=== PATIENT | male | born 1965 | race African-American/Black ===

== ENCOUNTER 2017-06-06 10:42 | Inpatient (IN) | payer MEDICARE ==
--- NOTE | 2017-06-06 11:18 | ER Document Report ---
ED Cardiac - General Stated Complaint: BLOOD PRESSURE ISSUE Time Seen by Provider: 06/06/17 11:17 Notes: He brought over from clinic. Hypotensive. Tachycardic. Has been struggling with some hypertension for quite some time. Patient states that he takes chronic steroids. Stopped him recently. Has COPD. Has increased cough and shortness of breath. Denies fevers. Every time he stands up he wants to pass out TRAVEL OUTSIDE OF THE [place] IN LAST 30 DAYS: No - HPI Patient complains to provider of: Shortness of breath Quality of pain: None - Related Data Allergies/Adverse Reactions: No Known Allergies Allergy (Verified 09/13/14 07:52) Past Medical History - General Information source: Patient - Social History Smoking Status: Former Smoker Cigarette use (# per day): Yes Chew tobacco use (# tins/day): No Smoking Education Provided: No Frequency of alcohol use: None Drug Abuse: None Lives with: Family Family History: CAD - Past Medical History Cardiac Medical History: Reports: Hx Atrial Fibrillation, Hx Hypertension, Hx Pulmonary Embolism Pulmonary Medical History: Reports: Hx Bronchitis, Hx COPD, Hx Pneumonia Endocrine Medical History: Denies: Hx Graves' Disease, Hx Hyperthyroidism, Hx Hypothyroidism Renal/ Medical History: Denies: Hx Benign Prostatic Hyperplasia, Hx End Stage Renal Disease, Hx Kidney Stones, Hx Peritoneal Dialysis Malignancy Medical History: Denies Hx Leukemia GI Medical History: Reports: Hx Gastroesophageal Reflux Disease, Hx Ulcer Musculoskeltal Medical History: Reports Hx Arthritis Psychiatric Medical History: Reports: Hx Depression, Hx Post Traumatic Stress Disorder Traumatic Medical History: Reports: Hx Fractures Infectious Medical History: Denies: Hx HIV Past Surgical History: Reports: Hx Cardiac Catheterization - AFIB ablation, Hx Orthopedic Surgery - left ankle, Hx Tonsillectomy. Denies: Hx Pacemaker - Immunizations Immunizations up to date: Yes Hx Diphtheria, Pertussis, Tetanus Vaccination: Yes Hx Pneumococcal Vaccination: 11/23/09 Review of Systems - Review of Systems Constitutional: Malaise, Weakness EENT: No symptoms reported Cardiovascular: Palpitations, Dyspnea, Syncope Respiratory: Cough, Short of breath Gastrointestinal: No symptoms reported Genitourinary: No symptoms reported Male Genitourinary: No symptoms reported Musculoskeletal: No symptoms reported Skin: No symptoms reported Hematologic/Lymphatic: No symptoms reported Neurological/Psychological: No symptoms reported Physical Exam - Vital signs Vitals: Resp 19 06/06/17 10:56 Interpretation: Hypotensive, Tachycardic - General General appearance: Appears well, Alert - HEENT Head: Normocephalic, Atraumatic Eyes: Normal Pupils: PERRL - Respiratory Respiratory status: No respiratory distress Chest status: Nontender Breath sounds: Nonproductive cough, Wheezing Chest palpation: Normal - Cardiovascular Rhythm: Regular, Irregularly irregular, Tachycardia Heart sounds: Normal auscultation Murmur: No - Abdominal Inspection: Normal Distension: No distension Bowel sounds: Normal Tenderness: Nontender Organomegaly: No organomegaly - Back Back: Normal, Nontender - Extremities General upper extremity: Normal inspection, Nontender, Normal color, Normal ROM , Normal temperature General lower extremity: Normal inspection, Nontender, Normal color, Normal ROM , Normal temperature, Normal weight bearing. No: Deanne's sign - Neurological Neuro grossly intact: Yes Cognition: Normal Orientation: AAOx4 [place] Coma Scale Eye Opening: Spontaneous Yamil Coma Scale Verbal: Oriented Yamil Coma Scale Motor: Obeys Commands [place] Coma Scale Total: 15 Speech: Normal Motor strength normal: LUE, RUE, LLE, RLE Sensory: Normal - Psychological Associated symptoms: Normal affect, Normal mood - Skin Skin Temperature: Warm Skin Moisture: Dry Skin Color: Normal Course - Re-evaluation Re-evalutation: 06/06/17 14:47 And hypotensive. Tachycardic. Will give some fluid boluses. Blood culture. Lactic acid. Concerned the patient could be an adrenal suppression. Will give a dose of hydrocortisone. Will start on antibiotics if chest x-ray is positive - Vital Signs Vital signs: Temp Pulse Resp BP Pulse Ox 16 94/57 L 96 06/06/17 13:00 06/06/17 11:31 06/06/17 13:00 Patient with hypertension, tachycardia. Gave steroids, will order antibiotics. Will give another liter of fluid. Blood pressure still has not come up. Of note, is here now and states that his blood pressure has been in the 70s for about 2 weeks now. Chest x-ray does reveal pneumonia so we will give a course of antibiotics. Will consult with hospitalist for admission at this time - Laboratory Result Diagrams: 06/06/17 11:00 06/06/17 11:00 Laboratory results interpreted by me: 06/06/17 06/06/17 06/06/17 11:00 11:00 11:00 WBC 3.6 L Hgb 13.2 L Lymphocytes % 11.7 L Absolute Lymphocytes 0.4 L Potassium 3.5 L Creatinine 1.46 H Est GFR (Non-Af Amer) 50 L NT-Pro-B Natriuret Pep 943 H Total Protein 5.8 L Albumin 3.1 L - EKG Interpretation by Me EKG shows normal: [place], Intervals, QRS Complexes, ST-T Waves Rate: Tachycardia Rhythm: A.Fib Critical Care Note - Critical Care Note Total time excluding time spent on procedures (mins): 60 Comments: Hypotension, tachycardia Discharge - Discharge Clinical Impression: Pneumonia Qualifiers: Pneumonia type: due to unspecified organism Laterality: right Lung location: lower lobe of lung Qualified Code(s): J18.1 - Lobar pneumonia, unspecified organism Hypotension Qualifiers: Hypotension type: unspecified hypotension type Qualified Code(s): I95.9 - Hypotension, unspecified Condition: Stable Disposition: ADMITTED INPATIENT Admitting Provider: Hospitalist - Dr. theodore Unit Admitted: IMCU Referrals: ALBERTO FRANZ MD [Primary Care Provider] - Follow up as needed
[2017-06-06 11:31] LABS: ABSOLUTE LYMPHOCYTES (AUTO) 0.4 10^3/uL (0.5-4.7); ABSOLUTE MONOCYTES (AUTO) 0.4 10^3/uL (0.1-1.4); ABSOLUTE NEUT (AUTO) 2.8 10^3/uL (1.7-8.2); BASOPHILS % (AUTO) 0.4 % (0-2); EOSINOPHILS % (AUTO) 0.9 % (0-6); HEMATOCRIT 39.9 % (37.9-51.0); HEMOGLOBIN 13.2 g/dL (13.5-17.0); LYMPHOCYTES % (AUTO) 11.7 % (13-45); MEAN CORPUSCULAR HEMOGLOBIN 28.5 pg (27.0-33.4); MEAN CORPUSCULAR HGB CONC 33.1 g/dL (32.0-36.0); MEAN CORPUSCULAR VOLUME 86 fl (80-97); PLATELET COUNT 188 10^3/uL (150-450); RED BLOOD COUNT 4.63 10^6/uL (4.35-5.55); RED CELL DISTRIBUTION WIDTH 13.4 % (11.5-14.0); TOTAL CELLS COUNTED % (AUTO) 100 %; WHITE BLOOD COUNT 3.6 10^3/uL (4.0-10.5)
[2017-06-06] MEDS ORDERED: HYDROCORTISONE SOD SUCCINATE INJ/PF 100 MG/2 ML SDV IV ONE (11:31)
[2017-06-06] MEDS: NORMAL SALINE 1000 ML 1,000 ML IV PRN ×3 (11:34→20:13)
[2017-06-06 11:36] LABS: ALANINE AMINOTRANSFERASE 25 U/L (21-72); ALBUMIN 3.1 g/dL (3.5-5.0); ALKALINE PHOSPHATASE 81 U/L (38-126); ANION GAP 10 (5-19); ASPARTATE AMINO TRANSFERASE 25 U/L (17-59); BILIRUBIN,DIRECT 0.2 mg/dL (0.0-0.4); BILIRUBIN,TOTAL 0.4 mg/dL (0.2-1.3); BLOOD UREA NITROGEN 19 mg/dL (7-20); CALCIUM 8.4 mg/dL (8.4-10.2); CARBON DIOXIDE 26 mmol/L (22-30); CHLORIDE 101 mmol/L (98-107); CREATINE KINASE 157 U/L (55-170); GLUCOSE 93 mg/dL (75-110); POTASSIUM 3.5 mmol/L (3.6-5.0); SODIUM 137.1 mmol/L (137-145); TOTAL PROTEIN 5.8 g/dL (6.3-8.2)
[2017-06-06 11:44] LABS: CREATINE KINASE MB 0.81 ng/mL (<4.55)
[2017-06-06 11:48] LABS: TROPONIN I < 0.012 ng/mL
--- NOTE | 2017-06-06 12:17 | RADIOLOGY REPORT (SQ) ---
EXAM DESCRIPTION: CT HEAD WITHOUT COMPLETED DATE/TIME: 06/06/2017 12:03 pm REASON FOR STUDY: fall, loc COMPARISON: 02/10/2016 TECHNIQUE: Axial images acquired through the brain without intravenous contrast. Images reviewed wi th bone, brain and subdural windows. Images stored on PACS. All CT scanners at this facility use dose modulation, iterative reconstruction, and/or weight based d osing when appropriate to reduce radiation dose to as low as reasonably achievable (ALARA). [facility]: Dose Right [facility]: CareDose [facility]: Dose Right [facility]: Teradose 4D [facility]: Green Chips RADIATION DOSE: CT Rad equipment meets quality standard of care and radiation dose reduction techniq ues were employed. CTDIvol: 64.6 mGy. DLP: 1163 mGy-cm. mGy. LIMITATIONS: None. FINDINGS: VENTRICLES: Normal size and contour. CEREBRUM: No masses. No hemorrhage. No midline shift. No evidence for acute infarction. Normal gra y/white matter differentiation. No areas of low density in the white matter. CEREBELLUM: No masses. No hemorrhage. No alteration of density. No evidence for acute infarction. EXTRAAXIAL SPACES: No fluid collections. No masses. ORBITS AND GLOBE: No intra- or extraconal masses. Normal contour of globe without masses. CALVARIUM: No fracture. PARANASAL SINUSES: No fluid or mucosal thickening. SOFT TISSUES: No mass or hematoma. OTHER: No other significant finding. IMPRESSION: NORMAL BRAIN CT WITHOUT CONTRAST. EVIDENCE OF ACUTE STROKE: NO. COMMENT: Quality ID # [id number]: Final reports with documentation of one or more dose reduction techniques (e.g., Automated exposure control, adjustment of the mA and/or kV according to patient size, use of iterative reconstruction technique) TECHNICAL DOCUMENTATION: JOB ID: [id number] [employer]- All Rights Reserved
--- NOTE | 2017-06-06 12:22 | RADIOLOGY REPORT (SQ) ---
EXAM DESCRIPTION: CHEST SINGLE VIEW COMPLETED DATE/TIME: 06/06/2017 12:01 pm REASON FOR STUDY: cough COMPARISON: 02/10/2016 EXAM PARAMETERS: NUMBER OF VIEWS: One view. TECHNIQUE: Single frontal radiographic view of the chest acquired. RADIATION DOSE: NA LIMITATIONS: Motion. Positioning. FINDINGS: LUNGS AND PLEURA: Segmental airspace disease in the right lower lobe and to a lesser degre e the left lower lobe. No large effusions. MEDIASTINUM AND HILAR STRUCTURES: No masses. Contour normal. HEART AND VASCULAR STRUCTURES: Stable cardiomegaly. BONES: No acute findings. HARDWARE: None in the chest. OTHER: No other significant finding. IMPRESSION: Pneumonia or asymmetric edema. Clinical correlation is needed. TECHNICAL DOCUMENTATION: JOB ID: [id number] [employer]- All Rights Reserved
--- NOTE | 2017-06-06 14:01 | EKG REPORT ---
SEVERITY:- ABNORMAL ECG - ATRIAL FIBRILLATION, V-RATE 83-115 LOW VOLTAGE THROUGHOUT BORDERLINE T ABNORMALITIES, INFERIOR LEADS : Confirmed by: Qamar Martino MD 06-Jun-2017 14:00:12
[2017-06-06] MEDS ORDERED: PIPERACILLIN/TAZOBACTAM 3.375 GM VIAL IV ONE (14:43)
[2017-06-06] MEDS ORDERED: AZITHROMYCIN 250 MG TABLET PO ONE (14:44)
[2017-06-06] MEDS ORDERED: NORMAL SALINE 1000 ML 1,000 ML IV ONE (14:51)
[2017-06-06 16:46] LABS: APPEARANCE,URINE SLIGHTLY-CLOUDY; BILIRUBIN,URINE NEGATIVE (NEGATIVE); COLOR,URINE YELLOW; GLUCOSE, URINE NEGATIVE (NEGATIVE); KETONES,URINE NEGATIVE (NEGATIVE); LEUKOCYTE ESTERASE,URINE NEGATIVE (NEGATIVE); NITRITE,URINE NEGATIVE (NEGATIVE); PROTEIN,URINE NEGATIVE (NEGATIVE); URINE SPECIFIC GRAVITY 1.021
[2017-06-06 16:47] LABS: A TYPE INFLUENZA AG NEGATIVE (NEGATIVE); B INFLUENZA AG NEGATIVE (NEGATIVE)
[2017-06-06] MEDS ORDERED: VANCOMYCIN HCL 0 MG in DEXTROSE 5%-WATER 250 ML IV NR (17:15)
[2017-06-06] MEDS ORDERED: FLUDROCORTISONE ACETATE 0.1 MG TABLET PO ONE (18:00)
[2017-06-06] MEDS ORDERED: LEVALBUTEROL HCL NEB 1.25 MG/3 ML AMPUL NEB SCH (20:00)
[2017-06-06] MEDS ORDERED: BUDESONIDE NEB 0.5 MG/2 ML AMPUL NEB SCH (20:00)
[2017-06-06] MEDS ORDERED: VANCOMYCIN HCL 1,500 MG in DEXTROSE 5%-WATER 250 ML IV ONE (20:00)
[2017-06-06] MEDS ORDERED: LEVALBUTEROL HCL NEB 1.25 MG/3 ML AMPUL NEB PRN (20:19)
[2017-06-06] MEDS ORDERED: POTASSIUM CHLORIDE 10 MEQ TABLET.SA PO ONE (20:22)
[2017-06-06] MEDS ORDERED: IBUPROFEN 600 MG TABLET PO PRN (20:24)
[2017-06-06] MEDS ORDERED: ACETAMINOPHEN 325 MG TABLET PO PRN (20:25)
--- NOTE | 2017-06-06 21:17 | RADIOLOGY REPORT (SQ) ---
EXAM DESCRIPTION: KNEE RIGHT 4 VIEWS COMPLETED DATE/TIME: 06/06/2017 9:09 pm REASON FOR STUDY: fall, swelling and pain COMPARISON: None. NUMBER OF VIEWS: Four views. TECHNIQUE: AP, lateral, and both oblique radiographic images acquired of the right knee. LIMITATIONS: None. FINDINGS: MINERALIZATION: Osteopenia. BONES: Multiple bone infarcts. No acute fracture. JOINT: Joint effusion. SOFT TISSUES: No soft tissue swelling. No radio-opaque foreign body. OTHER: No other significant finding. IMPRESSION: Multiple bone infarcts. Joint effusion. TECHNICAL DOCUMENTATION: JOB ID: [id number] [employer]- All Rights Reserved
[2017-06-06] MEDS: HYDROCORTISONE SOD SUCCINATE INJ/PF 100 MG/2 ML SDV IV SCH (21:28)
[2017-06-06] MEDS: HYDROMORPHONE HCL 2 MG TABLET PO PRN (21:31)
[2017-06-06] MEDS ORDERED: MONTELUKAST SODIUM 10 MG TABLET PO SCH (22:00)
[2017-06-06] MEDS: CEFEPIME 1 GM/D5W RTU 1 GM/50 ML RTUPB IV SCH (22:44)
[2017-06-06] MEDS: METOPROLOL TARTRATE PF/INJ 5 MG/5 ML SDV IV SCH (22:45)
[2017-06-07] MEDS ORDERED: LEVALBUTEROL HCL NEB 1.25 MG/3 ML AMPUL NEB ONE (02:30)
[2017-06-07] MEDS: LEVALBUTEROL HCL NEB 1.25 MG/3 ML AMPUL NEB SCH ×2 (02:31→08:19)
[2017-06-07] MEDS: HYDROMORPHONE HCL 2 MG TABLET PO PRN ×2 (03:02→07:39)
[2017-06-07] MEDS: METOPROLOL TARTRATE PF/INJ 5 MG/5 ML SDV IV SCH ×3 (03:55→10:29)
[2017-06-07 04:33] LABS: ABSOLUTE LYMPHOCYTES (AUTO) 0.9 10^3/uL (0.5-4.7); ABSOLUTE MONOCYTES (AUTO) 1.3 10^3/uL (0.1-1.4); ABSOLUTE NEUT (AUTO) 11.1 10^3/uL (1.7-8.2); BASOPHILS % (AUTO) 0.1 % (0-2); HEMATOCRIT 35.1 % (37.9-51.0); HEMOGLOBIN 11.7 g/dL (13.5-17.0); LYMPHOCYTES % (AUTO) 6.5 % (13-45); MEAN CORPUSCULAR HEMOGLOBIN 28.4 pg (27.0-33.4); MEAN CORPUSCULAR HGB CONC 33.4 g/dL (32.0-36.0); MEAN CORPUSCULAR VOLUME 85 fl (80-97); MONOCYTES % (AUTO) 9.6 % (3-13); PLATELET COUNT 184 10^3/uL (150-450); RED BLOOD COUNT 4.13 10^6/uL (4.35-5.55); RED CELL DISTRIBUTION WIDTH 13.7 % (11.5-14.0); SEGMENTED NEUTROPHILS % (AUTO) 83.8 % (42-78); TOTAL CELLS COUNTED % (AUTO) 100 %
[2017-06-07 04:42] LABS: WHITE BLOOD COUNT 13.2 10^3/uL (4.0-10.5)
[2017-06-07 04:58] LABS: ANION GAP 6 (5-19); BLOOD UREA NITROGEN 13 mg/dL (7-20); CALCIUM 8.7 mg/dL (8.4-10.2); CARBON DIOXIDE 25 mmol/L (22-30); CHLORIDE 109 mmol/L (98-107); GLUCOSE 112 mg/dL (75-110); POTASSIUM 4.3 mmol/L (3.6-5.0); SODIUM 139.9 mmol/L (137-145)
[2017-06-07] MEDS: HYDROCORTISONE SOD SUCCINATE INJ/PF 100 MG/2 ML SDV IV SCH (06:16)
[2017-06-07] MEDS: NORMAL SALINE 1000 ML 1,000 ML IV PRN (06:17)
[2017-06-07] MEDS ORDERED: BUDESONIDE NEB 0.5 MG/2 ML AMPUL NEB SCH (08:00)
[2017-06-07] MEDS ORDERED: VANCOMYCIN HCL 1,500 MG in DEXTROSE 5%-WATER 250 ML IV SCH ×2 (10:00→22:00)
[2017-06-07] MEDS ORDERED: MIDODRINE HCL 5 MG TABLET PO SCH (10:00)
[2017-06-07] MEDS ORDERED: PREDNISONE 20 MG TABLET PO SCH (10:00)
[2017-06-07] MEDS ORDERED: FLUDROCORTISONE ACETATE 0.1 MG TABLET PO SCH (10:00)
[2017-06-07] MEDS: CEFEPIME 1 GM/D5W RTU 1 GM/50 ML RTUPB IV SCH (10:27)
[2017-06-07 13:32] VITALS: BP 105/65
--- NOTE | 2017-06-07 17:07 | PDOC H&P ---
History of Present Illness Admission Date/PCP: 06/06/17 16:10 ALBERTO FRANZ MD Phone number [phone] Patient complains of: Falling History of Present Illness: KERRI STODDARD is a 52 year old male history of COPD, rheumatoid arthritis on Xeljanz and prednisone, chronic atrial fibrillation status post ablation and hypotension for which his metoprolol was discontinued presented after he fell 3 times today. Patient was seen at the [facility] which is a [facility] Patient was being seen there and was noted to be hypotensive. Patient was sent here by EMS. States he been hypotensive over the last 2 months with a recent was taken off his metoprolol. Patient states he continues to be hypotensive. Patient states he was aware of when he was falling down but was unable to stop himself. The last time he fell with his right leg underneath him resulting in quite some pain. She did report having a cough for 2 weeks that was productive of shannon sputum. Patient patient denied any fevers or chills. ED patient was noted to be extremely hypotensive and was given 3 L of fluid and hydrocortisone. Patient was also found to have what looks like a right lower lobe pneumonia and was given ceftriaxone and azithromycin. Hospitalist was called to admit patient for hypotension with for a pneumonia. Past Medical History Cardiac Medical History: Reports: Atrial Fibrillation, Hypertension, Pulmonary Embolism Pulmonary Medical History: Reports: Bronchitis, Chronic Obstructive Pulmonary Disease (COPD), Pneumonia Endocrine Medical History: Denies: Hyperthyroidism, Hypothyroidism Renal/ Medical History: Denies: End Stage Renal Disease Malignancy Medical History: Denies: Breast Cancer, Cervical Cancer, Leukemia, Ovarian Cancer GI Medical History: Reports: Gastroesophageal Reflux Disease Musculoskeltal Medical History: Reports: Arthritis Psychiatric Medical History: Reports: Depression, Post Traumatic Stress Disorder Hematology: Denies: Anemia, Hemophilia, Sickle Cell Disease Infectious Medical History: Denies: HIV Past Surgical History Past Surgical History: Reports: Cardiac Catheterization - AFIB ablation, Orthopedic Surgery - left ankle, Tonsillectomy Denies: Pacemaker Social History Lives with: Family Smoking Status: Former Smoker Frequency of Alcohol Use: None Hx Recreational Drug Use: No Hx Prescription Drug Abuse: No - Advance Directive Resuscitation Status: Full Code Family History Family History: CAD Parental Family History Reviewed: No Children Family History Reviewed: No Sibling(s) Family History Reviewed.: No Medication/Allergy Home Medications: Levofloxacin [Levaquin 750 mg Tablet] 750 mg PO DAILY 10 Days #10 tab 06/07/17 Midodrine HCl [Proamatine 5 mg Tablet] 5 mg PO TID #90 tablet 06/07/17 Allergies/Adverse Reactions: No Known Allergies Allergy (Verified 09/13/14 07:52) Review of Systems Constitutional: ABSENT: chills, fever(s), headache(s), weight gain, weight loss Eyes: ABSENT: visual disturbances Ears: ABSENT: hearing changes Cardiovascular: ABSENT: chest pain, dyspnea on exertion, edema, orthropnea, palpitations Respiratory: PRESENT: cough. ABSENT: hemoptysis Gastrointestinal: ABSENT: abdominal pain, constipation, diarrhea, hematemesis, hematochezia, nausea, vomiting Genitourinary: ABSENT: dysuria, hematuria Musculoskeletal: PRESENT: other - Right knee pain. ABSENT: joint swelling Integumentary: ABSENT: rash, wounds Neurological: PRESENT: syncope. ABSENT: abnormal gait, abnormal speech, confusion, dizziness, focal weakness Psychiatric: ABSENT: anxiety, depression, homidical ideation, suicidal ideation Endocrine: ABSENT: cold intolerance, heat intolerance, polydipsia, polyuria Hematologic/Lymphatic: ABSENT: easy bleeding, easy bruising Physical Exam Vital Signs: Temp Pulse Resp BP Pulse Ox 21 H 93/67 L 95 06/06/17 16:01 06/06/17 16:00 06/06/17 16:01 Intake & Output 06/05/17 06/06/17 06/07/17 06:59 06:59 06:59 Weight 107.8 kg General appearance: PRESENT: no acute distress, well-developed, well-nourished Head exam: PRESENT: atraumatic, normocephalic, other - Laceration over the left eye Eye exam: PRESENT: EOMI. ABSENT: scleral icterus Mouth exam: PRESENT: moist Neck exam: ABSENT: carotid bruit, JVD, lymphadenopathy, thyromegaly Respiratory exam: PRESENT: clear to auscultation alessia. ABSENT: rales, rhonchi, wheezes Cardiovascular exam: PRESENT: RRR. ABSENT: diastolic murmur, rubs, systolic murmur Pulses: PRESENT: normal dorsalis pedis pul Vascular exam: PRESENT: normal capillary refill GI/Abdominal exam: PRESENT: normal bowel sounds, soft. ABSENT: distended, guarding, mass, organolmegaly, rebound, tenderness Rectal exam: PRESENT: deferred Extremities exam: PRESENT: full ROM. ABSENT: calf tenderness, clubbing, pedal edema Musculoskeletal exam: PRESENT: other - Right knee swelling with tenderness on palpation no visible erythema Neurological exam: PRESENT: alert, awake, oriented to person, oriented to place , oriented to time, oriented to situation, CN II-XII grossly intact. ABSENT: motor sensory deficit Psychiatric exam: PRESENT: appropriate affect, normal mood. ABSENT: homicidal ideation, suicidal ideation Skin exam: PRESENT: dry, intact, warm. ABSENT: cyanosis, rash Results Laboratory Results: 06/06/17 06/06/17 06/06/17 11:00 11:00 11:00 WBC 3.6 L RBC 4.63 Hgb 13.2 L Hct 39.9 MCV 86 MCH 28.5 MCHC 33.1 RDW 13.4 Plt Count 188 Seg Neutrophils % 76.0 Lymphocytes % 11.7 L Monocytes % 11.0 Eosinophils % 0.9 Basophils % 0.4 Absolute Neutrophils 2.8 Absolute Lymphocytes 0.4 L Absolute Monocytes 0.4 Absolute Eosinophils 0.0 Absolute Basophils 0.0 Sodium 137.1 Potassium 3.5 L Chloride 101 Carbon Dioxide 26 Anion Gap 10 BUN 19 Creatinine 1.46 H Est GFR ( Amer) > 60 Est GFR (Non-Af Amer) 50 L Glucose 93 Calcium 8.4 Total Bilirubin 0.4 Direct Bilirubin 0.2 AST 25 ALT 25 Alkaline Phosphatase 81 Creatine Kinase 157 CK-MB (CK-2) 0.81 Troponin I < 0.012 Total Protein 5.8 L Albumin 3.1 L Random Cortisol 06/06/17 11:00 WBC RBC Hgb Hct MCV MCH MCHC RDW Plt Count Seg Neutrophils % Lymphocytes % Monocytes % Eosinophils % Basophils % Absolute Neutrophils Absolute Lymphocytes Absolute Monocytes Absolute Eosinophils Absolute Basophils Sodium Potassium Chloride Carbon Dioxide Anion Gap BUN Creatinine Est GFR ( Amer) Est GFR (Non-Af Amer) Glucose Calcium Total Bilirubin Direct Bilirubin AST ALT Alkaline Phosphatase Creatine Kinase CK-MB (CK-2) Troponin I Total Protein Albumin Random Cortisol 15.80 Impressions: Head CT 06/06/17 11:22 IMPRESSION: NORMAL BRAIN CT WITHOUT CONTRAST. EVIDENCE OF ACUTE STROKE: NO. Chest X-Ray 06/06/17 11:29 IMPRESSION: Pneumonia or asymmetric edema. Clinical correlation is needed. Assessment & Plan - Diagnosis (1) Pneumonia Qualifiers: Pneumonia type: due to unspecified organism Laterality: right Lung location: lower lobe of lung Qualified Code(s): J18.1 - Lobar pneumonia, unspecified organism Plan: Patient with right lower lobe possible pneumonia. Patient did complain of productive cough. Patient afebrile without leukocytosis however does have a low white count this is concerning as patient is on Xeljanz and which is immunosuppressive drug along chronic steroids for his rheumatoid arthritis. Blood cultures were drawn and patient started on cefepime and vancomycin. (2) Acute renal failure Is this a current diagnosis for this admission?: Yes Plan: Patient with acute renal failure most likely due to dehydration. Patient creatinine was 1.46 is 1.16 prior to that. Will hydrate patient and repeat BMP in the morning. (3) Fall Is this a current diagnosis for this admission?: Yes Plan: Fall possibly due to orthostatic hypotension from dehydration. Will check orthostatics and hydrate patient aggressively overnight. Patient started on Florinef, Midrin, hydrocortisone. Compression stockings placed. Random cortisol was normal. Cortisol was checked as patient is on chronic steroids and there was concern for adrenal insufficiency however patient electrolytes are normal. (4) Effusion, right knee Is this a current diagnosis for this admission?: Yes Plan: Right knee effusion will order x-ray of the right knee to make sure there is no fracture considered in fact the patient is on chronic steroids. Patient started on NSAID and p.o. steroids. (5) Hypotension Qualifiers: Hypotension type: unspecified hypotension type Qualified Code(s): I95.9 - Hypotension, unspecified Plan: Patient persistently hypotensive most likely due to dehydration. Patient metoprolol was discontinued due to his hypotension. Will check orthostatic blood pressures. Continue aggressive hydration, compression stocking, Midodrine ,Florinef and hydrocortisone. - Time Time Spent: 30 to 50 Minutes Anticipated discharge: Home Within: Other - Inpatient Certification Medical Necessity: Need for IV Antibiotics
--- NOTE | 2017-06-07 17:18 | PDOC DISCHARGE SUMMARY ---
General - Admit/Disc Date/PCP Admission Date/Primary Care Provider: 06/06/17 16:10 ALBERTO FRANZ MD Discharge Date: 06/07/17 - Discharge Diagnosis (2) Acute renal failure Is this a current diagnosis for this admission?: Yes (3) Fall Is this a current diagnosis for this admission?: Yes (4) Effusion, right knee Is this a current diagnosis for this admission?: Yes - Additional Information Resuscitation Status: Full Code Discharge Diet: Other (Comments) Discharge Activity: Activity As Tolerated Prescriptions: Levofloxacin [Levaquin 750 mg Tablet] 750 mg PO DAILY 10 Days #10 tab Midodrine HCl [Proamatine 5 mg Tablet] 5 mg PO TID #90 tablet Home Medications: Levofloxacin [Levaquin 750 mg Tablet] 750 mg PO DAILY 10 Days #10 tab 06/07/17 Midodrine HCl [Proamatine 5 mg Tablet] 5 mg PO TID #90 tablet 06/07/17 History of Present Illness History of Present Illness: KERRI STODDARD is a 52 year old male history of COPD, rheumatoid arthritis on Xeljanz and prednisone, chronic atrial fibrillation status post ablation and hypotension for which his metoprolol was discontinued presented after he fell 3 times today. Patient was seen at the [facility] which [facility] a [facility] Patient was being seen there and was noted to be hypotensive. Patient was sent here by EMS. States he been hypotensive over the last 2 months with a recent was taken off his metoprolol. Patient states he continues to be hypotensive. Patient states he was aware of when he was falling down but was unable to stop himself. The last time he fell with his right leg underneath him resulting in quite some pain. She did report having a cough for 2 weeks that was productive of shannon sputum. Patient patient denied any fevers or chills. ED patient was noted to be extremely hypotensive and was given 3 L of fluid and hydrocortisone. Patient was also found to have what looks like a right lower lobe pneumonia and was given ceftriaxone and azithromycin. Hospitalist was called to admit patient for hypotension with for a pneumonia. Original H&P dictated by myself Dr. Shelbi Stephen. Refer to H&P dictated by me for complete details. Hospital Course Hospital Course: Patient presented for multiple falls was found to be hypotensive. Patient was orthostatic on blood pressures recorded this morning however he was asymptomatic. Patient has been on Midodrine 5mg po 3 times daily, Florinef 0.1 daily and hydrocortisone. Patient also given aggressive fluid hydration. Concerned the patient may have been dehydrated when this happened as patient creatinine was elevated on presentation is now normal. His tachycardia resolved. Patient advised that he should wear his prescient stockings especially if he will be standing for quite some period of time. Patient also instructed at a little salt to his food. Encourage patient to change positions slowly to allow his blood pressure to adjust. CT scan of the head with normal. Patient did have a right lower lobe finding and because he is on immunosuppressants for his rheumatoid arthritis Xeljanz and prednisone patient is being treated for pneumonia. Patient was given vancomycin and cefepime. Blood cultures are drawn. There is no growth on blood pressure cultures. Patient discharged on Levaquin 750 mg p.o. for 10 days. Explained to patient that because he is immunocompromise it is best to treat when something is seen as he may not have the normal response his fever and leukocytosis. Patient stated he felt better better and would like to go home as he is concerned about jennifer any diseases while in the hospital. Patient did work with PT and OT prior to being discharged. Patient stated he did well and felt well. Patient states that his right knee feels much better and the swelling has gone down. Patient is being discharged home with a prescription for Levaquin and Midodrine. Patient to follow-up at the [facility]. Physical Exam Vital Signs: Temp Pulse Resp BP Pulse Ox 99.0 F 94 16 105/65 97 06/07/17 13:31 06/07/17 13:31 06/07/17 13:31 06/07/17 13:31 06/07/17 13:31 Intake & Output 06/06/17 06/07/17 06/08/17 06:59 06:59 06:59 Intake Total 542 350 Output Total 900 800 Balance -358 -450 Weight 108 kg 108.6 kg General appearance: PRESENT: no acute distress, well-developed, well-nourished Head exam: PRESENT: atraumatic, normocephalic Eye exam: PRESENT: EOMI. ABSENT: scleral icterus Mouth exam: PRESENT: moist Teeth exam: PRESENT: poor dentation Neck exam: ABSENT: carotid bruit, JVD, lymphadenopathy, thyromegaly Respiratory exam: PRESENT: clear to auscultation alessia. ABSENT: rales, rhonchi, wheezes Cardiovascular exam: PRESENT: RRR. ABSENT: diastolic murmur, rubs, systolic murmur GI/Abdominal exam: PRESENT: normal bowel sounds, soft. ABSENT: distended, guarding, mass, organolmegaly, rebound, tenderness Rectal exam: PRESENT: deferred Extremities exam: PRESENT: full ROM. ABSENT: calf tenderness, clubbing, pedal edema Musculoskeletal exam: PRESENT: other - Right knee swelling improved decrease tenderness. Neurological exam: PRESENT: alert, awake, oriented to person, oriented to place , oriented to time, oriented to situation, CN II-XII grossly intact. ABSENT: motor sensory deficit Psychiatric exam: PRESENT: appropriate affect, normal mood. ABSENT: homicidal ideation, suicidal ideation Skin exam: PRESENT: dry, intact, warm. ABSENT: cyanosis, rash Results Laboratory Results: 06/07/17 04:15 06/07/17 04:15 06/07/17 06/07/17 04:15 04:15 WBC 13.2 H D RBC 4.13 L Hgb 11.7 L Hct 35.1 L MCV 85 MCH 28.4 MCHC 33.4 RDW 13.7 Plt Count 184 Seg Neutrophils % 83.8 H Lymphocytes % 6.5 L Monocytes % 9.6 Eosinophils % 0.0 Basophils % 0.1 Absolute Neutrophils 11.1 H Absolute Lymphocytes 0.9 Absolute Monocytes 1.3 Absolute Eosinophils 0.0 Absolute Basophils 0.0 Sodium 139.9 Potassium 4.3 Chloride 109 H Carbon Dioxide 25 Anion Gap 6 BUN 13 Creatinine 0.87 Est GFR ( Amer) > 60 Est GFR (Non-Af Amer) > 60 Glucose 112 H Calcium 8.7 Impressions: Knee X-Ray 06/06/17 00:00 IMPRESSION: Multiple bone infarcts. Joint effusion. Head CT 06/06/17 11:22 IMPRESSION: NORMAL BRAIN CT WITHOUT CONTRAST. EVIDENCE OF ACUTE STROKE: NO. Chest X-Ray 06/06/17 11:29 IMPRESSION: Pneumonia or asymmetric edema. Clinical correlation is needed. Qualifiers PATEINT BEING DISCHARGED WITH ANY OF THE FOLLOWING DIAGNOSIS?: No Plan Time Spent: Greater than 30 Minutes - she is
== END 2017-06-07 13:57 | disposition home or self-care (01) | DRG 682 ==
LOC: ER 10:42 → EH 16:10 → 3W 06-07 02:28
PROVIDERS: ADMIT Emergency Medicine; ATTEND Emergency Medicine
DX: N17.9 Acute kidney failure, unspecified (principal); J18.1 Lobar pneumonia, unspecified organism; I95.1 Orthostatic hypotension; E86.0 Dehydration; M25.461 Effusion, right knee; J44.9 Chronic obstructive pulmonary disease, unspecified; M06.9 Rheumatoid arthritis, unspecified; I48.2 Chronic atrial fibrillation; Z79.899 Other long term (current) drug therapy; Z87.891 Personal history of nicotine dependence; I10 Essential (primary) hypertension; Z86.711 Personal history of pulmonary embolism; K21.9 Gastro-esophageal reflux disease without esophagitis; W19.XXXA Unspecified fall, initial encounter; Y93.9 Activity, unspecified; Y92.9 Unspecified place or not applicable; Y99.9 Unspecified external cause status
CPT/HCPCS: 36415; 70450; 71045; 80048; 80053; 81001; 82533; 82550; 82553; 83605; 83880; 84484; 85025; 87040; 87070; 87205; 87804; 93005; 93010; 94640; 96361; 96374; 96375; 99291; J0692; J1720; J2543; J3370; J3490; J7030; J7060; J7512

== ENCOUNTER 2018-04-26 01:27 | Emergency (ER) | payer OTHER, MEDICARE ==
--- NOTE | 2018-04-26 01:38 | ER Document Report ---
ED General - General Mode of Arrival: Medic Information source: Patient TRAVEL OUTSIDE OF THE [place] IN LAST 30 DAYS: No <LISETH GHOSH - Last Filed: 04/26/18 05:50> <CT GLASGOW - Last Filed: 04/26/18 07:51> - General Stated Complaint: FALL Time Seen by Provider: 04/26/18 01:27 Notes: Patient is a 53 year old male with afib, PTSD, COPD, emphysema, BLE neuropathy and a history of a stroke (2015) presents to the emergency department via EMS complaining of left hip pain onset today. Patient states he was sleeping in a chair when he proceeded to fall on the floor, on his buttocks with his left leg under his right. Patient states he had left hip surgery in October 2017 and a repeat left hip surgery in March 2018. He states he noticed some increased swelling since the fall and also noticed his left leg was shorter than the right. Patient denies any head trauma, nausea, vomiting, sore throat, rhinorrhea , earaches, headaches, back pain or neck pain. Patient is currently on Xarelto for his afib. [facility] Patient had his [facility] hip surgery at [facility] by Dr. Beni Hawthorne. (LISETH GHOSH) - Related Data Allergies/Adverse Reactions: No Known Allergies Allergy (Verified 03/23/18 16:45) Past Medical History - General Information source: Patient - Social History Smoking Status: Current Every Day Smoker Cigarette use (# per day): Yes - Uses E-cig Chew tobacco use (# tins/day): No Smoking Education Provided: No Frequency of alcohol use: None Drug Abuse: None Family History: CAD - Past Medical History Cardiac Medical History: Reports: Hx Atrial Fibrillation, Hx Hypertension, Hx Pulmonary Embolism Pulmonary Medical History: Reports: Hx Bronchitis, Hx COPD, Hx Pneumonia GI Medical History: Reports: Hx Gastroesophageal Reflux Disease, Hx Ulcer Musculoskeletal Medical History: Reports Hx Arthritis Psychiatric Medical History: Reports: Hx Depression, Hx Post Traumatic Stress Disorder Traumatic Medical History: Reports: Hx Fractures Past Surgical History: Reports: Hx Cardiac Catheterization - AFIB ablation, Hx Orthopedic Surgery - left ankle, Hx Tonsillectomy - Immunizations Immunizations up to date: Yes Hx Diphtheria, Pertussis, Tetanus Vaccination: Yes Hx Pneumococcal Vaccination: 11/23/09 <LISETH GHOSH - Last Filed: 04/26/18 05:50> Review of Systems - Review of Systems Constitutional: No symptoms reported EENT: No symptoms reported Cardiovascular: No symptoms reported Respiratory: No symptoms reported Gastrointestinal: No symptoms reported Genitourinary: No symptoms reported Male Genitourinary: No symptoms reported Musculoskeletal: See HPI Skin: No symptoms reported Hematologic/Lymphatic: No symptoms reported Neurological/Psychological: No symptoms reported -: Yes All other systems reviewed and negative <LISETH GHOSH - Last Filed: 04/26/18 05:50> Physical Exam <LISETH GHOSH - Last Filed: 04/26/18 05:50> <CT GLASGOW - Last Filed: 04/26/18 07:51> - Vital signs Vitals: Temp Pulse Resp BP Pulse Ox 98.7 F 89 15 116/76 98 04/26/18 02:05 04/26/18 02:05 04/26/18 02:05 04/26/18 02:05 04/26/18 02:05 - Notes Notes: GENERAL: Alert, interacts well. No acute distress. HEAD: Normocephalic, atraumatic. EYES: Pupils equal, round, and reactive to light. Extraocular movements intact. ENT: Oral mucosa moist, tongue midline. NECK: Full range of motion. Supple. Trachea midline. LUNGS: Clear to auscultation bilaterally, no wheezes, rales, or rhonchi. No respiratory distress. HEART: Irregularly irregular. No murmurs, gallops, or rubs. ABDOMEN: Soft, non-tender. Non-distended. Bowel sounds present in all 4 quadrants. EXTREMITIES: Moves all 4 extremities spontaneously.Unable to test ROM of LLE due to pain. 2+ pitting edema in the left lower extremity, trace pitting edema in the RLE. Tenderness to palpation to the joint line of left knee and just below the patella, no signs of effusion. Left thigh grossly swollen. LLE 1.5 inch shorter than RLE. LLE is slightly internally rotated, still somewhat externally rotated however less so than RLE. NEUROLOGICAL: Alert and oriented x3. Normal speech. Decreased sensation to left foot, patient states this is baseline. PSYCH: Normal affect, normal mood. SKIN: Warm, dry. Post operative bandage still intact over left hip surgical incision. No rashes or lesions noted. (LISETH GHOSH) Course - Laboratory Result Diagrams: 04/26/18 01:45 04/26/18 01:45 <LISETH GHOSH - Last Filed: 04/26/18 05:50> - Laboratory Result Diagrams: 04/26/18 01:45 04/26/18 01:45 <CT GLASGOW - Last Filed: 04/26/18 07:51> - Re-evaluation Re-evalutation: 04/26/18 05:17 Attempted reduction twice, both times felt a clunk but then immediately placed hip back into neutral position and saw that the leg was still significantly shorter than the right one. At this time of call Dr. Winston the orthopedic surgeon on-call who is going to come to the ER and attempt reduction himself. 04/26/18 06:15 04/26/18 07:43 Dr. Winston was able to reduce the left hip without complications while I ran the conscious sedation. Post-reduction film shows good reduction, placed in a knee immobilizer and discharged to home. Ambulance arranged for transport home as he is nonweightbearing and does not have his walker with him. (CT GLASGOW) - Vital Signs Vital signs: Temp Pulse Resp BP Pulse Ox 98.7 F 110 H 14 153/94 H 100 04/26/18 02:05 04/26/18 07:33 04/26/18 07:33 04/26/18 07:33 04/26/18 07:33 - Laboratory Laboratory results interpreted by me: 04/26/18 04/26/18 04/26/18 01:45 01:45 01:45 RBC 4.21 L Hgb 10.7 L Hct 32.1 L MCV 76 L MCH 25.4 L RDW 18.8 H Monocytes % 18.3 H Eosinophils % 6.3 H PT 16.6 H APTT 44.3 H Chloride 97 L Alkaline Phosphatase 152 H Procedures - Conscious Sedation Conscious sedation Time started: 03:46 Consent obtained: Yes Medications administered: Diprivan I personally performed/intraservice time: Sedation, Procedure - Joint Reduction/Fracture Care Left Hip Time completed: 03:55 Consent obtained: Yes Conscious sedation: Yes Pre-procedure NV exam: Yes Post-procedure NV exam: Yes Post-reduction x-ray: Joint not reduced Reduction attempts: 2 - 2nd attempt at 05:11 <LISETH GHOSH - Last Filed: 04/26/18 05:50> - Conscious Sedation Conscious sedation Time started: 03:40 Time completed: 03:57 Indication: left hip dislocation Last meal: 11 a.m. 04/25/2018 Prior complications: Other Pt with a severe systemic disease.: P3. - ASA Classification. Airway Evaluation: Large tongue Mallampati Classification: Class 2 Used during procedure: Suction available, IV access obtained, Pulse ox on pt., exhaust emissions inspector on pt. I personally performed/intraservice time: 30 min or less Complications: Yes - unable to reduce hip - Immobilization left knee Pre-Proc Neuro Vasc Exam: Normal Immobilizer type: Knee immobilizer Performed by: PCT Post-Proc Neuro Vasc Exam: Normal, Unchanged from pre-exam Alignment checked and good: Yes - Joint Reduction/Fracture Care Left Hip Reduction attempts: 3 - 2nd attempt at 05:11, 3rd at 0708 Complications: Yes - unable to reduce x 2 <CT GLASGOW - Last Filed: 04/26/18 07:51> - Conscious Sedation Conscious sedation Notes: Second attempt started at 458 and ended at 514, same indication, same preparation, propofol was used again. Still unable to reduce the hip, patient had approximately 30 seconds of apnea and hypoxia, patient was bagged through using a bag valve mask and then he started breathing again on his own. No further complications aside from still not being able to reduce the hip. Third reduction attempt was taken at 708, started at 708 and ended at 733. Dr. Winston was the one manipulating the hip and he was able to obtain successful reduction of the left hip. I performed the sedation. No complications. ( CT GLASGOW) - Joint Reduction/Fracture Care Left Hip Notes: 04/26/18 07:49 After final attempt postreduction x-rays showed good alignment. (CT GLASGOW) Discharge <LISETH GHOSH - Last Filed: 04/26/18 05:50> <CT GLASGOW - Last Filed: 04/26/18 07:51> - Discharge Clinical Impression: Posterior dislocation of left hip, initial encounter, Presence of left artificial hip joint Condition: Stable Disposition: HOME, SELF-CARE Additional Instructions: Please use your walker whenever walking, please sleep on your back, please use the wedge pillow between your legs and use a knee immobilizer to stop from bending your hip. Please return to the emergency department for numbness, tingling, weakness, increasing pain. Please follow-up with your orthopedic surgeon on Friday. At least call their office and let them know that you dislocated yor hip and we were able to reduce it. Referrals: PRACHI BELL MD [Primary Care Provider] - Follow up tomorrow Scribe Attestation: 04/26/18 07:51 I personally performed the services described in the documentation, reviewed and edited the documentation which was dictated to the scribe in my presence, and it accurately records my words and actions. (CT GLASGOW) Scribe Documentation - Scribe Written by Demetris:: Demetris Kuhn, 04/26/2018 02:17 acting as scribe for :: Tori <LISETH GHOSH - Last Filed: 04/26/18 05:50>
[2018-04-26] MEDS ORDERED: FENTANYL CITRATE INJ/PF 100 MCG/2 ML AMPUL IV PRN (01:39)
[2018-04-26 01:57] LABS: ABSOLUTE EOSINOPHILS # (AUTO) 0.3 10^3/uL (0.0-0.6); ABSOLUTE LYMPHOCYTES (AUTO) 0.8 10^3/uL (0.5-4.7); ABSOLUTE MONOCYTES (AUTO) 0.8 10^3/uL (0.1-1.4); ABSOLUTE NEUT (AUTO) 2.4 10^3/uL (1.7-8.2); BASOPHILS % (AUTO) 0.6 % (0-2); EOSINOPHILS % (AUTO) 6.3 % (0-6); HEMATOCRIT 32.1 % (37.9-51.0); HEMOGLOBIN 10.7 g/dL (13.5-17.0); LYMPHOCYTES % (AUTO) 19.4 % (13-45); MEAN CORPUSCULAR HEMOGLOBIN 25.4 pg (27.0-33.4); MEAN CORPUSCULAR HGB CONC 33.3 g/dL (32.0-36.0); MEAN CORPUSCULAR VOLUME 76 fl (80-97); MONOCYTES % (AUTO) 18.3 % (3-13); PLATELET COUNT 317 10^3/uL (150-450); RED BLOOD COUNT 4.21 10^6/uL (4.35-5.55); RED CELL DISTRIBUTION WIDTH 18.8 % (11.5-14.0); SEGMENTED NEUTROPHILS % (AUTO) 55.4 % (42-78); TOTAL CELLS COUNTED % (AUTO) 100 %; WHITE BLOOD COUNT 4.3 10^3/uL (4.0-10.5)
[2018-04-26 02:01] LABS: INTERNATIONAL RATION (INR) 1.27; PROTHROMBIN TIME 16.6 SEC (11.4-15.4)
[2018-04-26 02:02] LABS: PARTIAL THROMBOPLASTIN TIME 44.3 SEC (23.5-35.8)
[2018-04-26 02:07] LABS: ALANINE AMINOTRANSFERASE 33 U/L (21-72); ALBUMIN 3.8 g/dL (3.5-5.0); ALKALINE PHOSPHATASE 152 U/L (38-126); ANION GAP 14 (5-19); ASPARTATE AMINO TRANSFERASE 37 U/L (17-59); BILIRUBIN,DIRECT 0.3 mg/dL (0.0-0.4); BILIRUBIN,TOTAL 0.7 mg/dL (0.2-1.3); BLOOD UREA NITROGEN 16 mg/dL (7-20); CALCIUM 9.2 mg/dL (8.4-10.2); CARBON DIOXIDE 27 mmol/L (22-30); CHLORIDE 97 mmol/L (98-107); GLUCOSE 101 mg/dL (75-110); POTASSIUM 4.1 mmol/L (3.6-5.0); SODIUM 138.1 mmol/L (137-145); TOTAL PROTEIN 6.8 g/dL (6.3-8.2)
--- NOTE | 2018-04-26 02:34 | RADIOLOGY REPORT (SQ) ---
EXAM DESCRIPTION: XR FEMUR 2 VIEWS COMPLETED DATE/TME: 04/26/2018 01:38 CLINICAL HISTORY: 53 years, Male, fell, left leg deformity and shortening COMPARISON: None. NUMBER OF VIEWS: 4 TECHNIQUE: 4 views of the left femur LIMITATIONS: None. FINDINGS: Status post total left hip arthroplasty. Superior dislocation of the femoral component. Osteopenia with degenerative changes of the distal femur. Serpiginous sclerotic foci of the distal femur and proximal tibia likely reflect bone infarcts versus enchondroma. There is soft tissue gas along the lateral aspect of the hip which may be postoperative in nature. Overlying skin tong. No discrete fracture. IMPRESSION: Superior hip dislocation. Soft tissue gas may be postoperative in nature. Osteopenia. 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 copyright 2010 [employer]- All Rights Reserved
[2018-04-26] MEDS ORDERED: PROPOFOL INJ 200 MG/20 ML VIAL IV ONE ×4 (02:44→07:30)
[2018-04-26] MEDS ORDERED: FENTANYL CITRATE INJ/PF 100 MCG/2 ML AMPUL IV ONE ×2 (03:57→05:11)
--- NOTE | 2018-04-26 04:24 | RADIOLOGY REPORT (SQ) ---
EXAM DESCRIPTION: XR HIP 2 OR MORE VIEWS COMPLETED DATE/TME: 04/26/2018 03:57 CLINICAL HISTORY: 53 years, Male, post-reduction attempt, still shortened COMPARISON: Left femur x-ray from today's date NUMBER OF VIEWS: 1 TECHNIQUE: AP view left hip LIMITATIONS: None. FINDINGS: Persistent superior dislocation of the femoral component. No discrete fracture. Soft tissue gas and swelling is again noted. Osteopenia. IMPRESSION: Persistent superior dislocation copyright 2010 [employer]- All Rights Reserved
[2018-04-26] MEDS ORDERED: PROPOFOL 1,000 MG/100 ML INFUS..BTL IV ONE (07:02)
[2018-04-26] MEDS ORDERED: OXYCODONE-ACETAMINOPHEN 5-325 MG TABLET PO ONE (07:36)
--- NOTE | 2018-04-26 07:51 | RADIOLOGY REPORT (SQ) ---
CLINICAL DATA: 53-year-old male status post left hip reduction TECHNICAL DATA: A single AP x-ray view of the left hip was performed on 04/26/2018 at 7:32 AM. COMPARISONS: Prior study performed on 04/26/2018 at 4:08 AM FINDINGS: Since the prior study there has been satisfactory reduction of the left hip joint dislocation as appreciated on this single projection. There are postsurgical changes superior laterally. Skin closure tong are noted. There is subcutaneous emphysema consistent with recent surgery. There is no definite acute fracture. The visualized prosthesis is grossly satisfactory in position and alignment. IMPRESSION: Satisfactory closed reduction of the left hip joint dislocation without definite hardware failure or acute fracture identified. There are recent postsurgical changes as described above.
[2018-04-26 08:07] VITALS: BP 126/81
--- NOTE | 2018-04-26 09:21 | PDOC CONSULTATION ---
Consultation Consult Date: 04/26/18 Consult reason:: Posterior lateral left hip dislocation. 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 Patient was at home where he was falling asleep and took his sleeping medication. Does not recall tripping or falling or having a mechanical fall he knows he was on it woke him up on the floor with a deformed extremity and left hip pain. Daughter helped him onto the bed and called 911. EMS and brought the patient to the hospital where he was x-rayed and showed to have a dislocated left hip prosthesis. There is no fracture dislocation. Patient complains of just acute pain with a deformity of left lower extremity and inability to weight-bear. Pain 5 out of 5. Denies any numbness or tingling paresthesias. Past Medical History Cardiac Medical History: Reports: Atrial Fibrillation, Hypertension, Pulmonary Embolism Pulmonary Medical History: Reports: Bronchitis, Chronic Obstructive Pulmonary Disease (COPD), Pneumonia Endocrine Medical History: Denies: Hyperthyroidism, Hypothyroidism Renal/ Medical History: Denies: End Stage Renal Disease Malignancy Medical History: Denies: Breast Cancer, Cervical Cancer, Leukemia, Ovarian Cancer GI Medical History: Reports: Gastroesophageal Reflux Disease Musculoskeltal Medical History: Reports: Arthritis Psychiatric Medical History: Reports: Depression, Post Traumatic Stress Disorder Hematology: Denies: Anemia, Hemophilia, Sickle Cell Disease Infectious Medical History: Denies: HIV Past Surgical History Past Surgical History: Reports: Cardiac Catheterization - AFIB ablation, Orthopedic Surgery - left ankle, Tonsillectomy Denies: Pacemaker Social History Smoking Status: Current Every Day Smoker Frequency of Alcohol Use: None Hx Recreational Drug Use: No Drugs: None Hx Prescription Drug Abuse: No Family History Family History: CAD Parental Family History Reviewed: No Children Family History Reviewed: No Sibling(s) Family History Reviewed.: No Medication/Allergy Home Medications: Levofloxacin [Levaquin 750 mg Tablet] 750 mg PO DAILY 10 Days #10 tab 06/07/17 Midodrine HCl [Proamatine 5 mg Tablet] 5 mg PO TID #90 tablet 06/07/17 Doxycycline Hyclate 100 mg PO BID #14 capsule 03/23/18 Prednisone [Deltasone 20 mg Tablet] 20 mg PO DAILY #30 tablet 03/23/18 Allergies/Adverse Reactions: No Known Allergies Allergy (Verified 03/23/18 16:45) Review of Systems Review of Systems: Constitutional: [PRESENT: as per HPI. ABSENT: chills, fever(s), headache(s), weight gain, weight loss] Eyes: [ABSENT: visual disturbances] Ears: [ABSENT: hearing changes] Cardiovascular: [ABSENT: chest pain, dyspnea on exertion, edema, orthropnea, palpitations] Respiratory: [ABSENT: cough, hemoptysis] Gastrointestinal: [ABSENT: abdominal pain, constipation, diarrhea, hematemesis, hematochezia, nausea, vomiting] Genitourinary: [ABSENT: dysuria, hematuria] Musculoskeletal: As per HPI Integumentary: [ABSENT: rash, wounds] Neurological: [ABSENT: abnormal gait, abnormal speech, confusion, dizziness, focal weakness, syncope] Psychiatric: [ABSENT: anxiety, depression, homicidal ideation, suicidal ideation ] Endocrine: [ABSENT: cold intolerance, heat intolerance, menstrual abnormalities , polydipsia, polyuria] Hematologic/Lymphatic: [ABSENT: easy bleeding, easy bruising, lymphadenopathy] Physical Exam Vital Signs: Temp Pulse Resp BP Pulse Ox 37.1 C 97 16 126/81 H 100 04/26/18 02:05 04/26/18 08:06 04/26/18 08:06 04/26/18 08:06 04/26/18 08:06 Intake & Output 04/25/18 04/26/18 04/27/18 06:59 06:59 06:59 Intake Total 100 Balance 100 Weight 106.594 kg General appearance: PRESENT: no acute distress, well-nourished Eye exam: PRESENT: EOMI, other - Round symmetric pupils Ear exam: PRESENT: normal external ear exam. ABSENT: bleeding, drainage Mouth exam: PRESENT: neck supple Neck exam: ABSENT: lymphadenopathy, thyromegaly Respiratory exam: PRESENT: symmetrical, unlabored. ABSENT: accessory muscle use , tachypnea Cardiovascular exam: PRESENT: RRR Pulses: PRESENT: normal dorsalis pedis pul Vascular exam: PRESENT: normal capillary refill GI/Abdominal exam: PRESENT: soft. ABSENT: organolmegaly, rigid Neurological exam: PRESENT: alert, awake, oriented to person, oriented to place , oriented to time, oriented to situation Psychiatric exam: PRESENT: appropriate affect, normal mood Skin exam: PRESENT: intact. ABSENT: erythema, rash Additional comments: Procedure was done the patient was given propofol IV sedation. PA was then held in the pelvis Y flex and pull traction and internal/external maneuvers to finally reduce the hip. Also felt a audible click and reduction of the extremity down flat andshowed that the patient had limb length correction. For the post reduction films shows a reduced prosthesis. Patient was awoken successfully from the sedation. Adult Front & Back Image: 1 - Prereduction exam showed a limb length shortening of about a good 4 inches. Pain with attempted range of motion. Swelling on the lateral aspect of the thigh with dressing that showed intact tong and minimal bloody drainage. No erythema. He was neurovascular intact distally. Postreduction exam showed equal limb length with no discrepancy and relief of pain with reduction. He also had some 60 degrees of flexion with no dislocation. He continued to be neurovascular intact reduction. Results Laboratory Results: 04/26/18 01:45 04/26/18 01:45 04/26/18 04/26/18 01:45 01:45 WBC 4.3 RBC 4.21 L Hgb 10.7 L Hct 32.1 L MCV 76 L MCH 25.4 L MCHC 33.3 RDW 18.8 H Plt Count 317 Seg Neutrophils % 55.4 Lymphocytes % 19.4 Monocytes % 18.3 H Eosinophils % 6.3 H Basophils % 0.6 Absolute Neutrophils 2.4 Absolute Lymphocytes 0.8 Absolute Monocytes 0.8 Absolute Eosinophils 0.3 Absolute Basophils 0.0 Sodium 138.1 Potassium 4.1 Chloride 97 L Carbon Dioxide 27 Anion Gap 14 BUN 16 Creatinine 0.83 Est GFR ( Amer) > 60 Est GFR (Non-Af Amer) > 60 Glucose 101 Calcium 9.2 Total Bilirubin 0.7 AST 37 ALT 33 Alkaline Phosphatase 152 H Total Protein 6.8 Albumin 3.8 Impressions: Femur X-Ray 04/26/18 01:38 IMPRESSION: Superior hip dislocation. Soft tissue gas may be postoperative in nature. Osteopenia. 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 copyright 2010 [employer]- All Rights Reserved Hip X-Ray 04/26/18 07:19 IMPRESSION: Satisfactory closed reduction of the left hip joint dislocation without definite hardware failure or acute fracture identified. There are recent postsurgical changes as described above. Status: Image reviewed by me Assessment & Plan - Diagnosis (1) Dislocation of hip joint prosthesis Qualifiers: Encounter type: initial encounter Qualified Code(s): T84.029A - Dislocation of unspecified internal joint prosthesis, initial encounter; Z96.649 - Presence of unspecified artificial hip joint; Z96.649 - Presence of unspecified artificial hip joint Is this a current diagnosis for this admission?: Yes Plan: 53-year-old gentleman with posterior lateral hip prosthesis dislocation. After 2 failed attempts from the ER to do a closed reduction orthopedic was consulted and successfully was able to reduce the hip after 2 attempts myself. Postreduction x-rays show reduced prosthesis with no fractures. Implant seems to be stable. Patient is neurovascular intact at this point will follow up with his surgeon of record and have his incision looked dressed. He will use the abduction pillow and a knee immobilizer to limit and avoid any recurrent dislocation.
== END 2018-04-26 08:25 | disposition home or self-care (01) ==
LOC: ER 01:27
DX: T84.021A Dislocation of internal left hip prosthesis, initial encounter (principal); W07.XXXA Fall from chair, initial encounter; I48.91 Unspecified atrial fibrillation; F17.200 Nicotine dependence, unspecified, uncomplicated; I10 Essential (primary) hypertension; Z86.711 Personal history of pulmonary embolism; Z79.01 Long term (current) use of anticoagulants
CPT/HCPCS: 99285; 99152; 36415; 85025; 85610; 85730; 80053; 73552; 73502; 27265; L1830; J3010; J2704 ×2

== ENCOUNTER 2018-05-16 21:32 | Emergency (ER) | payer OTHER, MEDICARE ==
[2018-05-16] MEDS: HYDROMORPHONE HCL INJ/PF 2 MG/ML AMPULE IV PRN ×2 (21:50→22:20)
[2018-05-16] MEDS ORDERED: PROPOFOL INJ 200 MG/20 ML VIAL IV ONE ×3 (22:20→23:12)
--- NOTE | 2018-05-16 22:22 | ER Document Report ---
ED General - General Chief Complaint: Hip Pain Stated Complaint: HIP PAIN Time Seen by Provider: 05/16/18 21:38 Notes: Patient is a 53-year-old man presenting with left hip pain with a past medical history of a complete left hip arthroplasty that was initially comp located by postoperative infection, a spacer was placed and subsequently removed and the hardware was replaced at that time. The patient was seen on 04/26 for a left hip dislocation which required multiple times for relocation. The patient states that he was sitting in an office chair today, reached for something on his desk and felt his left hip pop. He states he immediately developed a severe, throbbing, constant pain to the left hip that has been ongoing since that time. States that he has been unable to move the hip or walk since that time. States that it feels exactly the same as when he dislocated it in the past. He denies any additional injuries. Any attempt at moving the hip worsens the pain. He has received fentanyl given by EMS with mild improvement of the pain. TRAVEL OUTSIDE OF THE [place] IN LAST 30 DAYS: No - Related Data Allergies/Adverse Reactions: No Known Allergies Allergy (Verified 05/16/18 22:05) Past Medical History - General Information source: Patient - Social History Smoking Status: Former Smoker Frequency of alcohol use: None Drug Abuse: None Lives with: Spouse/Significant other Family History: CAD Patient has suicidal ideation: No Patient has homicidal ideation: No - Past Medical History Cardiac Medical History: Reports: Hx Atrial Fibrillation, Hx Hypertension, Hx Pulmonary Embolism Pulmonary Medical History: Reports: Hx Bronchitis, Hx COPD, Hx Pneumonia Endocrine Medical History: Denies: Hx Graves' Disease, Hx Hyperthyroidism, Hx Hypothyroidism Renal/ Medical History: Denies: Hx Benign Prostatic Hyperplasia, Hx End Stage Renal Disease, Hx Kidney Stones, Hx Peritoneal Dialysis Malignancy Medical History: Denies Hx Leukemia GI Medical History: Reports: Hx Gastroesophageal Reflux Disease, Hx Ulcer Musculoskeletal Medical History: Reports Hx Arthritis Psychiatric Medical History: Reports: Hx Depression, Hx Post Traumatic Stress Disorder Traumatic Medical History: Reports: Hx Fractures Infectious Medical History: Denies: Hx HIV Past Surgical History: Reports: Hx Cardiac Catheterization - AFIB ablation, Hx Orthopedic Surgery - left ankle, Hx Tonsillectomy. Denies: Hx Pacemaker - Immunizations Immunizations up to date: Yes Hx Diphtheria, Pertussis, Tetanus Vaccination: Yes Hx Pneumococcal Vaccination: 11/23/09 Review of Systems - Review of Systems Notes: Constitutional: Negative for fever. HENT: Negative for sore throat. Eyes: Negative for visual changes. Cardiovascular: Negative for chest pain. Respiratory: Negative for shortness of breath. Gastrointestinal: Negative for abdominal pain, vomiting or diarrhea. Genitourinary: Negative for dysuria. Musculoskeletal: Positive for left hip pain Skin: Negative for rash. Neurological: Negative for headaches, weakness or numbness. 10 point ROS negative except as marked above and in HPI. Physical Exam - Vital signs Vitals: Temp Pulse Resp BP Pulse Ox 98.2 F 96 23 H 131/79 H 100 05/16/18 21:33 05/16/18 21:33 05/16/18 21:33 05/16/18 21:33 05/16/18 21:33 Interpretation: Normal Notes: PHYSICAL EXAMINATION: GENERAL: Appears uncomfortable but in no acute distress HEAD: Atraumatic, normocephalic. EYES: Pupils equal round and reactive to light, extraocular movements intact, sclera anicteric, conjunctiva are normal. ENT: nares patent, oropharynx clear without exudates. Moist mucous membranes. NECK: Normal range of motion, supple without lymphadenopathy LUNGS: Breath sounds clear to auscultation bilaterally and equal. No wheezes rales or rhonchi. HEART: Regular rate and rhythm without murmurs ABDOMEN: Soft, nontender, normoactive bowel sounds. No guarding, no rebound. No masses appreciated. EXTREMITIES: Apparent shortening of the left leg with external rotation. Exquisite pain on palpation of the left hip. NEUROLOGICAL: No focal neurological deficits. Moves all extremities spontaneously and on command. PSYCH: Normal mood, normal affect. SKIN: Warm, Dry, normal turgor, no rashes or lesions noted. Course - Re-evaluation Re-evalutation: 05/16/18 22:21 Patient presents with acute left hip pain after hearing a pop just prior to arrival while he was sitting in a chair and reach for something. His left leg does have approximately 3 inches of shortening relative to the right. His x-ray does show a dislocation of the hardware in a posterior direction. Review of the last and the patient was seen in the emergency department on 04/26 does show that it was quite difficult to relocate, took the orthopedic surgeon several times to relocate successfully. We will attempt here in the emergency department to relocate the hip and if I am unable to do so I will require orthopedic assistance. 05/17/18 00:06 Left hip was able to be successfully reduced on the second attempt. Patient tolerated procedure well. Has returned to mental status baseline. No longer having any pain in the left hip. I have advised outpatient follow-up with the orthopedic surgeon who replaced the hip given that this is a second dislocation within the past 3 weeks. At this time will discharge with return precautions and follow-up recommendations. Verbal discharge instructions given a the bedside and opportunity for questions given. Medication warnings reviewed. Jesús melgar is in agreement with this plan and has verbalized understanding of return precautions and the need for primary care follow-up in the next 24-72 hours. - Vital Signs Vital signs: Temp Pulse Resp BP Pulse Ox 98.2 F 87 13 109/81 94 05/16/18 21:33 05/16/18 23:49 05/16/18 23:52 05/16/18 23:52 05/16/18 23:52 - Diagnostic Test Radiology reviewed: Image reviewed, Reports reviewed Radiology results interpreted by me: 05/17/18 00:06 Hip x-ray 1: Posterior prosthetic hip dislocation Postreduction x-ray: Successful relocation of the hip Procedures - Conscious Sedation Conscious sedation Time started: 22:53 Time completed: 23:07 Consent obtained: Yes Prior complications: Procedural sedation Normal healthy pt.: P1. - ASA Classification Airway Evaluation: Normal anatomy Mallampati Classification: Class 1 Used during procedure: Suction available, IV access obtained, Pulse ox on pt., nurse monitoring on pt. Medications administered: Diprivan Reversal agents: None I personally performed/intraservice time: Sedation, Procedure, 30 min or less Complications: No - Joint Reduction/Fracture Care Left Hip Time completed: 23:07 Consent obtained: Yes Conscious sedation: Yes Pre-procedure NV exam: Yes Fracture: Closed Manipulation comment: Captain Walton technique with external rotation Post-procedure NV exam: Yes Post-reduction x-ray: Joint reduced Reduction attempts: 2 Complications: No Discharge - Discharge Clinical Impression: Dislocation of hip joint prosthesis Qualifiers: Encounter type: initial encounter Qualified Code(s): T84.029A - Dislocation of unspecified internal joint prosthesis, initial encounter Hip dislocation, left Qualifiers: Encounter type: initial encounter Qualified Code(s): S73.005A - Unspecified dislocation of left hip, initial encounter Condition: Good Disposition: HOME, SELF-CARE Additional Instructions: Please follow-up with your orthopedic surgeon at your earliest ability to discuss a long-term plan for your left hip as you have had 2 dislocations in less than 3 weeks. Please return if you have recurrent pain in the left hip, believe you have redislocated, develop a fever of greater than 100.4 F, or have any other symptoms that are worrisome to you. Referrals: PRACHI BELL MD [Primary Care Provider] - Follow up as needed
--- NOTE | 2018-05-16 22:32 | RADIOLOGY REPORT (SQ) ---
AP VIEW OF PELVIS HISTORY: Pelvic pain. COMPARISON: 04/26/2018 FINDINGS: There has been a prior total left hip arthroplasty. There is superior lateral dislocation of the femoral prosthetic component with respect to the acetabular cup. Ossific fragments surround the proximal femur. The right hip joint is intact. IMPRESSION: Superolateral dislocation of the left femoral prosthetic with respect to the acetabular cup.
--- NOTE | 2018-05-16 23:37 | RADIOLOGY REPORT (SQ) ---
EXAM DESCRIPTION: AP view of the left hip CLINICAL HISTORY: 53 years Male, post-reduction COMPARISON: May 16, 2018 2212 hours FINDINGS/impression: Two frontal views are provided. The final image shows the femoral component reduced and in normal alignment with the acetabular component. Fracture fragments surrounding the joint likely related to the posterior wall acetabulum are again noted.
[2018-05-17 03:09] VITALS: BP 113/79
== END 2018-05-17 03:09 | disposition home or self-care (01) ==
LOC: ER 21:32
DX: T84.021A Dislocation of internal left hip prosthesis, initial encounter (principal); S73.005A Unspecified dislocation of left hip, initial encounter; X58.XXXA Exposure to other specified factors, initial encounter; I48.91 Unspecified atrial fibrillation; I10 Essential (primary) hypertension; Z86.711 Personal history of pulmonary embolism; J44.9 Chronic obstructive pulmonary disease, unspecified
CPT/HCPCS: 99284; 99152; 96374; 72170; 27265; J1170; J2704

== ENCOUNTER 2018-05-18 16:28 | Emergency (ER) | payer OTHER, MEDICARE ==
[2018-05-18] MEDS ORDERED: FENTANYL CITRATE INJ/PF 100 MCG/2 ML AMPUL IV ONE ×3 (17:20→21:00)
--- NOTE | 2018-05-18 17:53 | ER Document Report ---
ED Medical Screen (RME) - General Chief Complaint: Hip Injury Stated Complaint: HIP PAIN Time Seen by Provider: 05/18/18 17:46 TRAVEL OUTSIDE OF THE [place] IN LAST 30 DAYS: No - HPI Notes: 05/18/18 17:49 Patient is a 53-year-old male with a history of left MICHAEL who presents to the emergency department complaining of recurrence of left hip dislocation when he went to stand after sitting on the toilet prior to arrival. Patient states that this is the third time this month and was recently here 2 days ago for reduction at that time. No other concerns or complaints. No CP, SOB, dyspnea, fever. I have treated and performed a rapid initial assessment of this patient. A comprehensive ED assessment and evaluation of the patient, analysis of test results and completion of medical decision making process will be conducted by additional ED providers. PHYSICAL EXAMINATION: GENERAL: Well-appearing, well-nourished and in no acute distress. A&Ox4. Answers questions appropriately. LUNGS: Breath sounds clear to auscultation bilaterally and equal. No wheezes rales or rhonchi. HEART: Regular rate and rhythm without murmurs, rubs, gallops. MS: Left hip: externally rotated and limb length discrepancy noted. N/v intact distal otherwise. Extremities: No cyanosis, clubbing, or edema b/l. NEUROLOGICAL: Normal speech, normal gait. PSYCH: Normal mood, normal affect. - Related Data Allergies/Adverse Reactions: No Known Allergies Allergy (Verified 05/16/18 22:05) Past Medical History - Social History Chew tobacco use (# tins/day): No Frequency of alcohol use: None Drug Abuse: None - Past Medical History Cardiac Medical History: Reports: Hx Atrial Fibrillation, Hx Hypertension, Hx Pulmonary Embolism Pulmonary Medical History: Reports: Hx Bronchitis, Hx COPD, Hx Pneumonia Endocrine Medical History: Denies: Hx Graves' Disease, Hx Hyperthyroidism, Hx Hypothyroidism Renal/ Medical History: Denies: Hx Benign Prostatic Hyperplasia, Hx End Stage Renal Disease, Hx Kidney Stones, Hx Peritoneal Dialysis Malignancy Medical History: Denies Hx Leukemia GI Medical History: Reports: Hx Gastroesophageal Reflux Disease, Hx Ulcer Musculoskeltal Medical History: Reports Hx Arthritis Psychiatric Medical History: Reports: Hx Depression - Ptsd, Hx Post Traumatic Stress Disorder Traumatic Medical History: Reports: Hx Fractures Infectious Medical History: Denies: Hx HIV Past Surgical History: Reports: Hx Cardiac Catheterization - AFIB ablation, Hx Orthopedic Surgery - left ankle LEFT HIP REPLACE, Hx Tonsillectomy. Denies: Hx Pacemaker - Immunizations Immunizations up to date: Yes Hx Diphtheria, Pertussis, Tetanus Vaccination: Yes History of Influenza Vaccine for 02/2017 - 07/2017 Season: Yes Physical Exam - Vital signs Vitals: Temp Pulse Resp BP Pulse Ox 97.9 F 91 22 H 107/74 94 05/18/18 17:02 05/18/18 17:02 05/18/18 17:02 05/18/18 17:02 05/18/18 17:02 Course - Vital Signs Vital signs: Temp Pulse Resp BP Pulse Ox 97.9 F 91 22 H 107/74 94 05/18/18 17:02 05/18/18 17:02 05/18/18 17:02 05/18/18 17:02 05/18/18 17:02 Doctor's Discharge - Discharge Referrals: PRACHI BELL MD [Primary Care Provider] - Follow up as needed
--- NOTE | 2018-05-18 18:18 | RADIOLOGY REPORT (SQ) ---
EXAM DESCRIPTION: HIP LEFT AP/LATERAL COMPLETED DATE/TIME: 05/18/2018 6:01 pm REASON FOR STUDY: extreme pain, in left hip COMPARISON: 04/26/2018 NUMBER OF VIEWS: Two views. TECHNIQUE: AP pelvis and additional frog-leg view of the left hip. LIMITATIONS: None. FINDINGS: MINERALIZATION: Osteopenia. LEFT HIP: Superior, posterior dislocation of the left total hip arthroplasty. A triangular os ossifi c density projecting adjacent to the proximal femoral metaphysis likely represents an acute avulsive fragment. RIGHT HIP: Unchanged. No fracture or dislocation. No worrisome bone lesions. PUBIS AND ISCHIUM: No fracture. PELVIS: No fracture. SACRUM: No fracture or dislocation. No worrisome bone lesions. LOWER LUMBAR SPINE: No fracture or dislocation. No worrisome bone lesions. No significant disc disea se. SOFT TISSUES: No findings. OTHER: No other significant finding. IMPRESSION: Status post left total hip arthroplasty with superior, posterior dislocation and osseous avulsion injury. TECHNICAL DOCUMENTATION: JOB ID: [id number] [email or web address] All Rights Reserved Reading location - IP/workstation name: [email or web address]
[2018-05-18] MEDS ORDERED: NORMAL SALINE 1000 ML 1,000 ML IV ONE (18:50)
[2018-05-18] MEDS ORDERED: IPRATROPIUM/ALBUTEROL 0.5-2.5 MG/3 ML AMPUL NEB ONE (18:50)
[2018-05-18] MEDS ORDERED: PROPOFOL INJ 200 MG/20 ML VIAL IV ONE ×3 (18:50→20:32)
--- NOTE | 2018-05-18 19:39 | ER Document Report ---
ED General - General Chief Complaint: Hip Injury Stated Complaint: HIP PAIN Time Seen by Provider: 05/18/18 17:46 TRAVEL OUTSIDE OF THE [place]. IN LAST 30 DAYS: No - HPI Patient complains to provider of: hip dislocation Notes: Patient coming in for evaluation of left hip pain. Patient has a history of multiple dislocations. Patient is a 53-year-old male with a history of left MICHAEL who presents to the emergency department complaining of recurrence of left hip dislocation when he went to stand after sitting on the toilet prior to arrival. Patient states that this is the third time this month and was recently here 2 days ago for reduction at that time. No other concerns or complaints. No CP, SOB, dyspnea, fever. Patient states that he was seen on the toilet today when try to get up and felt his hip move out. Upon my evaluation patient is resting comfortably. - Related Data Allergies/Adverse Reactions: No Known Allergies Allergy (Verified 05/16/18 22:05) Past Medical History - Social History Smoking Status: Never Smoker Chew tobacco use (# tins/day): No Frequency of alcohol use: None Drug Abuse: None Family History: CAD Patient has suicidal ideation: No Patient has homicidal ideation: No - Past Medical History Cardiac Medical History: Reports: Hx Atrial Fibrillation, Hx Hypertension, Hx Pulmonary Embolism Pulmonary Medical History: Reports: Hx Bronchitis, Hx COPD, Hx Pneumonia Endocrine Medical History: Denies: Hx Graves' Disease, Hx Hyperthyroidism, Hx Hypothyroidism Renal/ Medical History: Denies: Hx Benign Prostatic Hyperplasia, Hx End Stage Renal Disease, Hx Kidney Stones, Hx Peritoneal Dialysis Malignancy Medical History: Denies Hx Leukemia GI Medical History: Reports: Hx Gastroesophageal Reflux Disease, Hx Ulcer Musculoskeletal Medical History: Reports Hx Arthritis Psychiatric Medical History: Reports: Hx Depression - Ptsd, Hx Post Traumatic Stress Disorder Traumatic Medical History: Reports: Hx Fractures Infectious Medical History: Denies: Hx HIV Past Surgical History: Reports: Hx Cardiac Catheterization - AFIB ablation, Hx Orthopedic Surgery - left ankle LEFT HIP REPLACE, Hx Tonsillectomy. Denies: Hx Pacemaker - Immunizations Immunizations up to date: Yes Hx Diphtheria, Pertussis, Tetanus Vaccination: Yes Hx Pneumococcal Vaccination: 11/23/09 Review of Systems - Review of Systems Constitutional: No symptoms reported EENT: No symptoms reported Cardiovascular: No symptoms reported Respiratory: No symptoms reported Gastrointestinal: No symptoms reported Genitourinary: No symptoms reported Male Genitourinary: No symptoms reported Musculoskeletal: Other - Hip pain Skin: No symptoms reported Hematologic/Lymphatic: No symptoms reported Neurological/Psychological: No symptoms reported -: Yes All other systems reviewed and negative Physical Exam - Vital signs Vitals: Temp Pulse Resp BP Pulse Ox 97.9 F 91 22 H 107/74 94 05/18/18 17:02 05/18/18 17:02 05/18/18 17:02 05/18/18 17:02 05/18/18 17:02 Interpretation: Normal - General General appearance: Appears well, Alert - HEENT Head: Normocephalic, Atraumatic Eyes: Normal Pupils: PERRL - Respiratory Respiratory status: No respiratory distress Chest status: Nontender Breath sounds: Normal Chest palpation: Normal - Cardiovascular Rhythm: Regular Heart sounds: Normal auscultation Murmur: No - Abdominal Inspection: Normal Distension: No distension Bowel sounds: Normal Tenderness: Nontender Organomegaly: No organomegaly - Back Back: Normal, Nontender - Extremities General upper extremity: Normal inspection, Nontender, Normal color, Normal ROM, Normal temperature General lower extremity: Other - Right leg unaffected. There is shortening of the left leg bilateral edema 1+ tenderness to palpation of the left hip with deformity consistent with dislocation - Neurological Neuro grossly intact: Yes Cognition: Normal Orientation: AAOx4 Yamil Coma Scale Eye Opening: Spontaneous Yamil Coma Scale Verbal: Oriented Lyons Coma Scale Motor: Obeys Commands Lyons Coma Scale Total: 15 Speech: Normal Motor strength normal: LUE, RUE, LLE, RLE Sensory: Normal - Psychological Associated symptoms: Normal affect, Normal mood - Skin Skin Temperature: Warm Skin Moisture: Dry Skin Color: Normal Course - Re-evaluation Re-evalutation: 05/18/18 19:39 Previous notes were reviewed will attempt to relocate the patient's hip with propofol 05/18/18 23:23 Patient underwent conscious sedation with attempt to reduce the dislocated hip 3 separate times the hip looked to be relocated with an audible clunk movement of the hip joint with equal length at the knee and ankle however upon attempting to x-ray the hip would dislocate again after 3 attempts with no success I did consult with orthopedic on-call Dr. James recommended admission to the hospital ist service patient does have atrial fibrillation COPD and other medical issues he would evaluate the patient in the morning Discussed with Dr. Saxena hospitalist who declined admission at this time states that he would be on consult referring to the policy of admissions for patients with orthopedic needs although the patient does have a history of atrial fibrillation and COPD patient not ongoing and therefore stated that orthopedics should be primary to admit the patient I again contacted Dr. James who has now had time to evaluate the patient's films and also states that he discussed the patient's hip presentation with with a [place] specialty sales representative and thinks that the stem has rotated more likely the reason why we have been unsuccessful in relocating the hip ulcer states that patient has had multiple dislocations this month this 1 being the third time more likely the patient needs another revision and recommend that the patient be transferred to his original orthopedist who did his revision in March in the [place]. I discussed the case with the orthopedic television mechanic Dr. Bell at [place] who requested that before the transfer be completed that the the orthopedic physic gaetano at our facility evaluate the patient for a closed reduction. This conversation was on a recorded telephone line through the transfer team I again contacted Dr. James who was able to contact Dr. Bell. I was later informed by Dr. James that Dr Bell accepted the patient in transfer this was confirmed by [place]'s transfer team - Vital Signs Vital signs: Temp Pulse Resp BP Pulse Ox 97.9 F 82 17 113/82 100 05/18/18 17:02 05/18/18 20:39 05/18/18 21:46 05/18/18 21:46 05/18/18 21:46 - Laboratory Result Diagrams: 05/18/18 21:00 05/18/18 21:00 Laboratory results interpreted by me: 05/18/18 05/18/18 21:00 21:00 RBC 4.05 L Hgb 10.2 L Hct 31.5 L MCV 78 L MCH 25.0 L RDW 16.8 H Sodium 136.5 L Glucose 117 H Procedures - Conscious Sedation Conscious sedation Time started: 20:15 Time completed: 08:40 Consent obtained: Yes Indication: Hip dislocation Last meal: 1200 Pt with a mild systemic disease.: P2. - ASA Classification. Airway Evaluation: Normal anatomy Mallampati Classification: Class 1 Used during procedure: Suction available, IV access obtained, Pulse ox on pt., foreman/pile driving and erection on pt. Medications administered: Diprivan Reversal agents: None I personally performed/intraservice time: 30 min or less Complications: No Notes: Unsuccessful attempt at reduction - Joint Reduction/Fracture Care Left Hip Consent obtained: Yes Conscious sedation: Yes Pre-procedure NV exam: Yes Fracture: Closed Manipulation comment: Traction with modified Captain Anton technique Post-procedure NV exam: Yes Post-reduction x-ray: Joint not reduced Reduction attempts: 3 Notes: 05/18/18 23:22 3 separate times we were able to hear audible clunk with movement of the hip knee and ankle joints were equal however upon having the leg rest the hip would dislocate again Discharge - Discharge Clinical Impression: COPD exacerbation Chronic obstructive pulmonary disease Qualifiers: COPD type: unspecified COPD Qualified Code(s): J44.9 - Chronic obstructive pulmonary disease, unspecified Dislocation of hip joint prosthesis Qualifiers: Encounter type: initial encounter Qualified Code(s): T84.029A - Dislocation of unspecified internal joint prosthesis, initial encounter; Z96.649 - Presence of unspecified artificial hip joint Disposition: [facility] Referrals: PRACHI BELL MD [Primary Care Provider] - Follow up as needed
--- NOTE | 2018-05-18 20:38 | ER Document Report ---
ED General - General Chief Complaint: Hip Injury Stated Complaint: HIP PAIN Time Seen by Provider: 05/18/18 17:46 TRAVEL OUTSIDE OF THE [place] IN LAST 30 DAYS: No - Related Data Allergies/Adverse Reactions: No Known Allergies Allergy (Verified 05/16/18 22:05) Past Medical History - Social History Smoking Status: Never Smoker Chew tobacco use (# tins/day): No Frequency of alcohol use: None Drug Abuse: None Family History: CAD Patient has suicidal ideation: No Patient has homicidal ideation: No - Past Medical History Cardiac Medical History: Reports: Hx Atrial Fibrillation, Hx Hypertension, Hx Pulmonary Embolism Pulmonary Medical History: Reports: Hx Bronchitis, Hx COPD, Hx Pneumonia Endocrine Medical History: Denies: Hx Graves' Disease, Hx Hyperthyroidism, Hx Hypothyroidism Renal/ Medical History: Denies: Hx Benign Prostatic Hyperplasia, Hx End Stage Renal Disease, Hx Kidney Stones, Hx Peritoneal Dialysis Malignancy Medical History: Denies Hx Leukemia GI Medical History: Reports: Hx Gastroesophageal Reflux Disease, Hx Ulcer Musculoskeletal Medical History: Reports Hx Arthritis Psychiatric Medical History: Reports: Hx Depression - Ptsd, Hx Post Traumatic Stress Disorder Traumatic Medical History: Reports: Hx Fractures Infectious Medical History: Denies: Hx HIV Past Surgical History: Reports: Hx Cardiac Catheterization - AFIB ablation, Hx Orthopedic Surgery - left ankle LEFT HIP REPLACE, Hx Tonsillectomy. Denies: Hx Pacemaker - Immunizations Immunizations up to date: Yes Hx Diphtheria, Pertussis, Tetanus Vaccination: Yes Hx Pneumococcal Vaccination: 11/23/09 Physical Exam - Vital signs Vitals: Temp Pulse Resp BP Pulse Ox 97.9 F 91 22 H 107/74 94 05/18/18 17:02 05/18/18 17:02 05/18/18 17:02 05/18/18 17:02 05/18/18 17:02 Course - Vital Signs Vital signs: Temp Pulse Resp BP Pulse Ox 97.9 F 96 11 L 119/84 100 05/18/18 17:02 05/18/18 20:15 05/18/18 20:15 05/18/18 20:15 05/18/18 20:15 Discharge - Discharge Referrals: PRACHI BELL MD [Primary Care Provider] - Follow up as needed
--- NOTE | 2018-05-18 20:42 | RADIOLOGY REPORT (SQ) ---
EXAM DESCRIPTION: PELVIS AP COMPLETED DATE/TIME: 05/18/2018 8:34 pm REASON FOR STUDY: post reduction left hip COMPARISON: Right hip radiographs 05/18/2018 NUMBER OF VIEWS: One view TECHNIQUE: AP Pelvis LIMITATIONS: None. FINDINGS: MINERALIZATION: Osteopenia. HIPS: Persistent superior, posterior dislocation of the left total hip arthroplasty hardware. PELVIS AND SACRUM: Unchanged in this short study interval. PUBIS AND ISCHIUM: No acute fracture. LOWER LUMBAR SPINE: No significant findings as visualized. SOFT TISSUES: Unchanged. OTHER: No other significant finding. IMPRESSION: Persistent dislocation of the left total hip arthroplasty hardware. TECHNICAL DOCUMENTATION: JOB ID: [id number] [employer]- All Rights Reserved Reading location - IP/workstation name: [email or web address]
[2018-05-18 21:19] LABS: ABSOLUTE LYMPHOCYTES (AUTO) 1.1 10^3/uL (0.5-4.7); ABSOLUTE MONOCYTES (AUTO) 0.5 10^3/uL (0.1-1.4); ABSOLUTE NEUT (AUTO) 3.6 10^3/uL (1.7-8.2); BASOPHILS % (AUTO) 0.4 % (0-2); HEMATOCRIT 31.5 % (37.9-51.0); HEMOGLOBIN 10.2 g/dL (13.5-17.0); LYMPHOCYTES % (AUTO) 20.9 % (13-45); MEAN CORPUSCULAR HGB CONC 32.2 g/dL (32.0-36.0); MEAN CORPUSCULAR VOLUME 78 fl (80-97); PLATELET COUNT 354 10^3/uL (150-450); RED BLOOD COUNT 4.05 10^6/uL (4.35-5.55); RED CELL DISTRIBUTION WIDTH 16.8 % (11.5-14.0); SEGMENTED NEUTROPHILS % (AUTO) 69.7 % (42-78); TOTAL CELLS COUNTED % (AUTO) 100 %; WHITE BLOOD COUNT 5.1 10^3/uL (4.0-10.5)
[2018-05-18 21:34] LABS: ANION GAP 7 (5-19); BLOOD UREA NITROGEN 12 mg/dL (7-20); CALCIUM 9.5 mg/dL (8.4-10.2); CARBON DIOXIDE 30 mmol/L (22-30); CHLORIDE 100 mmol/L (98-107); GLUCOSE 117 mg/dL (75-110); POTASSIUM 4.8 mmol/L (3.6-5.0); SODIUM 136.5 mmol/L (137-145)
[2018-05-18] MEDS ORDERED: HYDROMORPHONE HCL INJ/PF 2 MG/ML AMPULE IV ONE ×4 (21:46→23:10)
[2018-05-18] MEDS ORDERED: PREGABALIN 50 MG CAPSULE PO ONE (21:46)
[2018-05-18] MEDS ORDERED: HYDROMORPHONE HCL INJ/PF 2 MG/ML AMPULE IV SCH (22:00)
--- NOTE | 2018-05-18 23:23 | EKG REPORT ---
SEVERITY:- ABNORMAL ECG - ATRIAL FIBRILLATION, V-RATE 75-118 : Confirmed by: Ruth Woods 18-May-2018 23:22:46
[2018-05-19 00:03] VITALS: BP 124/83
== END 2018-05-18 23:40 | disposition short-term general hospital (02) ==
LOC: ER 16:28
DX: T84.029A Dislocation of unspecified internal joint prosthesis, initial encounter (principal); Z96.649 Presence of unspecified artificial hip joint; J44.1 Chronic obstructive pulmonary disease with (acute) exacerbation; X58.XXXA Exposure to other specified factors, initial encounter; Y92.002 Bathroom of unspecified non-institutional (private) residence as the place of occurrence of the external cause; I48.91 Unspecified atrial fibrillation; I10 Essential (primary) hypertension; Z86.711 Personal history of pulmonary embolism
CPT/HCPCS: 93005; 96376; 94640; 99285; 96361; 99153; 99152; 96374; 36415; 85025; 80048; 73502; 72170; 93010; 27265; J3010; J1170; J7030; J2704; J3490; J7620

== ENCOUNTER 2019-01-10 19:15 | Emergency (ER) | payer OTHER, MEDICARE ==
[2019-01-10] MEDS ORDERED: PROPOFOL INJ 200 MG/20 ML VIAL IV ONE ×2 (19:18→19:39)
[2019-01-10] MEDS ORDERED: FENTANYL CITRATE INJ/PF 100 MCG/2 ML AMPUL IV ONE (19:18)
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
[2019-01-10 19:36] VITALS: BP 112/76
--- NOTE | 2019-01-10 19:48 | RADIOLOGY REPORT (SQ) ---
EXAM DESCRIPTION: PELVIS AP COMPLETED DATE/TIME: 01/10/2019 7:31 pm REASON FOR STUDY: Left hip dislocation COMPARISON: None. NUMBER OF VIEWS: One view TECHNIQUE: AP Pelvis LIMITATIONS: None. FINDINGS: MINERALIZATION: Normal. HIPS: Total right hip arthroplasty. Persistent posterosuperior dislocation. No acute fracture. No perihardware lucency. No worrisome bone lesions. Right hip osteoarthritis. PELVIS AND SACRUM: No acute fracture or dislocation. No worrisome bone lesions. PUBIS AND ISCHIUM: No acute fracture. LOWER LUMBAR SPINE: No significant findings as visualized. SOFT TISSUES: No findings. OTHER: No other significant finding. IMPRESSION: Persistent posterosuperior total left hip arthroplasty dislocation. No acute findings o therwise. COMMENT: Pelvic fractures are often occult on plain radiographs. If strong clinical suspicion for f racture, recommend CT or MR. TECHNICAL DOCUMENTATION: JOB ID: [id number] [employer]- All Rights Reserved Reading location - IP/workstation name: [email or web address]
[2019-01-10] MEDS ORDERED: IPRATROPIUM/ALBUTEROL 0.5-2.5 MG/3 ML AMPUL NEB ONE ×2 (20:39→20:40)
--- NOTE | 2019-01-10 21:47 | RADIOLOGY REPORT (SQ) ---
EXAM DESCRIPTION: XR PELVIS 1-2 VIEWS COMPLETED DATE/TME: 01/10/2019 20:56 CLINICAL HISTORY: 53 years, Male, post reduction COMPARISON: X-ray pelvis 01/10/2019 at 7:32 PM NUMBER OF VIEWS: TECHNIQUE: LIMITATIONS: None. FINDINGS: Since the prior x-ray, the dislocated left hip prosthesis has been reduced. I do not see a fracture. IMPRESSION: The dislocated left hip prosthesis has been reduced. copyright 2010 [employer]- All Rights Reserved
== END 2019-01-11 02:48 | disposition home or self-care (01) ==
LOC: ER 19:15
PROC: 0SSBXZZ Reposition Left Hip Joint, External Approach (ICD-10-PCS; principal; 2019-01-10)
DX: T84.021A Dislocation of internal left hip prosthesis, initial encounter (principal); M25.552 Pain in left hip; Z96.642 Presence of left artificial hip joint; I10 Essential (primary) hypertension
CPT/HCPCS: 27265; 94640; 99283; 99152; 72170; L1830; J3010; J2704; J7620

== ENCOUNTER → 2019-01-14 | Outpatient (CLI) | payer OTHER ==
--- NOTE | 2019-01-14 16:40 | RADIOLOGY REPORT (SQ) ---
EXAM DESCRIPTION: CHEST PA/LATERAL COMPLETED DATE/TIME: 01/14/2019 4:31 pm REASON FOR STUDY: PRE-OP COMPARISON: 03/23/2018 EXAM PARAMETERS: NUMBER OF VIEWS: two views TECHNIQUE: Digital Frontal and Lateral radiographic views of the chest acquired. RADIATION DOSE: NA LIMITATIONS: none FINDINGS: LUNGS AND PLEURA: Linear scarring at the left base. Hyperinflation. No effusions. MEDIASTINUM AND HILAR STRUCTURES: No masses or contour abnormalities. HEART AND VASCULAR STRUCTURES: Heart normal size. No evidence for failure. BONES: No acute findings. HARDWARE: None in the chest. OTHER: No other significant finding. IMPRESSION: Chronic obstructive pulmonary disease. No acute findings. TECHNICAL DOCUMENTATION: JOB ID: [id number] [employer] All Rights Reserved Reading location - IP/workstation name: [email or web address]
[2019-01-14 17:13] LABS: APPEARANCE,URINE CLEAR; BILIRUBIN,URINE NEGATIVE (NEGATIVE); GLUCOSE, URINE NEGATIVE (NEGATIVE); KETONES,URINE TRACE mg/dL (NEGATIVE); LEUKOCYTE ESTERASE,URINE TRACE (NEGATIVE); NITRITE,URINE NEGATIVE (NEGATIVE); PROTEIN,URINE 30 mg/dL (NEGATIVE); URINE SPECIFIC GRAVITY 1.034
[2019-01-14 17:14] LABS: ABSOLUTE EOSINOPHILS # (AUTO) 0.1 10^3/uL (0.0-0.6); ABSOLUTE MONOCYTES (AUTO) 0.4 10^3/uL (0.1-1.4); TOTAL CELLS COUNTED % (AUTO) 100 %
[2019-01-14 17:17] LABS: COLOR,URINE YELLOW
[2019-01-14 17:23] LABS: ANION GAP 9 (5-19); BLOOD UREA NITROGEN 17 mg/dL (7-20); C-REACTIVE PROTEIN 31.2 mg/L (<10.0); CALCIUM 9.5 mg/dL (8.4-10.2); CARBON DIOXIDE 29 mmol/L (22-30); CHLORIDE 101 mmol/L (98-107); GLUCOSE 94 mg/dL (75-110); POTASSIUM 4.5 mmol/L (3.6-5.0)
[2019-01-14 17:26] LABS: ABSOLUTE LYMPHOCYTES (AUTO) 0.9 10^3/uL (0.5-4.7); BASOPHILS % (AUTO) 0.7 % (0-2); EOSINOPHILS % (AUTO) 1.6 % (0-6); HEMATOCRIT 33.7 % (37.9-51.0); HEMOGLOBIN 10.8 g/dL (13.5-17.0); LYMPHOCYTES % (AUTO) 16.6 % (13-45); MEAN CORPUSCULAR HEMOGLOBIN 22.5 pg (27.0-33.4); MEAN CORPUSCULAR HGB CONC 32.1 g/dL (32.0-36.0); MEAN CORPUSCULAR VOLUME 70 fl (80-97); MONOCYTES % (AUTO) 7.6 % (3-13); PLATELET COUNT 335 10^3/uL (150-450); RED BLOOD COUNT 4.81 10^6/uL (4.35-5.55); RED CELL DISTRIBUTION WIDTH 19.8 % (11.5-14.0); SEGMENTED NEUTROPHILS % (AUTO) 73.5 % (42-78); WHITE BLOOD COUNT 5.4 10^3/uL (4.0-10.5)
[2019-01-14 18:24] LABS: ERYTHROCYTE SEDIMENTATION RATE 22 mm/hr (0-20)
--- NOTE | 2019-01-14 20:40 | EKG REPORT ---
SEVERITY:- ABNORMAL ECG - ATRIAL FIBRILLATION LOW VOLTAGE IN FRONTAL LEADS : Confirmed by: Astrid De Jesus MD 14-Jan-2019 20:39:44
== END ==
LOC: OD 15:49
PROVIDERS: ATTEND Orthopaedic Surgery
DX: Z01.812 Encounter for preprocedural laboratory examination (principal); Z01.811 Encounter for preprocedural respiratory examination; Z01.810 Encounter for preprocedural cardiovascular examination; M16.12 Unilateral primary osteoarthritis, left hip
CPT/HCPCS: 36415; 71046; 80048; 81001; 85025; 85652; 86140; 93005; 93010

== ENCOUNTER 2019-02-15 08:13 | Inpatient (IN) | payer OTHER, MEDICARE ==
[~2019-02-15 08:13] MED LIST: BUPIVACAINE INJ/PF LIPOSOME/PF 266 MG/20 ML SDV INJ PRN; CEFAZOLIN INJ 1 GM VIAL IV PRN; DEXAMETHASONE SOD PHOSPHATE INJ 4 MG/1 ML VIAL ONE; FENTANYL CITRATE INJ/PF 100 MCG/2 ML AMPUL ONE; IBUPROFEN 800 MG in NORMAL SALINE 250 ML IV PRN; LACTATED RINGERS 1000 ML IV PRN; LIDOCAINE 0.5% INJ-PF (5 MG/ML) 50 ML SDV SUBCUT PRN; MIDAZOLAM 2 MG/2 ML INJ ONE; ONDANSETRON HCL INJ/PF 4 MG/2 ML SDV ONE; OXYCODONE HCL SR 10 MG TABLET PO PRN; PANTOPRAZOLE SODIUM 20 MG TABLET.DR PO PRN; PROPOFOL INJ 200 MG/20 ML VIAL IV ONE; TRANEXAMIC ACID INJ/PF 1,000 MG/10 ML SDV ONE; VANCOMYCIN HCL 1,000 MG in DEXTROSE 5%-WATER 250 ML IV PRN
[2019-02-15] MEDS ORDERED: PANTOPRAZOLE SODIUM 20 MG TABLET.DR PO ONE (08:27)
[2019-02-15] MEDS ORDERED: OXYCODONE HCL SR 10 MG TABLET PO ONE (08:27)
[2019-02-15] MEDS ORDERED: BUPIVACAINE HCL 0.25% /EPINEPHRINE INJ/PF 30 ML SDV ONE (09:01)
[2019-02-15] MEDS ORDERED: CEFAZOLIN INJ 1 GM VIAL ONE (10:27)
[2019-02-15] MEDS ORDERED: DIPHENHYDRAMINE HCL 50 MG/ML VIAL IV PRN ×2 (12:03→13:17)
[2019-02-15] MEDS ORDERED: ONDANSETRON HCL INJ/PF 4 MG/2 ML SDV IV PRN ×2 (12:03→13:17)
[2019-02-15] MEDS ORDERED: MEPERIDINE HCL/PF INJ 25 MG/1 ML DISP.SYRIN IV PRN (12:03)
[2019-02-15] MEDS ORDERED: PROMETHAZINE HCL INJ 25 MG/1 ML VIAL IV PRN ×2 (12:03)
[2019-02-15] MEDS ORDERED: MORPHINE SULFATE 10 MG/ML INJ IV PRN (12:03)
[2019-02-15] MEDS ORDERED: FENTANYL CITRATE INJ/PF 100 MCG/2 ML AMPUL IV PRN ×2 (12:03)
[2019-02-15] MEDS ORDERED: ZOLPIDEM TARTRATE 5 MG TABLET PO PRN (13:17)
[2019-02-15] MEDS ORDERED: ONDANSETRON 4 MG TAB.RAPDIS PO PRN (13:17)
[2019-02-15] MEDS ORDERED: MAG HYDROX/AL HYDROX/SIMETH SUSP 30 ML UDCUP PO PRN (13:17)
[2019-02-15] MEDS ORDERED: RINGERS SOLUTION,LACTATED 1,000 ML IV PRN (13:17)
--- NOTE | 2019-02-15 13:29 | Operative Report ---
Operative Report DATE OF SURGERY: 02/15/19 PREOPERATIVE DIAGNOSIS: Chronic instability left prosthetic hip OPERATION: Left hip revision arthroplasty SURGEON: WESLEY NASCIMENTO ANESTHESIA: Spinal TISSUE REMOVED OR ALTERED: Cultures x2 to microbiology. Tissue to pathology for frozen section. Implants to CSS ESTIMATED BLOOD LOSS: 200 PROCEDURE: The patient in a right lateral decubitus position on the operating table the left lower extremity hindquarter prepped and draped in sterile fashion. A curvilinear incision was made over the greater trochanter line with a previous posterior approach the hip. Upon penetrating the subcutaneous tissue into the fascia the first thing encountered is the polyethylene component of the previous [place] MDM the component by itself. It was free-floating in the soft tissue. The next thing that was encountered was a large volume of serosanguineous fluid, potentially 500 cc by my estimation. This is cultured. Synovium is now taken and sent to pathology for frozen section. Diagnosis is returned as no acute inflammation. In cleaning out the hip area there is fragments of cement that are removed as well as Martino a Morphis albert-shannon necrotic material. The hip is easily dislocated. The 28 mm ceramic head has a fair amount of scar werner and discoloration from rubbing on the acetabular shell. This is disimpacted. The femoral Dominic is examined and there is possibly a neutral anteversion on the proximal body. Next the screw contact connecting the proximal distal aspects of the Jed modular cheondoism stem is removed uneventfully. This is not seated. Next the extraction device is advanced down the screw hole and attempt was made to remove the entire stem in situ. This was unsuccessful. The next effort was to separate the proximal and distal aspects of the modular cheondoism stem with the device designed to do so. This was unsuccessful. Next flexible osteotomes were used down the long the proximal body and then a second attempt at the proximal distal aspects of modular cheondoism stem were performed and this is also unsuccessful. At this point a decision was made to change tactics A extended trochanteric osteotomy performed to a level below the junction of the proximal and distal aspects of the modular cheondoism stem. Osteotomes were used circumferentially around the proximal body and this is subsequently from the stem using the appropriate instrument. Next the distal stem is attempted to be disimpacted with slaphammer and this is unsuccessful. Work around this again with flexible osteotomes and then try to disimpact it this is likewise unsuccessful. At this point it seems that the distal aspect of the stem is well fixed radialis face with either continuing to extend the osteotomy distally and the story more femur to accept the stem which seems to be well fixed and build office proximally. This seems to be better concept at this point. Subsequently a trial reduction was now performed with a 27 mm proximal body with a 20 mm length which is what it was removed at the beginning. This was arranged with approximately 30 degrees of anteversion. Re-creates preoperative leg length. I can manipulate the leg in extension flexion and external rotation and abduction and unable to dislocated anteriorly. Likewise when I test posterior stability the leg can be held adductor at 90 degrees of flexion with 90 degrees of internal rotation. I found this stability to be acceptable. The hip is dislocated. The final implants including the 27 mm x 90 mm proximal body at 30 degrees of anteversion is impacted in place and secured with the screw and a torque wrench. Next a 28 mm chrome cobalt head +0 neck is less fit into an MDM polyethylene and this is impacted onto the trunnion of the hip. The hip was reduced. The trochanteric osteotomy was reduced. Is held with 4 cerclage cables. The wound was loosely irrigated with pulse lavage and then star sed in layers using interrupted Vicryl followed by tong. A sterile compressive dressing was applied and the patient's return to the PACU in satisfactory condition.
[2019-02-15] MEDS ORDERED: TRANEXAMIC ACID INJ/PF 1,000 MG/10 ML SDV ONE (13:53)
[2019-02-15] MEDS ORDERED: TRANEXAMIC ACID INJ/PF 1,000 MG/10 ML SDV IV ONE (14:00)
[2019-02-15] MEDS ORDERED: FENTANYL CITRATE INJ/PF 100 MCG/2 ML AMPUL ONE (14:03)
[2019-02-15] MEDS: FENTANYL CITRATE INJ/PF 100 MCG/2 ML AMPUL IV PRN ×2 (14:05→14:15)
--- NOTE | 2019-02-15 14:48 | RADIOLOGY REPORT (SQ) ---
EXAM DESCRIPTION: PELVIS AP COMPLETED DATE/TIME: 02/15/2019 2:32 pm REASON FOR STUDY: Post Op Long Cassette in PACU Z96.649 PRESENCE OF UNSPECIFIED ARTIFICIAL HIP PRIYA NT COMPARISON: 01/10/2019. NUMBER OF VIEWS: One view TECHNIQUE: Digital radiographic images of the pelvis post-procedure LIMITATIONS: None. FINDINGS: BONES: No worrisome or unexpected findings post-procedure. DEVICE: Total left hip prosthesis with femoral stem and cerclage wires. The femoral component hemalatha ses a fracture of the proximal femur. SOFT TISSUES: No worrisome findings. Expected postoperative soft tissue changes. IMPRESSION: SATISFACTORY POSTOPERATIVE PELVIS. TECHNICAL DOCUMENTATION: JOB ID: [id number] [employer]- All Rights Reserved Reading location - IP/workstation name: [email or web address]
[2019-02-15] MEDS ORDERED: SUCCINYLCHOLINE CHLORIDE INJ 200 MG/10 ML VIAL ONE (14:52)
[2019-02-15] MEDS: PREGABALIN 75 MG CAPSULE PO SCH (17:44)
[2019-02-15] MEDS: IBUPROFEN 800 MG in NORMAL SALINE 250 ML IV SCH (17:45)
[2019-02-15] MEDS: SENNOSIDES/DOCUSATE 8.6-50 MG 1 EACH TABLET PO SCH (17:49)
[2019-02-15] MEDS ORDERED: (PENDING PHARMACY ID) (Pregabalin [Lyrica] 225 MG) PO SCH (18:00)
[2019-02-15] MEDS ORDERED: (PENDING PHARMACY ID) (Tofacitinib Citrate [Xeljanz] 5 MG) PO SCH (18:00)
[2019-02-15] MEDS: OXYCODONE HCL IR 5 MG TABLET PO PRN (19:33)
[2019-02-15] MEDS: OXYCODONE HCL SR 40 MG TABLET PO SCH (21:46)
[2019-02-15] MEDS ORDERED: OXYCODONE HCL SR 10 MG TABLET PO SCH (22:00)
[2019-02-15] MEDS: ZOLPIDEM TARTRATE 5 MG TABLET PO PRN (23:18)
[2019-02-15] MEDS: ACETAMINOPHEN 325 MG TABLET PO PRN (23:34)
[2019-02-16] MEDS ORDERED: VANCOMYCIN HCL 1,000 MG in DEXTROSE 5%-WATER 250 ML IV ONE (01:17)
[2019-02-16] MEDS: OXYCODONE HCL IR 5 MG TABLET PO PRN ×2 (02:47→18:02)
[2019-02-16] MEDS: IBUPROFEN 800 MG in NORMAL SALINE 250 ML IV SCH ×3 (02:47→18:02)
[2019-02-16] MEDS: PANTOPRAZOLE SODIUM 20 MG TABLET.DR PO SCH (05:55)
--- NOTE | 2019-02-16 07:02 | PDOC PROGRESS REPORT ---
Subjective Progress Note for:: 02/16/19 Reason For Visit: CHRONIC INSTABILITY LEFT PROSTHETIC HIP 54-year-old black male status post left hip revision arthroplasty for prosthetic instability. Patient with limited cooperation with physical therapy yesterday. No specific complaints this morning. Physical Exam Vital Signs: Temp Pulse Resp BP Pulse Ox 36.4 C 77 16 107/75 98 02/15/19 23:44 02/15/19 23:44 02/15/19 23:44 02/15/19 23:44 02/15/19 23:44 Intake & Output 02/14/19 02/15/19 02/16/19 06:59 06:59 06:59 Intake Total 5786 Output Total 4100 Balance 1686 Weight 102.3 kg Physical Exam: Tall thin middle-aged black male lying in hospital bed and what appears to be minor distress. General appearance: PRESENT: no acute distress, mild distress Respiratory exam: PRESENT: unlabored Cardiovascular exam: PRESENT: RRR Pulses: PRESENT: +1 pedal pulses bilateral GI/Abdominal exam: PRESENT: soft Rectal exam: PRESENT: deferred Extremities exam: PRESENT: other - Left hip dressing clean dry and intact. Distal neurovascular examination is intact. Persistent leg length inequality left shorter than right. Neurological exam: PRESENT: alert, awake, oriented to person, oriented to place, oriented to time, oriented to situation. ABSENT: motor sensory deficit Skin exam: PRESENT: dry, intact, warm. ABSENT: cyanosis, rash Results Laboratory Results: 02/15/19 08:25 Blood Type AB POSITIVE Antibody Screen NEGATIVE Impressions: Pelvis X-Ray 02/15/19 13:19 IMPRESSION: SATISFACTORY POSTOPERATIVE PELVIS. Status: Imported from PACS Assessment & Plan - Diagnosis (1) Mechanical failure of prosthetic joint Qualifiers: Encounter type: subsequent encounter Qualified Code(s): T84.019D - Broken internal joint prosthesis, unspecified site, subsequent encounter Is this a current diagnosis for this admission?: Yes - Time Time Spent with patient: 15-24 minutes Anticipated discharge: Home with Homehealth Within: within 24 hours
[2019-02-16 07:24] LABS: HEMATOCRIT 29.4 % (37.9-51.0); HEMOGLOBIN 9.6 g/dL (13.5-17.0); MEAN CORPUSCULAR HEMOGLOBIN 24.1 pg (27.0-33.4); MEAN CORPUSCULAR HGB CONC 32.6 g/dL (32.0-36.0); MEAN CORPUSCULAR VOLUME 74 fl (80-97); PLATELET COUNT 206 10^3/uL (150-450); RED BLOOD COUNT 3.97 10^6/uL (4.35-5.55); RED CELL DISTRIBUTION WIDTH 26.7 % (11.5-14.0); WHITE BLOOD COUNT 8.3 10^3/uL (4.0-10.5)
[2019-02-16 07:41] LABS: ANION GAP 5 (5-19); BLOOD UREA NITROGEN 15 mg/dL (7-20); CALCIUM 8.6 mg/dL (8.4-10.2); GLUCOSE 120 mg/dL (75-110); POTASSIUM 4.4 mmol/L (3.6-5.0)
[2019-02-16 07:47] LABS: CARBON DIOXIDE 31 mmol/L (22-30); CHLORIDE 101 mmol/L (98-107)
[2019-02-16] MEDS: PRENATAL VITAMIN W DHA CAPSULE PO SCH (09:37)
[2019-02-16] MEDS: PREGABALIN 75 MG CAPSULE PO SCH ×2 (09:37→18:02)
[2019-02-16] MEDS: SENNOSIDES/DOCUSATE 8.6-50 MG 1 EACH TABLET PO SCH ×2 (09:38→18:01)
[2019-02-16] MEDS: RIVAROXABAN 10 MG TABLET PO SCH (09:38)
[2019-02-16] MEDS: OXYCODONE HCL SR 40 MG TABLET PO SCH ×2 (09:38→22:13)
[2019-02-16] MEDS: FERROUS SULFATE 325 MG TABLET PO SCH (09:38)
[2019-02-16] MEDS: TAMSULOSIN HCL 0.4 MG CAP.SR.24H PO SCH (09:39)
[2019-02-16] MEDS: NICOTINE 21 MG/24 HR PATCH.TD24 TD SCH (09:39)
[2019-02-16] MEDS ORDERED: (PENDING PHARMACY ID) (Ferrous Sulfate [Ferrous Sulfate] 324 MG) PO SCH (10:00)
[2019-02-16] MEDS: IPRATROPIUM/ALBUTEROL 120 PUFF/4 GM MDI IH SCH (17:38)
[2019-02-16] MEDS: ZOLPIDEM TARTRATE 5 MG TABLET PO PRN (22:14)
[2019-02-17] MEDS: IPRATROPIUM/ALBUTEROL 120 PUFF/4 GM MDI IH SCH ×5 (01:00→18:26)
[2019-02-17] MEDS: IBUPROFEN 800 MG in NORMAL SALINE 250 ML IV SCH ×2 (01:21→09:18)
[2019-02-17] MEDS: OXYCODONE HCL IR 5 MG TABLET PO PRN ×2 (05:52→16:33)
[2019-02-17] MEDS: PANTOPRAZOLE SODIUM 20 MG TABLET.DR PO SCH (05:52)
[2019-02-17 09:00] LABS: HEMATOCRIT 28.2 % (37.9-51.0); HEMOGLOBIN 9.1 g/dL (13.5-17.0); MEAN CORPUSCULAR HEMOGLOBIN 24.5 pg (27.0-33.4); MEAN CORPUSCULAR HGB CONC 32.3 g/dL (32.0-36.0); MEAN CORPUSCULAR VOLUME 76 fl (80-97); PLATELET COUNT 176 10^3/uL (150-450); RED BLOOD COUNT 3.72 10^6/uL (4.35-5.55); RED CELL DISTRIBUTION WIDTH 27.4 % (11.5-14.0); WHITE BLOOD COUNT 7.6 10^3/uL (4.0-10.5)
[2019-02-17] MEDS: OXYCODONE HCL SR 40 MG TABLET PO SCH ×2 (09:07→21:27)
[2019-02-17] MEDS: PREGABALIN 75 MG CAPSULE PO SCH ×2 (09:09→18:23)
[2019-02-17] MEDS: FERROUS SULFATE 325 MG TABLET PO SCH (09:10)
[2019-02-17] MEDS: TAMSULOSIN HCL 0.4 MG CAP.SR.24H PO SCH (09:10)
[2019-02-17] MEDS: SENNOSIDES/DOCUSATE 8.6-50 MG 1 EACH TABLET PO SCH ×2 (09:10→18:24)
[2019-02-17] MEDS: PRENATAL VITAMIN W DHA CAPSULE PO SCH (09:10)
[2019-02-17] MEDS: RIVAROXABAN 10 MG TABLET PO SCH (09:11)
[2019-02-17] MEDS: NICOTINE 21 MG/24 HR PATCH.TD24 TD SCH (09:35)
--- NOTE | 2019-02-17 15:26 | RADIOLOGY REPORT (SQ) ---
EXAM DESCRIPTION: CHEST SINGLE VIEW COMPLETED DATE/TIME: 02/17/2019 3:09 pm REASON FOR STUDY: WHEEZING COMPARISON: 01/14/2019 EXAM PARAMETERS: NUMBER OF VIEWS: One view. TECHNIQUE: Single frontal radiographic view of the chest acquired. RADIATION DOSE: NA LIMITATIONS: None. FINDINGS: LUNGS AND PLEURA: Trace left effusion and linear lingular opacities, similar to prior. Un remarkable right hemithorax. No pneumothorax. MEDIASTINUM AND HILAR STRUCTURES: No masses. Contour normal. HEART AND VASCULAR STRUCTURES: Heart normal in size. Normal vasculature. BONES: No acute findings. HARDWARE: None in the chest. OTHER: No other significant finding. IMPRESSION: Stable trace left effusion and lingular opacities, likely atelectasis or scarring. TECHNICAL DOCUMENTATION: JOB ID: [id number] [employer]- All Rights Reserved Reading location - IP/workstation name: [email or web address]
[2019-02-18] MEDS: ZOLPIDEM TARTRATE 5 MG TABLET PO PRN (00:19)
[2019-02-18] MEDS: IPRATROPIUM/ALBUTEROL 120 PUFF/4 GM MDI IH SCH ×5 (00:19→23:10)
[2019-02-18 04:47] LABS: HEMATOCRIT 26.7 % (37.9-51.0); HEMOGLOBIN 8.8 g/dL (13.5-17.0); MEAN CORPUSCULAR HEMOGLOBIN 24.6 pg (27.0-33.4); MEAN CORPUSCULAR HGB CONC 32.8 g/dL (32.0-36.0); MEAN CORPUSCULAR VOLUME 75 fl (80-97); PLATELET COUNT 179 10^3/uL (150-450); RED BLOOD COUNT 3.57 10^6/uL (4.35-5.55); RED CELL DISTRIBUTION WIDTH 26.4 % (11.5-14.0); WHITE BLOOD COUNT 7.9 10^3/uL (4.0-10.5)
[2019-02-18] MEDS: PANTOPRAZOLE SODIUM 20 MG TABLET.DR PO SCH (06:01)
--- NOTE | 2019-02-18 07:18 | PDOC PROGRESS REPORT ---
Subjective Progress Note for:: 02/18/19 Reason For Visit: CHRONIC INSTABILITY LEFT PROSTHETIC HIP 54-year-old male now postop day 2 status post left hip revision arthroplasty. Patient made excellent progress with physical therapy on the day of surgery but less so yesterday. Physical Exam Vital Signs: Temp Pulse Resp BP Pulse Ox 37.6 C 109 H 17 98/50 L 93 02/17/19 23:47 02/17/19 23:47 02/17/19 23:47 02/17/19 23:47 02/17/19 23:47 Intake & Output 02/17/19 02/18/19 02/19/19 06:59 06:59 06:59 Intake Total 2187 2705 Output Total 3200 3200 Balance -1013 -495 Weight 102.6 kg Physical Exam: Middle-aged black male lying in hospital bed in minor distress. General appearance: PRESENT: no acute distress, mild distress Head exam: PRESENT: normocephalic Respiratory exam: PRESENT: unlabored Cardiovascular exam: PRESENT: RRR Pulses: PRESENT: +1 pedal pulses bilateral Vascular exam: PRESENT: normal capillary refill GI/Abdominal exam: PRESENT: soft Rectal exam: PRESENT: deferred Extremities exam: PRESENT: other - Left hip dressing saturated. Change this mor pete. Wound is well approximated tong. Leg lengths equal. Distal neurovascular examination is intact. Neurological exam: PRESENT: alert, awake, oriented to person, oriented to place, oriented to time, oriented to situation. ABSENT: motor sensory deficit Psychiatric exam: PRESENT: appropriate affect, normal mood. ABSENT: homicidal ideation, suicidal ideation Skin exam: PRESENT: dry, intact, warm. ABSENT: cyanosis, rash Results Laboratory Results: 02/18/19 03:34 02/16/19 05:33 02/17/19 02/18/19 08:14 03:34 WBC 7.6 7.9 RBC 3.72 L 3.57 L Hgb 9.1 L 8.8 L Hct 28.2 L 26.7 L MCV 76 L 75 L MCH 24.5 L 24.6 L MCHC 32.3 32.8 RDW 27.4 H 26.4 H Plt Count 176 179 Impressions: Pelvis X-Ray 02/15/19 13:19 IMPRESSION: SATISFACTORY POSTOPERATIVE PELVIS. Chest X-Ray 02/17/19 00:00 IMPRESSION: Stable trace left effusion and lingular opacities, likely atelect asis or scarring. Status: Imported from PACS Assessment & Plan - Diagnosis (1) Mechanical failure of prosthetic joint Qualifiers: Encounter type: subsequent encounter Qualified Code(s): T84.019D - Broken internal joint prosthesis, unspecified site, subsequent encounter Is this a current diagnosis for this admission?: Yes Plan: Mobilized with physical therapy repeat. Patient is decided that he would be best served with a rehabilitation stay. This is being petitioned through the [place] medical system. In the interim the patient can be mobilized with physical therapy here and weightbearing as tolerated basis. Dressing changes as needed. - Time Time Spent with patient: 15-24 minutes Anticipated discharge: SNF Within: when bed available
[2019-02-18] MEDS: RIVAROXABAN 10 MG TABLET PO SCH (09:24)
[2019-02-18] MEDS: SENNOSIDES/DOCUSATE 8.6-50 MG 1 EACH TABLET PO SCH ×2 (09:24→17:50)
[2019-02-18] MEDS: FERROUS SULFATE 325 MG TABLET PO SCH (09:25)
[2019-02-18] MEDS: OXYCODONE HCL SR 40 MG TABLET PO SCH (09:25)
[2019-02-18] MEDS: PRENATAL VITAMIN W DHA CAPSULE PO SCH (09:25)
[2019-02-18] MEDS: TAMSULOSIN HCL 0.4 MG CAP.SR.24H PO SCH (09:26)
[2019-02-18] MEDS: PREGABALIN 75 MG CAPSULE PO SCH ×2 (09:26→17:51)
[2019-02-18] MEDS: NICOTINE 21 MG/24 HR PATCH.TD24 TD SCH (09:27)
--- NOTE | 2019-02-18 12:58 | RADIOLOGY REPORT (SQ) ---
EXAM DESCRIPTION: CHEST SINGLE VIEW COMPLETED DATE/TIME: 02/18/2019 12:46 pm REASON FOR STUDY: CHEST PAIN COMPARISON: 02/17/2019. FINDINGS: AP portable upright single-view chest. Trace left pleural effusion suggested, as before. Likely COPD. No pneumothorax or new infiltrates. Stable cardiomediastinal silhouette. TECHNICAL DOCUMENTATION: JOB ID: [id number] Reading location - IP/workstation name: [email or web address]
[2019-02-18 16:47] LABS: CREATINE KINASE MB 0.46 ng/mL (<4.55)
[2019-02-18 16:50] LABS: TROPONIN I < 0.012 ng/mL
[2019-02-18] MEDS ORDERED: NORMAL SALINE 1000 ML 1,000 ML IV SCH (20:00)
[2019-02-18] MEDS ORDERED: NORMAL SALINE 1000 ML 1,000 ML IV ONE (21:00)
[2019-02-18 21:04] LABS: ABSOLUTE EOSINOPHILS # (AUTO) 0.2 10^3/uL (0.0-0.6); ABSOLUTE LYMPHOCYTES (AUTO) 1.5 10^3/uL (0.5-4.7); ABSOLUTE NEUT (AUTO) 4.1 10^3/uL (1.7-8.2); BASOPHILS % (AUTO) 0.4 % (0-2); EOSINOPHILS % (AUTO) 2.6 % (0-6); HEMATOCRIT 27.3 % (37.9-51.0); HEMOGLOBIN 8.9 g/dL (13.5-17.0); LYMPHOCYTES % (AUTO) 21.9 % (13-45); MEAN CORPUSCULAR HEMOGLOBIN 24.5 pg (27.0-33.4); MEAN CORPUSCULAR HGB CONC 32.5 g/dL (32.0-36.0); MEAN CORPUSCULAR VOLUME 75 fl (80-97); MONOCYTES % (AUTO) 14.5 % (3-13); PLATELET COUNT 189 10^3/uL (150-450); RED BLOOD COUNT 3.62 10^6/uL (4.35-5.55); RED CELL DISTRIBUTION WIDTH 26.4 % (11.5-14.0); SEGMENTED NEUTROPHILS % (AUTO) 60.6 % (42-78); TOTAL CELLS COUNTED % (AUTO) 100 %; WHITE BLOOD COUNT 6.7 10^3/uL (4.0-10.5)
[2019-02-18 21:23] LABS: ANISOCYTOSIS 3+; HYPOCHROMASIA SLIGHT; OVALOCYTES 1+
[2019-02-18 21:24] LABS: PLATELET COMMENT ADEQUATE; TARGET CELLS SLIGHT; TEAR DROP CELLS 1+
[2019-02-18 21:25] LABS: ANION GAP 7 (5-19); BLOOD UREA NITROGEN 16 mg/dL (7-20); CALCIUM 8.3 mg/dL (8.4-10.2); CARBON DIOXIDE 32 mmol/L (22-30); CHLORIDE 95 mmol/L (98-107); CREATINE KINASE 274 U/L (55-170); GLUCOSE 97 mg/dL (75-110)
[2019-02-18] MEDS: MIDODRINE HCL 5 MG TABLET PO SCH (21:39)
[2019-02-18 21:40] LABS: CREATINE KINASE MB 0.38 ng/mL (<4.55)
[2019-02-18 21:51] LABS: TROPONIN I < 0.012 ng/mL
[2019-02-18] MEDS ORDERED: OXYCODONE HCL SR 10 MG TABLET PO SCH (22:00)
[2019-02-18] MEDS ORDERED: OXYCODONE HCL SR 40 MG TABLET PO SCH (22:00)
[2019-02-18] MEDS: OXYCODONE HCL SR 10 MG TABLET PO SCH (23:09)
[2019-02-19 03:19] LABS: CREATINE KINASE MB 0.37 ng/mL (<4.55)
[2019-02-19 03:23] LABS: TROPONIN I < 0.012 ng/mL
[2019-02-19] MEDS ORDERED: HYDROCORTISONE SOD SUCCINATE INJ/PF 100 MG/2 ML SDV IV ONE (03:45)
[2019-02-19] MEDS ORDERED: NA PHOS,M-B/NA PHOS,DI-BA (ADULT) 133 ML ENEMA PR PRN (04:26)
--- NOTE | 2019-02-19 04:47 | PDOC CONSULTATION ---
Consultation Consult Date: 02/18/19 Attending physician:: WESLEY NASCIMENTO Provider Consulted: ALBERTO BARNARD Consult reason:: hypotension History of Present Illness Admission Date/PCP: 02/15/19 08:13 OR CL[facility] Patient complains of: Hypotension History of Present Illness: KERRI STODDARD is a 54 year old male with a past medical history of COPD rheumatoid arthritis on Xeljanz and prednisone, chronic atrial fibrillation, opiate dependent chronic pain and midodrine dependent hypotension. He is postop day 3 following left hip revision arthroplasty secondary to falls and resulting joint instability and recurrent subluxation. Postop course complicated by hypotension without tachycardia or reduced urine output. He denies chest pain cough shortness of breath nausea vomiting. He does admit constipation and general fatigue. On exam he is found to have a blood pressure of 83/44 and a irregular pulse of 96. Labs concerning for microcytic anemia and suggest metabolic alkalosis as compensating mild respiratory acidosis. He is ordered telemetry, a fluid challenge of 2 L of normal saline, with holding Flomax, resumption of Midodrine and a random cortisol is ordered. Past Medical History Cardiac Medical History: Reports: Atrial Fibrillation Denies: Congestive Heart Failure, Coronary Artery Disease, Myocardial Infarction, Hyperlipidema, Hypertension, Peripheral Vascular Disease, Pulmonary Embolism, Heart Murmur Pulmonary Medical History: Reports: Chronic Obstructive Pulmonary Disease (COPD) Denies: Asthma, Bronchitis, Pneumonia, Respiratory Failure, Sleep Apnea, Tuberculosis Neurological Medical History: Denies: Seizures Endocrine Medical History: Denies: Hyperthyroidism, Hypothyroidism Renal/ Medical History: Denies: End Stage Renal Disease Malignancy Medical History: Denies: Breast Cancer, Cervical Cancer, Leukemia, Lung Cancer, Ovarian Cancer GI Medical History: Denies: Gastroesophageal Reflux Disease Musculoskeltal Medical History: Reports: Arthritis Denies: Fibromyalgia Psychiatric Medical History: Reports: Depression Denies: Bipolar Disorder, Dementia, Post Traumatic Stress Disorder Hematology: Denies: Anemia, Hemophilia, Sickle Cell Disease Infectious Medical History: Denies: HIV Past Surgical History Past Surgical History: Reports: Cardiac Catheterization - AFIB ablation, Orthopedic Surgery - left ankle LEFT HIP REPLACE Denies: Appendectomy, Cholecystectomy, Coronary Artery Bypass Graft, Gastric Bypass Surgery, Herniorrhaphy, Pacemaker, Tonsillectomy Social History Information Source: Patient, [facility] Records Smoking Status: Current Every Day Smoker Cigarettes Packs Per Day: 0.5 Frequency of Alcohol Use: None Hx Recreational Drug Use: No Drugs: None Hx Prescription Drug Abuse: No - Advance Directive Resuscitation Status: Full Code Family History Family History: CAD Parental Family History Reviewed: Yes Children Family History Reviewed: Yes Sibling(s) Family History Reviewed.: Yes Medication/Allergy Home Medications: Albuterol Sulfate [Proventil 0.5% Neb 2.5 mg/0.5 ml Vial.neb] 2.5 mg NEB RTQIDP PRN 02/09/19 Chlorhexidine Gluconate [Periogard 0.12% Oral Rinse 15 ml] 1 tbs PO BID 02/09/19 Diclofenac Sodium [Voltaren 50 mg Tablet.dr] 75 mg PO BIDP PRN 02/09/19 Ferrous Sulfate 324 mg PO DAILY 02/09/19 Folic Acid [Folvite 1 mg Tablet] 1 mg PO DAILY 02/09/19 Mupirocin [Bactroban 2% Ointment 22 gm] 1 applic TOP DAILY 02/09/[address]-3 Fatty Acids/Fish Oil [Fish Oil 1,000 mg Capsule] 1,000 mg PO BID 02/09/19 Omeprazole 20 mg PO DAILY 02/09/19 Oxycodone HCl [Oxy-Ir 5 mg Tablet] 15 mg PO Q6HP PRN 02/09/19 Pregabalin [Lyrica] 225 mg PO BID 02/09/19 Rivaroxaban [Xarelto] 20 mg PO DAILY 02/09/19 Sildenafil Citrate [Viagra] 100 mg PO ASDIR PRN 02/09/19 Tamsulosin HCl [Flomax 0.4 mg Cap.sr] 0.4 mg PO DAILY 02/09/19 Tofacitinib Citrate [Xeljanz] 5 mg PO BID 02/09/19 Trazodone HCl 100 mg PO QHS 02/09/19 Zolpidem Tartrate [Ambien 5 mg Tablet] 5 mg PO QHS 02/09/19 Calcium Carbonate/Vitamin D3 [Os-Matty 500-Vit D3 200 Caplet] 1 tab PO DAILY 02/15/19 Ipratropium/Albuterol Sulfate [Combivent Respimat 4 gm Mdi] 1 puff IH QID 02/15/19 Morphine Sulfate [Ms Contin] 15 mg PO Q12 02/15/19 Albuterol Sulfate [Proair Hfa Inhalation Aerosol 8.5 gm Mdi] 1 puff IH QIDP PRN 02/18/19 Capsaicin [Zostrix 0.025% Cream 60 gm] 1 applic TP TID 02/18/19 Lidocaine HCl [Xylocaine 5% Ointment 35.44 gm] 1 applic TP TIDP PRN 02/18/19 Paroxetine HCl [Paxil] 5 mg PO DAILY 02/18/19 Prednisone [Deltasone 10 mg Tablet] 10 mg PO BID 02/18/19 Allergies/Adverse Reactions: adalimumab [From Humira] Adverse Reaction (Verified 02/09/19 13:26) etanercept [From Enbrel] Adverse Reaction (Verified 02/09/19 13:26) gabapentin Adverse Reaction (Verified 02/09/19 13:26) methotrexate Adverse Reaction (Verified 02/09/19 13:26) Review of Systems Constitutional: PRESENT: as per HPI, fatigue. ABSENT: chills, fever(s), headache(s), weight gain, weight loss Eyes: ABSENT: visual disturbances Ears: ABSENT: hearing changes Cardiovascular: ABSENT: chest pain, dyspnea on exertion, edema, orthropnea, palpitations Respiratory: ABSENT: cough, hemoptysis Gastrointestinal: PRESENT: as per HPI, constipation. ABSENT: abdominal pain, diarrhea, hematemesis, hematochezia, nausea, vomiting Genitourinary: ABSENT: dysuria, hematuria Musculoskeletal: ABSENT: joint swelling Integumentary: ABSENT: rash, wounds Neurological: ABSENT: abnormal gait, abnormal speech, confusion, dizziness, f ocal weakness, syncope Psychiatric: ABSENT: anxiety, depression, homidical ideation, suicidal ideation Endocrine: ABSENT: cold intolerance, heat intolerance, polydipsia, polyuria Hematologic/Lymphatic: ABSENT: easy bleeding, easy bruising Physical Exam Vital Signs: Temp Pulse Resp BP Pulse Ox 98.1 F 92 16 85/45 L 98 02/19/19 03:51 02/19/19 03:51 02/19/19 03:51 02/19/19 03:51 02/19/19 03:51 Intake & Output 02/17/19 02/18/19 02/19/19 11:59 11:59 11:59 Intake Total 9684 7115 0856 Output Total 3200 0320 7950 Balance -9768 -797 -8138 Weight 102.6 kg General appearance: PRESENT: no acute distress, cooperative, well-developed, well-nourished. ABSENT: disheveled Head exam: PRESENT: atraumatic, normocephalic Eye exam: PRESENT: conjunctiva pink, EOMI, PERRLA. ABSENT: scleral icterus Ear exam: PRESENT: normal external ear exam Mouth exam: PRESENT: dry mucosa, tongue midline Neck exam: ABSENT: carotid bruit, JVD, lymphadenopathy, thyromegaly Respiratory exam: PRESENT: clear to auscultation alessia, unlabored. ABSENT: rales, rhonchi, tachypnea, wheezes Cardiovascular exam: PRESENT: irregular rhythm. ABSENT: diastolic murmur, gallop, rubs, systolic murmur Pulses: PRESENT: normal dorsalis pedis pul Vascular exam: PRESENT: normal capillary refill GI/Abdominal exam: PRESENT: diminished bowel sounds, hypoactive bowel sounds, soft. ABSENT: firm, guarding, tenderness Rectal exam: PRESENT: deferred Extremities exam: PRESENT: full ROM. ABSENT: calf tenderness, clubbing, pedal edema Neurological exam: PRESENT: alert, awake, oriented to person, oriented to place, oriented to time, oriented to situation, CN II-XII grossly intact. ABSENT: motor sensory deficit Psychiatric exam: PRESENT: appropriate affect, normal mood. ABSENT: homicidal ideation, suicidal ideation Skin exam: PRESENT: dry, intact, warm. ABSENT: cyanosis, rash Results Laboratory Results: 02/18/19 20:42 02/18/19 20:42 02/18/19 02/18/19 02/18/19 03:34 20:42 20:42 WBC 7.9 6.7 RBC 3.57 L 3.62 L Hgb 8.8 L 8.9 L Hct 26.7 L 27.3 L MCV 75 L 75 L MCH 24.6 L 24.5 L MCHC 32.8 32.5 RDW 26.4 H 26.4 H Plt Count 179 189 Seg Neutrophils % 60.6 Sodium 134.0 L Potassium 4.0 Chloride 95 L Carbon Dioxide 32 H Anion Gap 7 BUN 16 Creatinine 1.11 Est GFR ( Amer) > 60 Glucose 97 Calcium 8.3 L Magnesium 1.9 02/18/19 02/18/19 02/18/19 16:05 16:05 20:42 Creatine Kinase 243 H 274 H CK-MB (CK-2) 0.46 Troponin I < 0.012 09/02/19/19 02/19/19 20:42 02:37 02:37 Creatine Kinase 189 H CK-MB (CK-2) 0.38 0.37 Troponin I < 0.012 < 0.012 Impressions: Pelvis X-Ray 02/15/19 13:19 IMPRESSION: SATISFACTORY POSTOPERATIVE PELVIS. Assessment and Plan - Diagnosis (1) Hypotension Qualifiers: Hypotension type: unspecified hypotension type Qualified Code(s): I95.9 - Hypotension, unspecified Is this a current diagnosis for this admission?: Yes Plan: Likely multifactorial secondary to postoperative required opiates, Midodrin dep endence, relative adrenal insufficiency. Continue narcotics, resume outpatient Midrin, agree with increased prednisone dose from baseline. Hold Flomax, IV fluid challenge, follow-up random cortisol. (2) Adrenal insufficiency Is this a current diagnosis for this admission?: Yes Plan: Strongly suggested by steroid dependence, single dose trial of solute Cortef ordered, follow-up random cortisol. (3) Constipation Is this a current diagnosis for this admission?: Yes Plan: Fleet enema as needed and consider lactulose (4) Anemia Is this a current diagnosis for this admission?: Yes Plan: Profound microcytic anemia suggest evaluation of iron level as likely requires IV replacement. (5) Opiate dependence, continuous Is this a current diagnosis for this admission?: Yes Plan: Hold for excessive sedation. (6) Respiratory acidosis Is this a current diagnosis for this admission?: Yes Plan: Suggested by metabolic alkalosis on labs with a history of COPD, increased narcotics and sedation. Hold diphenhydramine and Ambien. Consider ABG if follow-up bicarb continues to rise. - Time Time Spent with patient: 25-34 minutes - Inpatient Certification Medical Necessity: Need Close Monitoring Due to Risk of Patient Decompensation
[2019-02-19 06:19] LABS: IRON(TIBC) < 10.1 ug/dL (49-181)
[2019-02-19] MEDS: PANTOPRAZOLE SODIUM 20 MG TABLET.DR PO SCH (06:52)
[2019-02-19] MEDS: IPRATROPIUM/ALBUTEROL 120 PUFF/4 GM MDI IH SCH ×4 (06:53→23:01)
--- NOTE | 2019-02-19 07:12 | PDOC PROGRESS REPORT ---
Subjective Progress Note for:: 02/19/19 Reason For Visit: CHRONIC INSTABILITY LEFT PROSTHETIC HIP 54-year-old black male now postop day 4 status post revision left hip arthroplasty. Issues yesterday with hypotension. Hospitalist was consulted and has made some changes in the patient's medications. Did progress with physical therapy. Physical Exam Vital Signs: Temp Pulse Resp BP Pulse Ox 36.7 C 92 16 85/45 L 98 02/19/19 03:51 02/19/19 03:51 02/19/19 03:51 02/19/19 03:51 02/19/19 03:51 Intake & Output 02/18/19 02/19/19 02/20/19 06:59 06:59 06:59 Intake Total 2705 4556 Output Total 3206 6673 Balance -495 -2079 Weight 102.6 kg 100.6 kg Physical Exam: Tall middle-aged black male lying in a hospital bed. Patient is alert, oriented, and appropriate. General appearance: PRESENT: no acute distress Head exam: PRESENT: normocephalic Respiratory exam: PRESENT: unlabored Cardiovascular exam: PRESENT: RRR Pulses: PRESENT: +1 pedal pulses bilateral Vascular exam: PRESENT: normal capillary refill GI/Abdominal exam: PRESENT: soft Rectal exam: PRESENT: deferred Extremities exam: PRESENT: other - Left hip dressing with serosanguineous drainage. Nursing to change this morning. Neurological exam: PRESENT: alert, awake, oriented to person, oriented to place, oriented to time, oriented to situation, CN II-XII grossly intact. ABSENT: motor sensory deficit Psychiatric exam: PRESENT: appropriate affect, normal mood. ABSENT: homicidal ideation, suicidal ideation Skin exam: PRESENT: dry, intact, warm. ABSENT: cyanosis, rash Results Laboratory Results: 02/18/19 20:42 02/18/19 20:42 02/18/19 02/18/19 02/19/19 20:42 20:42 02:37 WBC 6.7 RBC 3.62 L Hgb 8.9 L Hct 27.3 L MCV 75 L MCH 24.5 L MCHC 32.5 RDW 26.4 H Plt Count 189 Seg Neutrophils % 60.6 Sodium 134.0 L Potassium 4.0 Chloride 95 L Carbon Dioxide 32 H Anion Gap 7 BUN 16 Creatinine 1.11 Est GFR ( Amer) > 60 Glucose 97 Calcium 8.3 L Magnesium 1.9 Iron < 10.1 L TIBC 253 Ferritin 50.90 02/18/19 02/18/19 02/18/19 16:05 16:05 20:42 Creatine Kinase 243 H 274 H CK-MB (CK-2) 0.46 Troponin I < 0.012 02/18/19 02/19/19 02/19/19 20:42 02:37 02:37 Creatine Kinase 189 H CK-MB (CK-2) 0.38 0.37 Troponin I < 0.012 < 0.012 Impressions: Pelvis X-Ray 02/15/19 13:19 IMPRESSION: SATISFACTORY POSTOPERATIVE PELVIS. Status: Imported from PACS Assessment & Plan - Diagnosis (1) Mechanical failure of prosthetic joint Qualifiers: Encounter type: subsequent encounter Qualified Code(s): T84.019D - Broken internal joint prosthesis, unspecified site, subsequent encounter Is this a current diagnosis for this admission?: Yes Plan: Patient to continue to work with physical therapy and weightbearing as tolerated basis. [facility] - Time Time Spent with patient: 15-24 minutes Anticipated discharge: SNF Within: when bed available
[2019-02-19 08:14] LABS: RETICULOCYTE COUNT (AUTO) 2.65 % (0.66-2.85)
[2019-02-19] MEDS: PREGABALIN 75 MG CAPSULE PO SCH ×2 (09:46→18:21)
[2019-02-19] MEDS: MIDODRINE HCL 5 MG TABLET PO SCH ×2 (09:47→18:19)
[2019-02-19] MEDS: OXYCODONE HCL SR 10 MG TABLET PO SCH ×2 (09:47→21:03)
[2019-02-19] MEDS: RIVAROXABAN 10 MG TABLET PO SCH (09:48)
[2019-02-19] MEDS: SENNOSIDES/DOCUSATE 8.6-50 MG 1 EACH TABLET PO SCH ×2 (09:48→18:25)
[2019-02-19] MEDS: NICOTINE 21 MG/24 HR PATCH.TD24 TD SCH (12:10)
[2019-02-19] MEDS: FERROUS SULFATE 325 MG TABLET PO SCH (12:10)
--- NOTE | 2019-02-19 16:52 | PDOC PROGRESS REPORT ---
Subjective Progress Note for:: 02/19/19 Subjective:: No adverse events overnight. Vital signs have been stable. I asked him what his typical blood pressure is that he said his systolic usually runs around 100, so he is now pretty close to his typical blood pressure. His Midrin was restarted. Reason For Visit: CHRONIC INSTABILITY LEFT PROSTHETIC HIP Physical Exam Vital Signs: Temp Pulse Resp BP Pulse Ox 99.6 F 109 H 18 96/58 L 94 02/19/19 15:53 02/19/19 15:53 02/19/19 15:53 02/19/19 15:53 02/19/19 15:53 Intake & Output 02/18/19 02/19/19 02/20/19 06:59 06:59 06:59 Intake Total 2705 9536 624 Output Total 5002 6654 800 Balance -965 -8783 -246 Weight 102.6 kg 100.6 kg General appearance: PRESENT: no acute distress, cooperative, disheveled Respiratory exam: PRESENT: clear to auscultation alessia, symmetrical, unlabored. ABSENT: accessory muscle use, chest wall tenderness, crackles, prolonged expiratory phas, rhonchi, tachypnea, wheezes Cardiovascular exam: PRESENT: RRR, +S1, +S2 Pulses: PRESENT: normal carotid pulses Vascular exam: PRESENT: normal capillary refill GI/Abdominal exam: PRESENT: normal bowel sounds, soft. ABSENT: distended, guarding, rebound, tenderness Extremities exam: ABSENT: clubbing, pedal edema Musculoskeletal exam: PRESENT: other - He had a clean bandage overlying the left hip. ABSENT: deformity Neurological exam: PRESENT: alert, awake, oriented to person, oriented to place, oriented to time, oriented to situation Psychiatric exam: PRESENT: appropriate affect, normal mood Skin exam: PRESENT: dry, warm Results Laboratory Results: 02/18/19 20:42 02/18/19 20:42 02/18/19 02/18/19 02/19/19 20:42 20:42 02:37 WBC 6.7 RBC 3.62 L Hgb 8.9 L Hct 27.3 L MCV 75 L MCH 24.5 L MCHC 32.5 RDW 26.4 H Plt Count 189 Seg Neutrophils % 60.6 Retic Count (auto) Sodium 134.0 L Potassium 4.0 Chloride 95 L Carbon Dioxide 32 H Anion Gap 7 BUN 16 Creatinine 1.11 Est GFR ( Amer) > 60 Glucose 97 Calcium 8.3 L Magnesium 1.9 Iron < 10.1 L TIBC 253 Ferritin 50.90 Vitamin B12 364.0 Folate 15.10 02/19/19 07:46 WBC RBC Hgb Hct MCV MCH MCHC RDW Plt Count Seg Neutrophils % Retic Count (auto) 2.65 Sodium Potassium Chloride Carbon Dioxide Anion Gap BUN Creatinine Est GFR ( Amer) Glucose Calcium Magnesium Iron TIBC Ferritin Vitamin B12 Folate 02/15/19 11:42 Hip - Left Gram Stain - Final 02/15/19 11:42 Hip - Left Wound Culture - Final NO AEROBIC OR ANAEROBIC ORGANISMS RECOVERED 02/15/19 11:41 Hip - Left Gram Stain - Final 02/15/19 11:41 Hip - Left Wound Culture - Final NO AEROBIC OR ANAEROBIC ORGANISMS RECOVERED 02/18/19 02/18/19 02/18/19 16:05 16:05 20:42 Creatine Kinase 243 H 274 H CK-MB (CK-2) 0.46 Troponin I < 0.012 02/18/19 02/19/19 02/19/19 20:42 02:37 02:37 Creatine Kinase 189 H CK-MB (CK-2) 0.38 0.37 Troponin I < 0.012 < 0.012 Impressions: Pelvis X-Ray 02/15/19 13:19 IMPRESSION: SATISFACTORY POSTOPERATIVE PELVIS. Assessment and Plan - Diagnosis (1) Adrenal insufficiency Is this a current diagnosis for this admission?: Yes Plan: Due to his chronic steroid use with cessation for surgery. I would recommend getting him back on his prednisone as soon as possible because he is been on a dose for a long enough time that would cause symptoms of insufficiency when stopped abruptly. (2) Anemia Qualifiers: Anemia type: iron deficiency Iron deficiency anemia type: unspecified iron deficiency Qualified Code(s): D50.9 - Iron deficiency anemia, unspecified Is this a current diagnosis for this admission?: Yes Plan: He takes Xarelto and so he could have intermittent low-level blood loss. An iron supplement has been started. (3) Constipation Qualifiers: Constipation type: drug induced constipation Qualified Code(s): K59.03 - Drug induced constipation Is this a current diagnosis for this admission?: Yes Plan: Recommended aggressive bowel regimen along with adequate hydration, proper amount of fiber in the diet, and MiraLAX. (4) Respiratory acidosis Is this a current diagnosis for this admission?: Yes Plan: Seems to be well compensated, no further intervention needed at this time (5) Hypotension Qualifiers: Hypotension type: unspecified hypotension type Qualified Code(s): I95.9 - Hypotension, unspecified Is this a current diagnosis for this admission?: Yes Plan: His Midrin was restarted. The blood pressures he showing seem to be in the normal range for him. - Time Time Spent with patient: 15-24 minutes
[2019-02-19] MEDS: ALBUTEROL SULFATE HFA (90 MCG/PUFF) 200 PUFF/8.5 GM MDI IH PRN ×2 (17:27→22:52)
[2019-02-19] MEDS: IRON SUCROSE COMPLEX INJ/PF 100 MG/5 ML SDV IV SCH (20:54)
[2019-02-20] MEDS: PANTOPRAZOLE SODIUM 20 MG TABLET.DR PO SCH (05:27)
[2019-02-20] MEDS: IPRATROPIUM/ALBUTEROL 120 PUFF/4 GM MDI IH SCH ×4 (05:28→23:00)
--- NOTE | 2019-02-20 09:04 | EKG REPORT ---
SEVERITY:- ABNORMAL ECG - SINUS RHYTHM FIRST DEGREE AV BLOCK PROBABLE ANTEROSEPTAL INFARCT, AGE INDETERM : Confirmed by: Ruth Woods 20-Feb-2019 09:02:51
--- NOTE | 2019-02-20 09:39 | PDOC PROGRESS REPORT ---
Subjective Progress Note for:: 02/20/19 Subjective:: Patient is PSD 5 with healing and awaiting SNF. He does have multiple other medical issues, RA, Neuropathy, PTSD, Depression. Patient asked me about his meds not being the same. He did see Hospitalist yesterday and did not mention to him. Reason For Visit: CHRONIC INSTABILITY LEFT PROSTHETIC HIP Physical Exam Vital Signs: Temp Pulse Resp BP Pulse Ox 98.8 F 94 16 87/49 L 100 02/20/19 07:19 02/20/19 07:19 02/20/19 07:19 02/20/19 07:19 02/20/19 07:19 Intake & Output 02/19/19 02/20/19 02/21/19 06:59 06:59 06:59 Intake Total 4556 3322 Output Total 6616 6590 Balance -6440 -4012 Weight 100.6 kg 101.5 kg Additional comments: Patient in NAD thin black male, wound is clean and no sign of infection. Results Laboratory Results: 02/18/19 20:42 02/18/19 20:42 02/15/19 11:42 Hip - Left Gram Stain - Final 02/15/19 11:42 Hip - Left Wound Culture - Final NO AEROBIC OR ANAEROBIC ORGANISMS RECOVERED 02/15/19 11:41 Hip - Left Gram Stain - Final 02/15/19 11:41 Hip - Left Wound Culture - Final NO AEROBIC OR ANAEROBIC ORGANISMS RECOVERED 02/18/19 02/18/19 02/18/19 16:05 16:05 20:42 Creatine Kinase 243 H 274 H CK-MB (CK-2) 0.46 Troponin I < 0.012 02/18/19 02/19/19 02/19/19 20:42 02:37 02:37 Creatine Kinase 189 H CK-MB (CK-2) 0.38 0.37 Troponin I < 0.012 < 0.012 Impressions: Pelvis X-Ray 02/15/19 13:19 IMPRESSION: SATISFACTORY POSTOPERATIVE PELVIS. Assessment & Plan - Plan Summary Plan Summary: Patient is day 5 SP revision of left hip, he is awaiting SNF placement, he does have multiple medicine issues that he will discuss with hospitalist today.
[2019-02-20] MEDS: NICOTINE 21 MG/24 HR PATCH.TD24 TD SCH (09:40)
[2019-02-20] MEDS: PREGABALIN 75 MG CAPSULE PO SCH ×2 (09:41→18:24)
[2019-02-20] MEDS: RIVAROXABAN 10 MG TABLET PO SCH (09:41)
[2019-02-20] MEDS: FERROUS SULFATE 325 MG TABLET PO SCH (09:41)
[2019-02-20] MEDS: SENNOSIDES/DOCUSATE 8.6-50 MG 1 EACH TABLET PO SCH ×2 (09:41→18:25)
[2019-02-20] MEDS: MIDODRINE HCL 5 MG TABLET PO SCH ×2 (09:42→18:25)
[2019-02-20] MEDS: OXYCODONE HCL SR 10 MG TABLET PO SCH ×2 (09:42→21:07)
[2019-02-20] MEDS ORDERED: PAROXETINE HCL 5 MG PO SCH (10:00)
[2019-02-20] MEDS ORDERED: PHARMACY COMMUNICATION ORDER MC NR (10:15)
[2019-02-20] MEDS: PAROXETINE HCL 20 MG TABLET PO SCH (13:27)
[2019-02-20] MEDS: PREDNISONE 10 MG TABLET PO SCH ×2 (13:28→18:25)
[2019-02-20] MEDS: OXYCODONE HCL IR 5 MG TABLET PO PRN ×2 (13:33→19:29)
[2019-02-20] MEDS: ACETAMINOPHEN 325 MG TABLET PO PRN ×2 (13:33→18:41)
--- NOTE | 2019-02-20 16:14 | PDOC PROGRESS REPORT ---
Subjective Progress Note for:: 02/20/19 Subjective:: No adverse events overnight. No new complaints. Vital signs been stable. Blood pressures have been in his usual range. He is wanting to know if he can have some of more of his home meds started. Reason For Visit: CHRONIC INSTABILITY LEFT PROSTHETIC HIP Physical Exam Vital Signs: Temp Pulse Resp BP Pulse Ox 98.6 F 91 16 103/54 L 96 02/20/19 11:06 02/20/19 11:06 02/20/19 11:06 02/20/19 11:06 02/20/19 11:06 Intake & Output 02/19/19 02/20/19 02/21/19 06:59 06:59 06:59 Intake Total 4550 3322 960 Output Total 6690 4900 1000 Balance -0494 -5836 -03 Weight 100.6 kg 101.5 kg General appearance: PRESENT: no acute distress, cooperative, disheveled Respiratory exam: PRESENT: clear to auscultation alessia, symmetrical, unlabored. ABSENT: accessory muscle use, chest wall tenderness, crackles, prolonged expiratory phas, rhonchi, tachypnea, wheezes Cardiovascular exam: PRESENT: RRR, +S1, +S2 Pulses: PRESENT: normal carotid pulses Vascular exam: PRESENT: normal capillary refill GI/Abdominal exam: PRESENT: normal bowel sounds, soft. ABSENT: distended, guarding, rebound, tenderness Extremities exam: ABSENT: clubbing, pedal edema Musculoskeletal exam: PRESENT: other - He had a clean bandage overlying the left hip. ABSENT: deformity Neurological exam: PRESENT: alert, awake, oriented to person, oriented to place, oriented to time, oriented to situation Psychiatric exam: PRESENT: appropriate affect, normal mood Skin exam: PRESENT: dry, warm Results Laboratory Results: 02/18/19 20:42 02/18/19 20:42 02/18/19 02/18/19 02/18/19 16:05 16:05 20:42 Creatine Kinase 243 H 274 H CK-MB (CK-2) 0.46 Troponin I < 0.012 02/18/19 02/19/19 02/19/19 20:42 02:37 02:37 Creatine Kinase 189 H CK-MB (CK-2) 0.38 0.37 Troponin I < 0.012 < 0.012 Impressions: Pelvis X-Ray 02/15/19 13:19 IMPRESSION: SATISFACTORY POSTOPERATIVE PELVIS. Assessment and Plan - Diagnosis (1) Adrenal insufficiency Is this a current diagnosis for this admission?: Yes Plan: I talked to surgery today and they were okay with resuming his prednisone so I reordered that. I also reorder his Xeljanz for rheumatoid arthritis. (2) Anemia Qualifiers: Anemia type: iron deficiency Iron deficiency anemia type: unspecified iron deficiency Qualified Code(s): D50.9 - Iron deficiency anemia, unspecified Is this a current diagnosis for this admission?: Yes Plan: He takes Xarelto and so he could have intermittent low-level blood loss. An iron supplement has been started. (3) Constipation Qualifiers: Constipation type: drug induced constipation Qualified Code(s): K59.03 - Drug induced constipation Is this a current diagnosis for this admission?: Yes Plan: Recommended aggressive bowel regimen along with adequate hydration, proper amount of fiber in the diet, and MiraLAX. (4) Respiratory acidosis Is this a current diagnosis for this admission?: Yes Plan: Seems to be well compensated, no further intervention needed at this time (5) Hypotension Qualifiers: Hypotension type: unspecified hypotension type Qualified Code(s): I95.9 - Hypotension, unspecified Is this a current diagnosis for this admission?: Yes Plan: His Midrin was restarted. The blood pressures he is showing seem to be in the normal range for him. We will continue to monitor. - Time Time Spent with patient: 15-24 minutes
[2019-02-20] MEDS ORDERED: DIPHENHYDRAMINE HCL 25 MG CAPSULE ONE (16:33)
[2019-02-20] MEDS ORDERED: DIPHENHYDRAMINE HCL 25 MG CAPSULE PO ONE (17:00)
[2019-02-20] MEDS: IRON SUCROSE COMPLEX INJ/PF 100 MG/5 ML SDV IV SCH (21:07)
[2019-02-20] MEDS: TRAZODONE HCL 50 MG TABLET PO SCH (22:50)
[2019-02-21] MEDS: PANTOPRAZOLE SODIUM 20 MG TABLET.DR PO SCH (05:16)
[2019-02-21] MEDS: IPRATROPIUM/ALBUTEROL 120 PUFF/4 GM MDI IH SCH ×4 (05:17→23:03)
[2019-02-21] MEDS: ACETAMINOPHEN 325 MG TABLET PO PRN ×2 (08:08→16:19)
[2019-02-21] MEDS: OXYCODONE HCL IR 5 MG TABLET PO PRN ×2 (08:09→16:19)
--- NOTE | 2019-02-21 08:46 | PDOC PROGRESS REPORT ---
Subjective Progress Note for:: 02/21/19 Subjective:: Patient is PSD 6 with healing and awaiting SNF. He does have multiple other medical issues, RA, Neuropathy, PTSD, Depression. Patient asked me about his meds not being the same. He did see Hospitalist yesterday and did not mention to him. Patient does feel much better after being started back on some of his medicines to include prednisone, I discussed with the hospitalist at length the issue with the prednisone for healing however since he was under the impression that the patient was going back into a adrenal crisis secondary to long-term steroid treatment that this was the last of 2 evils. I agreed. She also has some bloody drainage from the site. Reason For Visit: CHRONIC INSTABILITY LEFT PROSTHETIC HIP Physical Exam Vital Signs: Temp Pulse Resp BP Pulse Ox 98.1 F 78 15 118/67 98 02/20/19 23:04 02/21/19 02:00 02/20/19 23:04 02/20/19 23:04 02/20/19 23:04 Intake & Output 02/20/19 02/21/19 02/22/19 06:59 06:59 06:59 Intake Total 3322 2900 Output Total 4900 4300 Balance -1578 -1400 Weight 101.5 kg 102 kg Additonal comments: Patient is laying in bed comfortably has affect and mood are much better place today. He is maintaining good eye contact. His hip exam shows no pain with logroll his wound site is very clear clean with bloody saturation of the Chux pad. Results Laboratory Results: 02/18/19 20:42 02/18/19 20:42 02/18/19 02/18/19 02/18/19 16:05 16:05 20:42 Creatine Kinase 243 H 274 H CK-MB (CK-2) 0.46 Troponin I < 0.012 02/18/19 02/19/19 02/19/19 20:42 02:37 02:37 Creatine Kinase 189 H CK-MB (CK-2) 0.38 0.37 Troponin I < 0.012 < 0.012 Impressions: Pelvis X-Ray 02/15/19 13:19 IMPRESSION: SATISFACTORY POSTOPERATIVE PELVIS. Assessment & Plan - Diagnosis (1) Mechanical failure of prosthetic joint Qualifiers: Encounter type: subsequent encounter Qualified Code(s): T84.019D - Broken internal joint prosthesis, unspecified site, subsequent encounter Is this a current diagnosis for this admission?: Yes - Plan Summary Plan Summary: 56-year-old patient who is status post 6 days from revision of left hip arthropathy, patient is awaiting placement however after discussion with him with his comorbid conditions he is set up at home for home physical therapy and has all the equipment necessary to do home rehab. I discussed this with him at length however since his wound is draining we will continue to watch this over the next 24 hours to make sure he does not form a infection of this left hip. Will discuss with Dr. James possibility of him going home tomorrow if the bleeding has subsided and there is no signs of infection. Also I thought it necessary to allow prednisone to be re-added to his regiment given the fact that he was going into adrenal insufficiency.
[2019-02-21] MEDS: OXYCODONE HCL SR 10 MG TABLET PO SCH ×2 (09:43→22:51)
[2019-02-21] MEDS: RIVAROXABAN 10 MG TABLET PO SCH (09:44)
[2019-02-21] MEDS: PREDNISONE 10 MG TABLET PO SCH ×2 (09:44→17:27)
[2019-02-21] MEDS: MIDODRINE HCL 5 MG TABLET PO SCH ×2 (09:44→17:27)
[2019-02-21] MEDS: FERROUS SULFATE 325 MG TABLET PO SCH (09:44)
[2019-02-21] MEDS: PREGABALIN 75 MG CAPSULE PO SCH ×2 (09:45→17:27)
[2019-02-21] MEDS: SENNOSIDES/DOCUSATE 8.6-50 MG 1 EACH TABLET PO SCH ×2 (09:45→17:27)
[2019-02-21] MEDS: PAROXETINE HCL 20 MG TABLET PO SCH (09:45)
[2019-02-21] MEDS: NICOTINE 21 MG/24 HR PATCH.TD24 TD SCH (09:46)
[2019-02-21] MEDS: ALBUTEROL SULFATE HFA (90 MCG/PUFF) 200 PUFF/8.5 GM MDI IH PRN (11:14)
--- NOTE | 2019-02-21 15:04 | PDOC PROGRESS REPORT ---
Subjective Progress Note for:: 02/21/19 Subjective:: No adverse events overnight. Blood pressure has remained stable in his typical range. He wanted to go back on his Flomax as well, and I agreed to do it, but I told him that if it adversely affects his blood pressure were going to have to discontinue it and he verbalizes understanding. We put him back on his trazodone and Paxil yesterday, as well as his prednisone and Xeljanz, after discussing the situation with orthopedics. Reason For Visit: CHRONIC INSTABILITY LEFT PROSTHETIC HIP Physical Exam Vital Signs: Temp Pulse Resp BP Pulse Ox 97.8 F 102 H 13 98/60 L 100 02/21/19 11:14 02/21/19 14:00 02/21/19 11:14 02/21/19 11:14 02/21/19 11:14 Intake & Output 02/20/19 02/21/19 02/22/19 06:59 06:59 06:59 Intake Total 3322 2900 684 Output Total 4900 4300 Balance -1578 -1400 684 Weight 101.5 kg 102 kg General appearance: PRESENT: no acute distress, cooperative, disheveled Respiratory exam: PRESENT: clear to auscultation alessia, symmetrical, unlabored. ABSENT: accessory muscle use, chest wall tenderness, crackles, prolonged expiratory phas, rhonchi, tachypnea, wheezes Cardiovascular exam: PRESENT: RRR, +S1, +S2 Pulses: PRESENT: normal carotid pulses Vascular exam: PRESENT: normal capillary refill GI/Abdominal exam: PRESENT: normal bowel sounds, soft. ABSENT: distended, g uarding, rebound, tenderness Extremities exam: ABSENT: clubbing, pedal edema Musculoskeletal exam: PRESENT: other -minimal shadowing on the bandage overlying the left hip. ABSENT: deformity Neurological exam: PRESENT: alert, awake, oriented to person, oriented to place, oriented to time, oriented to situation Psychiatric exam: PRESENT: appropriate affect, normal mood Skin exam: PRESENT: dry, warm Results Laboratory Results: 02/18/19 20:42 02/18/19 20:42 02/18/19 02/18/19 02/18/19 16:05 16:05 20:42 Creatine Kinase 243 H 274 H CK-MB (CK-2) 0.46 Troponin I < 0.012 02/18/19 02/19/1919 20:42 02:37 02:37 Creatine Kinase 189 H CK-MB (CK-2) 0.38 0.37 Troponin I < 0.012 < 0.012 Impressions: Pelvis X-Ray 02/15/19 13:19 IMPRESSION: SATISFACTORY POSTOPERATIVE PELVIS. Assessment and Plan - Diagnosis (1) Adrenal insufficiency Is this a current diagnosis for this admission?: Yes Plan: Chronically on prednisone, we were able to resume it yesterday (2) Anemia Qualifiers: Anemia type: iron deficiency Iron deficiency anemia type: unspecified iron deficiency Qualified Code(s): D50.9 - Iron deficiency anemia, unspecified Is this a current diagnosis for this admission?: Yes Plan: He takes Xarelto and so he could have intermittent low-level blood loss. An iron supplement has been started. (3) Constipation Qualifiers: Constipation type: drug induced constipation Qualified Code(s): K59.03 - Drug induced constipation Is this a current diagnosis for this admission?: Yes Plan: Recommended aggressive bowel regimen along with adequate hydration, proper amount of fiber in the diet, and MiraLAX. (4) Respiratory acidosis Is this a current diagnosis for this admission?: Yes Plan: Seems to be well compensated, no further intervention needed at this time (5) Hypotension Qualifiers: Hypotension type: unspecified hypotension type Qualified Code(s): I95.9 - Hypotension, unspecified Is this a current diagnosis for this admission?: Yes Plan: His Midrin was restarted. The blood pressures he is showing seem to be in the normal range for him. We will continue to monitor. I did agree to restart his Flomax today, but I told him if his blood pressure drops as a result, we will going to have to discontinue it. - Time Time Spent with patient: 15-24 minutes
[2019-02-21] MEDS: IRON SUCROSE COMPLEX INJ/PF 100 MG/5 ML SDV IV SCH (20:35)
[2019-02-21] MEDS: TRAZODONE HCL 50 MG TABLET PO SCH (22:51)
[2019-02-21] MEDS: XELJANZ 5 MG PO SCH (22:52)
[2019-02-22] MEDS: PANTOPRAZOLE SODIUM 20 MG TABLET.DR PO SCH (05:09)
[2019-02-22] MEDS: IPRATROPIUM/ALBUTEROL 120 PUFF/4 GM MDI IH SCH ×3 (05:10→17:25)
[2019-02-22] MEDS: MIDODRINE HCL 5 MG TABLET PO SCH ×2 (09:54→17:24)
[2019-02-22] MEDS: OXYCODONE HCL SR 10 MG TABLET PO SCH ×2 (09:55→21:16)
[2019-02-22] MEDS: PREGABALIN 75 MG CAPSULE PO SCH ×2 (09:59→17:24)
[2019-02-22] MEDS: RIVAROXABAN 10 MG TABLET PO SCH (10:00)
[2019-02-22] MEDS: FERROUS SULFATE 325 MG TABLET PO SCH (10:00)
[2019-02-22] MEDS: SENNOSIDES/DOCUSATE 8.6-50 MG 1 EACH TABLET PO SCH ×2 (10:00→17:25)
[2019-02-22] MEDS: NICOTINE 21 MG/24 HR PATCH.TD24 TD SCH (10:01)
[2019-02-22] MEDS: PREDNISONE 10 MG TABLET PO SCH ×2 (10:01→17:24)
[2019-02-22] MEDS: XELJANZ 5 MG PO SCH ×2 (10:02→21:18)
[2019-02-22] MEDS: PAROXETINE HCL 20 MG TABLET PO SCH (10:15)
[2019-02-22] MEDS: ACETAMINOPHEN 325 MG TABLET PO PRN (17:24)
--- NOTE | 2019-02-22 18:06 | PDOC PROGRESS REPORT ---
Subjective Progress Note for:: 02/22/19 Subjective:: No adverse events overnight. No new complaints. Blood pressure has been stable. Reason For Visit: CHRONIC INSTABILITY LEFT PROSTHETIC HIP Physical Exam Vital Signs: Temp Pulse Resp BP Pulse Ox 98.2 F 116 H 16 108/50 L 97 02/22/19 15:55 02/22/19 15:55 02/22/19 15:55 02/22/19 15:55 02/22/19 15:55 Intake & Output 02/21/19 02/22/19 02/23/19 06:59 06:59 06:59 Intake Total 2900 4206 1040 Output Total 4300 4500 2475 Balance -1400 294 -2915 Weight 102 kg General appearance: PRESENT: no acute distress, cooperative, disheveled Respiratory exam: PRESENT: clear to auscultation alessia, symmetrical, unlabored. ABSENT: accessory muscle use, chest wall tenderness, crackles, prolonged exp iratory phas, rhonchi, tachypnea, wheezes Cardiovascular exam: PRESENT: RRR, +S1, +S2 Pulses: PRESENT: normal carotid pulses Vascular exam: PRESENT: normal capillary refill GI/Abdominal exam: PRESENT: normal bowel sounds, soft. ABSENT: distended, guarding, rebound, tenderness Extremities exam: ABSENT: clubbing, pedal edema Musculoskeletal exam: PRESENT: other -minimal shadowing on the bandage overlying the left hip. ABSENT: deformity Neurological exam: PRESENT: alert, awake, oriented to person, oriented to place, oriented to time, oriented to situation Psychiatric exam: PRESENT: appropriate affect, normal mood Skin exam: PRESENT: dry, warm Results Laboratory Results: 02/18/19 20:42 02/18/19 20:42 02/18/19 02/18/19 02/18/19 16:05 16:05 20:42 Creatine Kinase 243 H 274 H CK-MB (CK-2) 0.46 Troponin I < 0.012 02/18/19 02/19/19 02/19/19 20:42 02:37 02:37 Creatine Kinase 189 H CK-MB (CK-2) 0.38 0.37 Troponin I < 0.012 < 0.012 Impressions: Pelvis X-Ray 02/15/19 13:19 IMPRESSION: SATISFACTORY POSTOPERATIVE PELVIS. Assessment and Plan - Diagnosis (1) Adrenal insufficiency Is this a current diagnosis for this admission?: Yes Plan: We have restarted his prednisone (2) Anemia Qualifiers: Anemia type: iron deficiency Iron deficiency anemia type: unspecified iron deficiency Qualified Code(s): D50.9 - Iron deficiency anemia, unspecified Is this a current diagnosis for this admission?: Yes Plan: He takes Xarelto and so he could have intermittent low-level blood loss. An iron supplement has been started. (3) Constipation Qualifiers: Constipation type: drug induced constipation Qualified Code(s): K59.03 - Drug induced constipation Is this a current diagnosis for this admission?: Yes Plan: Recommended aggressive bowel regimen along with adequate hydration, proper amount of fiber in the diet, and MiraLAX. (4) Respiratory acidosis Is this a current diagnosis for this admission?: Yes Plan: Seems to be well compensated, no further intervention needed at this time (5) Hypotension Qualifiers: Hypotension type: unspecified hypotension type Qualified Code(s): I95.9 - Hypotension, unspecified Is this a current diagnosis for this admission?: Yes Plan: His Midrin was restarted. The blood pressures he is showing seem to be in the normal range for him. We will continue to monitor. I did agree to restart his Flomax, but I told him if his blood pressure drops as a result, we will going to have to discontinue it. - Time Time Spent with patient: 15-24 minutes
[2019-02-22] MEDS: TRAZODONE HCL 50 MG TABLET PO SCH (23:24)
[2019-02-23] MEDS: IPRATROPIUM/ALBUTEROL 120 PUFF/4 GM MDI IH SCH ×5 (01:27→23:02)
[2019-02-23] MEDS: PANTOPRAZOLE SODIUM 20 MG TABLET.DR PO SCH (05:08)
[2019-02-23] MEDS: ACETAMINOPHEN 325 MG TABLET PO PRN (05:11)
--- NOTE | 2019-02-23 07:20 | PDOC PROGRESS REPORT ---
Subjective Progress Note for:: 02/23/19 Reason For Visit: CHRONIC INSTABILITY LEFT PROSTHETIC HIP Is a 54-year-old black male now postop day 7 status post left hip revision arthroplasty. Patient had multiple complaints this morning about his wound care, about the interaction with social work, about the hospital's willingness to accommodate his request for rehab, Physical Exam Vital Signs: Temp Pulse Resp BP Pulse Ox 36.6 C 82 16 119/68 98 02/23/19 06:50 02/23/19 06:50 02/23/19 06:50 02/23/19 06:50 02/23/19 06:50 Intake & Output 02/22/19 02/23/19 02/24/19 06:59 06:59 06:59 Intake Total 4206 2400 Output Total 4500 6250 Balance -294 -3850 Weight 100.8 kg General appearance: PRESENT: no acute distress, mild distress Head exam: PRESENT: normocephalic Respiratory exam: PRESENT: unlabored Cardiovascular exam: PRESENT: RRR Pulses: PRESENT: +1 pedal pulses bilateral Vascular exam: PRESENT: normal capillary refill GI/Abdominal exam: PRESENT: soft Rectal exam: PRESENT: deferred Extremities exam: PRESENT: other - Left hip dressing change this morning. Wound was well approximated tong without erythema or induration. There is continued bloody drainage that has not yet saturated the existing dressing. Neurological exam: PRESENT: alert, awake, oriented to person, oriented to place, oriented to time, oriented to situation. ABSENT: motor sensory deficit Psychiatric exam: PRESENT: appropriate affect, normal mood. ABSENT: homicidal ideation, suicidal ideation Skin exam: PRESENT: dry, intact, warm. ABSENT: cyanosis, rash Results Laboratory Results: 02/18/19 20:42 02/18/19 20:42 02/18/19 02/18/19 02/18/19 16:05 16:05 20:42 Creatine Kinase 243 H 274 H CK-MB (CK-2) 0.46 Troponin I < 0.012 02/18/19 02/19/19 02/19/19 20:42 02:37 02:37 Creatine Kinase 189 H CK-MB (CK-2) 0.38 0.37 Troponin I < 0.012 < 0.012 Impressions: Pelvis X-Ray 02/15/19 13:19 IMPRESSION: SATISFACTORY POSTOPERATIVE PELVIS. Status: Imported from PACS Assessment & Plan - Diagnosis (1) Mechanical failure of prosthetic joint Qualifiers: Encounter type: subsequent encounter Qualified Code(s): T84.019D - Broken internal joint prosthesis, unspecified site, subsequent encounter Is this a current diagnosis for this admission?: Yes Plan: Patient with improving functional status. Today he had the option of either being transferred to a [facility] facility or to discharge home with home health services. As mentioned previously the patient is quite upset about his ongoing care as well as interaction with social work. He is concerned about going home and requiring dressing changes. He is not interested in pursuing [facility] rehabilitation at this time as far as I can tell. In light of all his complaints about his ongoing care I felt that it probably was best to keep him an additional 24 hours and change the dressing every shift to monitor wound output. - Time Time Spent with patient: 15-24 minutes Anticipated discharge: Other Within: within 24 hours
[2019-02-23] MEDS: PREDNISONE 10 MG TABLET PO SCH ×2 (10:01→17:09)
[2019-02-23] MEDS: RIVAROXABAN 10 MG TABLET PO SCH (10:01)
[2019-02-23] MEDS: PREGABALIN 75 MG CAPSULE PO SCH ×2 (10:01→17:09)
[2019-02-23] MEDS: FERROUS SULFATE 325 MG TABLET PO SCH (10:01)
[2019-02-23] MEDS: PAROXETINE HCL 20 MG TABLET PO SCH (10:02)
[2019-02-23] MEDS: NICOTINE 21 MG/24 HR PATCH.TD24 TD SCH (10:03)
[2019-02-23] MEDS: OXYCODONE HCL SR 10 MG TABLET PO SCH ×2 (10:03→22:57)
[2019-02-23] MEDS: SENNOSIDES/DOCUSATE 8.6-50 MG 1 EACH TABLET PO SCH ×3 (10:04→17:09)
[2019-02-23] MEDS: MIDODRINE HCL 5 MG TABLET PO SCH ×2 (12:19→17:09)
[2019-02-23] MEDS: ALBUTEROL SULFATE HFA (90 MCG/PUFF) 200 PUFF/8.5 GM MDI IH PRN (12:21)
[2019-02-23 14:53] LABS: ABSOLUTE EOSINOPHILS # (AUTO) 0.1 10^3/uL (0.0-0.6); ABSOLUTE LYMPHOCYTES (AUTO) 0.6 10^3/uL (0.5-4.7); ABSOLUTE MONOCYTES (AUTO) 0.8 10^3/uL (0.1-1.4); ABSOLUTE NEUT (AUTO) 6.9 10^3/uL (1.7-8.2); BASOPHILS % (AUTO) 0.5 % (0-2); EOSINOPHILS % (AUTO) 1.4 % (0-6); HEMATOCRIT 29.7 % (37.9-51.0); HEMOGLOBIN 9.4 g/dL (13.5-17.0); LYMPHOCYTES % (AUTO) 6.8 % (13-45); MEAN CORPUSCULAR HEMOGLOBIN 24.1 pg (27.0-33.4); MEAN CORPUSCULAR HGB CONC 31.6 g/dL (32.0-36.0); MEAN CORPUSCULAR VOLUME 76 fl (80-97); MONOCYTES % (AUTO) 9.1 % (3-13); PLATELET COUNT 372 10^3/uL (150-450); RED CELL DISTRIBUTION WIDTH 25.9 % (11.5-14.0); SEGMENTED NEUTROPHILS % (AUTO) 82.2 % (42-78); TOTAL CELLS COUNTED % (AUTO) 100 %; WHITE BLOOD COUNT 8.4 10^3/uL (4.0-10.5)
[2019-02-23 15:13] LABS: ANION GAP 10 (5-19); BLOOD UREA NITROGEN 16 mg/dL (7-20); CALCIUM 9.3 mg/dL (8.4-10.2); CARBON DIOXIDE 28 mmol/L (22-30); CHLORIDE 100 mmol/L (98-107); GLUCOSE 140 mg/dL (75-110); POTASSIUM 4.2 mmol/L (3.6-5.0)
[2019-02-23 15:43] LABS: POLYCHROMASIA 1+
[2019-02-23 15:44] LABS: ANISOCYTOSIS 2+; OVALOCYTES SLIGHT; PLATELET COMMENT ADEQUATE; POIKILOCYTOSIS SLIGHT
--- NOTE | 2019-02-23 17:44 | PDOC CONSULTATION ---
Consultation Consult Date: 02/23/19 Provider Consulted: RAFI SWAIN History of Present Illness Admission Date/PCP: 02/15/19 08:13 [facility] Patient complains of: Post op Right hip arthroplasty revision History of Present Illness: KERRI STODDARD is a 54 year old male 1. Chronic permanent atrial fibrillation 2. Systemic hypertension 3. CVA old 4. LV dysfunction EF 40% 5. Nicotine dependence-cigarettes. 6. Systemic anticoagulation He was seen in the office 02/10/2019 as part of preop CVS exam. No risk stratification was thought to be necessary. Did well post op except for hypotension that responded to IVF. His ventricular response is presently controlled and he is euvolemic. He has expected discomfort at the right hip but was still able to participate in PT/OT. Mild oozing through bandages. He has been started back on Rivaroxaban 10 mg daily. Past Medical History Cardiac Medical History: Reports: Atrial Fibrillation Denies: Congestive Heart Failure, Coronary Artery Disease, Myocardial Infarction, Hyperlipidema, Hypertension, Peripheral Vascular Disease, Pulmonary Embolism, Heart Murmur Pulmonary Medical History: Reports: Chronic Obstructive Pulmonary Disease (COPD) Denies: Asthma, Bronchitis, Pneumonia, Respiratory Failure, Sleep Apnea, Tuberculosis Neurological Medical History: Denies: Seizures Endocrine Medical History: Denies: Hyperthyroidism, Hypothyroidism Renal/ Medical History: Denies: End Stage Renal Disease Malignancy Medical History: Denies: Breast Cancer, Cervical Cancer, Leukemia, Lung Cancer, Ovarian Cancer GI Medical History: Denies: Gastroesophageal Reflux Disease Musculoskeltal Medical History: Reports: Arthritis Denies: Fibromyalgia Psychiatric Medical History: Reports: Depression Denies: Bipolar Disorder, Dementia, Post Traumatic Stress Disorder Hematology: Denies: Anemia, Hemophilia, Sickle Cell Disease Infectious Medical History: Denies: HIV Past Surgical History Past Surgical History: Reports: Cardiac Catheterization - AFIB ablation, Orthopedic Surgery - left ankle LEFT HIP REPLACE, Other - Catheter ablation X 2 afib Denies: Appendectomy, Cholecystectomy, Coronary Artery Bypass Graft, Gastric Bypass Surgery, Herniorrhaphy, Pacemaker, Tonsillectomy Social History Smoking Status: Current Every Day Smoker Cigarettes Packs Per Day: 0.5 Frequency of Alcohol Use: None Hx Recreational Drug Use: No Drugs: None Hx Prescription Drug Abuse: No - Advance Directive Resuscitation Status: Full Code Family History Family History: CAD Parental Family History Reviewed: No Children Family History Reviewed: NA Sibling(s) Family History Reviewed.: NA Medication/Allergy Home Medications: Albuterol Sulfate [Proventil 0.5% Neb 2.5 mg/0.5 ml Vial.neb] 2.5 mg NEB RTQIDP PRN 02/09/19 Chlorhexidine Gluconate [Periogard 0.12% Oral Rinse 15 ml] 1 tbs PO BID 02/09/19 Diclofenac Sodium [Voltaren 50 mg Tablet.dr] 75 mg PO BIDP PRN 02/09/19 Ferrous Sulfate 324 mg PO DAILY 02/09/19 Folic Acid [Folvite 1 mg Tablet] 1 mg PO DAILY 02/09/19 Mupirocin [Bactroban 2% Ointment 22 gm] 1 applic TOP DAILY 02/09/19 [place]-3 Fatty Acids/Fish Oil [Fish Oil 1,000 mg Capsule] 2,000 mg PO BID 02/09/19 Omeprazole 20 mg PO DAILY 02/09/19 Oxycodone HCl [Oxy-Ir 5 mg Tablet] 10 mg PO Q4HP PRN 02/09/19 Pregabalin [Lyrica] 225 mg PO BID 02/09/19 Rivaroxaban [Xarelto] 20 mg PO DAILY 02/09/19 Sildenafil Citrate [Viagra] 50 mg PO ASDIR PRN 02/09/19 Tamsulosin HCl [Flomax 0.4 mg Cap.sr] 0.4 mg PO DAILY 02/09/19 Tofacitinib Citrate [Xeljanz] 5 mg PO BID 02/09/19 Trazodone HCl 100 mg PO QHS 02/09/19 Zolpidem Tartrate [Ambien 5 mg Tablet] 5 mg PO QHS 02/09/19 Ipratropium/Albuterol Sulfate [Combivent Respimat 4 gm Mdi] 1 puff IH QID 02/15/19 Morphine Sulfate [Ms Contin] 15 mg PO Q12 02/15/19 Albuterol Sulfate [Proair Hfa Inhalation Aerosol 8.5 gm Mdi] 1 puff IH QIDP PRN 02/18/19 Capsaicin [Zostrix 0.025% Cream 60 gm] 1 applic TP TID 02/18/19 Lidocaine HCl [Xylocaine 5% Ointment 35.44 gm] 1 applic TP TIDP PRN 02/18/19 Paroxetine HCl [Paxil] 5 mg PO DAILY 02/18/19 Prednisone [Deltasone 10 mg Tablet] 10 mg PO BID 02/18/19 Dioxybenzone/Pdo/Hydroquinone [Hydroquinone 4% Cream] 1 applic TP QHS 02/20/19 Polyethylene Glycol 3350 [Gavilax] 17 gm PO DAILY 02/20/19 Tretinoin [Retin-A] 1 applic TP DAILY 02/20/19 Allergies/Adverse Reactions: adalimumab [From Humira] Adverse Reaction (Verified 02/09/19 13:26) etanercept [From Enbrel] Adverse Reaction (Verified 02/09/19 13:26) gabapentin Adverse Reaction (Verified 02/09/19 13:26) methotrexate Adverse Reaction (Verified 02/09/19 13:26) Physical Exam Vital Signs: Temp Pulse Resp BP Pulse Ox 98.5 F 101 H 16 96/64 L 99 02/23/19 15:08 02/23/19 15:08 02/23/19 15:08 02/23/19 15:08 02/23/19 15:08 Intake & Output 02/22/19 02/23/19 02/24/19 06:59 06:59 06:59 Intake Total 4206 2400 360 Output Total 4500 6250 Balance -294 -3850 360 Weight 100.8 kg General appearance: PRESENT: no acute distress Head exam: PRESENT: atraumatic, normocephalic Eye exam: PRESENT: EOMI Ear exam: PRESENT: normal external ear exam Mouth exam: PRESENT: dry mucosa, moist, neck supple Neck exam: PRESENT: full ROM Respiratory exam: PRESENT: symmetrical, unlabored Cardiovascular exam: PRESENT: irregular rhythm, +S1, +S2 Pulses: PRESENT: normal radial pulses GI/Abdominal exam: PRESENT: soft Musculoskeletal exam: PRESENT: other Neurological exam: PRESENT: alert, oriented to person, oriented to place, oriented to time, CN II-XII grossly intact Psychiatric exam: PRESENT: appropriate affect Skin exam: PRESENT: dry, normal color, warm Results Laboratory Results: 02/23/19 14:30 02/23/19 14:30 02/23/19 02/23/19 14:30 14:30 WBC 8.4 RBC 3.90 L Hgb 9.4 L Hct 29.7 L MCV 76 L MCH 24.1 L MCHC 31.6 L RDW 25.9 H Plt Count 372 Seg Neutrophils % 82.2 H Sodium 138.4 Potassium 4.2 Chloride 100 Carbon Dioxide 28 Anion Gap 10 BUN 16 Creatinine 0.91 Est GFR ( Amer) > 60 Glucose 140 H Calcium 9.3 02/18/19 02/18/19 02/18/19 16:05 16:05 20:42 Creatine Kinase 243 H 274 H CK-MB (CK-2) 0.46 Troponin I < 0.012 02/18/19 02/19/19 02/19/19 20:42 02:37 02:37 Creatine Kinase 189 H CK-MB (CK-2) 0.38 0.37 Troponin I < 0.012 < 0.012 Impressions: Pelvis X-Ray 02/15/19 13:19 IMPRESSION: SATISFACTORY POSTOPERATIVE PELVIS. Assessment & Plan - Diagnosis (1) Atrial fibrillation with RVR Is this a current diagnosis for this admission?: Yes Plan: Presently appears to be controlled. May have been response to post op stress/hypovolemic or hypotension. Can be rate controlled if need be. (2) Hypotension Qualifiers: Hypotension type: unspecified hypotension type Qualified Code(s): I95.9 - Hypotension, unspecified Is this a current diagnosis for this admission?: Yes Plan: Normotensive now. Appears euvolemic. - Notes Notes: Chronic permanent atrial fibrillation Back on Ribvaroxaban ( not full dose yet) V rate is controlled. Continues to be in atrial fibrillation Presently volume status is good. Continue PT/OT. Watch Hb/Hct -post op site bleeding as he continues with PT/OT Will arrange for out patient follow up
[2019-02-23] MEDS: TRAZODONE HCL 50 MG TABLET PO SCH (22:57)
[2019-02-24] MEDS: PANTOPRAZOLE SODIUM 20 MG TABLET.DR PO SCH (05:46)
[2019-02-24] MEDS: IPRATROPIUM/ALBUTEROL 120 PUFF/4 GM MDI IH SCH (05:47)
--- NOTE | 2019-02-24 07:32 | PDOC DISCHARGE SUMMARY ---
Impression - Admit/DC Date/PCP Admission Date/Primary Care Provider: 02/15/19 08:13 [facility] Discharge Date: 02/24/19 - Discharge Diagnosis (1) Mechanical failure of prosthetic joint Is this a current diagnosis for this admission?: Yes - Additional Information Resuscitation Status: Full Code Discharge Diet: Regular Discharge Activity: Balance Activity w/Rest, No tub bath Referrals: WESLEY JAMES MD [ACTIVE STAFF] - 02/25/19 1:00 pm Home Medications: Albuterol Sulfate [Proventil 0.5% Neb 2.5 mg/0.5 ml Vial.neb] 2.5 mg NEB RTQIDP PRN 02/09/19 Chlorhexidine Gluconate [Periogard 0.12% Oral Rinse 15 ml] 1 tbs PO BID 02/09/19 Diclofenac Sodium [Voltaren 50 mg Tablet.dr] 75 mg PO BIDP PRN 02/09/19 Ferrous Sulfate 324 mg PO DAILY 02/09/19 Folic Acid [Folvite 1 mg Tablet] 1 mg PO DAILY 02/09/19 Mupirocin [Bactroban 2% Ointment 22 gm] 1 applic TOP DAILY 02/09/[address]-3 Fatty Acids/Fish Oil [Fish Oil 1,000 mg Capsule] 2,000 mg PO BID 02/09/19 Omeprazole 20 mg PO DAILY 02/09/19 Oxycodone HCl [Oxy-Ir 5 mg Tablet] 10 mg PO Q4HP PRN 02/09/19 Pregabalin [Lyrica] 225 mg PO BID 02/09/19 Rivaroxaban [Xarelto] 20 mg PO DAILY 02/09/19 Sildenafil Citrate [Viagra] 50 mg PO ASDIR PRN 02/09/19 Tamsulosin HCl [Flomax 0.4 mg Cap.sr] 0.4 mg PO DAILY 02/09/19 Tofacitinib Citrate [Xeljanz] 5 mg PO BID 02/09/19 Trazodone HCl 100 mg PO QHS 02/09/19 Zolpidem Tartrate [Ambien 5 mg Tablet] 5 mg PO QHS 02/09/19 Ipratropium/Albuterol Sulfate [Combivent Respimat 4 gm Mdi] 1 puff IH QID 02/15/19 Morphine Sulfate [Ms Contin] 15 mg PO Q12 02/15/19 Albuterol Sulfate [Proair Hfa Inhalation Aerosol 8.5 gm Mdi] 1 puff IH QIDP PRN 02/18/19 Capsaicin [Zostrix 0.025% Cream 60 gm] 1 applic TP TID 02/18/19 Lidocaine HCl [Xylocaine 5% Ointment 35.44 gm] 1 applic TP TIDP PRN 02/18/19 Paroxetine HCl [Paxil] 5 mg PO DAILY 02/18/19 Prednisone [Deltasone 10 mg Tablet] 10 mg PO BID 02/18/19 Dioxybenzone/Pdo/Hydroquinone [Hydroquinone 4% Cream] 1 applic TP QHS 02/20/19 Polyethylene Glycol 3350 [Gavilax] 17 gm PO DAILY 02/20/19 Tretinoin [Retin-A] 1 applic TP DAILY 02/20/19 History of Present Illiness History of Present Illness: KERRI STODDARD is a 54 year old male 56-year-old black male status post left hip arthroplasty and subsequent revision with persistent mechanical instability. Patient is admitted for subsequent revision arthroplasty. Hospital Course Hospital Course: Patient is admitted through the operating where he undergoes a left hip revision arthroplasty requiring an extended trochanteric osteotomy. Is returned to floor in satisfactory condition. Initially he makes excellent progress with physical therapy but then becomes more lethargic and hypotensive secondary to steroid insufficiency. This is supplemented in his mental status and blood pressure normalized. He continues to make progress with physical therapy. There was some discussion about whether or not he would be better in a rehabilitation facility and [facility]. Once [facility] is been [facility] by [facility] the patient has changed his mind and wishes for discharge home. Physical Exam Vital Signs: Temp Pulse Resp BP Pulse Ox 37.2 C 86 17 112/62 98 02/24/19 00:00 02/24/19 02:00 02/24/19 00:00 02/24/19 00:00 02/24/19 00:00 Intake & Output 02/23/19 02/24/19 02/25/19 06:59 06:59 06:59 Intake Total 2400 1460 Output Total 9340 1950 Balance -3850 -490 Weight 100.8 kg 101.2 kg General appearance: PRESENT: no acute distress Head exam: PRESENT: normocephalic Respiratory exam: PRESENT: unlabored Pulses: PRESENT: +1 pedal pulses bilateral Vascular exam: PRESENT: normal capillary refill GI/Abdominal exam: PRESENT: soft Rectal exam: PRESENT: deferred - Is Musculoskeletal exam: PRESENT: other - Left hip dressing with a small amount of bloody drainage. Leg length inequality persist. Distal neurovascular examination is intact. Neurological exam: PRESENT: alert, awake, oriented to person, oriented to place, oriented to time, oriented to situation. ABSENT: motor sensory deficit Psychiatric exam: PRESENT: appropriate affect, normal mood. ABSENT: homicidal ideation, suicidal ideation Skin exam: PRESENT: dry, intact, warm. ABSENT: cyanosis, rash Results Laboratory Results: WBC 8.4 10^3/uL (4.0-10.5) 02/23/19 14:30 RBC 3.90 10^6/uL (4.35-5.55) L 02/23/19 14:30 Hgb 9.4 g/dL (13.5-17.0) L 02/23/19 14:30 Hct 29.7 % (37.9-51.0) L 02/23/19 14:30 MCV 76 fl (80-97) L 02/23/19 14:30 MCH 24.1 pg (27.0-33.4) L 02/23/19 14:30 MCHC 31.6 g/dL (32.0-36.0) L 02/23/19 14:30 RDW 25.9 % (11.5-14.0) H 02/23/19 14:30 Plt Count 372 10^3/uL (150-450) 02/23/19 14:30 Lymph % (Auto) 6.8 % (13-45) L 02/23/19 14:30 [place] % (Auto) 9.1 % (3-13) 02/23/19 14:30 Eos % (Auto) 1.4 % (0-6) 02/23/19 14:30 Baso % (Auto) 0.5 % (0-2) 02/23/19 14:30 Reticulocyte # 0.100 10^6/uL (0.028-0.122) 02/19/19 07:46 Absolute Neuts (auto) 6.9 10^3/uL (1.7-8.2) 02/23/19 14:30 Absolute Lymphs (auto) 0.6 10^3/uL (0.5-4.7) 02/23/19 14:30 Absolute Monos (auto) 0.8 10^3/uL (0.1-1.4) 02/23/19 14:30 Absolute Eos (auto) 0.1 10^3/uL (0.0-0.6) 02/23/19 14:30 Absolute Basos (auto) 0.0 10^3/uL (0.0-0.2) 02/23/19 14:30 Seg Neutrophils % 82.2 % (42-78) H 02/23/19 14:30 Platelet Comment ADEQUATE 02/23/19 14:30 Polychromasia 1+ 02/23/19 14:30 Hypochromasia SLIGHT 02/18/19 20:42 Poikilocytosis SLIGHT 02/23/19 14:30 Anisocytosis 2+ 02/23/19 14:30 Microcytosis SLIGHT 02/23/19 14:30 Target Cells SLIGHT 02/18/19 20:42 Tear Drop Cells 1+ 02/18/19 20:42 Ovalocytes SLIGHT 02/23/19 14:30 Retic Count (auto) 2.65 % (0.66-2.85) 02/19/19 07:46 Sodium 138.4 mmol/L (137-145) 02/23/19 14:30 Potassium 4.2 mmol/L (3.6-5.0) 02/23/19 14:30 Chloride 100 mmol/L (98-107) 02/23/19 14:30 Carbon Dioxide 28 mmol/L (22-30) 02/23/19 14:30 Anion Gap 10 (5-19) 02/23/19 14:30 BUN 16 mg/dL (7-20) 02/23/19 14:30 Creatinine 0.91 mg/dL (0.52-1.25) 02/23/19 14:30 Est GFR ( Amer) > 60 (>60) 02/23/19 14:30 Est GFR (MDRD) Non-Af > 60 (>60) 02/23/19 14:30 Glucose 140 mg/dL (75-110) H 02/23/19 14:30 Calcium 9.3 mg/dL (8.4-10.2) 02/23/19 14:30 Magnesium 1.9 mg/dL (1.6-2.3) 02/18/19 20:42 Iron < 10.1 ug/dL (49-181) L 02/19/19 02:37 TIBC 253 ug/dL (250-450) 02/19/19 02:37 Iron Saturation UNABLE TO CALCULATE % (20% - 50%) 02/19/19 02:37 Ferritin 50.90 ng/mL (17.9-464.0) 02/19/19 02:37 Creatine Kinase 189 U/L (55-170) H 02/19/19 02:37 CK-MB (CK-2) 0.37 ng/mL (<4.55) 02/19/19 02:37 Troponin I < 0.012 ng/mL 02/19/19 02:37 Vitamin B12 364.0 pg/mL (239-931) 02/19/19 02:37 Folate 15.10 ng/mL (>2.76) 02/19/19 02:37 Random Cortisol 4.52 ug/dL (None Established) 02/18/19 20:42 Blood Type AB POSITIVE 02/15/19 08:25 Antibody Screen NEGATIVE 02/15/19 08:25 02/18/19 02/18/19 02/19/19 16:05 20:42 02:37 CK-MB (CK-2) 0.46 0.38 0.37 Troponin I < 0.012 < 0.012 < 0.012 Impressions: Pelvis X-Ray 02/15/19 13:19 IMPRESSION: SATISFACTORY POSTOPERATIVE PELVIS. Chest X-Ray 02/17/19 00:00 IMPRESSION: Stable trace left effusion and lingular opacities, likely atelectasis or scarring. Plan Plan of Treatment: Patient be discharged home with home health services and DME on weightbearing as tolerated basis. Patient return to see Dr. James and [facility] for surgery in 2 weeks for staple removal. Dressing changes by home health nursing on a as needed basis. Stroke Is this a Stroke Patient?: No Stroke Pt being discharged on Anti-thrombolytic therapy?: Yes Acute Heart Failure - Is this a Heart Failure Patient?: No
[2019-02-24] MEDS ORDERED: INFLUENZA QUAD (6MOS+) 2019-20 VAC 0.5 ML SYR IM ONE (08:00)
[2019-02-24 09:27] VITALS: BP 115/79
== END 2019-02-24 09:31 | disposition home health service (06) | DRG 467 ==
LOC: INOR 08:13 → 4S 14:58
PROVIDERS: ADMIT Orthopaedic Surgery; ATTEND Orthopaedic Surgery
PROC: 0SPB0JZ Removal of Synthetic Substitute from Left Hip Joint, Open Approach (ICD-10-PCS; 2019-02-15)
PROC: 0SRB02A Replacement of Left Hip Joint with Metal on Polyethylene Synthetic Substitute, Uncemented, Open Approach (ICD-10-PCS; principal; 2019-02-15 10:00)
PROC: 3E0234Z Introduction of Serum, Toxoid and Vaccine into Muscle, Percutaneous Approach (ICD-10-PCS; 2019-02-24)
DX: T84.021A Dislocation of internal left hip prosthesis, initial encounter (principal); I48.21 Permanent atrial fibrillation; E27.40 Unspecified adrenocortical insufficiency; Y79.2 Prosthetic and other implants, materials and accessory orthopedic devices associated with adverse incidents; Y83.1 Surgical operation with implant of artificial internal device as the cause of abnormal reaction of the patient, or of later complication, without mention of misadventure at the time of the procedure; J44.9 Chronic obstructive pulmonary disease, unspecified; F32.9 Major depressive disorder, single episode, unspecified; M06.9 Rheumatoid arthritis, unspecified; G89.29 Other chronic pain; R29.6 Repeated falls; Z96.642 Presence of left artificial hip joint; I95.81 Postprocedural hypotension; F17.210 Nicotine dependence, cigarettes, uncomplicated; K59.03 Drug induced constipation; F43.10 Post-traumatic stress disorder, unspecified; Z98.1 Arthrodesis status; Z23 Encounter for immunization; Z79.899 Other long term (current) drug therapy; Z79.891 Long term (current) use of opiate analgesic; Z79.01 Long term (current) use of anticoagulants; Z86.73 Personal history of transient ischemic attack (TIA), and cerebral infarction without residual deficits; Z88.6 Allergy status to analgesic agent; Z88.8 Allergy status to other drugs, medicaments and biological substances; Z82.49 Family history of ischemic heart disease and other diseases of the circulatory system
CPT/HCPCS: 01215; 36415; 71045; 72170; 80048; 82533; 82550; 82553; 82607; 82728; 82746; 83540; 83550; 83735; 84484; 85025; 85027; 85045; 86850; 86900; 86901; 87070; 87075; 87205; 88305; 88331; 90686; 93005; 93010; 94799; C1776; J0330; J0690; J1100; J1741; J1756; J2250; J2405; J2704; J3010; J3370; J3490; J7030; J7050; J7060; J7120; J7512

== ENCOUNTER 2019-03-12 14:53 | Inpatient (IN) | payer OTHER, MEDICARE ==
[2019-03-12] MEDS ORDERED: ONDANSETRON HCL INJ/PF 4 MG/2 ML SDV IV ONE (15:58)
[2019-03-12] MEDS ORDERED: NORMAL SALINE 1000 ML 1,000 ML IV ONE (15:59)
[2019-03-12] MEDS ORDERED: HYDROMORPHONE HCL INJ/PF 2 MG/ML AMPULE IV ONE (15:59)
--- NOTE | 2019-03-12 16:06 | ER Document Report ---
ED Extremity Problem, Lower - General Chief Complaint: Leg Pain Stated Complaint: POSSIBLE LEFT HIP/LEG INFECTION Time Seen by Provider: 03/12/19 15:41 Notes: Patient is a 54-year-old male with a history of A. fib and multiple left hip revisions who presents to the emergency department with a chief complaint of left hip pain. Patient reports this is been present for 2 days. Patient denies injury or fall. Patient reports he does follow Dr. James and is supposed to have a wound washout on Friday. Patient reports he has had drainage from the wound since February 24. He states he changes the dressing about 5 times per day that is a clear to bloody drainage. Patient reports he has not been taking Xarelto for the past month due to his recent surgery. Patient states he was on this for A. fib. Patient reports he is not on any cardiac medication. Patient reports he does have a history of hypotension. Patient denies fever but reports chills. Patient reports nausea without vomiting or diarrhea. Patient states he feels generally weak and is concerned about his health. Patient denies chest pain, shortness of breath, palpitations. 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 TRAVEL OUTSIDE OF THE [place] IN LAST 30 DAYS: No - Related Data Allergies/Adverse Reactions: adalimumab [From Humira] Adverse Reaction (Verified 02/09/19 13:26) etanercept [From Enbrel] Adverse Reaction (Verified 02/09/19 13:26) gabapentin Adverse Reaction (Verified 02/09/19 13:26) methotrexate Adverse Reaction (Verified 02/09/19 13:26) Past Medical History - General Information source: Patient - Social History Smoking Status: Current Every Day Smoker Chew tobacco use (# tins/day): No Frequency of alcohol use: None Drug Abuse: None Lives with: Family Family History: CAD Patient has suicidal ideation: No Patient has homicidal ideation: No - Past Medical History Cardiac Medical History: Reports: Hx Atrial Fibrillation Denies: Hx Congestive Heart Failure, Hx Coronary Artery Disease, Hx Heart Attack, Hx Hypercholesterolemia, Hx Hypertension, Hx Peripheral Vascular Disease, Hx Pulmonary Embolism, Hx Heart Murmur Pulmonary Medical History: Reports: Hx COPD Denies: Hx Asthma, Hx Bronchitis, Hx Pneumonia, Hx Respiratory Failure, Hx Sleep Apnea, Hx Tuberculosis EENT Medical History: Reports: None Neurological Medical History: Reports: None. Denies: Hx Cerebrovascular Accident, Hx Seizures, Hx Parkinson's Disease Endocrine Medical History: Reports: None. Denies: Hx Graves' Disease, Hx Hyperthyroidism, Hx Hypothyroidism Renal/ Medical History: Reports: None. Denies: Hx Benign Prostatic Hyperplasia, Hx End Stage Renal Disease, Hx Kidney Stones Malignancy Medical History: Reports None, Denies Hx Leukemia, Denies Hx Lung Cancer GI Medical History: Reports: Hx Ulcer. Denies: Hx Gastroesophageal Reflux Disease Musculoskeletal Medical History: Reports Hx Arthritis, Denies Hx Fibromyalgia, Denies Hx Multiple Sclerosis, Denies Hx Muscular Dystrophy, Denies Hx Systemic Lupus Erythematosus Skin Medical History: Reports None Psychiatric Medical History: Reports: Hx Depression Denies: Hx Bipolar Disorder, Hx Dementia, Hx Post Traumatic Stress Disorder, Hx Schizophrenia Traumatic Medical History: Reports: None. Denies: Hx Fractures Infectious Medical History: Reports: None. Denies: Hx HIV Past Surgical History: Reports: Hx Cardiac Catheterization - AFIB ablation, Hx Orthopedic Surgery - left ankle LEFT HIP REPLACE, Other - Catheter ablation X 2 afib. Denies: Hx Appendectomy, Hx Bowel Surgery, Hx Cholecystectomy, Hx Coronary Artery Bypass Graft, Hx Gastric Bypass Surgery, Hx Herniorrhaphy, Hx Pacemaker, Hx Tonsillectomy - Immunizations Immunizations up to date: Yes Hx Diphtheria, Pertussis, Tetanus Vaccination: Yes Hx Pneumococcal Vaccination: 11/23/09 Review of Systems - Review of Systems Constitutional: See HPI EENT: No symptoms reported Cardiovascular: See HPI Respiratory: No symptoms reported Gastrointestinal: No symptoms reported Genitourinary: No symptoms reported Male Genitourinary: No symptoms reported Musculoskeletal: See HPI Skin: See HPI Hematologic/Lymphatic: No symptoms reported Neurological/Psychological: No symptoms reported Physical Exam - Vital signs Vitals: Temp Pulse Resp BP Pulse Ox 98.3 F 96 18 74/48 L 98 03/12/19 15:11 03/12/19 15:11 03/12/19 15:11 03/12/19 15:11 03/12/19 15:11 Interpretation: Hypotensive - Notes Notes: GENERAL: Well-appearing, well-nourished and in no acute distress. HEAD: Atraumatic, normocephalic. EYES: Pupils equal round and reactive to light, extraocular movements intact, sclera anicteric, conjunctiva are normal. ENT: Nares patent, oropharynx clear without exudates. Moist mucous membranes. NECK: Normal range of motion, supple without lymphadenopathy or JVD. LUNGS: Breath sounds clear to auscultation bilaterally and equal. No wheezes rales or rhonchi. HEART: Irregular rhythm without murmurs, rubs or gallops. ABDOMEN: Soft, nontender, normoactive bowel sounds. No guarding, no rebound. No masses appreciated. BACK: No cervical, thoracic, lumbar midline tenderness. No saddle anesthesia, normal distal neurovascular exam. GENITOURINARY: Deferred. EXTREMITIES: Limited ROM to left lower extremity due to reported left hip pain, large healing surgical wound intact with tong to left lateral hip that extends to left lateral thigh. Tong intact, serosanguineous drainage noted from the wound. NEUROLOGICAL: Cranial nerves II through XII grossly intact. Normal speech, gait not tested. PSYCH: Normal mood, normal affect. SKIN: Warm, Dry, normal turgor, no rashes or lesions noted. Course - Re-evaluation Re-evalutation: 03/12/19 16:05 The dressing to the left hip was removed and replaced with 3 ABD pads. The dressing was covered with a serosanguineous drainage. A culture was collected. Patient reports this drainage has been present since February 24 and he is scheduled to have a wound washout this upcoming Friday with Dr. James. Patient reports that drainage has decreased since the original surgery. Patient is A. fib on the monitor with a heart rate ranging between 120 and 140. Patient's blood pressures in the 90s systolic. Patient reports his blood pressure is normally low and can get as low as 70s systolic. Patient is completely alert and oriented x3. Patient denies chest pain, shortness of breath, palpitations or dizziness at this time. 03/12/19 17:32 I did discuss the x-ray results with the patient. Patient's left leg is externally rotated. Patient states that 2 days ago while he was performing physical therapy he did develop left hip pain. Patient states that at that time he did have external rotation to his hip. Patient is resting comfortably after receiving IV pain medication. Patient's heart rate has improved and is now 115- 120. Patient is continuing to receive his first liter of fluid. I did consult with my attending physician who recommends giving two liters of fluid and to re- evaluate to the HR. 17:43 Attempted to page Orthopedics for a consult and hospitalist for admission - both to call me back. 17:50 Dr. Kumari accepts admission. I did speak with Dr. Daniel, contact manager orthopedist who states that since the patient is established with Dr. James he would recommend calling his office. I did speak with the switchboard who states that Dr. Ramos is contact manager for [facility] and will page. 03/12/19 18:[address] James in regards to the patient's x-ray read. He states that he does recommend medical clearance over the weekend and to control the A. fib and if cleared will continue with the procedure on Friday. No further orders were given. I did inform Dr. James that I attempted to consult with Dr. Daniel but was told to call him. I did make Dr. Kumari the admitting physician aware of this conversation. - Vital Signs Vital signs: Temp Pulse Resp BP Pulse Ox 98.3 F 96 18 74/48 L 98 03/12/19 15:11 03/12/19 15:11 03/12/19 15:11 03/12/19 15:11 03/12/19 15:11 - Laboratory Result Diagrams: 03/12/19 15:38 03/12/19 15:38 Laboratory results interpreted by me: 03/12/19 03/12/19 03/12/19 15:38 15:38 15:38 RBC 4.33 L Hgb 10.2 L Hct 32.6 L MCV 75 L MCH 23.7 L MCHC 31.4 L RDW 20.3 H Humphreys % (Auto) 16.6 H Absolute Monos (auto) 1.5 H Sodium 131.5 L BUN 22 H Creatinine 1.32 H Est GFR (MDRD) Non-Af 56 L Lactic Acid 2.2 H Albumin 3.1 L - Diagnostic Test Radiology reviewed: Reports reviewed Radiology results interpreted by me: 03/12/19 17:32 Chest X-Ray 03/12/19 15:59 IMPRESSION: NO ACUTE RADIOGRAPHIC FINDING IN THE CHEST. Hip X-Ray 03/12/19 15:59 IMPRESSION: Status post left total hip arthroplasty with revision to include cerclage wires. Today's examination demonstrates a comminuted fracture of the proximal femur with altered position and appearance of the cerclage wires. Adjacent subcutaneous gas is not entirely unexpected in the immediate postoperative setting. Cellulitis may have a similar appearance. Discharge - Discharge Clinical Impression: Weakness A-fib Qualifiers: Atrial fibrillation type: unspecified Qualified Code(s): I48.91 - Unspecified atrial fibrillation Femur fracture, left Qualifiers: Encounter type: initial encounter Femur location: proximal epiphysis Fracture type: closed Fracture alignment: nondisplaced Qualified Code(s): S72.025A - Nondisplaced fracture of epiphysis (separation) (upper) of left femur, initial encounter for closed fracture Hypotension Qualifiers: Hypotension type: unspecified hypotension type Qualified Code(s): I95.9 - Hypotension, unspecified Condition: Stable Disposition: ADMITTED INPATIENT Admitting Provider: Quoc (Hospitalist) Unit Admitted: [facility]
[2019-03-12 16:19] LABS: ABSOLUTE EOSINOPHILS # (AUTO) 0.1 10^3/uL (0.0-0.6); ABSOLUTE LYMPHOCYTES (AUTO) 1.2 10^3/uL (0.5-4.7); ABSOLUTE MONOCYTES (AUTO) 1.5 10^3/uL (0.1-1.4); ABSOLUTE NEUT (AUTO) 5.9 10^3/uL (1.7-8.2); BASOPHILS % (AUTO) 0.5 % (0-2); EOSINOPHILS % (AUTO) 1.4 % (0-6); HEMATOCRIT 32.6 % (37.9-51.0); HEMOGLOBIN 10.2 g/dL (13.5-17.0); LYMPHOCYTES % (AUTO) 13.8 % (13-45); MEAN CORPUSCULAR HEMOGLOBIN 23.7 pg (27.0-33.4); MEAN CORPUSCULAR HGB CONC 31.4 g/dL (32.0-36.0); MEAN CORPUSCULAR VOLUME 75 fl (80-97); MONOCYTES % (AUTO) 16.6 % (3-13); RED BLOOD COUNT 4.33 10^6/uL (4.35-5.55); RED CELL DISTRIBUTION WIDTH 20.3 % (11.5-14.0); SEGMENTED NEUTROPHILS % (AUTO) 67.7 % (42-78); TOTAL CELLS COUNTED % (AUTO) 100 %; WHITE BLOOD COUNT 8.7 10^3/uL (4.0-10.5)
[2019-03-12 16:22] LABS: ALBUMIN 3.1 g/dL (3.5-5.0); ALKALINE PHOSPHATASE 114 U/L (38-126); ANION GAP 11 (5-19); ASPARTATE AMINO TRANSFERASE 23 U/L (17-59); BILIRUBIN,DIRECT 0.3 mg/dL (0.0-0.4); BILIRUBIN,TOTAL 0.8 mg/dL (0.2-1.3); BLOOD UREA NITROGEN 22 mg/dL (7-20); CALCIUM 9.2 mg/dL (8.4-10.2); CARBON DIOXIDE 23 mmol/L (22-30); CHLORIDE 98 mmol/L (98-107); GLUCOSE 97 mg/dL (75-110); POTASSIUM 4.7 mmol/L (3.6-5.0); TOTAL PROTEIN 6.3 g/dL (6.3-8.2)
[2019-03-12 16:42] LABS: PLATELET COUNT 364 10^3/uL (150-450)
--- NOTE | 2019-03-12 17:22 | RADIOLOGY REPORT (SQ) ---
EXAM DESCRIPTION: CHEST 2 VIEWS COMPLETED DATE/TIME: 03/12/2019 5:10 pm REASON FOR STUDY: left hip pain, drainage from wound COMPARISON: 02/18/2019 EXAM PARAMETERS: NUMBER OF VIEWS: two views TECHNIQUE: Digital Frontal and Lateral radiographic views of the chest acquired. RADIATION DOSE: NA LIMITATIONS: none FINDINGS: LUNGS AND PLEURA: No opacities, masses or pneumothorax. No pleural effusion. MEDIASTINUM AND HILAR STRUCTURES: No masses or contour abnormalities. HEART AND VASCULAR STRUCTURES: Heart normal size. No evidence for failure. BONES: No acute findings. HARDWARE: None in the chest. OTHER: No other significant finding. IMPRESSION: NO ACUTE RADIOGRAPHIC FINDING IN THE CHEST. TECHNICAL DOCUMENTATION: JOB ID: [id number] [employer]- All Rights Reserved Reading location - IP/workstation name: [email or web address]
--- NOTE | 2019-03-12 17:24 | RADIOLOGY REPORT (SQ) ---
EXAM DESCRIPTION: HIP LEFT AP/LATERAL COMPLETED DATE/TIME: 03/12/2019 5:10 pm REASON FOR STUDY: left hip pain, drainage from wound COMPARISON: 12/25/2018 NUMBER OF VIEWS: Five views. TECHNIQUE: AP pelvis and additional frog-leg view of the left hip. LIMITATIONS: None. FINDINGS: MINERALIZATION: Stable. LEFT HIP: Re- demonstration of left total hip arthroplasty with proximal femoral cerclage wires ; the re appears to disruption and the cerclage wires with a comminuted fracture of the proximal femur. Th e femoral head component appears to be well seated within the acetabulum on today's examination. RIGHT HIP: No fracture or dislocation. No worrisome bone lesions. PUBIS AND ISCHIUM: No fracture. PELVIS: No fracture. SACRUM: No fracture or dislocation. No worrisome bone lesions. LOWER LUMBAR SPINE: No fracture or dislocation demonstrated. Degenerative changes are present. SOFT TISSUES: Gas is seen within the left hip soft tissues. OTHER: No other significant finding. IMPRESSION: Status post left total hip arthroplasty with revision to include cerclage wires. Today' s examination demonstrates a comminuted fracture of the proximal femur with altered position and appe arance of the cerclage wires. Adjacent subcutaneous gas is not entirely unexpected in the immediate postoperative setting. Cellulitis may have a similar appearance. TECHNICAL DOCUMENTATION: JOB ID: [id number]- All Rights Reserved Reading location - IP/workstation name: [email or web address]
[2019-03-12] MEDS ORDERED: DIGOXIN INJ 0.5 MG/2 ML AMPULE IV ONE (18:22)
[2019-03-12] MEDS ORDERED: VANCOMYCIN HCL 0 MG in DEXTROSE 5%-WATER 250 ML IV NR (18:45)
[2019-03-12] MEDS ORDERED: NORMAL SALINE 1000 ML 1,000 ML IV PRN (18:45)
[2019-03-12] MEDS ORDERED: MAG HYDROX/AL HYDROX/SIMETH SUSP 30 ML UDCUP PO PRN (18:46)
[2019-03-12] MEDS ORDERED: TEMAZEPAM 7.5 MG CAPSULE PO PRN (18:46)
[2019-03-12] MEDS ORDERED: ONDANSETRON HCL INJ/PF 4 MG/2 ML SDV IV PRN (18:46)
[2019-03-12] MEDS ORDERED: PROMETHAZINE HCL INJ 25 MG/1 ML VIAL IV PRN (18:46)
[2019-03-12] MEDS ORDERED: ACETAMINOPHEN 325 MG TABLET PO PRN (18:46)
[2019-03-12] MEDS ORDERED: LEVALBUTEROL HCL NEB 0.63 MG/3 ML AMPUL NEB PRN (18:46)
--- NOTE | 2019-03-12 18:58 | PDOC H&P ---
History of Present Illness Admission Date/PCP: 03/12/19 18:00 [facility] History of Present Illness: KERRI STODDARD is a 54 year old male with a history of A. fib and left hip fracture with multiple complicated surgeries and revisions, presented to ED complaining of worsening left hip pain, serosanguineous fluid oozing from 1 of the suture sites, as of breath, low appetite, and occasional dizziness, denies any fever, chills, nausea, vomiting, diarrhea, constipation or any urinary symp toms. Patient reports he does follow Dr. James and is supposed to have a wound washout on Friday. He has history of hip and used to be on Xarelto but has not been taking it for a while due to multiple left hip surgeries, is not on beta-blockers or calcium channel blockers she is very sensitive to them, stating that it dropped his blood pressure too low. Past Medical History Cardiac Medical History: Reports: Atrial Fibrillation Denies: Congestive Heart Failure, Coronary Artery Disease, Myocardial Infarction, Hyperlipidema, Hypertension, Peripheral Vascular Disease, Pulmonary Embolism, Heart Murmur Pulmonary Medical History: Reports: Chronic Obstructive Pulmonary Disease (COPD) Denies: Asthma, Bronchitis, Pneumonia, Respiratory Failure, Sleep Apnea, Tuberculosis EENT Medical History: Reports: None Neurological Medical History: Reports: None Denies: Seizures Endocrine Medical History: Reports: None Denies: Hyperthyroidism, Hypothyroidism Renal/ Medical History: Reports: None Denies: End Stage Renal Disease Malignancy Medical History: Reports: None Denies: Breast Cancer, Cervical Cancer, Leukemia, Lung Cancer, Ovarian Cancer GI Medical History: Denies: Gastroesophageal Reflux Disease Musculoskeltal Medical History: Reports: Arthritis Denies: Fibromyalgia Skin Medical History: Reports: None Psychiatric Medical History: Reports: Depression Denies: Bipolar Disorder, Dementia, Post Traumatic Stress Disorder Traumatic Medical History: Reports: None Hematology: Denies: Anemia, Hemophilia, Sickle Cell Disease Infectious Medical History: Reports: None Denies: HIV Past Surgical History Past Surgical History: Reports: Cardiac Catheterization - AFIB ablation, Orthopedic Surgery - left ankle LEFT HIP REPLACE, Other - Catheter ablation X 2 afib Denies: Appendectomy, Cholecystectomy, Coronary Artery Bypass Graft, Gastric Bypass Surgery, Herniorrhaphy, Pacemaker, Tonsillectomy Social History Lives with: Family Smoking Status: Current Every Day Smoker Electronic Cigarette use?: No Frequency of Alcohol Use: None Hx Recreational Drug Use: No Drugs: None Hx Prescription Drug Abuse: No Family History Family History: CAD Parental Family History Reviewed: Yes Children Family History Reviewed: Yes Sibling(s) Family History Reviewed.: Yes Medication/Allergy Home Medications: Morphine Sulfate [Ms Contin] 15 mg PO Q12 03/12/19 Oxycodone HCl [Oxy-Ir 5 mg Tablet] 5 mg PO Q6HP PRN 03/12/19 Pregabalin [Lyrica] 225 mg PO Q12 03/12/19 Allergies/Adverse Reactions: vancomycin Allergy (Severe, Verified 03/13/19 05:32) Anaphylaxis adalimumab [From Humira] Adverse Reaction (Verified 02/09/19 13:26) etanercept [From Enbrel] Adverse Reaction (Verified 02/09/19 13:26) gabapentin Adverse Reaction (Verified 02/09/19 13:26) methotrexate Adverse Reaction (Verified 02/09/19 13:26) Review of Systems Review of Systems: as per hpi Physical Exam Vital Signs: Temp Pulse Resp BP Pulse Ox 98.3 F 96 18 74/48 L 98 03/12/19 15:11 03/12/19 15:11 03/12/19 15:11 03/12/19 15:11 03/12/19 15:11 Intake & Output 03/11/19 03/12/19 03/13/19 06:59 06:59 06:59 Intake Total 1000 Balance 1000 Weight 98.43 kg General appearance: PRESENT: no acute distress, well-developed, well-nourished Respiratory exam: PRESENT: clear to auscultation alessia, wheezes. ABSENT: rales, rhonchi Cardiovascular exam: PRESENT: irregular rhythm. ABSENT: diastolic murmur, rubs, systolic murmur Pulses: PRESENT: normal dorsalis pedis pul Extremities exam: PRESENT: full ROM, other - LLE externally rotated. Linear surgical wound. ABSENT: calf tenderness, clubbing, pedal edema Neurological exam: PRESENT: alert, awake, oriented to person, oriented to place, oriented to time, oriented to situation, CN II-XII grossly intact. ABSENT: motor sensory deficit Results Laboratory Results: 03/12/19 15:38 03/12/19 15:38 03/12/19 03/12/19 03/12/19 15:38 15:38 15:38 WBC 8.7 RBC 4.33 L Hgb 10.2 L Hct 32.6 L MCV 75 L MCH 23.7 L MCHC 31.4 L RDW 20.3 H Plt Count 364 Seg Neutrophils % 67.7 Sodium 131.5 L Potassium 4.7 Chloride 98 Carbon Dioxide 23 Anion Gap 11 BUN 22 H Creatinine 1.32 H Est GFR ( Amer) > 60 Glucose 97 Lactic Acid Cancelled Calcium 9.2 Total Bilirubin 0.8 AST 23 Alkaline Phosphatase 114 Total Protein 6.3 Albumin 3.1 L 03/12/19 15:38 WBC RBC Hgb Hct MCV MCH MCHC RDW Plt Count Seg Neutrophils % Sodium Potassium Chloride Carbon Dioxide Anion Gap BUN Creatinine Est GFR ( Amer) Glucose Lactic Acid 2.2 H Calcium Total Bilirubin AST Alkaline Phosphatase Total Protein Albumin 03/12/19 15:38 Troponin I < 0.012 Impressions: Chest X-Ray 03/12/19 15:59 IMPRESSION: NO ACUTE RADIOGRAPHIC FINDING IN THE CHEST. Hip X-Ray 03/12/19 15:59 IMPRESSION: Status post left total hip arthroplasty with revision to include cerclage wires. Today's examination demonstrates a comminuted fracture of the proximal femur with altered position and appearance of the cerclage wires. Adjacent subcutaneous gas is not entirely unexpected in the immediate postoperative setting. Cellulitis may have a similar appearance. Assessment and Plan - Diagnosis (1) Atrial fibrillation with RVR Is this a current diagnosis for this admission?: Yes Plan: History of A. fib RVR. Used to take Xarelto but it has been held for the last month due to multiple left hip surgeries. He is not on beta-blockers or calcium channel blockers, patient is stating that he is very sensitive to these medications and once he was started and it dropped his blood pressure and he ended up in the hospital. Not a candidate for beta-blockers or calcium channel blockers due to above history. Continue holding Xarelto as patient is scheduled to have a left hip washout on Friday. Patient could be placed on digoxin for his rate control and restarted on anticoagulation post surgery. (2) COPD exacerbation Is this a current diagnosis for this admission?: Yes Plan: Current heavy smoker. Started 2004. Not on home O2. DuoNeb's, supplemental oxygen, BiPAP, ICS, LABA, LABA. Outpatient PCP and pulmonology follow-up. (3) Mechanical failure of prosthetic joint Qualifiers: Is this a current diagnosis for this admission?: Yes Plan: Patient has very complicated history of left hip fracture with multiple revisions prosthetic joints Patient is scheduled to have wound washout on Friday by Dr. James however due to his worsening pain he presented to the hospital. X-ray of the left hip show possible no fracture, Dr. James and Dr. Serra were notified and they recommended for patient to be admitted and will be seen on . Continue supportive measures at this point. Follow-up Ortho recommendations. (4) Opiate dependence, continuous Is this a current diagnosis for this admission?: Yes Plan: Due to chronic left hip fracture and multiple complicated surgeries. Restart home meds. Monitor for falls. (5) Surgical wound infection Is this a current diagnosis for this admission?: Yes Plan: Patient explaining that for the last 2 to 3 days he has noticed serosanguineous fluid oozing out of the sutures on the left lateral hip. On physical examination there is serosanguineous fluid oozing from 1 of the suture lines, but no other sign of obvious infection. We will start on empiric IV antibiotics pending wound washout on Friday by Dr. James. Continue empiric IV antibiotics. Follow-up wound and blood culture.
[2019-03-12] MEDS: MORPHINE SULFATE IR 15 MG TABLET PO SCH (19:55)
[2019-03-12] MEDS ORDERED: VANCOMYCIN HCL 1,250 MG in DEXTROSE 5%-WATER 250 ML IV SCH (20:00)
[2019-03-12 20:46] LABS: ANION GAP 7 (5-19); BLOOD UREA NITROGEN 20 mg/dL (7-20); CALCIUM 8.5 mg/dL (8.4-10.2); CARBON DIOXIDE 24 mmol/L (22-30); CHLORIDE 100 mmol/L (98-107); GLUCOSE 90 mg/dL (75-110); POTASSIUM 4.6 mmol/L (3.6-5.0)
[2019-03-12] MEDS: TRAZODONE HCL 50 MG TABLET PO SCH (22:54)
[2019-03-12] MEDS: FAMOTIDINE 20 MG TABLET PO SCH (22:54)
[2019-03-12] MEDS: HYDROMORPHONE HCL INJ/PF 2 MG/ML AMPULE IV PRN (22:57)
[2019-03-12] MEDS ORDERED: MORPHINE SULFATE 10 MG/ML INJ ONE ×2 (23:17→23:24)
[2019-03-12] MEDS ORDERED: FUROSEMIDE INJ/PF 40 MG/4 ML SDV ONE (23:23)
[2019-03-12] MEDS ORDERED: DIPHENHYDRAMINE HCL 50 MG/ML VIAL IV PRN (23:49)
[2019-03-12] MEDS ORDERED: DIPHENHYDRAMINE HCL 50 MG/ML VIAL ONE (23:50)
[2019-03-12] MEDS ORDERED: DIPHENHYDRAMINE HCL 50 MG/ML VIAL IV ONE (23:59)
[2019-03-13 00:18] LABS: ABSOLUTE EOSINOPHILS # (AUTO) 0.1 10^3/uL (0.0-0.6); ABSOLUTE LYMPHOCYTES (AUTO) 4.6 10^3/uL (0.5-4.7); ABSOLUTE MONOCYTES (AUTO) 1.2 10^3/uL (0.1-1.4); ABSOLUTE NEUT (AUTO) 2.6 10^3/uL (1.7-8.2); BASOPHILS % (AUTO) 0.3 % (0-2); EOSINOPHILS % (AUTO) 1.3 % (0-6); HEMATOCRIT 32.1 % (37.9-51.0); HEMOGLOBIN 9.6 g/dL (13.5-17.0); LYMPHOCYTES % (AUTO) 53.7 % (13-45); MEAN CORPUSCULAR HEMOGLOBIN 23.3 pg (27.0-33.4); MEAN CORPUSCULAR HGB CONC 29.9 g/dL (32.0-36.0); MEAN CORPUSCULAR VOLUME 78 fl (80-97); MONOCYTES % (AUTO) 14.4 % (3-13); PLATELET COUNT 361 10^3/uL (150-450); RED BLOOD COUNT 4.11 10^6/uL (4.35-5.55); RED CELL DISTRIBUTION WIDTH 20.6 % (11.5-14.0); SEGMENTED NEUTROPHILS % (AUTO) 30.3 % (42-78); TOTAL CELLS COUNTED % (AUTO) 100 %; WHITE BLOOD COUNT 8.6 10^3/uL (4.0-10.5)
[2019-03-13 00:19] LABS: ARTERIAL BLOOD BASE EXCESS -6.8 mmol/L; ARTERIAL BLOOD FIO2 100%; ARTERIAL BLOOD H2CO3 2.95 mmol/L (1.05-1.35); ARTERIAL BLOOD HCO3 25.4 mmol/L (20-24); ARTERIAL BLOOD O2 SATURATION 74.3 % (94-98); ARTERIAL BLOOD PO2 58.1 mmHg (80-100); ARTERIAL BLOOD TOTAL CO2 28.4 mmol/L (23-27)
[2019-03-13 00:22] LABS: ARTERIAL BLOOD PCO2 98.1 mmHg (35-45); ARTERIAL BLOOD PH 7.03 (7.35-7.45)
[2019-03-13 00:34] LABS: ALBUMIN 2.9 g/dL (3.5-5.0); ALKALINE PHOSPHATASE 100 U/L (38-126); ANION GAP 11 (5-19); ASPARTATE AMINO TRANSFERASE 25 U/L (17-59); BILIRUBIN,DIRECT 0.4 mg/dL (0.0-0.4); BLOOD UREA NITROGEN 17 mg/dL (7-20); CALCIUM 9.2 mg/dL (8.4-10.2); CARBON DIOXIDE 22 mmol/L (22-30); CHLORIDE 100 mmol/L (98-107); GLUCOSE 133 mg/dL (75-110); PHOSPHORUS 4.9 mg/dL (2.5-4.5); POTASSIUM 4.8 mmol/L (3.6-5.0); TOTAL PROTEIN 6.1 g/dL (6.3-8.2)
--- NOTE | 2019-03-13 01:05 | Progress Note ---
Provider Note Provider Note: Critical care note: 03/12/2019 Critical care start time: 11:15 PM Critical care issue: Acute respiratory failure While I was on the unit only approximately 50 feet from the patient's room I heard him begin to cough and gasping for air and call out to his nurse that he could not breathe. She asked respiratory therapy to see the patient and they requested that I come to the room at the same time a rapid response was called because the patient had developed acute respiratory insufficiency and had become unresponsive. I evaluated the patient immediately and noted that he had very shallow respirations with significant labor of breathing and fine rales present in all lung diaz with coarse central rhonchi. Patient was poorly responsive even to painful stimuli on initial evaluation and his O2 saturation was 68% on the monitor. His nurse related that she had just begun giving him vancomycin only 5 minutes or so prior to his developing his acute respiratory distress. The patient had no known allergy to vancomycin. Patient was treated immediately with the semi-maddox position, 2 mg of morphine sulfate intravenously and 100% oxygen via nonrebreather mask. Within 30 to 60 seconds the patient was moving air substantially better and his O2 sat improved to the low 90%'s. He remained unresponsive to verbal stimuli but was markedly improved and his response to painful stimuli. He was given Lasix 80 mg IV x1 and plans to move the patient to the ICU for further treatment were made. Patient was to be initiated on BiPAP however another rapid response was called with the same time and delayed the initiation of BiPAP. Patient was started on BiPAP eventually with an FiO2 of 100% and pressures of 16/8. Patient's BiPAP will be continued in the ICU and his FiO2 will be gradually reduced as tolerated. ABGs will be obtained after the BiPAP has been adjusted for further evaluation. A chest x-ray was ordered. The patient was able to begin speaking in multi word sentences while wearing BiPAP and was very responsive to verbal stimuli. Critical care end time: 11:59 PM Total critical care time: 22 minutes
[2019-03-13] MEDS ORDERED: FUROSEMIDE INJ/PF 40 MG/4 ML SDV IV ONE (01:15)
[2019-03-13] MEDS: HYDROMORPHONE HCL INJ/PF 2 MG/ML AMPULE IV PRN (01:28)
[2019-03-13] MEDS ORDERED: MORPHINE SULFATE 10 MG/ML INJ IV ONE ×2 (01:30)
[2019-03-13] MEDS ORDERED: MORPHINE SULFATE 10 MG/ML INJ IV PRN (01:51)
[2019-03-13] MEDS ORDERED: PHENYLEPHRINE HCL INJ/PF 10 MG/1 ML SDV ONE ×2 (01:59)
[2019-03-13] MEDS: DEXTROSE 5%-WATER 250 ML with PHENYLEPHRINE HCL 40 MG IV PRN ×4 (02:15→09:20)
[2019-03-13] MEDS ORDERED: DIGOXIN INJ 0.5 MG/2 ML AMPULE IV ONE (02:15)
[2019-03-13 02:39] LABS: ARTERIAL BLOOD BASE EXCESS -1.6 mmol/L; ARTERIAL BLOOD H2CO3 1.26 mmol/L (1.05-1.35); ARTERIAL BLOOD HCO3 23.6 mmol/L (20-24); ARTERIAL BLOOD O2 SATURATION 99.9 % (94-98); ARTERIAL BLOOD PCO2 41.7 mmHg (35-45); ARTERIAL BLOOD PH 7.37 (7.35-7.45); ARTERIAL BLOOD PO2 579.2 mmHg (80-100); ARTERIAL BLOOD TOTAL CO2 24.8 mmol/L (23-27)
[2019-03-13 02:40] LABS: ARTERIAL BLOOD FIO2 100%
--- NOTE | 2019-03-13 02:52 | RADIOLOGY REPORT (SQ) ---
Chest single view on 03/13/2019 at 12:47 AM CLINICAL INDICATION: Acute respiratory failure COMPARISON: 03/12/2019 FINDINGS: There are multiple wires projecting over the chest. There is mild left basilar opacity consistent with atelectasis or pneumonia. Lungs are otherwise clear. Cardiac, hilar and mediastinal contours are within normal limits. Pulmonary vascularity is within normal limits. IMPRESSION: Mild left basilar opacity consistent with atelectasis and/or pneumonia.
[2019-03-13 05:27] LABS: HEMOGLOBIN 9.5 g/dL (13.5-17.0); MEAN CORPUSCULAR HEMOGLOBIN 23.8 pg (27.0-33.4); MEAN CORPUSCULAR HGB CONC 31.7 g/dL (32.0-36.0); MEAN CORPUSCULAR VOLUME 75 fl (80-97); PLATELET COUNT 372 10^3/uL (150-450); RED CELL DISTRIBUTION WIDTH 20.6 % (11.5-14.0); WHITE BLOOD COUNT 6.1 10^3/uL (4.0-10.5)
[2019-03-13 05:37] LABS: INTERNATIONAL RATION (INR) 1.05; PROTHROMBIN TIME 13.7 SEC (11.4-15.4)
[2019-03-13] MEDS ORDERED: LINEZOLID 600 MG/300 ML RTUPB IV SCH (06:00)
[2019-03-13] MEDS: HEPARIN SOD (PORCINE) 5,000 UNIT/ML 1 ML VIAL SUBCUT SCH ×3 (09:06→21:19)
[2019-03-13] MEDS: MORPHINE SULFATE IR 15 MG TABLET PO SCH (09:23)
[2019-03-13] MEDS ORDERED: OXYCODONE HCL IR 5 MG TABLET PO PRN (09:38)
[2019-03-13] MEDS ORDERED: (PENDING PHARMACY ID) (Pregabalin [Lyrica] 225 MG) PO SCH (10:00)
[2019-03-13] MEDS ORDERED: MORPHINE SULFATE SR 15 MG TABLET PO SCH (10:00)
--- NOTE | 2019-03-13 10:03 | PDOC PROGRESS REPORT ---
Subjective Progress Note for:: 03/13/19 Subjective:: Patient has no SOB off bipap and talking on the phone Reason For Visit: AFIB RVR Physical Exam Vital Signs: Temp Pulse Resp BP Pulse Ox 99.7 F 97 16 93/63 L 100 03/13/19 08:00 03/13/19 08:00 03/13/19 08:00 03/13/19 08:00 03/13/19 08:00 Intake & Output 03/12/19 03/13/19 03/14/19 06:59 06:59 06:59 Intake Total 1000 250 Output Total 1200 60 Balance -200 190 Weight 95.2 kg General appearance: PRESENT: no acute distress, cooperative Head exam: PRESENT: atraumatic Eye exam: PRESENT: conjunctiva pink, EOMI, PERRLA. ABSENT: scleral icterus Ear exam: PRESENT: normal external ear exam Mouth exam: PRESENT: moist, tongue midline Neck exam: PRESENT: full ROM. ABSENT: carotid bruit, JVD, lymphadenopathy, thyromegaly Respiratory exam: PRESENT: clear to auscultation alessia, unlabored Cardiovascular exam: PRESENT: RRR Pulses: PRESENT: normal dorsalis pedis pul, +2 pedal pulses bilateral Vascular exam: PRESENT: normal capillary refill GI/Abdominal exam: PRESENT: normal bowel sounds, soft. ABSENT: distended, guarding, mass, organolmegaly, rebound, tenderness Rectal exam: PRESENT: deferred Musculoskeletal exam: PRESENT: other - L hip shows old surgical scars. Are is swollen Neurological exam: PRESENT: alert, awake, oriented to person, oriented to place, oriented to time Skin exam: PRESENT: mottled, normal color Results Laboratory Results: 03/13/19 05:06 03/12/19 23:25 03/12/19 03/12/19 03/12/19 15:38 15:38 15:38 WBC 8.7 RBC 4.33 L Hgb 10.2 L Hct 32.6 L MCV 75 L MCH 23.7 L MCHC 31.4 L RDW 20.3 H Plt Count 364 Seg Neutrophils % 67.7 Carbonic Acid HCO3/H2CO3 Ratio ABG pH ABG pCO2 ABG pO2 ABG HCO3 ABG O2 Saturation ABG Base Excess FiO2 Sodium 131.5 L Potassium 4.7 Chloride 98 Carbon Dioxide 23 Anion Gap 11 BUN 22 H Creatinine 1.32 H Est GFR ( Amer) > 60 Glucose 97 Lactic Acid Cancelled Calcium 9.2 Phosphorus Magnesium Total Bilirubin 0.8 AST 23 Alkaline Phosphatase 114 Total Protein 6.3 Albumin 3.1 L 03/12/19 03/12/19 03/12/19 15:38 20:05 21:20 WBC RBC Hgb Hct MCV MCH MCHC RDW Plt Count Seg Neutrophils % Carbonic Acid HCO3/H2CO3 Ratio ABG pH ABG pCO2 ABG pO2 ABG HCO3 ABG O2 Saturation ABG Base Excess FiO2 Sodium 131.0 L Potassium 4.6 Chloride 100 Carbon Dioxide 24 Anion Gap 7 BUN 20 Creatinine 1.01 Est GFR ( Amer) > 60 Glucose 90 Lactic Acid 2.2 H 0.7 Calcium 8.5 Phosphorus Magnesium Total Bilirubin AST Alkaline Phosphatase Total Protein Albumin 03/12/19 03/12/19 03/12/19 23:25 23:25 23:32 WBC 8.6 RBC 4.11 L Hgb 9.6 L Hct 32.1 L MCV 78 L MCH 23.3 L MCHC 29.9 L RDW 20.6 H Plt Count 361 Seg Neutrophils % 30.3 L Carbonic Acid 2.95 H HCO3/H2CO3 Ratio 8:1 ABG pH 7.03 L* ABG pCO2 98.1 H* ABG pO2 58.1 L ABG HCO3 25.4 H ABG O2 Saturation 74.3 L ABG Base Excess -6.8 FiO2 100% Sodium 133.0 L Potassium 4.8 Chloride 100 Carbon Dioxide 22 Anion Gap 11 BUN 17 Creatinine 1.08 Est GFR ( Amer) > 60 Glucose 133 H Lactic Acid Calcium 9.2 Phosphorus 4.9 H Magnesium 2.2 Total Bilirubin 1.0 AST 25 Alkaline Phosphatase 100 Total Protein 6.1 L Albumin 2.9 L 03/13/19 03/13/19 03/13/19 00:30 01:13 05:01 WBC RBC Hgb Hct MCV MCH MCHC RDW Plt Count Seg Neutrophils % Carbonic Acid Cancelled 1.26 HCO3/H2CO3 Ratio Cancelled 18:1 ABG pH Cancelled 7.37 ABG pCO2 Cancelled 41.7 ABG pO2 Cancelled 579.2 H ABG HCO3 Cancelled 23.6 ABG O2 Saturation Cancelled 99.9 H ABG Base Excess Cancelled -1.6 FiO2 Cancelled 100% Sodium Potassium Chloride Carbon Dioxide Anion Gap BUN Creatinine Est GFR ( Amer) Glucose Lactic Acid Calcium Phosphorus Magnesium 1.8 Total Bilirubin AST Alkaline Phosphatase Total Protein Albumin 03/13/19 05:06 WBC 6.1 RBC 4.00 L Hgb 9.5 L Hct 30.0 L MCV 75 L MCH 23.8 L MCHC 31.7 L RDW 20.6 H Plt Count 372 Seg Neutrophils % Carbonic Acid HCO3/H2CO3 Ratio ABG pH ABG pCO2 ABG pO2 ABG HCO3 ABG O2 Saturation ABG Base Excess FiO2 Sodium Potassium Chloride Carbon Dioxide Anion Gap BUN Creatinine Est GFR ( Amer) Glucose Lactic Acid Calcium Phosphorus Magnesium Total Bilirubin AST Alkaline Phosphatase Total Protein Albumin 03/12/19 15:38 Troponin I < 0.012 Impressions: Chest X-Ray 03/12/19 15:59 IMPRESSION: NO ACUTE RADIOGRAPHIC FINDING IN THE CHEST. Hip X-Ray 03/12/19 15:59 IMPRESSION: Status post left total hip arthroplasty with revision to include cerclage wires. Today's examination demonstrates a comminuted fracture of the proximal femur with altered position and appearance of the cerclage wires. Adjacent subcutaneous gas is not entirely unexpected in the immediate postoperative setting. Cellulitis may have a similar appearance. Assessment & Plan - Diagnosis (1) Femur fracture, left Qualifiers: Encounter type: initial encounter Femur location: proximal epiphysis Fracture type: closed Fracture alignment: nondisplaced Qualified Code(s): S72.025A - Nondisplaced fracture of epiphysis (separation) (upper) of left femur, initial encounter for closed fracture Is this a current diagnosis for this admission?: Yes Plan: Chronic draining are to have surgery Friday. (2) Acute and chronic respiratory failure with hypoxia Is this a current diagnosis for this admission?: Yes Plan: Somehow this seems temporarily related to Vancomycin administration. Completely resolved. Stable to return to floor. Now on linezolid. (3) Chronic obstructive pulmonary disease Qualifiers: COPD type: unspecified COPD Qualified Code(s): J44.9 - Chronic obstructive pulmonary disease, unspecified Is this a current diagnosis for this admission?: Yes Plan: Inactive (4) Opiate dependence, continuous Is this a current diagnosis for this admission?: Yes Plan: I've had a long discussion with regarding pain medication. He is very tolerant having bee on narcotics for 6 ears. He takes oxycontin and oxycodone in fairly low doses. I will increase both and add ibuprofen. He sees a pain specialist on she should be notified if he is sent out on new dosages at discharge. - Time Time Spent with patient: 25-34 minutes Medications reviewed and adjusted accordingly: Yes Anticipated discharge: Home Within: within 72 hours - Inpatient Certification Based on my medical assessment, after consideration of the patient's comor bidities, presenting symptoms, or acuity I expect that the services needed warrant INPATIENT care.: Yes I certify that my determination is in accordance with my understanding of Medicare's requirements for reasonable and necessary INPATIENT services [42 CFR 412.3e].: Yes Medical Necessity: Failure to Improve With Outpatient Therapy, Need for IV Antibiotics
[2019-03-13] MEDS: OXYCODONE HCL SR 10 MG TABLET PO SCH ×2 (10:28→21:16)
[2019-03-13] MEDS: OXYCODONE HCL IR 5 MG TABLET PO PRN ×3 (10:29→23:22)
[2019-03-13] MEDS: FAMOTIDINE 20 MG TABLET PO SCH (10:29)
[2019-03-13] MEDS: PREGABALIN 75 MG CAPSULE PO SCH ×2 (10:30→21:17)
[2019-03-13] MEDS: LINEZOLID 600 MG/300 ML RTUPB IV SCH ×2 (10:31→21:18)
[2019-03-13] MEDS: DOCUSATE SODIUM 100 MG/10 ML UDC PO SCH (10:31)
[2019-03-13] MEDS: IBUPROFEN 400 MG TABLET PO SCH ×2 (12:09→17:42)
--- NOTE | 2019-03-13 17:34 | PDOC CONSULTATION ---
Consultation Consult Date: 03/13/19 Provider Consulted: WESLEY NASCIMENTO Consult reason:: Left hip revision arthroplasty History of Present Illness Admission Date/PCP: 03/12/19 18:00 [facility] History of Present Illness: KERRI STODDARD is a 54 year old male The patient is a 54-year-old black male with very complicated past medical history regarding his left hip. 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 Most recently the patient status post a left hip revision arthroplasty approximately 19 days ago. Since that time the patient son relatively well but has had persistent wound drainage that may at least be in part to ongoing Eliquis administration.. Hence he was tentatively scheduled for a irrigation debridement with good deep cultures of the wound on Friday. Preoperative laboratory evaluation is notable for sedimentation rate of 22. He should however presented prior to that date to the emergency room and subsequently admitted to the hospital service and the intensive care unit. Past Medical History Cardiac Medical History: Reports: Atrial Fibrillation Denies: Congestive Heart Failure, Coronary Artery Disease, Myocardial Infarction, Hyperlipidema, Hypertension, Peripheral Vascular Disease, Pulmonary Embolism, Heart Murmur Pulmonary Medical History: Reports: Chronic Obstructive Pulmonary Disease (COPD) Denies: Asthma, Bronchitis, Pneumonia, Respiratory Failure, Sleep Apnea, Tuberculosis EENT Medical History: Reports: None Neurological Medical History: Reports: None Denies: Seizures Endocrine Medical History: Reports: None Denies: Hyperthyroidism, Hypothyroidism Renal/ Medical History: Reports: None Denies: End Stage Renal Disease Malignancy Medical History: Reports: None Denies: Breast Cancer, Cervical Cancer, Leukemia, Lung Cancer, Ovarian Cancer GI Medical History: Denies: Gastroesophageal Reflux Disease Musculoskeltal Medical History: Reports: Arthritis Denies: Fibromyalgia Skin Medical History: Reports: None Psychiatric Medical History: Reports: Depression Denies: Bipolar Disorder, Dementia, Post Traumatic Stress Disorder Traumatic Medical History: Reports: None Hematology: Denies: Anemia, Hemophilia, Sickle Cell Disease Infectious Medical History: Reports: None Denies: HIV Past Surgical History Past Surgical History: Reports: Cardiac Catheterization - AFIB ablation, Orthopedic Surgery - Multiple procedures on the left hip for infection and prosthetic instabilit, Other - Catheter ablation X 2 afib Denies: Appendectomy, Cholecystectomy, Coronary Artery Bypass Graft, Gastric Bypass Surgery, Herniorrhaphy, Pacemaker, Tonsillectomy Social History Information Source: Patient, Dr. Gordon, [facility] Records Lives with: Family Smoking Status: Current Every Day Smoker Electronic Cigarette use?: No Frequency of Alcohol Use: None Hx Recreational Drug Use: No Drugs: None Hx Prescription Drug Abuse: No - Advance Directive Resuscitation Status: Full Code Family History Family History: CAD Parental Family History Reviewed: No Children Family History Reviewed: No Sibling(s) Family History Reviewed.: No Medication/Allergy Home Medications: Morphine Sulfate [Ms Contin] 15 mg PO Q12 03/12/19 Oxycodone HCl [Oxy-Ir 5 mg Tablet] 5 mg PO Q6HP PRN 03/12/19 Pregabalin [Lyrica] 225 mg PO Q12 03/12/19 Allergies/Adverse Reactions: vancomycin Allergy (Severe, Verified 03/13/19 05:32) Anaphylaxis adalimumab [From Humira] Adverse Reaction (Verified 02/09/19 13:26) etanercept [From Enbrel] Adverse Reaction (Verified 02/09/19 13:26) gabapentin Adverse Reaction (Verified 02/09/19 13:26) methotrexate Adverse Reaction (Verified 02/09/19 13:26) Review of Systems All systems: as per H Physical Exam Vital Signs: Temp Pulse Resp BP Pulse Ox 36.8 C 65 10 L 105/65 100 03/13/19 16:00 03/13/19 16:00 03/13/19 16:00 03/13/19 16:00 03/13/19 16:00 Intake & Output 03/12/19 03/13/19 03/14/19 06:59 06:59 06:59 Intake Total 1000 1756 Output Total 1200 1250 Balance -200 506 Weight 95.2 kg Physical Exam: Middle-aged black male lying comfortably in bed. Patient is alert, oriented, and appropriate. General appearance: PRESENT: no acute distress Head exam: PRESENT: normocephalic Respiratory exam: PRESENT: unlabored Cardiovascular exam: PRESENT: RRR Pulses: PRESENT: +1 pedal pulses bilateral Vascular exam: PRESENT: normal capillary refill GI/Abdominal exam: PRESENT: soft Rectal exam: PRESENT: deferred Extremities exam: PRESENT: other - Left hip dressing with tong in place. Currently there is minimal of any drainage. Passive range of motion of the extremity is with only minimal discomfort. There is a residual leg length disc repancy from previous surgical procedures. Neurological exam: PRESENT: alert, awake, oriented to person, oriented to place, oriented to time, oriented to situation. ABSENT: motor sensory deficit Skin exam: PRESENT: dry, intact, warm. ABSENT: cyanosis, rash Results Laboratory Results: 03/13/19 05:06 03/12/19 23:25 03/12/19 03/12/19 03/12/19 20:05 21:20 23:25 WBC 8.6 RBC 4.11 L Hgb 9.6 L Hct 32.1 L MCV 78 L MCH 23.3 L MCHC 29.9 L RDW 20.6 H Plt Count 361 Seg Neutrophils % 30.3 L Carbonic Acid HCO3/H2CO3 Ratio ABG pH ABG pCO2 ABG pO2 ABG HCO3 ABG O2 Saturation ABG Base Excess FiO2 Sodium 131.0 L Potassium 4.6 Chloride 100 Carbon Dioxide 24 Anion Gap 7 BUN 20 Creatinine 1.01 Est GFR ( Amer) > 60 Glucose 90 Lactic Acid 0.7 Calcium 8.5 Phosphorus Magnesium Total Bilirubin AST Alkaline Phosphatase Total Protein Albumin 03/12/19 03/12/19 03/13/19 23:25 23:32 00:30 WBC RBC Hgb Hct MCV MCH MCHC RDW Plt Count Seg Neutrophils % Carbonic Acid 2.95 H Cancelled HCO3/H2CO3 Ratio 8:1 Cancelled ABG pH 7.03 L* Cancelled ABG pCO2 98.1 H* Cancelled ABG pO2 58.1 L Cancelled ABG HCO3 25.4 H Cancelled ABG O2 Saturation 74.3 L Cancelled ABG Base Excess -6.8 Cancelled FiO2 100% Cancelled Sodium 133.0 L Potassium 4.8 Chloride 100 Carbon Dioxide 22 Anion Gap 11 BUN 17 Creatinine 1.08 Est GFR ( Amer) > 60 Glucose 133 H Lactic Acid Calcium 9.2 Phosphorus 4.9 H Magnesium 2.2 Total Bilirubin 1.0 AST 25 Alkaline Phosphatase 100 Total Protein 6.1 L Albumin 2.9 L 03/13/19 03/13/19 03/13/19 01:13 05:01 05:06 WBC 6.1 RBC 4.00 L Hgb 9.5 L Hct 30.0 L MCV 75 L MCH 23.8 L MCHC 31.7 L RDW 20.6 H Plt Count 372 Seg Neutrophils % Carbonic Acid 1.26 HCO3/H2CO3 Ratio 18:1 ABG pH 7.37 ABG pCO2 41.7 ABG pO2 579.2 H ABG HCO3 23.6 ABG O2 Saturation 99.9 H ABG Base Excess -1.6 FiO2 100% Sodium Potassium Chloride Carbon Dioxide Anion Gap BUN Creatinine Est GFR ( Amer) Glucose Lactic Acid Calcium Phosphorus Magnesium 1.8 Total Bilirubin AST Alkaline Phosphatase Total Protein Albumin 03/12/19 15:38 Troponin I < 0.012 Impressions: Chest X-Ray 03/12/19 15:59 IMPRESSION: NO ACUTE RADIOGRAPHIC FINDING IN THE CHEST. Hip X-Ray 03/12/19 15:59 IMPRESSION: Status post left total hip arthroplasty with revision to include cerclage wires. Today's examination demonstrates a comminuted fracture of the proximal femur with altered position and appearance of the cerclage wires. Adjacent subcutaneous gas is not entirely unexpected in the immediate postoperative setting. Cellulitis may have a similar appearance. Status: Imported from PACS Assessment & Plan - Diagnosis (1) History of hip replacement Qualifiers: Laterality: left Qualified Code(s): Z96.642 - Presence of left artificial hip joint Is this a current diagnosis for this admission?: Yes Plan: At this point I would like to ask that all antibiotics be stopped and that we reevaluate for infection with laboratory studies tomorrow morning. Tentative plan will continue to be for a surgical irrigation debridement of the wound on Friday if medical condition permits. - Time Time Spent: 30 to 50 Minutes Anticipated discharge: Other Within: Other
[2019-03-13] MEDS: TRAZODONE HCL 50 MG TABLET PO SCH (21:16)
[2019-03-13] MEDS: DIGOXIN 0.25 MG TABLET PO SCH (21:17)
--- NOTE | 2019-03-14 00:26 | EKG REPORT ---
SEVERITY:- ABNORMAL ECG - ATRIAL FIBRILLATION, V-RATE 100-119 LOW VOLTAGE IN FRONTAL LEADS BORDERLINE T ABNORMALITIES, ANT-LAT LEADS : Confirmed by: Ruth Woods 14-Mar-2019 00:25:41
[2019-03-14 04:55] LABS: HEMATOCRIT 28.9 % (37.9-51.0); HEMOGLOBIN 9.1 g/dL (13.5-17.0); MEAN CORPUSCULAR HEMOGLOBIN 23.4 pg (27.0-33.4); MEAN CORPUSCULAR HGB CONC 31.5 g/dL (32.0-36.0); MEAN CORPUSCULAR VOLUME 74 fl (80-97); PLATELET COUNT 307 10^3/uL (150-450); RED CELL DISTRIBUTION WIDTH 19.8 % (11.5-14.0); WHITE BLOOD COUNT 3.4 10^3/uL (4.0-10.5)
[2019-03-14] MEDS: HEPARIN SOD (PORCINE) 5,000 UNIT/ML 1 ML VIAL SUBCUT SCH ×3 (06:11→22:00)
[2019-03-14] MEDS: OXYCODONE HCL IR 5 MG TABLET PO PRN ×3 (06:20→17:59)
[2019-03-14] MEDS ORDERED: INFLUENZA QUAD (6MOS+) 2019-20 VAC 0.5 ML SYR IM ONE (08:00)
[2019-03-14] MEDS: IBUPROFEN 400 MG TABLET PO SCH ×3 (08:47→18:00)
[2019-03-14] MEDS ORDERED: CEFEPIME HCL 1.5 GM in DEXTROSE 5%-WATER 50 ML IV SCH (10:00)
[2019-03-14 10:33] LABS: PLATELET COUNT 303 10^3/uL (150-450); RED CELL DISTRIBUTION WIDTH 20.2 % (11.5-14.0)
[2019-03-14] MEDS: OXYCODONE HCL SR 10 MG TABLET PO SCH ×2 (10:36→21:50)
[2019-03-14] MEDS: DOCUSATE SODIUM 100 MG/10 ML UDC PO SCH (10:36)
[2019-03-14] MEDS: PREGABALIN 75 MG CAPSULE PO SCH ×2 (10:37→21:50)
[2019-03-14 10:46] LABS: ANION GAP 8 (5-19); BLOOD UREA NITROGEN 11 mg/dL (7-20); CALCIUM 8.7 mg/dL (8.4-10.2); CARBON DIOXIDE 27 mmol/L (22-30); CHLORIDE 100 mmol/L (98-107); GLUCOSE 105 mg/dL (75-110); HEMATOCRIT 28.8 % (37.9-51.0); MEAN CORPUSCULAR HEMOGLOBIN 23.1 pg (27.0-33.4); MEAN CORPUSCULAR HGB CONC 31.1 g/dL (32.0-36.0); MEAN CORPUSCULAR VOLUME 74 fl (80-97); POTASSIUM 4.1 mmol/L (3.6-5.0); RED BLOOD COUNT 3.87 10^6/uL (4.35-5.55); WHITE BLOOD COUNT 3.5 10^3/uL (4.0-10.5)
--- NOTE | 2019-03-14 10:51 | PDOC PROGRESS REPORT ---
Subjective Progress Note for:: 03/14/19 Subjective:: Patient's pain under better control. Wound broke open last night and drained profusely. Reason For Visit: AFIB RVR Physical Exam Vital Signs: Temp Pulse Resp BP Pulse Ox 98.8 F 93 11 L 96/62 L 99 03/14/19 05:00 03/13/19 19:00 03/14/19 05:00 03/14/19 04:17 03/14/19 05:00 Intake & Output 03/13/19 03/14/19 03/15/19 06:59 06:59 06:59 Intake Total 1000 1756 Output Total 1200 3775 - Weight 95.2 kg 97.5 kg General appearance: PRESENT: no acute distress, cooperative Head exam: PRESENT: atraumatic Eye exam: PRESENT: conjunctiva pink, EOMI, PERRLA. ABSENT: scleral icterus Ear exam: PRESENT: normal external ear exam Mouth exam: PRESENT: moist, tongue midline Respiratory exam: PRESENT: clear to auscultation alessia, unlabored Cardiovascular exam: PRESENT: RRR Vascular exam: PRESENT: normal capillary refill GI/Abdominal exam: PRESENT: soft Rectal exam: PRESENT: deferred Additional comments: Swelling and mild serosanguinous drainage from R hip area. Neurological exam: PRESENT: alert, oriented to person, oriented to place, oriented to time, oriented to situation Psychiatric exam: PRESENT: appropriate affect, normal mood. ABSENT: homicidal ideation, suicidal ideation Skin exam: PRESENT: normal color Results Laboratory Results: 03/14/19 03/14/19 04:09 04:09 WBC 3.4 L RBC 3.90 L Hgb 9.1 L Hct 28.9 L MCV 74 L MCH 23.4 L MCHC 31.5 L RDW 19.8 H Plt Count 307 Magnesium 1.9 03/12/19 15:38 Troponin I < 0.012 Impressions: Chest X-Ray 03/12/19 15:59 IMPRESSION: NO ACUTE RADIOGRAPHIC FINDING IN THE CHEST. Hip X-Ray 03/12/19 15:59 IMPRESSION: Status post left total hip arthroplasty with revision to include cerclage wires. Today's examination demonstrates a comminuted fracture of the proximal femur with altered position and appearance of the cerclage wires. Adj acent subcutaneous gas is not entirely unexpected in the immediate postoperative setting. Cellulitis may have a similar appearance. Assessment & Plan - Diagnosis (1) Femur fracture, left Qualifiers: Encounter type: initial encounter Femur location: proximal epiphysis F racture type: closed Fracture alignment: nondisplaced Qualified Code(s): S72.025A - Nondisplaced fracture of epiphysis (separation) (upper) of left femur, initial encounter for closed fracture Is this a current diagnosis for this admission?: Yes (2) Acute and chronic respiratory failure with hypoxia Is this a current diagnosis for this admission?: Yes (3) Chronic obstructive pulmonary disease Qualifiers: COPD type: unspecified COPD Qualified Code(s): J44.9 - Chronic obstructive pulmonary disease, unspecified Is this a current diagnosis for this admission?: Yes (4) Opiate dependence, continuous Is this a current diagnosis for this admission?: Yes Plan: Better pain control on current regimen. No change. (5) Open wnd hip/thigh-complicated Qualifiers: Encounter type: subsequent encounter Laterality: right Qualified Code(s): S71.001D - Unspecified open wound, right hip, subsequent encounter; S71.101D - Unspecified open wound, right thigh, subsequent encounter Is this a current diagnosis for this admission?: Yes Plan: Wound has broken open. Antibiotics stopped per Dr. James's request. He is stable for OR tomorrow. Prelim C&S showing both strep and psuedomanas. Deep OR cultures to be taken Friday. - Time Time Spent with patient: 25-34 minutes Medications reviewed and adjusted accordingly: Yes Anticipated discharge: Home Within: within 48 hours - Inpatient Certification Based on my medical assessment, after consideration of the patient's comorbidities, presenting symptoms, or acuity I expect that the services needed warrant INPATIENT care.: Yes Medical Necessity: Need for Surgery
[2019-03-14 10:59] LABS: C-REACTIVE PROTEIN 160.1 mg/L (<10.0)
[2019-03-14] MEDS ORDERED: CEFEPIME 2 GM/D5W RTU 2 GM/50 ML RTUPB IV SCH (11:00)
[2019-03-14 11:13] LABS: ABSOLUTE LYMPHOCYTES# (MANUAL) 0.6 10^3/uL (0.5-4.7); ABSOLUTE MONOCYTES # (MANUAL) 0.7 10^3/uL (0.1-1.4); BASOPHILS % (MANUAL) 0 % (0-2); EOSINOPHILS % (MANUAL) 8 % (0-6); LYMPHOCYTES % (MANUAL) 17 % (13-45); MONOCYTES % (MANUAL) 20 % (3-13); SEGMENTED NEUTROPHILS % (MAN) 55 % (42-78); TOTAL CELLS COUNTED 100
[2019-03-14] MEDS: LINEZOLID 600 MG/300 ML RTUPB IV SCH (11:13)
[2019-03-14 11:16] LABS: ANISOCYTOSIS 2+; PLATELET COMMENT ADEQUATE
[2019-03-14 11:21] LABS: ERYTHROCYTE SEDIMENTATION RATE 68 mm/hr (0-20)
[2019-03-14] MEDS: TRAZODONE HCL 50 MG TABLET PO SCH (21:50)
[2019-03-14] MEDS: DIGOXIN 0.25 MG TABLET PO SCH (21:51)
[2019-03-15 05:05] LABS: HEMATOCRIT 29.3 % (37.9-51.0); HEMOGLOBIN 9.1 g/dL (13.5-17.0); MEAN CORPUSCULAR HEMOGLOBIN 23.1 pg (27.0-33.4); MEAN CORPUSCULAR HGB CONC 31.2 g/dL (32.0-36.0); MEAN CORPUSCULAR VOLUME 74 fl (80-97); PLATELET COUNT 344 10^3/uL (150-450); RED BLOOD COUNT 3.96 10^6/uL (4.35-5.55); WHITE BLOOD COUNT 3.5 10^3/uL (4.0-10.5)
[2019-03-15] MEDS: HEPARIN SOD (PORCINE) 5,000 UNIT/ML 1 ML VIAL SUBCUT SCH (06:33)
[2019-03-15] MEDS ORDERED: DEXTROSE 40% GEL 15 GM TUBE PO PRN (06:57)
[2019-03-15] MEDS ORDERED: GLUCAGON,HUMAN RECOMB 1 MG INJ SUBCUT PRN (06:57)
[2019-03-15] MEDS ORDERED: DEXTROSE 50%-WATER 25 GM/50 ML DISP.SYRIN IV PRN (06:57)
[2019-03-15] MEDS: OXYCODONE HCL IR 5 MG TABLET PO PRN ×2 (08:18→17:39)
[2019-03-15 08:55] LABS: DIGOXIN 0.95 ng/mL (0.8-2.0)
[2019-03-15] MEDS ORDERED: MEROPENEM 1 GM in NORMAL SALINE 50 ML IV SCH (10:00)
[2019-03-15] MEDS: OXYCODONE HCL SR 10 MG TABLET PO SCH ×2 (10:49→22:02)
[2019-03-15] MEDS: PREGABALIN 75 MG CAPSULE PO SCH ×2 (10:49→22:03)
[2019-03-15] MEDS: DOCUSATE SODIUM 100 MG/10 ML UDC PO SCH (10:50)
[2019-03-15 11:04] LABS: ABSOLUTE EOSINOPHILS # (AUTO) 0.4 10^3/uL (0.0-0.6); ABSOLUTE LYMPHOCYTES (AUTO) 0.7 10^3/uL (0.5-4.7); ABSOLUTE MONOCYTES (AUTO) 0.6 10^3/uL (0.1-1.4); ABSOLUTE NEUT (AUTO) 2.7 10^3/uL (1.7-8.2); BASOPHILS % (AUTO) 0.9 % (0-2); EOSINOPHILS % (AUTO) 8.4 % (0-6); HEMATOCRIT 30.8 % (37.9-51.0); HEMOGLOBIN 9.7 g/dL (13.5-17.0); LYMPHOCYTES % (AUTO) 15.5 % (13-45); MEAN CORPUSCULAR HEMOGLOBIN 23.3 pg (27.0-33.4); MEAN CORPUSCULAR HGB CONC 31.6 g/dL (32.0-36.0); MEAN CORPUSCULAR VOLUME 74 fl (80-97); MONOCYTES % (AUTO) 13.3 % (3-13); PLATELET COUNT 361 10^3/uL (150-450); RED BLOOD COUNT 4.17 10^6/uL (4.35-5.55); RED CELL DISTRIBUTION WIDTH 20.5 % (11.5-14.0); SEGMENTED NEUTROPHILS % (AUTO) 61.9 % (42-78); TOTAL CELLS COUNTED % (AUTO) 100 %; WHITE BLOOD COUNT 4.4 10^3/uL (4.0-10.5)
[2019-03-15 11:06] LABS: INTERNATIONAL RATION (INR) 0.99; PROTHROMBIN TIME 13.1 SEC (11.4-15.4)
[2019-03-15 11:07] LABS: PARTIAL THROMBOPLASTIN TIME 32.7 SEC (23.5-35.8)
[2019-03-15] MEDS: HEPARIN SODIUM,PORCINE/D5W 25,000 UNIT/250 ML RTUINJ IV PRN (11:54)
[2019-03-15 13:04] LABS: APPEARANCE,URINE CLEAR; BILIRUBIN,URINE NEGATIVE (NEGATIVE); COLOR,URINE YELLOW; GLUCOSE, URINE NEGATIVE (NEGATIVE); KETONES,URINE NEGATIVE (NEGATIVE); LEUKOCYTE ESTERASE,URINE NEGATIVE (NEGATIVE); NITRITE,URINE NEGATIVE (NEGATIVE); PROTEIN,URINE NEGATIVE (NEGATIVE); URINE SPECIFIC GRAVITY 1.009; UROBILINOGEN,URINE NEGATIVE mg/dL (<2.0)
[2019-03-15] MEDS ORDERED: DIVALPROEX SODIUM 500 MG TAB.SR.24H PO ONE ×2 (14:00→17:00)
[2019-03-15 15:48] LABS: CREATINE KINASE MB 0.25 ng/mL (<4.55)
[2019-03-15 15:53] LABS: TROPONIN I < 0.012 ng/mL
--- NOTE | 2019-03-15 16:22 | XCELERA REPORT ---
[address] [address] Transthoracic Echocardiogram Report Name: KERRI STODDARD Age: 54 yrs Gender: Male : 1965 Patient Status: Inpatient Patient Location: ICU^[id number]^A Study Date: 03/15/2019 03:16 PM Height: 76 in Weight: 218 lb BSA: 2.3 m2 Procedure: A two-dimensional transthoracic echocardiogram with color flow and Doppler was performed. The study was technically difficult with many images being suboptimal in quality. Reason For Study: A Fib LVH Pre Op History: A Fib LVH Pre Op. Ordering Physician: YESI CHRISTINE Performed By: Neisha Lenz Interpretation Summary The left ventricle is normal in size. There is normal left ventricular wall thickness. LV EF is 65% Left ventricular systolic function is normal. LV diastolic function could not be adequately assessed due to atrial fibrilation. The left ventricular wall motion is normal. There is no thrombus. No ASD ,VSD , or OFO seen. The right ventricle is moderately dilated. The right ventricular systolic function is mildly reduced. The right ventricle is not well visualized secondary to technical limitations The right atrium is mildly dilated. The left atrium is mildly dilated. There is no evidence of mitral valve prolapse. There is no vegetation seen on the mitral valve. There is no mitral valve stenosis. There is a trace to mild amount of mitral regurgitation There is no aortic valvular vegetation. There is no aortic valve stenosis There is no LVOT obstruction. No aortic regurgitation is present. There is no tricuspid stenosis. There is a mild to moderate amount of tricuspid regurgitation There is moderate pulmonary hypertension by echo RVSP is 52 to 57 mm of Hg , with TA mean of 15 to 20. There is no pulmonic valvular stenosis. There is no pulmonic valvular regurgitation. The aortic root is normal size. The inferior vena cava appeared dilated and decreased < 50% with respiration (RAP 15-20 mmHg) There is no pericardial effusion. MMode/2D Measurements & Calculations RVDd: 4.0 cm LVIDd: 5.6 cm FS: 40.3 % Ao root diam: 3.5 cm IVSd: 1.0 cm LVIDs: 3.3 cm EDV(Teich): 152.2 ml Ao root area: 9.8 cm2 LVPWd: 1.0 cm ESV(Teich): 45.1 ml LA dimension: 4.2 cm EF(Teich): 70.4 % Doppler Measurements & Calculations Ao V2 max: LV V1 max PG: PA V2 max: TR max nohelia: 152.9 cm/sec 6.6 mmHg 94.8 cm/sec 302.7 cm/sec Ao max P.4 mmHg LV V1 max: PA max PG: TR max P.6 mmHg 128.3 cm/sec 3.6 mmHg Left Ventricle The left ventricle is normal in size. There is normal left ventricular wall thickness. LV EF is 65%. Left ventricular systolic function is normal. LV diastolic function could not be adequately assessed due to atrial fibrilation. The left ventricular wall motion is normal. There is no thrombus. No ASD ,VSD , or OFO seen. Right Ventricle The right ventricle is moderately dilated. The right ventricle is not well visualized secondary to technical limitations. The right ventricular systolic function is mildly reduced. Atria The right atrium is mildly dilated. The left atrium is mildly dilated. Mitral Valve There is no evidence of mitral valve prolapse. There is no vegetation seen on the mitral valve. There is no mitral valve stenosis. There is a trace to mild amount of mitral regurgitation. Aortic Valve There is no aortic valvular vegetation. There is no aortic valve stenosis. There is no LVOT obstruction. No aortic regurgitation is present. Tricuspid Valve There is no tricuspid stenosis. There is a mild to moderate amount of tricuspid regurgitation. There is moderate pulmonary hypertension by echo. RVSP is 52 to 57 mm of Hg , with TA mean of 15 to 20. Pulmonic Valve There is no pulmonic valvular stenosis. There is no pulmonic valvular regurgitation. Great Vessels The aortic root is normal size. The inferior vena cava appeared dilated and decreased < 50% with respiration (RAP 15-20 mmHg). Effusions There is no pericardial effusion. : YESI CHRISTINE Lakshmi
[2019-03-15] MEDS: MIDODRINE HCL 5 MG TABLET PO SCH ×2 (16:28→17:39)
[2019-03-15] MEDS: OLANZAPINE 5 MG TABLET PO ONE ×2 (16:29→16:42)
[2019-03-15] MEDS ORDERED: HYDROCORTISONE SOD SUCCINATE INJ/PF 100 MG/2 ML SDV IV ONE (16:30)
[2019-03-15] MEDS ORDERED: OLANZAPINE 5 MG TABLET PO ONE (16:30)
[2019-03-15] MEDS: HYDROCORTISONE SOD SUCCINATE INJ/PF 100 MG/2 ML SDV IV SCH ×2 (16:43→22:01)
--- NOTE | 2019-03-15 16:45 | PDOC CONSULTATION ---
Consultation Consult Date: 03/15/19 Attending physician:: YESI CHRISTINE Provider Consulted: MYRTLE DONATO Consult reason:: Medical management History of Present Illness Admission Date/PCP: 03/12/19 18:00 [facility] Patient complains of: No complaints at this time History of Present Illness: KERRI STODDARD is a 54 year old male Past Medical History Cardiac Medical History: Reports: Atrial Fibrillation Denies: Congestive Heart Failure, Coronary Artery Disease, Myocardial Infarction, Hyperlipidema, Hypertension, Peripheral Vascular Disease, Pulmonary Embolism, Heart Murmur Pulmonary Medical History: Reports: Chronic Obstructive Pulmonary Disease (COPD) Denies: Asthma, Bronchitis, Pneumonia, Respiratory Failure, Sleep Apnea, Tuberculosis EENT Medical History: Reports: None Neurological Medical History: Reports: None Denies: Seizures Endocrine Medical History: Reports: None Denies: Hyperthyroidism, Hypothyroidism Renal/ Medical History: Reports: None Denies: End Stage Renal Disease Malignancy Medical History: Reports: None Denies: Breast Cancer, Cervical Cancer, Leukemia, Lung Cancer, Ovarian Cancer GI Medical History: Denies: Gastroesophageal Reflux Disease Musculoskeltal Medical History: Reports: Arthritis Denies: Fibromyalgia Skin Medical History: Reports: None Psychiatric Medical History: Reports: Depression Denies: Bipolar Disorder, Dementia, Post Traumatic Stress Disorder Traumatic Medical History: Reports: None Hematology: Denies: Anemia, Hemophilia, Sickle Cell Disease Infectious Medical History: Reports: None Denies: HIV Past Surgical History Past Surgical History: Reports: Cardiac Catheterization - AFIB ablation, Orthopedic Surgery - Multiple procedures on the left hip for infection and pros thetic instabilit, Other - Catheter ablation X 2 afib Denies: Appendectomy, Cholecystectomy, Coronary Artery Bypass Graft, Gastric Bypass Surgery, Herniorrhaphy, Pacemaker, Tonsillectomy Social History Information Source: Patient Lives with: Family Smoking Status: Current Every Day Smoker Electronic Cigarette use?: No Frequency of Alcohol Use: None Hx Recreational Drug Use: No Drugs: None Hx Prescription Drug Abuse: No - Advance Directive Resuscitation Status: Full Code Family History Family History: CAD Parental Family History Reviewed: Yes Children Family History Reviewed: Yes Sibling(s) Family History Reviewed.: Yes Medication/Allergy Home Medications: Morphine Sulfate [Ms Contin] 15 mg PO Q12 03/12/19 Oxycodone HCl [Oxy-Ir 5 mg Tablet] 5 mg PO Q6HP PRN 03/12/19 Pregabalin [Lyrica] 225 mg PO Q12 03/12/19 Allergies/Adverse Reactions: vancomycin Allergy (Severe, Verified 03/13/19 05:32) Anaphylaxis adalimumab [From Humira] Adverse Reaction (Verified 02/09/19 13:26) etanercept [From Enbrel] Adverse Reaction (Verified 02/09/19 13:26) gabapentin Adverse Reaction (Verified 02/09/19 13:26) methotrexate Adverse Reaction (Verified 02/09/19 13:26) Review of Systems Constitutional: ABSENT: chills, fever(s), headache(s), weight gain, weight loss Eyes: ABSENT: visual disturbances Ears: ABSENT: hearing changes Cardiovascular: ABSENT: chest pain, dyspnea on exertion, edema, orthropnea, palpitations Respiratory: ABSENT: cough, hemoptysis Gastrointestinal: ABSENT: abdominal pain, constipation, diarrhea, hematemesis, hematochezia, nausea, vomiting Genitourinary: ABSENT: dysuria, hematuria Musculoskeletal: PRESENT: other - Left hip pain. ABSENT: joint swelling Integumentary: ABSENT: rash, wounds Neurological: ABSENT: abnormal gait, abnormal speech, confusion, dizziness, focal weakness, syncope Psychiatric: ABSENT: anxiety, depression, homidical ideation, suicidal ideation Endocrine: ABSENT: cold intolerance, heat intolerance, polydipsia, polyuria Hematologic/Lymphatic: ABSENT: easy bleeding, easy bruising Physical Exam Vital Signs: Temp Pulse Resp BP Pulse Ox 98.8 F 88 16 121/74 97 03/15/19 12:35 03/15/19 12:35 03/15/19 12:35 03/15/19 12:35 03/15/19 12:35 Intake & Output 03/14/19 03/15/19 03/16/19 06:59 06:59 06:59 Intake Total 1756 2300 200 Output Total 0605 5120 1200 Balance -2019 -4000 -1000 Weight 97.5 kg 99.2 kg General appearance: PRESENT: no acute distress, well-developed, well-nourished Neck exam: ABSENT: carotid bruit, JVD, lymphadenopathy, thyromegaly Respiratory exam: PRESENT: clear to auscultation alessia. ABSENT: rales, rhonchi, wheezes Cardiovascular exam: PRESENT: RRR. ABSENT: diastolic murmur, rubs, systolic murmur Pulses: PRESENT: normal dorsalis pedis pul Vascular exam: PRESENT: normal capillary refill GI/Abdominal exam: PRESENT: normal bowel sounds, soft. ABSENT: distended, guarding, mass, organolmegaly, rebound, tenderness Extremities exam: PRESENT: full ROM. ABSENT: calf tenderness, clubbing, pedal edema Neurological exam: PRESENT: alert, awake, oriented to person, oriented to place, oriented to time, oriented to situation, CN II-XII grossly intact. ABSENT: motor sensory deficit Psychiatric exam: PRESENT: appropriate affect, normal mood. ABSENT: homicidal ideation, suicidal ideation Skin exam: PRESENT: dry, intact, warm, other - Left lateral hip surgical wound. ABSENT: cyanosis, rash Results Laboratory Results: 03/15/19 10:45 03/14/19 10:13 03/15/19 03/15/19 03/15/19 04:56 04:56 04:56 WBC 3.5 L RBC 3.96 L Hgb 9.1 L Hct 29.3 L MCV 74 L MCH 23.1 L MCHC 31.2 L RDW 20.0 H Plt Count 344 Seg Neutrophils % Lactic Acid Magnesium 2.0 C-Reactive Protein 161.0 H Urine Color Urine Appearance Urine pH Ur Specific [place] Urine Protein Urine Glucose (UA) Urine Ketones Urine Blood Urine Nitrite Ur Leukocyte Esterase Urine WBC (Auto) Urine RBC (Auto) 03/15/19 03/15/19 03/15/19 09:00 10:45 12:45 WBC 4.4 RBC 4.17 L Hgb 9.7 L Hct 30.8 L MCV 74 L MCH 23.3 L MCHC 31.6 L RDW 20.5 H Plt Count 361 Seg Neutrophils % 61.9 Lactic Acid 1.1 Magnesium C-Reactive Protein Urine Color YELLOW Urine Appearance CLEAR Urine pH 5.0 Ur Specific [place] 1.009 Urine Protein NEGATIVE Urine Glucose (UA) NEGATIVE Urine Ketones NEGATIVE Urine Blood SMALL H Urine Nitrite NEGATIVE Ur Leukocyte Esterase NEGATIVE Urine WBC (Auto) 1 Urine RBC (Auto) 0 03/12/19 16:00 Hip - Left Gram Stain - Final 03/12/19 16:00 Hip - Left Wound Culture - Final Group B Beta Streptococcus Pseudomonas Aeruginosa Citrobacter Freundii 03/12/19 03/15/19 03/15/19 15:38 15:05 15:05 Creatine Kinase 21 L CK-MB (CK-2) 0.25 Troponin I < 0.012 < 0.012 Impressions: Chest X-Ray 03/12/19 15:59 IMPRESSION: NO ACUTE RADIOGRAPHIC FINDING IN THE CHEST. Hip X-Ray 03/12/19 15:59 IMPRESSION: Status post left total hip arthroplasty with revision to include cerclage wires. Today's examination demonstrates a comminuted fracture of the proximal femur with altered position and appearance of the cerclage wires. Adjacent subcutaneous gas is not entirely unexpected in the immediate postoperative setting. Cellulitis may have a similar appearance. Assessment and Plan - Diagnosis (1) Atrial fibrillation with rapid ventricular response Is this a current diagnosis for this admission?: Yes Plan: 03/15/2019-patient normally takes Xarelto at home but has been held for the last month due to multiple leg surgery. Patient is on heparin drip at this time for anticoagulation for atrial fibrillation. Plan is for surgical washout after cardiac clearance. (2) Acute exacerbation of chronic obstructive pulmonary disease (COPD) Is this a current diagnosis for this admission?: Yes Plan: 03/15/2019-current heavy smoker not O2 dependent. Continue submental oxygen, duo nebs, BiPAP and LABA. Patient will be referred for outpatient PCP and pulmonology follow-up on discharge (3) Mechanical failure of prosthetic joint Qualifiers: Is this a current diagnosis for this admission?: Yes Plan: Patient has very complicated history of left hip fracture with multiple revisions prosthetic joints Patient is scheduled to have wound washout on Friday by Dr. James however due to his worsening pain he presented to the hospital. X-ray of the left hip show possible no fracture, Dr. James and Dr. Serra were notified and they recommended for patient to be admitted and will be seen on Friday. Continue supportive measures at this point. Follow-up Ortho recommendations.. 03/15/2019-once patient has cardiac clearance will be taken to the OR by Dr. Addison cosby for surgical washout of the left hip. Continue antibiotics at this time for infection. Patient is on meropenem (4) Opiate dependence, continuous Is this a current diagnosis for this admission?: Yes Plan: Due to chronic left hip fracture and multiple complicated surgeries. Restart home meds. Monitor for falls. 03/15/2019-patient continues on pain control secondary to this infection of his left hip joint. We will continue current medications and switch to home medication once patient has had surgical intervention. (5) Surgical wound infection Is this a current diagnosis for this admission?: Yes Plan: Patient explaining that for the last 2 to 3 days he has noticed serosanguineous fluid oozing out of the sutures on the left lateral hip. On physical examination there is serosanguineous fluid oozing from 1 of the suture lines, but no other sign of obvious infection. We will start on empiric IV antibiotics pending wound washout on Friday by Dr. James. Continue empiric IV antibiotics. Follow-up wound and blood culture. 03/15/2019-wound culture shows pseudomonas aeruginosa and Citrobacter freundii both with good susceptibility to Cipro. I will DC meropenem at this time and place patient on Cipro 400 mg IV twice daily. Patient will obtain a surgical washout by Dr. James once patient has been cleared by cardiology. Await cardiology clearance. - Time Time Spent with patient: 35 or more minutes - Inpatient Certification Based on my medical assessment, after consideration of the patient's comorbidities, presenting symptoms, or acuity I expect that the services needed warrant INPATIENT care.: Yes I certify that my determination is in accordance with my understanding of Medicare's requirements for reasonable and necessary INPATIENT services [42 CFR 412.3e].: Yes Medical Necessity: Need for IV Antibiotics, Need for Surgery
[2019-03-15] MEDS: HEPARIN SOD (PORCINE) 1,000 UNIT/ML 10 ML VIAL IV PRN (18:42)
[2019-03-15] MEDS: CIPROFLOXACIN 400 MG/D5W RTU 400 MG/200 ML RTUPB IV SCH (22:01)
[2019-03-15] MEDS: DIGOXIN 0.25 MG TABLET PO SCH (22:02)
[2019-03-15] MEDS: TRAZODONE HCL 50 MG TABLET PO SCH (22:04)
[2019-03-16] MEDS: HEPARIN SOD (PORCINE) 1,000 UNIT/ML 10 ML VIAL IV PRN (01:38)
[2019-03-16] MEDS: HEPARIN SODIUM,PORCINE/D5W 25,000 UNIT/250 ML RTUINJ IV PRN ×2 (05:29→17:06)
[2019-03-16] MEDS: HYDROCORTISONE SOD SUCCINATE INJ/PF 100 MG/2 ML SDV IV SCH (05:29)
[2019-03-16 08:42] LABS: ABSOLUTE BASOPHILS # (AUTO) 0.1 10^3/uL (0.0-0.2); ABSOLUTE LYMPHOCYTES (AUTO) 0.9 10^3/uL (0.5-4.7); ABSOLUTE MONOCYTES (AUTO) 0.5 10^3/uL (0.1-1.4); ABSOLUTE NEUT (AUTO) 3.5 10^3/uL (1.7-8.2); BASOPHILS % (AUTO) 1.6 % (0-2); EOSINOPHILS % (AUTO) 0.2 % (0-6); HEMATOCRIT 32.5 % (37.9-51.0); HEMOGLOBIN 10.2 g/dL (13.5-17.0); LYMPHOCYTES % (AUTO) 18.3 % (13-45); MEAN CORPUSCULAR HEMOGLOBIN 23.1 pg (27.0-33.4); MEAN CORPUSCULAR HGB CONC 31.3 g/dL (32.0-36.0); MEAN CORPUSCULAR VOLUME 74 fl (80-97); MONOCYTES % (AUTO) 10.3 % (3-13); PLATELET COUNT 455 10^3/uL (150-450); RED BLOOD COUNT 4.41 10^6/uL (4.35-5.55); RED CELL DISTRIBUTION WIDTH 20.4 % (11.5-14.0); SEGMENTED NEUTROPHILS % (AUTO) 69.6 % (42-78); TOTAL CELLS COUNTED % (AUTO) 100 %; WHITE BLOOD COUNT 5.1 10^3/uL (4.0-10.5)
[2019-03-16 08:51] LABS: INTERNATIONAL RATION (INR) 1.07; PROTHROMBIN TIME 13.9 SEC (11.4-15.4)
[2019-03-16 08:54] LABS: ALBUMIN 2.9 g/dL (3.5-5.0); ALKALINE PHOSPHATASE 111 U/L (38-126); ANION GAP 8 (5-19); ASPARTATE AMINO TRANSFERASE 17 U/L (17-59); BILIRUBIN,DIRECT 0.2 mg/dL (0.0-0.4); BILIRUBIN,TOTAL 0.3 mg/dL (0.2-1.3); BLOOD UREA NITROGEN 9 mg/dL (7-20); CALCIUM 8.9 mg/dL (8.4-10.2); CARBON DIOXIDE 31 mmol/L (22-30); CHLORIDE 99 mmol/L (98-107); GLUCOSE 116 mg/dL (75-110); PHOSPHORUS 4.6 mg/dL (2.5-4.5); POTASSIUM 4.6 mmol/L (3.6-5.0); TOTAL PROTEIN 6.1 g/dL (6.3-8.2)
[2019-03-16] MEDS: MIDODRINE HCL 5 MG TABLET PO SCH ×3 (11:01→17:06)
[2019-03-16] MEDS: PREGABALIN 75 MG CAPSULE PO SCH ×2 (11:01→21:18)
[2019-03-16] MEDS: OXYCODONE HCL SR 10 MG TABLET PO SCH (11:02)
[2019-03-16] MEDS: DOCUSATE SODIUM 100 MG/10 ML UDC PO SCH (11:04)
[2019-03-16] MEDS: CIPROFLOXACIN 400 MG/D5W RTU 400 MG/200 ML RTUPB IV SCH ×2 (13:25→21:18)
[2019-03-16] MEDS: OXYCODONE HCL IR 5 MG TABLET PO PRN ×2 (13:40→23:33)
[2019-03-16] MEDS ORDERED: REGADENOSON INJ 0.4 MG/5 ML DISP.SYRIN IV ONE (14:40)
--- NOTE | 2019-03-16 18:49 | PDOC PROGRESS REPORT ---
Subjective Progress Note for:: 03/16/19 Subjective:: This is a 54 yr old male with a PMH of chronic AFib (taken off Xarelto due to bleeding issues on the left hip), multiple left hip orthopedic surgeries (including hip replacement, washout for infected hardware, prior revisions) who presented with drainage from 1 of the left hip sutures site after recent revision. Patient was initially scheduled for a washout. He was started on IV antibiotics including vancomycin. However, while on the floor he appeared to have developed anaphylaxis and acute respiratory failure to vancomycin hence was subsequently upgraded to the ICU. He was initially placed on BiPAP and later did improve and transferred back to the floor. Patient is scheduled for debridement of the left hip tomorrow by orthopedics pending results of stress testing. Otherwise, no acute event overnight. He denies chest pain or shortness of breath. He does say that he has breakthrough pain from his rheumatoid arthritis. Will resume his home pain medication regimen. Reason For Visit: AFIB RVR Physical Exam Vital Signs: Temp Pulse Resp BP Pulse Ox 98.2 F 74 18 103/62 96 03/16/19 03:40 03/16/19 07:00 03/16/19 03:40 03/16/19 03:40 03/16/19 03:40 Intake & Output 03/15/19 03/16/19 03/17/19 06:59 06:59 06:59 Intake Total 2300 689 63 Output Total 6300 4100 Balance -4000 -3411 63 Weight 218 lb 11.177 oz 183 lb 13.848 oz General appearance: PRESENT: no acute distress, well-developed, well-nourished Head exam: PRESENT: atraumatic, normocephalic Eye exam: PRESENT: conjunctiva pink, EOMI, PERRLA. ABSENT: scleral icterus Ear exam: PRESENT: normal external ear exam Mouth exam: PRESENT: moist, tongue midline Neck exam: ABSENT: carotid bruit, JVD, lymphadenopathy, thyromegaly Respiratory exam: PRESENT: clear to auscultation alessia. ABSENT: rales, rhonchi, wheezes Cardiovascular exam: PRESENT: irregular rhythm. ABSENT: diastolic murmur, rubs, systolic murmur Pulses: PRESENT: normal dorsalis pedis pul GI/Abdominal exam: PRESENT: normal bowel sounds, soft. ABSENT: distended, guarding, mass, organolmegaly, rebound, tenderness Rectal exam: PRESENT: deferred Neurological exam: PRESENT: alert, awake, oriented to person, oriented to place, oriented to time, oriented to situation, CN II-XII grossly intact. ABSENT: motor sensory deficit Results Laboratory Results: 03/16/19 08:05 03/16/19 08:05 03/15/19 03/16/19 03/16/19 12:45 08:05 08:05 WBC RBC Hgb Hct MCV MCH MCHC RDW Plt Count Seg Neutrophils % Sodium 138.2 Potassium 4.6 Chloride 99 Carbon Dioxide 31 H Anion Gap 8 BUN 9 Creatinine 0.67 Est GFR ( Amer) > 60 Glucose 116 H Calcium 8.9 Phosphorus 4.6 H Magnesium 2.0 Total Bilirubin 0.3 AST 17 Alkaline Phosphatase 111 Ammonia < 8.7 L Total Protein 6.1 L Albumin 2.9 L Urine Color YELLOW Urine Appearance CLEAR Urine pH 5.0 Ur Specific [place] 1.009 Urine Protein NEGATIVE Urine Glucose (UA) NEGATIVE Urine Ketones NEGATIVE Urine Blood SMALL H Urine Nitrite NEGATIVE Ur Leukocyte Esterase NEGATIVE Urine WBC (Auto) 1 Urine RBC (Auto) 0 03/16/19 08:05 WBC 5.1 RBC 4.41 Hgb 10.2 L Hct 32.5 L MCV 74 L MCH 23.1 L MCHC 31.3 L RDW 20.4 H Plt Count 455 H Seg Neutrophils % 69.6 Sodium Potassium Chloride Carbon Dioxide Anion Gap BUN Creatinine Est GFR ( Amer) Glucose Calcium Phosphorus Magnesium Total Bilirubin AST Alkaline Phosphatase Ammonia Total Protein Albumin Urine Color Urine Appearance Urine pH Ur Specific [place] Urine Protein Urine Glucose (UA) Urine Ketones Urine Blood Urine Nitrite Ur Leukocyte Esterase Urine WBC (Auto) Urine RBC (Auto) 03/12/19 16:00 Hip - Left Gram Stain - Final 03/12/19 16:00 Hip - Left Wound Culture - Final Group B Beta Streptococcus Pseudomonas Aeruginosa Citrobacter Freundii 03/12/19 03/15/19 03/15/19 15:38 15:05 15:05 Creatine Kinase 21 L CK-MB (CK-2) 0.25 Troponin I < 0.012 < 0.012 03/16/19 08:05 Creatine Kinase CK-MB (CK-2) Troponin I < 0.012 Impressions: Chest X-Ray 03/12/19 15:59 IMPRESSION: NO ACUTE RADIOGRAPHIC FINDING IN THE CHEST. Hip X-Ray 03/12/19 15:59 IMPRESSION: Status post left total hip arthroplasty with revision to include cerclage wires. Today's examination demonstrates a comminuted fracture of the proximal femur with altered position and appearance of the cerclage wires. Adjacent subcutaneous gas is not entirely unexpected in the immediate postoperative setting. Cellulitis may have a similar appearance. Assessment and Plan - Diagnosis (1) A-fib Qualifiers: Atrial fibrillation type: unspecified Qualified Code(s): I48.91 - Unspecified atrial fibrillation Is this a current diagnosis for this admission?: Yes Plan: Rate-controlled. On heparin drip and digoxin. Plan to add beta blockers tomorrow. (2) Prosthetic joint infection of left hip Qualifiers: Encounter type: initial encounter Qualified Code(s): T84.52XA - Infection and inflammatory reaction due to internal left hip prosthesis, initial encounter Is this a current diagnosis for this admission?: Yes Plan: Patient is scheduled for debridement of the left hip tomorrow by orthopedics pending results of stress testing. - Time Time Spent with patient: 25-34 minutes
--- NOTE | 2019-03-16 19:23 | PDOC CONSULTATION ---
Consultation-Blank Consultation: CARDIOLOGY CONSULTATION by Dr. Astrid De Jesus on 03/16/2019. Patient seen at 3 PM on 03/16/2019. 60 minutes spent on this patient with more than 50% of time spent in direct patient care. REASON FOR CONSULTATION: Preoperative cardiac risk assessment and the patient for left hip irrigation and debridement. CONSULT REQUESTING PHYSICIAN: Dr. Tj Romano, [facility]. HISTORY PRESENT ILLNESS: Patient with a history of COPD and chronic atrial fibrillation on Xarelto and with history of multiple surgeries after left hip replacement for prosthesis problems admitted with increasing left hip pain. The patient was initially thought to have infection and was started on vancomycin for which the patient had an anaphylactic shock and was in the ICU. The patient now is transferred out of the ICU. The patient has no history of coronary artery disease. He denies any chest pain or discomfort. The patient is scheduled for wound irrigation and debridement of the left hip tomorrow. The patient denies any TIA CVA symptoms. There is no history of congestive heart failure. There is no bleeding on Xarelto. The patient denies any anginal symptoms. There is no syncope. The patient underwent a IV Lexiscan Cardiolite stress test today and this showed no evidence of reversible ischemia or myocardial infarction/scar. His LV ejection fraction by echocardiogram done previously this admission shows that the LV ejection fraction is within normal limits. Past Medical History Cardiac Medical History: Reports: Atrial Fibrillation Denies: Congestive Heart Failure, Coronary Artery Disease, Myocardial Infarction, Hyperlipidema, Hypertension, Peripheral Vascular Disease, Pulmonary Embolism, Heart Murmur Pulmonary Medical History: Reports: Chronic Obstructive Pulmonary Disease (COPD) Denies: Asthma, Bronchitis, Pneumonia, Respiratory Failure, Sleep Apnea, Tuberculosis EENT Medical History: Reports: None Neurological Medical History: Reports: None Denies: Seizures Endocrine Medical History: Reports: None Denies: Hyperthyroidism, Hypothyroidism Renal/ Medical History: Reports: None Denies: End Stage Renal Disease Malignancy Medical History: Reports: None Denies: Breast Cancer, Cervical Cancer, Leukemia, Lung Cancer, Ovarian Cancer GI Medical History: Denies: Gastroesophageal Reflux Disease Musculoskeltal Medical History: Reports: Arthritis Denies: Fibromyalgia Skin Medical History: Reports: None Psychiatric Medical History: Reports: Depression Denies: Bipolar Disorder, Dementia, Post Traumatic Stress Disorder Traumatic Medical History: Reports: None Hematology: Denies: Anemia, Hemophilia, Sickle Cell Disease Infectious Medical History: Reports: None Denies: HIV Past Surgical History Past Surgical History: Reports: Cardiac Catheterization - AFIB ablation, Orthopedic Surgery - left ankle LEFT HIP REPLACE, Other - Catheter ablation X 2 afib Denies: Appendectomy, Cholecystectomy, Coronary Artery Bypass Graft, Gastric Bypass Surgery, Herniorrhaphy, Pacemaker, Tonsillectomy Social History Lives with: Family Smoking Status: Current Every Day Smoker Electronic Cigarette use?: No Frequency of Alcohol Use: None Hx Recreational Drug Use: No Drugs: None Hx Prescription Drug Abuse: No Family History Family History: CAD Current Medications Generic Name Dose Route Start Last Admin Trade Name Freq PRN Reason Stop Dose Admin Dextrose 25 gm 03/15/19 06:57 Dextrose Inj 50% Syringe (25 Gm/50 Ml) IV 04/14/19 06:56 PRN PRN See Label Comments Protocol Digoxin 0.25 mg 03/13/19 22:00 03/15/19 22:02 Lanoxin 0.25 Mg Tablet PO 04/12/19 21:59 0.25 mg QHS DANIEL Administration Docusate Sodium 100 mg 03/17/19 10:00 Colace 100 Mg Capsule PO 04/16/19 09:59 DAILY DANIEL Glucagon 1 mg 03/15/19 06:57 Glucagen Inj 1 Mg Vial SUBCUT 04/14/19 06:56 PRN PRN Evaluate for BG < 70 Protocol Glucose 30 gm 03/15/19 06:57 Glutose 40% Gel 15 Gm Tube PO 04/14/19 06:56 PRN PRN FOR BG < 50 IN ALERT PATIENT Protocol Heparin Sodium (Porcine) 0 - 12,000 unit 03/15/19 12:53 03/16/19 01:38 Heparin Inj 1,000 Unit/Ml 10 Ml Vial IV 04/14/19 12:52 4,000 units .BOLUS PER PROTOCOL PRN Administration RESPOND TO aPTT VALUE Protocol Heparin Sodium/Dextrose 25,000 unit in 250 mls @ 0 mls/hr 03/15/19 09:53 03/16/19 17:09 Heparin Rtu 25,000 Unit/250 Ml D5w Premix IV 04/14/19 09:52 20.35 mls/hr CONTINUOUS PRN 20.35 mls/hr THIS MED IS NOT "PRN" Titration Protocol Titrate Ciprofloxacin/Dextrose 400 mg in 200 mls @ 200 mls/hr 03/15/19 22:00 03/16/19 15:49 Cipro Rtu 400 Mg/D5w 200 Ml Premix Bag IV 03/22/19 21:59 Infused Q12 DANIEL Infusion Levalbuterol HCl 0.63 mg 03/12/19 18:46 03/12/19 19:55 Xopenex Neb 0.63 Mg/3 Ml Ampul NEB 04/11/19 18:45 0.63 mg RTQ4HP PRN Administration SHORTNESS OF BREATH Midodrine 5 mg 03/15/19 14:00 03/16/19 17:06 Proamatine 5 Mg Tablet PO 04/14/19 13:59 5 mg TID DANIEL Administration Morphine Sulfate 15 mg 03/16/19 22:00 Ms-Contin Sr 15 Mg Tablet PO 03/23/19 21:59 Q12 DANIEL Ondansetron HCl 4 mg 03/12/19 18:46 Zofran Inj/Pf 4 Mg/2 Ml Sdv IV 04/11/19 18:45 Q4HP PRN FOR NAUSEA/VOMITING Oxycodone HCl 10 mg 03/13/19 09:41 03/16/19 13:40 Oxy-Ir 5 Mg Tablet PO 03/20/19 09:39 10 mg Q4HP PRN Administration FOR PAIN Pregabalin 225 mg 03/13/19 10:30 03/16/19 11:01 Lyrica 75 Mg Capsule PO 04/12/19 10:29 225 mg Q12 DANIEL Administration Trazodone HCl 100 mg 03/12/19 22:00 03/15/19 22:04 Desyrel 50 Mg Tablet PO 04/11/19 21:59 100 mg QHS DANIEL Administration Discontinued Medications Generic Name Dose Route Start Last Admin Trade Name Freq PRN Reason Stop Dose Admin Acetaminophen 325 mg 03/12/19 18:46 Tylenol 325 Mg Tablet PO 04/11/19 18:45 Q4HP PRN FEVER >101 Al Hydrox/Mg Hydrox/Simethicone 15 ml 03/12/19 18:46 Maalox Plus Susp 30 Udcup PO 04/11/19 18:45 Q6HP PRN HEARTBURN Digoxin 0.25 mg 03/12/19 18:22 03/12/19 18:29 Lanoxin Inj 0.5 Mg/2 Ml Ampule IV 03/12/19 18:23 0.25 mg NOW ONE Administration Digoxin 0.25 mg 03/13/19 02:15 03/13/19 03:18 Lanoxin Inj 0.5 Mg/2 Ml Ampule IV 03/13/19 02:16 0.25 mg NOW ONE Administration Diphenhydramine HCl 50 mg 03/12/19 23:59 03/13/19 00:05 Benadryl Inj 50 Mg/1 Ml Vial IV 03/13/19 00:00 50 mg NOW ONE Administration Diphenhydramine HCl 50 mg 03/12/19 23:49 Benadryl Inj 50 Mg/1 Ml Vial IV 04/11/19 23:48 Q4HP PRN ITCHING Diphenhydramine HCl Confirm 03/12/19 23:50 03/13/19 03:39 Benadryl Inj 50 Mg/1 Ml Vial Administered 03/12/19 23:51 Not Given Dose 50 mg .ROUTE .STK-MED ONE Divalproex Sodium 500 mg 03/15/19 14:00 03/15/19 16:29 Depakote Er 500 Mg Tab.Sr PO 03/15/19 14:01 500 mg NOW ONE Administration Divalproex Sodium 500 mg 03/15/19 17:00 03/15/19 16:44 Depakote Er 500 Mg Tab.Sr PO 03/15/19 17:01 Not Given NOW ONE Docusate Sodium 100 mg 03/13/19 10:00 03/16/19 11:04 Colace Udc 100 Mg/10 Ml Oral Soln PO 04/12/19 09:59 Not Given DAILY DANIEL Famotidine 20 mg 03/12/19 22:00 03/13/19 10:29 Pepcid 20 Mg Tablet PO 04/11/19 21:59 20 mg Q12 DANIEL Administration Furosemide Confirm 03/12/19 23:23 03/12/19 23:31 Lasix Inj/Pf 40 Mg/4 Ml Sdv Administered 03/12/19 23:24 Not Given Dose 40 mg .ROUTE .STK-MED ONE Furosemide 80 mg 03/13/19 01:15 03/12/19 23:31 Lasix Inj/Pf 40 Mg/4 Ml Sdv IV 03/13/19 01:16 80 mg NOW ONE Administration Hard Fat/Phenylephrine Confirm 03/13/19 01:59 03/13/19 03:41 Gigi-Synephrine Inj/Pf 10 Mg/1 Ml Sdv Administered 03/13/19 02:00 Not Given Dose 10 mg .ROUTE .STK-MED ONE Hard Fat/Phenylephrine Confirm 03/13/19 01:59 03/13/19 03:41 Gigi-Synephrine Inj/Pf 10 Mg/1 Ml Sdv Administered 03/13/19 02:00 Not Given Dose 10 mg .ROUTE .STK-MED ONE Heparin Sodium (Porcine) 5,000 unit 03/13/19 06:00 03/15/19 06:33 Heparin Inj 5,000 Units/Ml 1 Ml Vial SUBCUT 04/12/19 05:59 Not Given Q8 DANIEL Hydrocortisone Sodium Succinate 50 mg 03/15/19 14:15 03/16/19 05:29 Solu-Cortef Inj/Pf 100 Mg/ 2 Ml Sdv IV 04/14/19 14:14 50 mg Q8 DANIEL Administration Hydrocortisone Sodium Succinate 50 mg 03/15/19 16:30 03/15/19 16:43 Solu-Cortef Inj/Pf 100 Mg/ 2 Ml Sdv IV 03/15/19 16:31 Not Given NOW ONE Hydromorphone HCl 0.5 mg 03/12/19 15:59 03/12/19 16:27 Dilaudid Inj/Pf 2 Mg/Ml Ampule IV 03/12/19 16:00 0.5 mg NOW ONE Administration Hydromorphone HCl 1 mg 03/12/19 18:44 03/13/19 01:28 Dilaudid Inj/Pf 2 Mg/Ml Ampule IV 03/19/19 18:43 1 mg Q1HP PRN Administration FOR PAIN SCALE 4-5 Sodium Chloride 1,000 mls @ 0 mls/hr 03/12/19 15:59 03/12/19 18:20 Nacl 0.9% 1000 Ml Iv Soln IV 03/12/19 16:00 Infused BOLUS ONE Infusion Wide Open Sodium Chloride 1,000 mls @ 100 mls/hr 03/12/19 18:45 Nacl 0.9% 1000 Ml Iv Soln IV 04/11/19 18:44 CONTINUOUS PRN THIS MED IS NOT "PRN" Vancomycin HCl 1,250 mg/ 250 mls @ 166.667 mls/hr 03/12/19 20:00 03/12/19 22:56 Dextrose IV 03/19/19 19:59 166.67 mls/hr Q12A DANIEL 166.67 mls/hr Administration Linezolid 600 mg in 300 mls @ 300 mls/hr 03/13/19 06:00 03/13/19 09:05 Zyvox Rtu 600 Mg/300 Ml Premixed IV 03/20/19 05:59 Not Given Q12A DANIEL Hard Fat/Phenylephrine 40 mg/ 250 mls @ 0 mls/hr 03/13/19 01:57 03/13/19 16:12 Dextrose IV 04/12/19 01:56 0 mcg/min CONTINUOUS PRN 0 mls/hr THIS MED IS NOT "PRN" Titration Protocol Titrate Linezolid 600 mg in 300 mls @ 300 mls/hr 03/13/19 10:00 03/14/19 11:13 Zyvox Rtu 600 Mg/300 Ml Premixed IV 03/20/19 09:59 Infused Q12 DANIEL Infusion Cefepime HCl 2 gm in 50 mls @ 100 mls/hr 03/14/19 11:00 Maxipime Rtu 2 Gm-D5w 50 Ml Premix Bag IV 03/21/19 10:59 Q12 DANIEL Meropenem 1 gm/ Sodium 50 mls @ 100 mls/hr 03/15/19 10:00 03/15/19 17:04 Chloride IV 03/22/19 09:59 Infused Q8A DANIEL Infusion Ibuprofen 400 mg 03/13/19 12:00 03/14/19 18:00 Motrin 400 Mg Tablet PO 04/12/19 11:59 400 mg MEALS DANIEL Administration Influenza Virus Vaccine Quadrival 0.5 ml 03/14/19 08:00 03/14/19 20:37 Flulaval Quad 2019- Vac 0.5 Ml Syr IM 03/14/19 08:01 Not Given .ONCE ONE Morphine Sulfate 15 mg 03/12/19 19:30 03/13/19 09:23 Morphine Ir 15 Mg Tablet PO 03/19/19 19:29 Not Given Q12A DANIEL Morphine Sulfate Confirm 03/12/19 23:17 03/12/19 23:18 Morphine 10 Mg/Ml Inj Administered 03/12/19 23:18 Not Given Dose 10 mg .ROUTE .STK-MED ONE Morphine Sulfate Confirm 03/12/19 23:24 03/12/19 23:31 Morphine 10 Mg/Ml Inj Administered 03/12/19 23:25 Not Given Dose 10 mg .ROUTE .STK-MED ONE Morphine Sulfate 2 mg 03/13/19 01:30 03/12/19 23:18 Morphine 10 Mg/Ml Inj IV 03/13/19 01:31 2 mg NOW ONE Administration Morphine Sulfate 2 mg 03/13/19 01:30 03/12/19 23:31 Morphine 10 Mg/Ml Inj IV 03/13/19 01:31 2 mg NOW ONE Administration Morphine Sulfate 2 mg 03/13/19 01:51 Morphine 10 Mg/Ml Inj IV 03/20/19 01:50 Q1HP PRN Acute Severe Dyspnea Morphine Sulfate 15 mg 03/13/19 10:00 03/13/19 11:18 Ms-Contin Sr 15 Mg Tablet PO 03/20/19 09:59 Not Given Q12 DANIEL Olanzapine 10 mg 03/15/19 14:00 03/15/19 16:42 Zyprexa 5 Mg Tablet PO 03/15/19 14:01 Not Given NOW ONE Olanzapine 10 mg 03/15/19 16:30 03/15/19 16:44 Zyprexa 5 Mg Tablet PO 03/15/19 16:31 Not Given NOW ONE Ondansetron HCl 4 mg 03/12/19 15:58 03/12/19 16:28 Zofran Inj/Pf 4 Mg/2 Ml Sdv IV 03/12/19 15:59 4 mg NOW ONE Administration Oxycodone HCl 5 mg 03/13/19 09:38 Oxy-Ir 5 Mg Tablet PO 03/20/19 09:37 Q6HP PRN FOR POST OP PAIN Oxycodone HCl 20 mg 03/13/19 10:30 03/16/19 11:02 Oxycontin Sr 10 Mg Tablet PO 03/20/19 10:29 20 mg Q12 DANIEL Administration Promethazine HCl 6.25 mg 03/12/19 18:46 Phenergan Inj 25 Mg/1 Ml Vial IV 04/11/19 18:45 Q4HP PRN FOR NAUSEA/VOMITING Regadenoson 0.4 mg 03/16/19 14:40 Lexiscan Inj 0.4 Mg/5 Ml Disp.Syrin IV 03/16/19 14:41 .STK-MED ONE Temazepam 7.5 mg 03/12/19 18:46 Restoril 7.5 Mg Capsule PO 03/19/19 18:45 HSP PRN SLEEP OR INSOMNIA MEDICATION/ALLERGY HOME resuscitation STATUS: The patient is a full code. His is a surrogate healthcare decision maker. Medications: Morphine Sulfate [Ms Contin] 15 mg PO Q12 03/12/19 Oxycodone HCl [Oxy-Ir 5 mg Tablet] 5 mg PO Q6HP PRN 03/12/19 Pregabalin [Lyrica] 225 mg PO Q12 03/12/19 Allergies/Adverse Reactions: vancomycin Allergy (Severe, Verified 03/13/19 05:32) Anaphylaxis adalimumab [From Humira] Adverse Reaction (Verified 02/09/19 13:26) etanercept [From Enbrel] Adverse Reaction (Verified 02/09/19 13:26) gabapentin Adverse Reaction (Verified 02/09/19 13:26) methotrexate Adverse Reaction (Verified 02/09/19 13:26) Review of Systems: Constitutional denies any fever chills or rigors. Complains of generalized fatigue and weakness. HEAD: No history of headaches or head injury. EYES: No history of amblyopia diplopia. No history of amaurosis fugax. EARS: No history of tinnitus. No history of recurrent ear infections. No vertigo. NOSE: No history of hayfever. No stiff nosebleeds. MOUTH: No history of altered taste sensation. No history of ulcers in the mouth. THROAT: No history of odynophagia or dysphagia no recurrent sore throats. SKIN: No skin skin rashes skin lesions. No history of particular ecchymosis. NECK: No neck pains, no swelling in the neck. LUNGS: History of COPD present. No symptoms of acute exacerbation of COPD. No symptoms of upper or respiratory lower respirat ory tract infection. No history of pulmonary embolism. No history of sleep apnea. The patient is a does smoke. ENDOCRINE: No history of diabetes mellitus or thyroid disease. CARDIAC: History of hypertension present. History of chronic atrial fibrillation on Xarelto. No history of congestive heart failure. No history of syncope. No history of PND orthopnea or leg edema. No history of coronary artery disease or PA. No history of congenital heart disease. RENAL: No history of chronic kidney disease. No history of recurrent UTIs. No history of symptoms of enlarged prostate. METABOLIC: Denies hyperlipidemia or gout. MUSCULAR skeletal: History of significant from problems with the left hip and has had for surgery so far. History of arthritis present. No history of collagen vascular disease. DATA TECHNICIAN: No history of TIA CVA no history of headaches migraines or seizures. VASCULAR: No history of calf or buttock claudication. No history of DVT. HEMATOLOGY: No history of bleeding diathesis or clotting disorders. Note patient had anaphylaxis with vancomycin. PHYSICAL EXAMINATION: The patient is well-built and well-nourished in no acute distress. Selected Entries 03/16/19 10:53 Temperature 98.0 F Temperature Oral Source Pulse Rate 89 Respiratory 18 Rate Blood Pressure 121/59 L Blood Pressure 79 Mean BP Location Left Arm BP Position Supine O2 Sat by Pulse 100 Oximetry Oxygen Delivery Room Air Method HEAD: Head is atraumatic and normocephalic. EYES: Pupils are equal round regular reactive to light accommodation. Extraocular movements are normal, there is no conjunctival pallor, and no scleral icterus. EARS: Tympanic membranes are intact external auditory canals are clear. NOSE: There is no inflammation of the nasal mucous membrane there is no deviated nasal septum. MOUTH: Mucous membranes of mouth and tongue are moist, there is no ulcers in the mouth or tongue, and no bleeding from the gums. THROAT: There is no redness of the oropharynx, no exudate seen. SKIN: There is no petechia or ecchymosis. There is no rashes or lesions. NECK: Supple. There is no JVD. Carotids are equal there is no bruit. There is no lymphadenopathy. There is no goiter. Trachea central LUNGS: There is diminished air entry and prolonged expiration. Clear to auscultation bilaterally, no wheezes, rales or rhonchi. On percussion there is hyperresonance although there is no chest wall tenderness HEART: S1 and S2 are heard. S1 is of variable intensity, there is no S3 or S4 gallops. There is a systolic murmur the left sternal border and the apex. There is no rub. ABDOMEN: Normoactive bowel sounds, soft, nontender, no masses, no rebound, no guarding. There is no hepatosplenomegaly. EXTREMITIES: Femorals are slightly diminished. There is no femoral bruits. Leg pulses are diminished. There is no pedal edema. There is no DVT or cellulitis. There is no cyanosis or clubbing. There is no calf tenderness. NEUROLOGICAL the patient is awake alert oriented 3 with no focal deficits. PSYCHIATRIC: The patient judgment and insight are intact his affect is normal. Labs- Entire Visit 03/12/19 03/12/19 03/12/19 15:38 15:38 15:38 WBC 8.7 RBC 4.33 L Hgb 10.2 L Hct 32.6 L MCV 75 L MCH 23.7 L MCHC 31.4 L RDW 20.3 H Plt Count 364 Lymph % (Auto) 13.8 [place] % (Auto) 16.6 H Eos % (Auto) 1.4 Baso % (Auto) 0.5 Absolute Neuts (auto) 5.9 Absolute Lymphs (auto) 1.2 Absolute Monos (auto) 1.5 H Absolute Eos (auto) 0.1 Absolute Basos (auto) 0.0 Total Counted Seg Neutrophils % 67.7 Seg Neuts % (Manual) Lymphocytes % (Manual) Monocytes % (Manual) Eosinophils % (Manual) Basophils % (Manual) Abs Neuts (Manual) Abs Lymphs (Manual) Abs Monocytes (Manual) Absolute Eos (Manual) Abs Basophils (Manual) Platelet Comment Anisocytosis Microcytosis ESR PT INR APTT Carbonic Acid HCO3/H2CO3 Ratio ABG pH ABG pCO2 ABG pO2 ABG HCO3 ABG Total CO2 ABG O2 Saturation ABG Base Excess FiO2 Sodium 131.5 L Potassium 4.7 Chloride 98 Carbon Dioxide 23 Anion Gap 11 BUN 22 H Creatinine 1.32 H Est GFR ( Amer) > 60 Est GFR (MDRD) Non-Af 56 L Glucose 97 POC Glucose Hemoglobin A1c % Lactic Acid Cancelled Calcium 9.2 Phosphorus Magnesium Total Bilirubin 0.8 Direct Bilirubin 0.3 Neonat Total Bilirubin Not Reportable Neonat Direct Bilirubin Not Reportable Neonat Indirect Bili Not Reportable AST 23 ALT 13 Alkaline Phosphatase 114 Ammonia Creatine Kinase CK-MB (CK-2) Troponin I C-Reactive Protein Total Protein 6.3 Albumin 3.1 L Urine Color Urine Appearance Urine pH Ur Specific [place] Urine Protein Urine Glucose (UA) Urine Ketones Urine Blood Urine Nitrite Urine Bilirubin Urine Urobilinogen Ur Leukocyte Esterase Urine WBC (Auto) Urine RBC (Auto) Urine Mucus (Auto) Urine Ascorbic Acid Digoxin Valproic Acid 03/12/19 03/12/19 03/12/19 15:38 15:38 20:05 WBC RBC Hgb Hct MCV MCH MCHC RDW Plt Count Lymph % (Auto) [place] % (Auto) Eos % (Auto) Baso % (Auto) Absolute Neuts (auto) Absolute Lymphs (auto) Absolute Monos (auto) Absolute Eos (auto) Absolute Basos (auto) Total Counted Seg Neutrophils % Seg Neuts % (Manual) Lymphocytes % (Manual) Monocytes % (Manual) Eosinophils % (Manual) Basophils % (Manual) Abs Neuts (Manual) Abs Lymphs (Manual) Abs Monocytes (Manual) Absolute Eos (Manual) Abs Basophils (Manual) Platelet Comment Anisocytosis Microcytosis ESR PT INR APTT Carbonic Acid HCO3/H2CO3 Ratio ABG pH ABG pCO2 ABG pO2 ABG HCO3 ABG Total CO2 ABG O2 Saturation ABG Base Excess FiO2 Sodium 131.0 L Potassium 4.6 Chloride 100 Carbon Dioxide 24 Anion Gap 7 BUN 20 Creatinine 1.01 Est GFR ( Amer) > 60 Est GFR (MDRD) Non-Af > 60 Glucose 90 POC Glucose Hemoglobin A1c % Lactic Acid 2.2 H Calcium 8.5 Phosphorus Magnesium Total Bilirubin Direct Bilirubin Neonat Total Bilirubin Neonat Direct Bilirubin Neonat Indirect Bili AST ALT Alkaline Phosphatase Ammonia Creatine Kinase CK-MB (CK-2) Troponin I < 0.012 C-Reactive Protein Total Protein Albumin Urine Color Urine Appearance Urine pH Ur Specific [place] Urine Protein Urine Glucose (UA) Urine Ketones Urine Blood Urine Nitrite Urine Bilirubin Urine Urobilinogen Ur Leukocyte Esterase Urine WBC (Auto) Urine RBC (Auto) Urine Mucus (Auto) Urine Ascorbic Acid Digoxin Valproic Acid 03/12/19 03/12/19 03/12/19 21:20 23:19 23:25 WBC 8.6 RBC 4.11 L Hgb 9.6 L Hct 32.1 L MCV 78 L MCH 23.3 L MCHC 29.9 L RDW 20.6 H Plt Count 361 Lymph % (Auto) 53.7 H [place] % (Auto) 14.4 H Eos % (Auto) 1.3 Baso % (Auto) 0.3 Absolute Neuts (auto) 2.6 Absolute Lymphs (auto) 4.6 Absolute Monos (auto) 1.2 Absolute Eos (auto) 0.1 Absolute Basos (auto) 0.0 Total Counted Seg Neutrophils % 30.3 L Seg Neuts % (Manual) Lymphocytes % (Manual) Monocytes % (Manual) Eosinophils % (Manual) Basophils % (Manual) Abs Neuts (Manual) Abs Lymphs (Manual) Abs Monocytes (Manual) Absolute Eos (Manual) Abs Basophils (Manual) Platelet Comment Anisocytosis Microcytosis ESR PT INR APTT Carbonic Acid HCO3/H2CO3 Ratio ABG pH ABG pCO2 ABG pO2 ABG HCO3 ABG Total CO2 ABG O2 Saturation ABG Base Excess FiO2 Sodium Potassium Chloride Carbon Dioxide Anion Gap BUN Creatinine Est GFR ( Amer) Est GFR (MDRD) Non-Af Glucose POC Glucose 127 H Hemoglobin A1c % Lactic Acid 0.7 Calcium Phosphorus Magnesium Total Bilirubin Direct Bilirubin Neonat Total Bilirubin Neonat Direct Bilirubin Neonat Indirect Bili AST ALT Alkaline Phosphatase Ammonia Creatine Kinase CK-MB (CK-2) Troponin I C-Reactive Protein Total Protein Albumin Urine Color Urine Appearance Urine pH Ur Specific [place] Urine Protein Urine Glucose (UA) Urine Ketones Urine Blood Urine Nitrite Urine Bilirubin Urine Urobilinogen Ur Leukocyte Esterase Urine WBC (Auto) Urine RBC (Auto) Urine Mucus (Auto) Urine Ascorbic Acid Digoxin Valproic Acid 03/12/19 03/12/19 03/13/19 23:25 23:32 00:30 WBC RBC Hgb Hct MCV MCH MCHC RDW Plt Count Lymph % (Auto) [place] % (Auto) Eos % (Auto) Baso % (Auto) Absolute Neuts (auto) Absolute Lymphs (auto) Absolute Monos (auto) Absolute Eos (auto) Absolute Basos (auto) Total Counted Seg Neutrophils % Seg Neuts % (Manual) Lymphocytes % (Manual) Monocytes % (Manual) Eosinophils % (Manual) Basophils % (Manual) Abs Neuts (Manual) Abs Lymphs (Manual) Abs Monocytes (Manual) Absolute Eos (Manual) Abs Basophils (Manual) Platelet Comment Anisocytosis Microcytosis ESR PT INR APTT Carbonic Acid 2.95 H Cancelled HCO3/H2CO3 Ratio 8:1 Cancelled ABG pH 7.03 L* Cancelled ABG pCO2 98.1 H* Cancelled ABG pO2 58.1 L Cancelled ABG HCO3 25.4 H Cancelled ABG Total CO2 28.4 H Cancelled ABG O2 Saturation 74.3 L Cancelled ABG Base Excess -6.8 Cancelled FiO2 100% Cancelled Sodium 133.0 L Potassium 4.8 Chloride 100 Carbon Dioxide 22 Anion Gap 11 BUN 17 Creatinine 1.08 Est GFR ( Amer) > 60 Est GFR (MDRD) Non-Af > 60 Glucose 133 H POC Glucose Hemoglobin A1c % Lactic Acid Calcium 9.2 Phosphorus 4.9 H Magnesium 2.2 Total Bilirubin 1.0 Direct Bilirubin 0.4 Neonat Total Bilirubin Not Reportable Neonat Direct Bilirubin Not Reportable Neonat Indirect Bili Not Reportable AST 25 ALT 13 Alkaline Phosphatase 100 Ammonia Creatine Kinase CK-MB (CK-2) Troponin I C-Reactive Protein Total Protein 6.1 L Albumin 2.9 L Urine Color Urine Appearance Urine pH Ur Specific [place] Urine Protein Urine Glucose (UA) Urine Ketones Urine Blood Urine Nitrite Urine Bilirubin Urine Urobilinogen Ur Leukocyte Esterase Urine WBC (Auto) Urine RBC (Auto) Urine Mucus (Auto) Urine Ascorbic Acid Digoxin Valproic Acid 03/13/19 03/13/19 03/13/19 01:13 05:01 05:06 WBC 6.1 RBC 4.00 L Hgb 9.5 L Hct 30.0 L MCV 75 L MCH 23.8 L MCHC 31.7 L RDW 20.6 H Plt Count 372 Lymph % (Auto) [place] % (Auto) Eos % (Auto) Baso % (Auto) Absolute Neuts (auto) Absolute Lymphs (auto) Absolute Monos (auto) Absolute Eos (auto) Absolute Basos (auto) Total Counted Seg Neutrophils % Seg Neuts % (Manual) Lymphocytes % (Manual) Monocytes % (Manual) Eosinophils % (Manual) Basophils % (Manual) Abs Neuts (Manual) Abs Lymphs (Manual) Abs Monocytes (Manual) Absolute Eos (Manual) Abs Basophils (Manual) Platelet Comment Anisocytosis Microcytosis ESR PT INR APTT Carbonic Acid 1.26 HCO3/H2CO3 Ratio 18:1 ABG pH 7.37 ABG pCO2 41.7 ABG pO2 579.2 H ABG HCO3 23.6 ABG Total CO2 24.8 ABG O2 Saturation 99.9 H ABG Base Excess -1.6 FiO2 100% Sodium Potassium Chloride Carbon Dioxide Anion Gap BUN Creatinine Est GFR ( Amer) Est GFR (MDRD) Non-Af Glucose POC Glucose Hemoglobin A1c % Lactic Acid Calcium Phosphorus Magnesium 1.8 Total Bilirubin Direct Bilirubin Neonat Total Bilirubin Neonat Direct Bilirubin Neonat Indirect Bili AST ALT Alkaline Phosphatase Ammonia Creatine Kinase CK-MB (CK-2) Troponin I C-Reactive Protein Total Protein Albumin Urine Color Urine Appearance Urine pH Ur Specific [place] Urine Protein Urine Glucose (UA) Urine Ketones Urine Blood Urine Nitrite Urine Bilirubin Urine Urobilinogen Ur Leukocyte Esterase Urine WBC (Auto) Urine RBC (Auto) Urine Mucus (Auto) Urine Ascorbic Acid Digoxin Valproic Acid 03/13/19 03/13/19 03/14/19 05:06 12:00 04:09 WBC 3.4 L RBC 3.90 L Hgb 9.1 L Hct 28.9 L MCV 74 L MCH 23.4 L MCHC 31.5 L RDW 19.8 H Plt Count 307 Lymph % (Auto) [place] % (Auto) Eos % (Auto) Baso % (Auto) Absolute Neuts (auto) Absolute Lymphs (auto) Absolute Monos (auto) Absolute Eos (auto) Absolute Basos (auto) Total Counted Seg Neutrophils % Seg Neuts % (Manual) Lymphocytes % (Manual) Monocytes % (Manual) Eosinophils % (Manual) Basophils % (Manual) Abs Neuts (Manual) Abs Lymphs (Manual) Abs Monocytes (Manual) Absolute Eos (Manual) Abs Basophils (Manual) Platelet Comment Anisocytosis Microcytosis ESR PT 13.7 INR 1.05 APTT Carbonic Acid HCO3/H2CO3 Ratio ABG pH ABG pCO2 ABG pO2 ABG HCO3 ABG Total CO2 ABG O2 Saturation ABG Base Excess FiO2 Sodium Potassium Chloride Carbon Dioxide Anion Gap BUN Creatinine Est GFR ( Amer) Est GFR (MDRD) Non-Af Glucose POC Glucose Hemoglobin A1c % Lactic Acid Calcium Phosphorus Magnesium Total Bilirubin Direct Bilirubin Neonat Total Bilirubin Neonat Direct Bilirubin Neonat Indirect Bili AST ALT Alkaline Phosphatase Ammonia Creatine Kinase CK-MB (CK-2) Troponin I C-Reactive Protein Total Protein Albumin Urine Color Urine Appearance Urine pH Ur Specific [place] Urine Protein Urine Glucose (UA) Urine Ketones Urine Blood Urine Nitrite Urine Bilirubin Urine Urobilinogen Ur Leukocyte Esterase Urine WBC (Auto) Urine RBC (Auto) Urine Mucus (Auto) Urine Ascorbic Acid Digoxin 0.58 L Valproic Acid 03/14/19 03/14/19 03/14/19 04:09 10:13 10:13 WBC 3.5 L RBC 3.87 L Hgb 9.0 L Hct 28.8 L MCV 74 L MCH 23.1 L MCHC 31.1 L RDW 20.2 H Plt Count 303 Lymph % (Auto) Not Reportable [place] % (Auto) Not Reportable Eos % (Auto) Not Reportable Baso % (Auto) Not Reportable Absolute Neuts (auto) Not Reportable Absolute Lymphs (auto) Not Reportable Absolute Monos (auto) Not Reportable Absolute Eos (auto) Not Reportable Absolute Basos (auto) Not Reportable Total Counted 100 Seg Neutrophils % Not Reportable Seg Neuts % (Manual) 55 Lymphocytes % (Manual) 17 Monocytes % (Manual) 20 H Eosinophils % (Manual) 8 H Basophils % (Manual) 0 Abs Neuts (Manual) 1.9 Abs Lymphs (Manual) 0.6 Abs Monocytes (Manual) 0.7 Absolute Eos (Manual) 0.3 Abs Basophils (Manual) 0.0 Platelet Comment ADEQUATE Anisocytosis 2+ Microcytosis SLIGHT ESR 68 H PT INR APTT Carbonic Acid HCO3/H2CO3 Ratio ABG pH ABG pCO2 ABG pO2 ABG HCO3 ABG Total CO2 ABG O2 Saturation ABG Base Excess FiO2 Sodium Potassium Chloride Carbon Dioxide Anion Gap BUN Creatinine Est GFR ( Amer) Est GFR (MDRD) Non-Af Glucose POC Glucose Hemoglobin A1c % Lactic Acid Calcium Phosphorus Magnesium 1.9 Total Bilirubin Direct Bilirubin Neonat Total Bilirubin Neonat Direct Bilirubin Neonat Indirect Bili AST ALT Alkaline Phosphatase Ammonia Creatine Kinase CK-MB (CK-2) Troponin I C-Reactive Protein Total Protein Albumin Urine Color Urine Appearance Urine pH Ur Specific [place] Urine Protein Urine Glucose (UA) Urine Ketones Urine Blood Urine Nitrite Urine Bilirubin Urine Urobilinogen Ur Leukocyte Esterase Urine WBC (Auto) Urine RBC (Auto) Urine Mucus (Auto) Urine Ascorbic Acid Digoxin 0.80 Valproic Acid 03/14/19 03/15/19 03/15/19 10:13 04:56 04:56 WBC 3.5 L RBC 3.96 L Hgb 9.1 L Hct 29.3 L MCV 74 L MCH 23.1 L MCHC 31.2 L RDW 20.0 H Plt Count 344 Lymph % (Auto) [place] % (Auto) Eos % (Auto) Baso % (Auto) Absolute Neuts (auto) Absolute Lymphs (auto) Absolute Monos (auto) Absolute Eos (auto) Absolute Basos (auto) Total Counted Seg Neutrophils % Seg Neuts % (Manual) Lymphocytes % (Manual) Monocytes % (Manual) Eosinophils % (Manual) Basophils % (Manual) Abs Neuts (Manual) Abs Lymphs (Manual) Abs Monocytes (Manual) Absolute Eos (Manual) Abs Basophils (Manual) Platelet Comment Anisocytosis Microcytosis ESR PT INR APTT Carbonic Acid HCO3/H2CO3 Ratio ABG pH ABG pCO2 ABG pO2 ABG HCO3 ABG Total CO2 ABG O2 Saturation ABG Base Excess FiO2 Sodium 135.0 L Potassium 4.1 Chloride 100 Carbon Dioxide 27 Anion Gap 8 BUN 11 Creatinine 0.77 Est GFR ( Amer) > 60 Est GFR (MDRD) Non-Af > 60 Glucose 105 POC Glucose Hemoglobin A1c % Lactic Acid Calcium 8.7 Phosphorus Magnesium 2.0 Total Bilirubin Direct Bilirubin Neonat Total Bilirubin Neonat Direct Bilirubin Neonat Indirect Bili AST ALT Alkaline Phosphatase Ammonia Creatine Kinase CK-MB (CK-2) Troponin I C-Reactive Protein 160.1 H Total Protein Albumin Urine Color Urine Appearance Urine pH Ur Specific [place] Urine Protein Urine Glucose (UA) Urine Ketones Urine Blood Urine Nitrite Urine Bilirubin Urine Urobilinogen Ur Leukocyte Esterase Urine WBC (Auto) Urine RBC (Auto) Urine Mucus (Auto) Urine Ascorbic Acid Digoxin Valproic Acid 03/15/19 03/15/19 03/15/19 04:56 09:00 10:45 WBC RBC Hgb Hct MCV MCH MCHC RDW Plt Count Lymph % (Auto) [place] % (Auto) Eos % (Auto) Baso % (Auto) Absolute Neuts (auto) Absolute Lymphs (auto) Absolute Monos (auto) Absolute Eos (auto) Absolute Basos (auto) Total Counted Seg Neutrophils % Seg Neuts % (Manual) Lymphocytes % (Manual) Monocytes % (Manual) Eosinophils % (Manual) Basophils % (Manual) Abs Neuts (Manual) Abs Lymphs (Manual) Abs Monocytes (Manual) Absolute Eos (Manual) Abs Basophils (Manual) Platelet Comment Anisocytosis Microcytosis ESR PT INR APTT Carbonic Acid HCO3/H2CO3 Ratio ABG pH ABG pCO2 ABG pO2 ABG HCO3 ABG Total CO2 ABG O2 Saturation ABG Base Excess FiO2 Sodium Potassium Chloride Carbon Dioxide Anion Gap BUN Creatinine Est GFR ( Amer) Est GFR (MDRD) Non-Af Glucose POC Glucose Hemoglobin A1c % Lactic Acid 1.1 Calcium Phosphorus Magnesium Total Bilirubin Direct Bilirubin Neonat Total Bilirubin Neonat Direct Bilirubin Neonat Indirect Bili AST ALT Alkaline Phosphatase Ammonia Creatine Kinase CK-MB (CK-2) Troponin I C-Reactive Protein 161.0 H Total Protein Albumin Urine Color Urine Appearance Urine pH Ur Specific [place] Urine Protein Urine Glucose (UA) Urine Ketones Urine Blood Urine Nitrite Urine Bilirubin Urine Urobilinogen Ur Leukocyte Esterase Urine WBC (Auto) Urine RBC (Auto) Urine Mucus (Auto) Urine Ascorbic Acid Digoxin 0.95 0.72 L Valproic Acid 03/15/19 03/15/19 03/15/19 10:45 10:45 12:45 WBC 4.4 RBC 4.17 L Hgb 9.7 L Hct 30.8 L MCV 74 L MCH 23.3 L MCHC 31.6 L RDW 20.5 H Plt Count 361 Lymph % (Auto) 15.5 [place] % (Auto) 13.3 H Eos % (Auto) 8.4 H Baso % (Auto) 0.9 Absolute Neuts (auto) 2.7 Absolute Lymphs (auto) 0.7 Absolute Monos (auto) 0.6 Absolute Eos (auto) 0.4 Absolute Basos (auto) 0.0 Total Counted Seg Neutrophils % 61.9 Seg Neuts % (Manual) Lymphocytes % (Manual) Monocytes % (Manual) Eosinophils % (Manual) Basophils % (Manual) Abs Neuts (Manual) Abs Lymphs (Manual) Abs Monocytes (Manual) Absolute Eos (Manual) Abs Basophils (Manual) Platelet Comment Anisocytosis Microcytosis ESR PT 13.1 INR 0.99 APTT 32.7 Carbonic Acid HCO3/H2CO3 Ratio ABG pH ABG pCO2 ABG pO2 ABG HCO3 ABG Total CO2 ABG O2 Saturation ABG Base Excess FiO2 Sodium Potassium Chloride Carbon Dioxide Anion Gap BUN Creatinine Est GFR ( Amer) Est GFR (MDRD) Non-Af Glucose POC Glucose Hemoglobin A1c % Lactic Acid Calcium Phosphorus Magnesium Total Bilirubin Direct Bilirubin Neonat Total Bilirubin Neonat Direct Bilirubin Neonat Indirect Bili AST ALT Alkaline Phosphatase Ammonia Creatine Kinase CK-MB (CK-2) Troponin I C-Reactive Protein Total Protein Albumin Urine Color YELLOW Urine Appearance CLEAR Urine pH 5.0 Ur Specific [place] 1.009 Urine Protein NEGATIVE Urine Glucose (UA) NEGATIVE Urine Ketones NEGATIVE Urine Blood SMALL H Urine Nitrite NEGATIVE Urine Bilirubin NEGATIVE Urine Urobilinogen NEGATIVE Ur Leukocyte Esterase NEGATIVE Urine WBC (Auto) 1 Urine RBC (Auto) 0 Urine Mucus (Auto) RARE Urine Ascorbic Acid NEGATIVE Digoxin Valproic Acid 03/15/19 03/15/19 03/15/19 15:05 15:05 15:05 WBC RBC Hgb Hct MCV MCH MCHC RDW Plt Count Lymph % (Auto) [place] % (Auto) Eos % (Auto) Baso % (Auto) Absolute Neuts (auto) Absolute Lymphs (auto) Absolute Monos (auto) Absolute Eos (auto) Absolute Basos (auto) Total Counted Seg Neutrophils % Seg Neuts % (Manual) Lymphocytes % (Manual) Monocytes % (Manual) Eosinophils % (Manual) Basophils % (Manual) Abs Neuts (Manual) Abs Lymphs (Manual) Abs Monocytes (Manual) Absolute Eos (Manual) Abs Basophils (Manual) Platelet Comment Anisocytosis Microcytosis ESR PT INR APTT 23.7 Carbonic Acid HCO3/H2CO3 Ratio ABG pH ABG pCO2 ABG pO2 ABG HCO3 ABG Total CO2 ABG O2 Saturation ABG Base Excess FiO2 Sodium Potassium Chloride Carbon Dioxide Anion Gap BUN Creatinine Est GFR ( Amer) Est GFR (MDRD) Non-Af Glucose POC Glucose Hemoglobin A1c % Lactic Acid Calcium Phosphorus Magnesium Total Bilirubin Direct Bilirubin Neonat Total Bilirubin Neonat Direct Bilirubin Neonat Indirect Bili AST ALT Alkaline Phosphatase Ammonia Creatine Kinase 21 L CK-MB (CK-2) 0.25 Troponin I < 0.012 C-Reactive Protein Total Protein Albumin Urine Color Urine Appearance Urine pH Ur Specific [place] Urine Protein Urine Glucose (UA) Urine Ketones Urine Blood Urine Nitrite Urine Bilirubin Urine Urobilinogen Ur Leukocyte Esterase Urine WBC (Auto) Urine RBC (Auto) Urine Mucus (Auto) Urine Ascorbic Acid Digoxin Valproic Acid 03/15/19 03/16/19 03/16/19 17:45 00:45 08:05 WBC RBC Hgb Hct MCV MCH MCHC RDW Plt Count Lymph % (Auto) [place] % (Auto) Eos % (Auto) Baso % (Auto) Absolute Neuts (auto) Absolute Lymphs (auto) Absolute Monos (auto) Absolute Eos (auto) Absolute Basos (auto) Total Counted Seg Neutrophils % Seg Neuts % (Manual) Lymphocytes % (Manual) Monocytes % (Manual) Eosinophils % (Manual) Basophils % (Manual) Abs Neuts (Manual) Abs Lymphs (Manual) Abs Monocytes (Manual) Absolute Eos (Manual) Abs Basophils (Manual) Platelet Comment Anisocytosis Microcytosis ESR PT INR APTT 36.1 H 36.8 H Carbonic Acid HCO3/H2CO3 Ratio ABG pH ABG pCO2 ABG pO2 ABG HCO3 ABG Total CO2 ABG O2 Saturation ABG Base Excess FiO2 Sodium Potassium Chloride Carbon Dioxide Anion Gap BUN Creatinine Est GFR ( Amer) Est GFR (MDRD) Non-Af Glucose POC Glucose Hemoglobin A1c % Lactic Acid Calcium Phosphorus Magnesium Total Bilirubin Direct Bilirubin Neonat Total Bilirubin Neonat Direct Bilirubin Neonat Indirect Bili AST ALT Alkaline Phosphatase Ammonia < 8.7 L Creatine Kinase CK-MB (CK-2) Troponin I C-Reactive Protein Total Protein Albumin Urine Color Urine Appearance Urine pH Ur Specific [place] Urine Protein Urine Glucose (UA) Urine Ketones Urine Blood Urine Nitrite Urine Bilirubin Urine Urobilinogen Ur Leukocyte Esterase Urine WBC (Auto) Urine RBC (Auto) Urine Mucus (Auto) Urine Ascorbic Acid Digoxin Valproic Acid 03/16/19 03/16/19 03/16/19 08:05 08:05 08:05 WBC 5.1 RBC 4.41 Hgb 10.2 L Hct 32.5 L MCV 74 L MCH 23.1 L MCHC 31.3 L RDW 20.4 H Plt Count 455 H Lymph % (Auto) 18.3 [place] % (Auto) 10.3 Eos % (Auto) 0.2 Baso % (Auto) 1.6 Absolute Neuts (auto) 3.5 Absolute Lymphs (auto) 0.9 Absolute Monos (auto) 0.5 Absolute Eos (auto) 0.0 Absolute Basos (auto) 0.1 Total Counted Seg Neutrophils % 69.6 Seg Neuts % (Manual) Lymphocytes % (Manual) Monocytes % (Manual) Eosinophils % (Manual) Basophils % (Manual) Abs Neuts (Manual) Abs Lymphs (Manual) Abs Monocytes (Manual) Absolute Eos (Manual) Abs Basophils (Manual) Platelet Comment Anisocytosis Microcytosis ESR PT 13.9 INR 1.07 APTT Carbonic Acid HCO3/H2CO3 Ratio ABG pH ABG pCO2 ABG pO2 ABG HCO3 ABG Total CO2 ABG O2 Saturation ABG Base Excess FiO2 Sodium 138.2 Potassium 4.6 Chloride 99 Carbon Dioxide 31 H Anion Gap 8 BUN 9 Creatinine 0.67 Est GFR ( Amer) > 60 Est GFR (MDRD) Non-Af > 60 Glucose 116 H POC Glucose Hemoglobin A1c % Lactic Acid Calcium 8.9 Phosphorus 4.6 H Magnesium 2.0 Total Bilirubin 0.3 Direct Bilirubin 0.2 Neonat Total Bilirubin Not Reportable Neonat Direct Bilirubin Not Reportable Neonat Indirect Bili Not Reportable AST 17 ALT 11 Alkaline Phosphatase 111 Ammonia Creatine Kinase CK-MB (CK-2) Troponin I C-Reactive Protein Total Protein 6.1 L Albumin 2.9 L Urine Color Urine Appearance Urine pH Ur Specific [place] Urine Protein Urine Glucose (UA) Urine Ketones Urine Blood Urine Nitrite Urine Bilirubin Urine Urobilinogen Ur Leukocyte Esterase Urine WBC (Auto) Urine RBC (Auto) Urine Mucus (Auto) Urine Ascorbic Acid Digoxin Valproic Acid < 10.0 L 03/16/19 03/16/19 03/16/19 08:05 08:05 08:05 WBC RBC Hgb Hct MCV MCH MCHC RDW Plt Count Lymph % (Auto) [place] % (Auto) Eos % (Auto) Baso % (Auto) Absolute Neuts (auto) Absolute Lymphs (auto) Absolute Monos (auto) Absolute Eos (auto) Absolute Basos (auto) Total Counted Seg Neutrophils % Seg Neuts % (Manual) Lymphocytes % (Manual) Monocytes % (Manual) Eosinophils % (Manual) Basophils % (Manual) Abs Neuts (Manual) Abs Lymphs (Manual) Abs Monocytes (Manual) Absolute Eos (Manual) Abs Basophils (Manual) Platelet Comment Anisocytosis Microcytosis ESR PT INR APTT 49.8 H Carbonic Acid HCO3/H2CO3 Ratio ABG pH ABG pCO2 ABG pO2 ABG HCO3 ABG Total CO2 ABG O2 Saturation ABG Base Excess FiO2 Sodium Potassium Chloride Carbon Dioxide Anion Gap BUN Creatinine Est GFR ( Amer) Est GFR (MDRD) Non-Af Glucose POC Glucose Hemoglobin A1c % 5.0 Lactic Acid Calcium Phosphorus Magnesium Total Bilirubin Direct Bilirubin Neonat Total Bilirubin Neonat Direct Bilirubin Neonat Indirect Bili AST ALT Alkaline Phosphatase Ammonia Creatine Kinase CK-MB (CK-2) Troponin I < 0.012 C-Reactive Protein Total Protein Albumin Urine Color Urine Appearance Urine pH Ur Specific [place] Urine Protein Urine Glucose (UA) Urine Ketones Urine Blood Urine Nitrite Urine Bilirubin Urine Urobilinogen Ur Leukocyte Esterase Urine WBC (Auto) Urine RBC (Auto) Urine Mucus (Auto) Urine Ascorbic Acid Digoxin Valproic Acid 03/16/19 15:43 WBC RBC Hgb Hct MCV MCH MCHC RDW Plt Count Lymph % (Auto) [place] % (Auto) Eos % (Auto) Baso % (Auto) Absolute Neuts (auto) Absolute Lymphs (auto) Absolute Monos (auto) Absolute Eos (auto) Absolute Basos (auto) Total Counted Seg Neutrophils % Seg Neuts % (Manual) Lymphocytes % (Manual) Monocytes % (Manual) Eosinophils % (Manual) Basophils % (Manual) Abs Neuts (Manual) Abs Lymphs (Manual) Abs Monocytes (Manual) Absolute Eos (Manual) Abs Basophils (Manual) Platelet Comment Anisocytosis Microcytosis ESR PT INR APTT 59.9 H Carbonic Acid HCO3/H2CO3 Ratio ABG pH ABG pCO2 ABG pO2 ABG HCO3 ABG Total CO2 ABG O2 Saturation ABG Base Excess FiO2 Sodium Potassium Chloride Carbon Dioxide Anion Gap BUN Creatinine Est GFR ( Amer) Est GFR (MDRD) Non-Af Glucose POC Glucose Hemoglobin A1c % Lactic Acid Calcium Phosphorus Magnesium Total Bilirubin Direct Bilirubin Neonat Total Bilirubin Neonat Direct Bilirubin Neonat Indirect Bili AST ALT Alkaline Phosphatase Ammonia Creatine Kinase CK-MB (CK-2) Troponin I C-Reactive Protein Total Protein Albumin Urine Color Urine Appearance Urine pH Ur Specific [place] Urine Protein Urine Glucose (UA) Urine Ketones Urine Blood Urine Nitrite Urine Bilirubin Urine Urobilinogen Ur Leukocyte Esterase Urine WBC (Auto) Urine RBC (Auto) Urine Mucus (Auto) Urine Ascorbic Acid Digoxin Valproic Acid Chest X-Ray 03/12/19 00:00 IMPRESSION: Mild left basilar opacity consistent with atelectasis and/or pneumonia. Chest X-Ray 03/12/19 15:59 IMPRESSION: NO ACUTE RADIOGRAPHIC FINDING IN THE CHEST. Hip X-Ray 03/12/19 15:59 IMPRESSION: Status post left total hip arthroplasty with revision to include cerclage wires. Today's examination demonstrates a comminuted fracture of the proximal femur with altered position and appearance of the cerclage wires. Adjacent subcutaneous gas is not entirely unexpected in the immediate postoperative setting. Cellulitis may have a similar appearance. EKG:ATRIAL FIBRILLATION, V-RATE 100-119 [LVOLF] . LOW VOLTAGE IN FRONTAL LEADS [T0AL] . BORDERLINE T ABNORMALITIES, ANT-LAT LEADS ECHOCARDIOGRAM gram: Normal left ventricular chamber size and wall thickness. Normal left ventricular ejection fraction 65%. There is no regional or focal wall motion abnormality. No aortic stenosis or aortic regurgitation. Mild mitral regurgitation. There is mild to moderate tricuspid regurgitation with moderate pulmonary hypertension. [See report] Caps IV LEXISCAN CARDIOLITE STRESS TEST: Shows no reversible ischemia or PA. IMPRESSION/RECOMMENDATION: 1. 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 2. Chronic atrial fibrillation with controlled ventricular response. Note that the patient's Xarelto has been held because of the surgery. 3. Hypertension: Blood pressure well controlled 4. Chronic obstructive pulmonary disease: Stable with no acute exacerbation. 5. Tobacco abuse disorder: Tobacco cessation counseling given to patient 3 minutes spent on this. 6. Preoperative cardiac risk assessment. THE PATIENT WILL BE AN ACCEPTABLE CARDIAC RISK FOR THIS SURGICAL PROCEDURE. Recommend restarting the patient's Xarelto when deemed safe from the surgical point of view. We will continue the patient on telemetry postoperatively. Will follow this has been discussed with the patient, in person and the patient's , on the telephone
[2019-03-16] MEDS: DIGOXIN 0.25 MG TABLET PO SCH (21:18)
[2019-03-16] MEDS: TRAZODONE HCL 50 MG TABLET PO SCH (21:19)
[2019-03-16] MEDS: MORPHINE SULFATE SR 15 MG TABLET PO SCH (21:19)
--- NOTE | 2019-03-16 23:40 | DRAGON STRESS TEST REPORT ---
Intravenous Lexiscan Cardiolite stress test using single photon emmision computerized tomography. Date of procedure: 03/16/2019.Ordering Provider: Dr. Tj Romano. Patient's status In Patient. Indication: Atrial Fibrillation, and preoperative cardiac risk assessment. Coronary risk factors: Age, hypertension, history of tobacco abuse, and family history of coronary artery disease Resting EKG: Atrial fibrillation with no acute changes. Stress EKG: No changes of ischemia. The patient had no chest pain or discomfort, there were no arrhythmias seen. Reason for termination: Protocol. Conclusions: Normal EKG and hemodynamic response to IV Lexiscan. Nuclear data: At rest the patient was given 13.61 millicuries of technetium 99m sestamibi injected intravenously. As per protocol rest non gated SPECT images were obtained. Subsequently the patient was given intravenous Lexiscan at a dose of 0.4 mg in 5 mL intravenously, followed by flush with normal saline. Subsequently the stress dose of 42.0 millicuries of technetium 99m sestamibi was injected intravenously. As per protocol stress gated images were obtained. Nuclear interpretation: Review of images showed that there was motion artifact, and hence not a very optimal study. In spite of this all segments of the myocardium had normal perfusion at rest, and normal perfusion post stress with IV Lexiscan. All segments of the myocardium had normal motion, contraction, and thickening by gated study. T. I D. ratio was normal at 1.12. There is no transient ischemic dilatation of the left ventricle. Computer read rest, and stress left ventricular ejection fraction were 55 %, and 47 %, respectively. Visually both the stress and rest ejection fractions were normal, and greater than 55%. Conclusion: 1. There is no scintigraphic evidence of Lexiscan induced myocardial ischemia. 2. There is no scintigraphic evidence of myocardial infarction/scar. Recommendations: Aggressive risk factor modification, and treating the underlying co- morbidities. MTDD
[2019-03-17 07:18] LABS: APPEARANCE,URINE CLEAR; BILIRUBIN,URINE NEGATIVE (NEGATIVE); COLOR,URINE YELLOW; GLUCOSE, URINE NEGATIVE (NEGATIVE); KETONES,URINE NEGATIVE (NEGATIVE); LEUKOCYTE ESTERASE,URINE NEGATIVE (NEGATIVE); NITRITE,URINE NEGATIVE (NEGATIVE); PROTEIN,URINE NEGATIVE (NEGATIVE)
[2019-03-17] MEDS ORDERED: MORPHINE SULFATE 10 MG/ML INJ ONE (08:13)
[2019-03-17] MEDS ORDERED: MORPHINE SULFATE 10 MG/ML INJ IV ONE (09:00)
[2019-03-17] MEDS: MIDODRINE HCL 5 MG TABLET PO SCH ×3 (09:40→17:54)
[2019-03-17] MEDS: PREGABALIN 75 MG CAPSULE PO SCH ×2 (09:40→21:57)
[2019-03-17] MEDS: MORPHINE SULFATE SR 15 MG TABLET PO SCH (09:40)
[2019-03-17] MEDS: DOCUSATE SODIUM 100 MG CAPSULE PO SCH (09:40)
[2019-03-17] MEDS: CIPROFLOXACIN 400 MG/D5W RTU 400 MG/200 ML RTUPB IV SCH ×3 (09:51→22:08)
[2019-03-17] MEDS ORDERED: MIDAZOLAM 2 MG/2 ML INJ ONE (12:48)
[2019-03-17] MEDS ORDERED: FENTANYL CITRATE INJ/PF 100 MCG/2 ML AMPUL ONE (12:49)
[2019-03-17] MEDS ORDERED: PROMETHAZINE HCL INJ 25 MG/1 ML VIAL IV PRN ×2 (13:57)
[2019-03-17] MEDS ORDERED: DIPHENHYDRAMINE HCL 50 MG/ML VIAL IV PRN (13:57)
[2019-03-17] MEDS ORDERED: MEPERIDINE HCL/PF INJ 25 MG/1 ML DISP.SYRIN IV PRN (13:57)
--- NOTE | 2019-03-17 14:46 | Operative Report ---
Operative Report DATE OF SURGERY: 03/17/19 PREOPERATIVE DIAGNOSIS: Left hip drainage status post revision hip arthroplasty OPERATION: Irrigation debridement, head and liner exchange, with repeat fixation of the greater trochanter SURGEON: WESLEY NASCIMENTO ANESTHESIA: Spinal TISSUE REMOVED OR ALTERED: Cultures to microbiology ESTIMATED BLOOD LOSS: 100 PROCEDURE: With the patient in a right lateral decubitus position on the operating table left lower extremity hindquarter prepped and draped in sterile fashion. Existing tong were removed. The Arthrex incision is open. There is a modest amount of serosanguineous drainage that is sent for culture and sensitivity. The hip is dislocated and the liner and head are disimpacted. The wound is debrided and cecil irrigated with pulse lavage using 3 L of normal suntanned of Betadine. Subsequently cables were placed through the greater trochanter and then back around the prosthesis. These are left in place. A new [employer] MDM head and liner are impacted onto the trunnion and stable to manual testing. The hip is reduced. The cables were then used to reattach the greater trochanteric fragment. This is reinforced using #5 FiberWire to the posterior soft tissue structures. At the completion of the construction the leg can be moved through a full range of motion with no perceptible instability of the greater trochanter. The wound is again irrigated with 3 L of normal saline with pulse lavage. The wound was closed in layers with interrupted PDS suture. A sterile compressive dressing was applied and the patient's return to the PACU in satisfactory condition.
[2019-03-17] MEDS ORDERED: RINGERS SOLUTION,LACTATED 1,000 ML IV PRN (15:09)
[2019-03-17] MEDS ORDERED: MORPHINE SULFATE 10 MG/ML INJ IV PRN (15:19)
--- NOTE | 2019-03-17 16:30 | PDOC PROGRESS REPORT ---
Subjective Progress Note for:: 03/17/19 Subjective:: This is a 54 yr old male with a PMH of chronic AFib (taken off Xarelto due to bleeding issues on the left hip), multiple left hip orthopedic surgeries (including hip replacement, washout for infected hardware, prior revisions) who presented with drainage from 1 of the left hip sutures site after recent revision. Patient was initially scheduled for a washout. He was started on IV antibiotics including vancomycin. However, while on the floor he appeared to have developed anaphylaxis and acute respiratory failure to vancomycin hence was subsequently upgraded to the ICU. He was initially placed on BiPAP and later did improve and transferred back to the floor. 03/16: Patient is scheduled for debridement of the left hip tomorrow by orthopedics pending results of stress testing. Otherwise, no acute event overnight. He denies chest pain or shortness of breath. He does say that he has breakthrough pain from his rheumatoid arthritis. Will resume his home pain medication regimen. 03/17: No acute event overnight. Patient is going for debridement of her left hip today. No fever or chills. Reason For Visit: AFIB RVR Physical Exam Vital Signs: Temp Pulse Resp BP Pulse Ox 98.4 F 95 18 121/67 98 03/17/19 15:05 03/17/19 15:10 03/17/19 15:10 03/17/19 15:10 03/17/19 15:10 Intake & Output 03/16/19 03/17/19 03/18/19 06:59 06:59 06:59 Intake Total 025 9892 4049 Output Total 9483 2344 1790 Balance -2748 -6398 -600 Weight 183 lb 13.848 oz 181 lb 3.52 oz General appearance: PRESENT: no acute distress, well-developed, well-nourished Head exam: PRESENT: atraumatic, normocephalic Eye exam: PRESENT: conjunctiva pink, EOMI, PERRLA. ABSENT: scleral icterus Ear exam: PRESENT: normal external ear exam Mouth exam: PRESENT: moist, tongue midline Neck exam: ABSENT: carotid bruit, JVD, lymphadenopathy, thyromegaly Respiratory exam: PRESENT: clear to auscultation alessia. ABSENT: rales, rhonchi, wheezes Cardiovascular exam: PRESENT: RRR. ABSENT: diastolic murmur, rubs, systolic murmur Pulses: PRESENT: normal dorsalis pedis pul GI/Abdominal exam: PRESENT: normal bowel sounds, soft. ABSENT: distended, guarding, mass, organolmegaly, rebound, tenderness Rectal exam: PRESENT: deferred Neurological exam: PRESENT: alert, awake, oriented to person, oriented to place, oriented to time, oriented to situation, CN II-XII grossly intact. ABSENT: motor sensory deficit Results Laboratory Results: 03/16/19 08:05 03/16/19 08:05 03/17/19 06:00 Urine Color YELLOW Urine Appearance CLEAR Urine pH 6.0 Ur Specific [place] 1.010 Urine Protein NEGATIVE Urine Glucose (UA) NEGATIVE Urine Ketones NEGATIVE Urine Blood NEGATIVE Urine Nitrite NEGATIVE Ur Leukocyte Esterase NEGATIVE Urine WBC (Auto) 2 Urine RBC (Auto) 0 03/12/19 03/15/19 03/15/19 15:38 15:05 15:05 Creatine Kinase 21 L CK-MB (CK-2) 0.25 Troponin I < 0.012 < 0.012 03/16/19 08:05 Creatine Kinase CK-MB (CK-2) Troponin I < 0.012 Impressions: Chest X-Ray 03/12/19 15:59 IMPRESSION: NO ACUTE RADIOGRAPHIC FINDING IN THE CHEST. Hip X-Ray 03/12/19 15:59 IMPRESSION: Status post left total hip arthroplasty with revision to include cerclage wires. Today's examination demonstrates a comminuted fracture of the proximal femur with altered position and appearance of the cerclage wires. Adjacent subcutaneous gas is not entirely unexpected in the immediate postopera tive setting. Cellulitis may have a similar appearance. Assessment and Plan - Diagnosis (1) A-fib Qualifiers: Atrial fibrillation type: unspecified Qualified Code(s): I48.91 - Unspecif ied atrial fibrillation Is this a current diagnosis for this admission?: Yes Plan: 03/16: Rate-controlled. On heparin drip and digoxin. 03/16: Will add lopressor. 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 - Time Time Spent with patient: 15-24 minutes
[2019-03-17] MEDS: MORPHINE SULFATE 10 MG/ML INJ IV PRN ×3 (17:52→23:52)
[2019-03-17] MEDS ORDERED: LEVOFLOXACIN 750 MG/D5W RTU 750 MG/150 ML RTUPB IV SCH (18:00)
[2019-03-17] MEDS ORDERED: KETOROLAC TROMETHAMINE INJ/PF 30 MG/1 ML SDV ONE (18:38)
[2019-03-17] MEDS: OXYCODONE HCL IR 5 MG TABLET PO PRN (18:40)
[2019-03-17] MEDS: OXYCODONE HCL SR 10 MG TABLET PO SCH (21:57)
[2019-03-17] MEDS: METOPROLOL TARTRATE 25 MG TABLET PO SCH (21:58)
[2019-03-17] MEDS: TRAZODONE HCL 50 MG TABLET PO SCH (21:58)
[2019-03-17] MEDS ORDERED: OXYCODONE HCL SR 10 MG TABLET PO SCH (22:00)
[2019-03-17] MEDS: DIGOXIN 0.25 MG TABLET PO SCH (22:00)
[2019-03-18] MEDS: HEPARIN SODIUM,PORCINE/D5W 25,000 UNIT/250 ML RTUINJ IV PRN (02:43)
[2019-03-18] MEDS: OXYCODONE HCL IR 5 MG TABLET PO PRN ×3 (02:44→20:08)
[2019-03-18] MEDS: KETOROLAC TROMETHAMINE INJ/PF 30 MG/1 ML SDV IV PRN ×2 (04:22→14:51)
[2019-03-18 05:05] LABS: HEMATOCRIT 25.6 % (37.9-51.0); MEAN CORPUSCULAR HEMOGLOBIN 23.4 pg (27.0-33.4); MEAN CORPUSCULAR HGB CONC 31.7 g/dL (32.0-36.0); MEAN CORPUSCULAR VOLUME 74 fl (80-97); PLATELET COUNT 395 10^3/uL (150-450); RED BLOOD COUNT 3.47 10^6/uL (4.35-5.55); RED CELL DISTRIBUTION WIDTH 20.5 % (11.5-14.0); WHITE BLOOD COUNT 5.1 10^3/uL (4.0-10.5)
[2019-03-18 05:28] LABS: ANION GAP 7 (5-19); BLOOD UREA NITROGEN 12 mg/dL (7-20); CALCIUM 8.2 mg/dL (8.4-10.2); CARBON DIOXIDE 29 mmol/L (22-30); CHLORIDE 99 mmol/L (98-107); GLUCOSE 83 mg/dL (75-110); POTASSIUM 4.6 mmol/L (3.6-5.0)
[2019-03-18 05:51] LABS: HEMOGLOBIN 8.1 g/dL (13.5-17.0)
[2019-03-18] MEDS: HEPARIN SOD (PORCINE) 1,000 UNIT/ML 10 ML VIAL IV PRN (05:56)
--- NOTE | 2019-03-18 06:44 | PDOC PROGRESS REPORT ---
Subjective Reason For Visit: AFIB RVR 54-year-old black male now postop day 1 status post I&D of a left hip wound following revision arthroplasty. Patient with no new complaints today. Patient concerned about Cipro floxacillin administration because of peripheral neuropathy. Physical Exam Vital Signs: Temp Pulse Resp BP Pulse Ox 36.9 C 90 16 91/53 L 99 03/18/19 03:25 03/18/19 03:25 03/18/19 03:25 03/18/19 03:25 03/18/19 03:25 Intake & Output 03/16/19 03/17/19 03/18/19 06:59 06:59 06:59 Intake Total 459 2872 7116 Output Total 4106 4350 7359 Balance -3976 -4667 -581 Weight 83.4 kg 82.2 kg 96.86 kg Physical Exam: Tall thin middle-aged black male in no acute distress. Patient is alert, oriented, and appropriate. General appearance: PRESENT: no acute distress, mild distress Head exam: PRESENT: normocephalic Respiratory exam: PRESENT: unlabored Pulses: PRESENT: +1 pedal pulses bilateral Vascular exam: PRESENT: normal capillary refill GI/Abdominal exam: PRESENT: soft Rectal exam: PRESENT: deferred Musculoskeletal exam: PRESENT: other - Left hip dressing intact. Leg length inequality persist. Distal neurovascular examination is intact. Neurological exam: PRESENT: alert, awake, oriented to person, oriented to place, oriented to time, oriented to situation. ABSENT: motor sensory deficit Skin exam: PRESENT: dry, intact, warm. ABSENT: cyanosis, rash Results Laboratory Results: 03/18/19 04:12 03/18/19 04:12 03/17/19 03/18/19 03/18/19 06:00 04:12 04:12 WBC 5.1 RBC 3.47 L Hgb 8.1 L D Hct 25.6 L MCV 74 L MCH 23.4 L MCHC 31.7 L RDW 20.5 H Plt Count 395 Sodium 135.3 L Potassium 4.6 Chloride 99 Carbon Dioxide 29 Anion Gap 7 BUN 12 Creatinine 0.80 Est GFR ( Amer) > 60 Glucose 83 Calcium 8.2 L Urine Color YELLOW Urine Appearance CLEAR Urine pH 6.0 Ur Specific [place] 1.010 Urine Protein NEGATIVE Urine Glucose (UA) NEGATIVE Urine Ketones NEGATIVE Urine Blood NEGATIVE Urine Nitrite NEGATIVE Ur Leukocyte Esterase NEGATIVE Urine WBC (Auto) 2 Urine RBC (Auto) 0 03/12/19 03/15/19 03/15/19 15:38 15:05 15:05 Creatine Kinase 21 L CK-MB (CK-2) 0.25 Troponin I < 0.012 < 0.012 03/16/19 08:05 Creatine Kinase CK-MB (CK-2) Troponin I < 0.012 Impressions: Chest X-Ray 03/12/19 15:59 IMPRESSION: NO ACUTE RADIOGRAPHIC FINDING IN THE CHEST. Hip X-Ray 03/12/19 15:59 IMPRESSION: Status post left total hip arthroplasty with revision to include cerclage wires. Today's examination demonstrates a comminuted fracture of the proximal femur with altered position and appearance of the cerclage wires. Adjacent subcutaneous gas is not entirely unexpected in the immediate postoperative setting. Cellulitis may have a similar appearance. Status: Imported from PACS Assessment & Plan - Diagnosis (1) History of hip replacement Qualifiers: Laterality: left Qualified Code(s): Z96.642 - Presence of left artificial hip joint Is this a current diagnosis for this admission?: Yes Plan: Mobilized with physical therapy and weightbearing as tolerated basis. Await microbiology results in terms of antibiotic selection and duration. Anticipate the need for 6 weeks of IV antibiotic administration. PICC line will likely need to be inserted. - Time Time Spent with patient: 15-24 minutes Anticipated discharge: Home with Homehealth Within: Other
[2019-03-18] MEDS: RINGERS SOLUTION,LACTATED 1,000 ML IV PRN ×3 (08:15→23:39)
[2019-03-18] MEDS ORDERED: ONDANSETRON HCL INJ/PF 4 MG/2 ML SDV IV PRN (09:00)
[2019-03-18] MEDS: MIDODRINE HCL 5 MG TABLET PO SCH ×3 (10:30→17:25)
[2019-03-18] MEDS: OXYCODONE HCL SR 10 MG TABLET PO SCH ×2 (10:31→22:39)
[2019-03-18] MEDS: PREGABALIN 75 MG CAPSULE PO SCH ×2 (10:32→22:39)
[2019-03-18] MEDS: LEVOFLOXACIN 750 MG/D5W RTU 750 MG/150 ML RTUPB IV SCH (10:33)
[2019-03-18] MEDS: METOPROLOL TARTRATE 25 MG TABLET PO SCH ×2 (10:34→22:40)
[2019-03-18] MEDS: DOCUSATE SODIUM 100 MG CAPSULE PO SCH (10:34)
--- NOTE | 2019-03-18 14:41 | PDOC PROGRESS REPORT ---
Subjective Progress Note for:: 03/18/19 Subjective:: This is a 54 yr old male with a PMH of chronic AFib (taken off Xarelto due to bleeding issues on the left hip), multiple left hip orthopedic surgeries (including hip replacement, washout for infected hardware, prior revisions) who presented with drainage from 1 of the left hip sutures site after recent revision. Patient was initially scheduled for a washout. He was started on IV antibiotics including vancomycin. However, while on the floor he appeared to have developed anaphylaxis and acute respiratory failure to vancomycin hence was subsequently upgraded to the ICU. He was initially placed on BiPAP and later did improve and transferred back to the floor. 03/16: Patient is scheduled for debridement of the left hip tomorrow by orthopedics pending results of stress testing. Otherwise, no acute event overnight. He denies chest pain or shortness of breath. He does say that he has breakthrough pain from his rheumatoid arthritis. Will resume his home pain medication regimen. 03/17: Patient is going for debridement of her left hip today. No fever or chills. 03/18: No acute event overnight. Patient underwent irrigation debridement, head and liner exchange, with repeat fixation of the greater trochanter yesterday which was uneventful. He denies acute complaints. Pain is well controlled. Reason For Visit: AFIB RVR Physical Exam Vital Signs: Temp Pulse Resp BP Pulse Ox 98.5 F 103 H 17 90/59 L 96 03/18/19 12:26 03/18/19 14:00 03/18/19 12:26 03/18/19 12:26 03/18/19 12:26 Intake & Output 03/17/19 03/18/19 03/19/19 06:59 06:59 06:59 Intake Total 2872 7665 625 Output Total 2571 7511 Balance -1478 81 625 Weight 181 lb 3.52 oz 211 lb 10.3 oz General appearance: PRESENT: no acute distress, well-developed, well-nourished Head exam: PRESENT: atraumatic, normocephalic Eye exam: PRESENT: conjunctiva pink, EOMI, PERRLA. ABSENT: scleral icterus Ear exam: PRESENT: normal external ear exam Mouth exam: PRESENT: moist, tongue midline Neck exam: ABSENT: carotid bruit, JVD, lymphadenopathy, thyromegaly Respiratory exam: PRESENT: clear to auscultation alessia. ABSENT: rales, rhonchi, wheezes Cardiovascular exam: PRESENT: irregular rhythm. ABSENT: diastolic murmur, rubs, systolic murmur Pulses: PRESENT: normal dorsalis pedis pul GI/Abdominal exam: PRESENT: normal bowel sounds, soft. ABSENT: distended, guarding, mass, organolmegaly, rebound, tenderness Rectal exam: PRESENT: deferred Neurological exam: PRESENT: alert, awake, oriented to person, oriented to place, oriented to time, oriented to situation, CN II-XII grossly intact. ABSENT: motor sensory deficit Results Laboratory Results: 03/18/19 04:12 03/18/19 04:12 03/18/19 03/18/19 04:12 04:12 WBC 5.1 RBC 3.47 L Hgb 8.1 L D Hct 25.6 L MCV 74 L MCH 23.4 L MCHC 31.7 L RDW 20.5 H Plt Count 395 Sodium 135.3 L Potassium 4.6 Chloride 99 Carbon Dioxide 29 Anion Gap 7 BUN 12 Creatinine 0.80 Est GFR ( Amer) > 60 Glucose 83 Calcium 8.2 L 03/12/19 03/15/19 03/15/19 15:38 15:05 15:05 Creatine Kinase 21 L CK-MB (CK-2) 0.25 Troponin I < 0.012 < 0.012 03/16/19 08:05 Creatine Kinase CK-MB (CK-2) Troponin I < 0.012 Impressions: Chest X-Ray 03/12/19 15:59 IMPRESSION: NO ACUTE RADIOGRAPHIC FINDING IN THE CHEST. Hip X-Ray 03/12/19 15:59 IMPRESSION: Status post left total hip arthroplasty with revision to include cerclage wires. Today's examination demonstrates a comminuted fracture of the proximal femur with altered position and appearance of the cerclage wires. Adjacent subcutaneous gas is not entirely unexpected in the immediate postoperative setting. Cellulitis may have a similar appearance. 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 Previous wound culture grew GBS, Pseudomonas and Citrobacter. Continue IV levofloxacin. Intraoperative culture is pending. Will consult infectious disease for further insight on antibiotic recommendations and duration of therapy. (2) A-fib Qualifiers: Atrial fibrillation type: unspecified Qualified Code(s): I48.91 - Unspecified atrial fibrillation Is this a current diagnosis for this admission?: Yes Plan: 03/16: Rate-controlled. On heparin drip and digoxin. 03/18: DC lopressor due to low normal blood pressures. Discussed in length with patient about resuming Xarelto. He says he wants to be resumed on Xarelto but prefers to be just on 10 mg dosing rather than 20 mg. He verbalized understanding of the risks and benefits. - Time Time Spent with patient: 25-34 minutes
[2019-03-18] MEDS: RIVAROXABAN 10 MG TABLET PO SCH (16:48)
[2019-03-18] MEDS: DIGOXIN 0.25 MG TABLET PO SCH (22:38)
[2019-03-18] MEDS: TRAZODONE HCL 50 MG TABLET PO SCH (22:40)
[2019-03-19] MEDS: OXYCODONE HCL IR 5 MG TABLET PO PRN ×2 (01:48→12:27)
[2019-03-19] MEDS: KETOROLAC TROMETHAMINE INJ/PF 30 MG/1 ML SDV IV PRN ×2 (06:06→15:32)
[2019-03-19] MEDS: DOCUSATE SODIUM 100 MG CAPSULE PO SCH (09:50)
[2019-03-19] MEDS: LEVOFLOXACIN 750 MG/D5W RTU 750 MG/150 ML RTUPB IV SCH (09:50)
[2019-03-19] MEDS: RINGERS SOLUTION,LACTATED 1,000 ML IV PRN (09:50)
[2019-03-19] MEDS: PREGABALIN 75 MG CAPSULE PO SCH ×2 (09:51→21:44)
[2019-03-19] MEDS: METOPROLOL TARTRATE 25 MG TABLET PO SCH ×2 (09:52→21:44)
[2019-03-19] MEDS: OXYCODONE HCL SR 10 MG TABLET PO SCH ×2 (09:52→21:48)
[2019-03-19] MEDS: MIDODRINE HCL 5 MG TABLET PO SCH ×3 (09:52→17:38)
[2019-03-19 10:23] LABS: HEMATOCRIT 24.1 % (37.9-51.0); MEAN CORPUSCULAR HEMOGLOBIN 23.4 pg (27.0-33.4); MEAN CORPUSCULAR HGB CONC 31.6 g/dL (32.0-36.0); MEAN CORPUSCULAR VOLUME 74 fl (80-97); PLATELET COUNT 413 10^3/uL (150-450); RED BLOOD COUNT 3.26 10^6/uL (4.35-5.55); RED CELL DISTRIBUTION WIDTH 20.3 % (11.5-14.0); WHITE BLOOD COUNT 6.4 10^3/uL (4.0-10.5)
[2019-03-19 10:25] LABS: HEMOGLOBIN 7.6 g/dL (13.5-17.0)
[2019-03-19 10:53] LABS: BLOOD UREA NITROGEN 10 mg/dL (7-20); CALCIUM 8.2 mg/dL (8.4-10.2); GLUCOSE 90 mg/dL (75-110)
[2019-03-19 11:04] LABS: ANION GAP 5 (5-19); CARBON DIOXIDE 30 mmol/L (22-30); CHLORIDE 99 mmol/L (98-107)
[2019-03-19 11:32] LABS: POTASSIUM 4.6 mmol/L (3.6-5.0)
[2019-03-19] MEDS ORDERED: NORMAL SALINE 250 ML IV PRN ×2 (11:32)
--- NOTE | 2019-03-19 13:50 | PDOC PROGRESS REPORT ---
Subjective Progress Note for:: 03/19/19 Subjective:: Patient lying in bed comfortably. States pain is controlled. Denies fever chills or sweats. Had done minimal therapy. There was bloody drainage from his dressing which was changed this morning. Otherwise no additional complaints. Reason For Visit: AFIB RVR Physical Exam Vital Signs: Temp Pulse Resp BP Pulse Ox 97.9 F 79 18 91/48 L 99 03/19/19 12:51 03/19/19 12:51 03/19/19 12:51 03/19/19 12:51 03/19/19 12:51 Intake & Output 03/18/19 03/19/19 03/20/19 06:59 06:59 06:59 Intake Total 7684 4210 2741 Output Total 7573 825 3050 Balance 81 3385 -309 Weight 96 kg 102.7 kg Musculoskeletal exam: PRESENT: other - Left hip: Dressing change today. There is mild serosanguineous drainage no expressible drainage or palpable hematoma. Small fracture blister anteriorly. Moderate thigh swelling without change, intact plantarflexion/dorsiflexion. No sensory deficits. No calf tenderness. Results Laboratory Results: 03/19/19 10:07 03/19/19 10:07 03/19/19 03/19/19 10:07 10:07 WBC 6.4 RBC 3.26 L Hgb 7.6 L Hct 24.1 L MCV 74 L MCH 23.4 L MCHC 31.6 L RDW 20.3 H Plt Count 413 Sodium 133.5 L Potassium 4.6 Chloride 99 Carbon Dioxide 30 Anion Gap 5 BUN 10 Creatinine 0.90 Est GFR ( Amer) > 60 Glucose 90 Calcium 8.2 L 03/17/19 14:02 Hip - Joint Gram Stain - Final 03/12/19 03/15/19 03/15/19 15:38 15:05 15:05 Creatine Kinase 21 L CK-MB (CK-2) 0.25 Troponin I < 0.012 < 0.012 03/16/19 08:05 Creatine Kinase CK-MB (CK-2) Troponin I < 0.012 Impressions: Chest X-Ray 03/12/19 15:59 IMPRESSION: NO ACUTE RADIOGRAPHIC FINDING IN THE CHEST. Hip X-Ray 03/12/19 15:59 IMPRESSION: Status post left total hip arthroplasty with revision to include cerclage wires. Today's examination demonstrates a comminuted fracture of the proximal femur with altered position and appearance of the cerclage wires. Adjacent subcutaneous gas is not entirely unexpected in the immediate postoperative setting. Cellulitis may have a similar appearance. Assessment & Plan - Diagnosis (1) Prosthetic joint infection of left hip Qualifiers: Encounter type: initial encounter Qualified Code(s): T84.52XA - Infection and inflammatory reaction due to internal left hip prosthesis, initial encounter Is this a current diagnosis for this admission?: Yes Plan: Status post irrigation debridement left hip revision arthroplasty 1. Physical therapy with hip precautions 2. Xarelto for DVT prophylaxis 3. Postoperative bleeding with blood loss anemia patient receiving 2 units of packed red blood cells. Dressing was changed this morning upon examination of the dressing there was no significant bleeding noted. I was unable to express bleeding with palpation we will continue to monitor. 4. Patient will likely require 6 weeks of IV antibiotics. Cultures demonstrate group B strep, Pseudomonas and Citrobacter susceptible to Levaquin. 5. Discharge planning anticipate discharge on Friday if PICC line is obtained. - Time Time Spent with patient: Less than 15 minutes
--- NOTE | 2019-03-19 14:49 | PDOC PROGRESS REPORT ---
Subjective Progress Note for:: 03/19/19 Subjective:: This is a 54 yr old male with a PMH of chronic AFib (taken off Xarelto due to bleeding issues on the left hip), multiple left hip orthopedic surgeries (including hip replacement, washout for infected hardware, prior revisions) who presented with drainage from 1 of the left hip sutures site after recent revision. Patient was initially scheduled for a washout. He was started on IV antibiotics including vancomycin. However, while on the floor he appeared to have developed anaphylaxis and acute respiratory failure to vancomycin hence was subsequently upgraded to the ICU. He was initially placed on BiPAP and later did improve and transferred back to the floor. 03/16: Patient is scheduled for debridement of the left hip tomorrow by orthopedics pending results of stress testing. Otherwise, no acute event overnight. He denies chest pain or shortness of breath. He does say that he has breakthrough pain from his rheumatoid arthritis. Will resume his home pain medication regimen. 03/17: Patient is going for debridement of her left hip today. No fever or chills. 03/18: No acute event overnight. Patient underwent irrigation debridement, head and liner exchange, with repeat fixation of the greater trochanter yesterday which was uneventful. He denies acute complaints. Pain is well controlled. 03/19: RN reported significant bloody discharge from the surgical site early this mornning. Reports dressing was significantly soaked with bloody discharge. His hemoglobin dropped down to 7.6. Ordered packed RBC transfusion. Heparin was d/pierre yesterday and he did not receive Xarelto yesterday. Reason For Visit: AFIB RVR Physical Exam Vital Signs: Temp Pulse Resp BP Pulse Ox 99.5 F 90 16 92/41 L 94 03/19/19 03:13 03/19/19 07:00 03/19/19 03:13 03/19/19 03:13 03/19/19 03:13 Intake & Output 03/18/19 03/19/19 03/20/19 06:59 06:59 06:59 Intake Total 7665 4210 0 Output Total 7584 825 Balance 81 3385 0 Weight 211 lb 10.3 oz 226 lb 6.636 oz General appearance: PRESENT: no acute distress, well-developed, well-nourished Head exam: PRESENT: atraumatic, normocephalic Eye exam: PRESENT: conjunctiva pink, EOMI, PERRLA. ABSENT: scleral icterus Ear exam: PRESENT: normal external ear exam Mouth exam: PRESENT: moist, tongue midline Neck exam: ABSENT: carotid bruit, JVD, lymphadenopathy, thyromegaly Respiratory exam: PRESENT: clear to auscultation alessia. ABSENT: rales, rhonchi, wheezes Cardiovascular exam: PRESENT: RRR. ABSENT: diastolic murmur, rubs, systolic murmur Pulses: PRESENT: normal dorsalis pedis pul GI/Abdominal exam: PRESENT: normal bowel sounds, soft. ABSENT: distended, guarding, mass, organolmegaly, rebound, tenderness Rectal exam: PRESENT: deferred Neurological exam: PRESENT: alert, awake, oriented to person, oriented to place, oriented to time, oriented to situation, CN II-XII grossly intact. ABSENT: motor sensory deficit Results Laboratory Results: 03/17/19 14:02 Hip - Joint Gram Stain - Final 03/12/19 03/15/19 03/15/19 15:38 15:05 15:05 Creatine Kinase 21 L CK-MB (CK-2) 0.25 Troponin I < 0.012 < 0.012 03/16/19 08:05 Creatine Kinase CK-MB (CK-2) Troponin I < 0.012 Impressions: Chest X-Ray 03/12/19 15:59 IMPRESSION: NO ACUTE RADIOGRAPHIC FINDING IN THE CHEST. Hip X-Ray 03/12/19 15:59 IMPRESSION: Status post left total hip arthroplasty with revision to include cerclage wires. Today's examination demonstrates a comminuted fracture of the proximal femur with altered position and appearance of the cerclage wires. Adjacent subcutaneous gas is not entirely unexpected in the immediate postoperative setting. Cellulitis may have a similar appearance. 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 Previous wound culture grew GBS, Pseudomonas and Citrobacter. Continue IV levofloxacin. Intraoperative culture is pending. Will consult infectious disease for further insight on antibiotic recommendations and duration of therapy. 03/19: Intraoperative culture growing Group B Streptococcus. Continue IV levofloxacin. Await further recommendations from ID. (2) A-fib Qualifiers: Atrial fibrillation type: unspecified Qualified Code(s): I48.91 - Unspecified atrial fibrillation Is this a current diagnosis for this admission?: Yes Plan: 03/16: Rate-controlled. On heparin drip and digoxin. 03/18: DC lopressor due to low normal blood pressures. Discussed in length with patient about resuming Xarelto. He says he wants to be resumed on Xarelto but prefers to be just on 10 mg dosing rather than 20 mg. He verbalized understanding of the risks and benefits. 03/19: Off heparin drip. Xarelto held and was not given yesterday. We will continue to hold off on anticoagulation for now due to bleeding requiring transfusion. (3) Acute blood loss anemia Is this a current diagnosis for this admission?: Yes Plan: 1 unit of packed RBC ordered.
--- NOTE | 2019-03-19 15:23 | Progress Note ---
Provider Note Provider Note: ID Consult Note Asked to review patient's chart. Pt not seen or examined. Mr. Shepard is a 54 year old man with PMH including AF, RA, and L hip fx s/p arthroplasty and revision, most recently prior to admission on 02/15/19 for chronic instability of the prosthetic hip. He had persistent wound drainage after, which was attributed in part to anticoagulation. On 03/17, he underwent I&D with exchange of the head and liner. From the operative culture, Group B Strep grew. From a culture obtained on presentation to the ED (unclear how collected, whether or not this may reflect contamination in addition to true pathogenic organisms), there was growth of Citrobacter freundii and Pseudomonas aeruginosa in addition to Group B Strep. Impression/Recommendations Prosthetic hip infection s/p debridement, exchange of liner/head - I suspect that the Group B Strep is the most important pathogen and perhaps the only pathogen that requires targeting with antimicrobial therapy. The specimen obtained on 03/12/19, which additionally grew Pseudomonas and Citrobacter, was reported to be collected by the [employer] in the ED rather than by the patient's orthopedic surgeon. If it was collected by a superficial wound swab rather than joint aspiration or from a deep tissue specimen, it will likely grow these additional organisms due to superficial contamination. Clarification of the nature of the specimen submitted on 03/12 would be helpful. If this specimen was obtained from a superficial wound swab - and if there are no c ultures obtained by the patient's orthopedic surgeon - demonstrating the presence of Pseudomonas or Citrobacter in addition to Group B Strep, targeting antimicrobial therapy to the Group B Strep is appropriate. - That being said, Levaquin is an agent that would have good penetration of biofilm and bone and also good oral bioavailability. Although fluoroquinolones have a number of potential adverse effects that have been increasingly recognized over the years, they remain important agents to treat prosthetic joint infections and may allow the patient to avoid PICC line placement as long as he is able to tolerate PO Levaquin and remain compliant with this agent. - For prosthetic hip infection, the patient could take PO Levaquin 750 mg for at least 6 weeks. The course may be extended or followed by another oral agent if deemed appropriate at outpatient ID follow up. The patient has been seen by the [facility] and may wish to continue to have outpatient [facility]special[facility] after [facility]. While on PO Levaquin, the patient would need to be educated on the need to avoid co-administration of any multivalent cations with Levaquin (e.g. calcium, iron, magnesium, or zinc containing products) to avoid chelating the fluoroquinolone and reducing its levels. - There are other IV antibiotic treatment options, selection of which (e.g. cefepime 2 g q8h vs Rocephin 2 g IV daily or penicillin G continuous infusion 24 million units) depends upon whether or not Group B Strep is the only isolate from deep tissue/surgical specimens. If Group B Strep is the only pathogen isolated from good quality specimens, then Rocephin or penicillin can be given for 6 weeks and may be followed by transition to either PO penicillin, amoxicillin, Keflex or cefadroxil thereafter if required. Tim Anderson MD [facility] Infectious Diseases pager [phone]
[2019-03-19] MEDS: RIVAROXABAN 10 MG TABLET PO SCH (17:29)
[2019-03-19] MEDS: DIGOXIN 0.25 MG TABLET PO SCH (21:48)
[2019-03-19] MEDS: TRAZODONE HCL 50 MG TABLET PO SCH (21:49)
[2019-03-20 01:06] LABS: HEMATOCRIT 27.9 % (37.9-51.0); HEMOGLOBIN 8.9 g/dL (13.5-17.0); MEAN CORPUSCULAR HEMOGLOBIN 23.6 pg (27.0-33.4); MEAN CORPUSCULAR HGB CONC 31.9 g/dL (32.0-36.0); MEAN CORPUSCULAR VOLUME 74 fl (80-97); PLATELET COUNT 423 10^3/uL (150-450); RED BLOOD COUNT 3.77 10^6/uL (4.35-5.55); RED CELL DISTRIBUTION WIDTH 20.5 % (11.5-14.0); WHITE BLOOD COUNT 6.7 10^3/uL (4.0-10.5)
[2019-03-20] MEDS: OXYCODONE HCL IR 5 MG TABLET PO PRN ×2 (05:29→14:41)
[2019-03-20] MEDS: KETOROLAC TROMETHAMINE INJ/PF 30 MG/1 ML SDV IV PRN ×2 (08:29→18:07)
[2019-03-20] MEDS: DOCUSATE SODIUM 100 MG CAPSULE PO SCH (10:28)
[2019-03-20] MEDS: LEVOFLOXACIN 750 MG/D5W RTU 750 MG/150 ML RTUPB IV SCH (10:28)
[2019-03-20] MEDS: METOPROLOL TARTRATE 25 MG TABLET PO SCH ×3 (10:28→22:59)
[2019-03-20] MEDS: MIDODRINE HCL 5 MG TABLET PO SCH ×3 (10:29→18:07)
[2019-03-20] MEDS: OXYCODONE HCL SR 10 MG TABLET PO SCH ×2 (10:29→22:57)
[2019-03-20] MEDS: PREGABALIN 75 MG CAPSULE PO SCH ×2 (10:29→22:58)
[2019-03-20] MEDS: NICOTINE 14 MG/24 HR PATCH.TD24 TD SCH (10:30)
--- NOTE | 2019-03-20 12:04 | PDOC PROGRESS REPORT ---
Subjective Subjective:: Patient lying in bed comfortably. States pain is controlled. Denies fever chills or sweats. Minimal drainage since last evening. Has underwent therapy with good results. Reason For Visit: AFIB RVR Physical Exam Vital Signs: Temp Pulse Resp BP Pulse Ox 98.3 F 119 H 18 96/54 L 88 L 03/20/19 08:25 03/20/19 08:25 03/20/19 08:25 03/20/19 08:25 03/20/19 08:25 Intake & Output 03/19/19 03/20/19 03/21/19 06:59 06:59 06:59 Intake Total 4210 5821 Output Total 825 5950 Balance 3385 -129 Weight 102.7 kg 96.1 kg Musculoskeletal exam: PRESENT: other - Left hip: Dressing clean/dry/intact no erythema or drainage. Moderate thigh swelling without change, intact julita ntarflexion/dorsiflexion. No sensory deficits. No calf tenderness. Results Laboratory Results: 03/20/19 00:55 03/19/19 10:07 03/19/19 03/20/19 12:30 00:55 WBC 6.7 RBC 3.77 L Hgb 8.9 L Hct 27.9 L MCV 74 L MCH 23.6 L MCHC 31.9 L RDW 20.5 H Plt Count 423 Blood Type AB POSITIVE Antibody Screen NEGATIVE 03/15/19 10:57 Blood Blood Culture - Final NO GROWTH IN 5 DAYS 03/15/19 10:45 Blood Blood Culture - Final NO GROWTH IN 5 DAYS 03/17/19 14:02 Hip - Joint Gram Stain - Final 03/12/19 03/15/19 03/15/19 15:38 15:05 15:05 Creatine Kinase 21 L CK-MB (CK-2) 0.25 Troponin I < 0.012 < 0.012 03/16/19 08:05 Creatine Kinase CK-MB (CK-2) Troponin I < 0.012 Impressions: Chest X-Ray 03/12/19 15:59 IMPRESSION: NO ACUTE RADIOGRAPHIC FINDING IN THE CHEST. Hip X-Ray 03/12/19 15:59 IMPRESSION: Status post left total hip arthroplasty with revision to include cerclage wires. Today's examination demonstrates a comminuted fracture of the proximal femur with altered position and appearance of the cerclage wires. Adjacent subcutaneous gas is not entirely unexpected in the immediate postoperative setting. Cellulitis may have a similar appearance. Assessment & Plan - Diagnosis (1) Prosthetic joint infection of left hip Qualifiers: Encounter type: initial encounter Qualified Code(s): T84.52XA - Infection and inflammatory reaction due to internal left hip prosthesis, initial encounter Is this a current diagnosis for this admission?: Yes Plan: Status post irrigation debridement left hip revision arthroplasty 1. Physical therapy with hip precautions 2. Xarelto for DVT prophylaxis 3. Postoperative bleeding with blood loss anemia patient receiving 2 units of packed red blood cells. Patient's hematocrit has improved from 24-27.9. 4. Initial thought was IV antibiotics for 6 weeks however infectious disease has also recommended the possibility of p.o. Levaquin for 6 weeks. At this point we will continue IV antibiotics until tomorrow and patient will be seen by Dr. James at which point final decision on IV versus p.o. antibiotics can be made. - Time Time Spent with patient: Less than 15 minutes
--- NOTE | 2019-03-20 16:16 | PDOC PROGRESS REPORT ---
Subjective Progress Note for:: 03/20/19 Subjective:: This is a 54 yr old male with a PMH of chronic AFib (taken off Xarelto due to bleeding issues on the left hip), multiple left hip orthopedic surgeries (including hip replacement, washout for infected hardware, prior revisions) who presented with drainage from 1 of the left hip sutures site after recent revision. Patient was initially scheduled for a washout. He was started on IV antibiotics including vancomycin. However, while on the floor he appeared to have developed anaphylaxis and acute respiratory failure to vancomycin hence was subsequently upgraded to the ICU. He was initially placed on BiPAP and later did improve and transferred back to the floor. 03/16: Patient is scheduled for debridement of the left hip tomorrow by orthopedics pending results of stress testing. Otherwise, no acute event overnight. He denies chest pain or shortness of breath. He does say that he has breakthrough pain from his rheumatoid arthritis. Will resume his home pain medication regimen. 03/17: Patient is going for debridement of her left hip today. No fever or chills. 03/18: No acute event overnight. Patient underwent irrigation debridement, head and liner exchange, with repeat fixation of the greater trochanter yesterday which was uneventful. He denies acute complaints. Pain is well controlled. 03/19: RN reported significant bloody discharge from the surgical site early this mornning. Reports dressing was significantly soaked with bloody discharge. His hemoglobin dropped down to 7.6. Ordered packed RBC transfusion. Heparin was d/pierre yesterday and he did not receive Xarelto yesterday. 03/20: No acute event overnight. However patient had some bleeding on the surgical site this morning. He has been off any heparin products for more than 48 hours now. He has also not been restarted yet on Xarelto. Reason For Visit: AFIB RVR Physical Exam Vital Signs: Temp Pulse Resp BP Pulse Ox 98.3 F 119 H 18 96/54 L 88 L 03/20/19 08:25 03/20/19 08:25 03/20/19 08:25 03/20/19 08:25 03/20/19 08:25 Intake & Output 03/19/19 03/20/19 03/21/19 06:59 06:59 06:59 Intake Total 4210 5821 Output Total 825 5950 Balance 3385 -129 Weight 226 lb 6.636 oz 211 lb 13.828 oz General appearance: PRESENT: no acute distress, well-developed, well-nourished Head exam: PRESENT: atraumatic, normocephalic Eye exam: PRESENT: conjunctiva pink, EOMI, PERRLA. ABSENT: scleral icterus Ear exam: PRESENT: normal external ear exam Mouth exam: PRESENT: moist, tongue midline Neck exam: ABSENT: carotid bruit, JVD, lymphadenopathy, thyromegaly Respiratory exam: PRESENT: clear to auscultation alessia. ABSENT: rales, rhonchi, wheezes Cardiovascular exam: PRESENT: RRR. ABSENT: diastolic murmur, rubs, systolic murmur Pulses: PRESENT: normal dorsalis pedis pul GI/Abdominal exam: PRESENT: normal bowel sounds, soft. ABSENT: distended, guarding, mass, organolmegaly, rebound, tenderness Rectal exam: PRESENT: deferred Neurological exam: PRESENT: alert, awake, oriented to person, oriented to place, oriented to time, oriented to situation, CN II-XII grossly intact. ABSENT: motor sensory deficit Results Laboratory Results: 03/20/19 00:55 03/19/19 10:07 03/19/19 03/20/19 12:30 00:55 WBC 6.7 RBC 3.77 L Hgb 8.9 L Hct 27.9 L MCV 74 L MCH 23.6 L MCHC 31.9 L RDW 20.5 H Plt Count 423 Blood Type AB POSITIVE Antibody Screen NEGATIVE 03/15/19 10:57 Blood Blood Culture - Final NO GROWTH IN 5 DAYS 03/15/19 10:45 Blood Blood Culture - Final NO GROWTH IN 5 DAYS 03/17/19 14:02 Hip - Joint Gram Stain - Final 03/12/19 03/15/19 03/15/19 15:38 15:05 15:05 Creatine Kinase 21 L CK-MB (CK-2) 0.25 Troponin I < 0.012 < 0.012 03/16/19 08:05 Creatine Kinase CK-MB (CK-2) Troponin I < 0.012 Impressions: Chest X-Ray 03/12/19 15:59 IMPRESSION: NO ACUTE RADIOGRAPHIC FINDING IN THE CHEST. Hip X-Ray 03/12/19 15:59 IMPRESSION: Status post left total hip arthroplasty with revision to include cerclage wires. Today's examination demonstrates a comminuted fracture of the proximal femur with altered position and appearance of the cerclage wires. Adjacent subcutaneous gas is not entirely unexpected in the immediate postoperative setting. Cellulitis may have a similar appearance. 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 Previous wound culture grew GBS, Pseudomonas and Citrobacter. Continue IV levofloxacin. Intraoperative culture is pending. Will consult infectious disease for further insight on antibiotic recommendations and duration of therapy. 03/19: Intraoperative culture growing Group B Streptococcus. Continue IV levofloxacin. Await further recommendations from ID. 03/20: ID recommends Levaquin PO for 6 weeks vs Rocephin daily for 6 weeks. Will further discuss with ortho about preference for antibiotic therapy. (2) A-fib Qualifiers: Atrial fibrillation type: unspecified Qualified Code(s): I48.91 - Unsp ecified atrial fibrillation Is this a current diagnosis for this admission?: Yes Plan: 03/16: Rate-controlled. On heparin drip and digoxin. 03/18: DC lopressor due to low normal blood pressures. Discussed in length with patient about resuming Xarelto. He says he wants to be resumed on Xarelto but prefers to be just on 10 mg dosing rather than 20 mg. He verbalized understanding of the risks and benefits. 03/19: Off heparin drip. Xarelto held and was not given yesterday. We will continue to hold off on anticoagulation for now due to bleeding requiring transfusion. (3) Acute blood loss anemia Is this a current diagnosis for this admission?: Yes Plan: 1 unit of packed RBC ordered. 03/20: Patient had some bleeding on the surgical site this morning. He has been off any heparin products for more than 48 hours now. He has also not been restarted yet on Xarelto. - Time Time Spent with patient: 25-34 minutes
[2019-03-20] MEDS: DIGOXIN 0.25 MG TABLET PO SCH (22:58)
[2019-03-20] MEDS: TRAZODONE HCL 50 MG TABLET PO SCH (22:58)
[2019-03-21] MEDS: OXYCODONE HCL IR 5 MG TABLET PO PRN ×3 (02:42→22:45)
[2019-03-21] MEDS: KETOROLAC TROMETHAMINE INJ/PF 30 MG/1 ML SDV IV PRN (03:06)
[2019-03-21 05:34] LABS: HEMATOCRIT 21.1 % (37.9-51.0); MEAN CORPUSCULAR HEMOGLOBIN 24.1 pg (27.0-33.4); MEAN CORPUSCULAR VOLUME 73 fl (80-97); PLATELET COUNT 421 10^3/uL (150-450); RED BLOOD COUNT 2.88 10^6/uL (4.35-5.55); RED CELL DISTRIBUTION WIDTH 20.6 % (11.5-14.0)
[2019-03-21 05:47] LABS: HEMOGLOBIN 6.9 g/dL (13.5-17.0)
[2019-03-21 05:51] LABS: ANION GAP 6 (5-19); BLOOD UREA NITROGEN 10 mg/dL (7-20); CARBON DIOXIDE 28 mmol/L (22-30); CHLORIDE 101 mmol/L (98-107); GLUCOSE 93 mg/dL (75-110); POTASSIUM 4.5 mmol/L (3.6-5.0)
--- NOTE | 2019-03-21 08:12 | PDOC PROGRESS REPORT ---
Subjective Progress Note for:: 03/21/19 Reason For Visit: AFIB RVR 54-year-old black male status post I&D of the left hip revision arthroplasty with a draining wound. Cultures remain no growth so far. Patient remains af ebrile. Continues to be bloody wound drainage and a recent transfusion for a postoperative anemia. Adequate is dropped to 21% again. Patient is very concerned about blood loss, need for PICC line and prolonged antibiotics. Physical Exam Vital Signs: Temp Pulse Resp BP Pulse Ox 36.8 C 90 19 111/61 100 03/20/19 19:19 03/21/19 02:00 03/20/19 19:19 03/20/19 19:19 03/20/19 19:19 Intake & Output 03/20/19 03/21/19 03/22/19 06:59 06:59 06:59 Intake Total 5821 610 Output Total 5950 2650 Balance -129 -2040 Weight 96.1 kg 106 kg General appearance: PRESENT: no acute distress Head exam: PRESENT: normocephalic Respiratory exam: PRESENT: unlabored Cardiovascular exam: PRESENT: RRR Pulses: PRESENT: +1 pedal pulses bilateral Vascular exam: PRESENT: normal capillary refill GI/Abdominal exam: PRESENT: soft Rectal exam: PRESENT: deferred Extremities exam: PRESENT: other - Left hip dressing clean dry and intact. This was last changed at midnight. Neurological exam: PRESENT: alert, awake, oriented to person, oriented to place, oriented to time, oriented to situation. ABSENT: motor sensory deficit Results Laboratory Results: 03/21/19 05:07 03/21/19 05:07 03/19/19 03/21/19 03/21/19 12:30 05:07 05:07 WBC 8.0 RBC 2.88 L Hgb 6.9 L Hct 21.1 L MCV 73 L MCH 24.1 L MCHC 33.0 RDW 20.6 H Plt Count 421 Sodium 134.8 L Potassium 4.5 Chloride 101 Carbon Dioxide 28 Anion Gap 6 BUN 10 Creatinine 0.86 Est GFR ( Amer) > 60 Glucose 93 Calcium 8.0 L Blood Type AB POSITIVE Antibody Screen NEGATIVE 03/17/19 14:02 Hip - Joint Gram Stain - Final 03/15/19 10:57 Blood Blood Culture - Final NO GROWTH IN 5 DAYS 03/15/19 10:45 Blood Blood Culture - Final NO GROWTH IN 5 DAYS 03/12/19 03/15/19 03/15/19 15:38 15:05 15:05 Creatine Kinase 21 L CK-MB (CK-2) 0.25 Troponin I < 0.012 < 0.012 03/16/19 08:05 Creatine Kinase CK-MB (CK-2) Troponin I < 0.012 Impressions: Chest X-Ray 03/12/19 15:59 IMPRESSION: NO ACUTE RADIOGRAPHIC FINDING IN THE CHEST. Hip X-Ray 03/12/19 15:59 IMPRESSION: Status post left total hip arthroplasty with revision to include cerclage wires. Today's examination demonstrates a comminuted fracture of the proximal femur with altered position and appearance of the cerclage wires. Adjacent subcutaneous gas is not entirely unexpected in the immediate postoperative setting. Cellulitis may have a similar appearance. Status: Imported from PACS Assessment & Plan - Diagnosis (1) History of hip replacement Qualifiers: Laterality: left Qualified Code(s): Z96.642 - Presence of left artificial hip joint Is this a current diagnosis for this admission?: Yes Plan: Mobilized with physical therapy (2) Acute blood loss anemia Is this a current diagnosis for this admission?: Yes Plan: Hematocrit is dropped to 21% - Time Time Spent with patient: 15-24 minutes Anticipated discharge: Home with Homehealth Within: Other
[2019-03-21] MEDS: NICOTINE 14 MG/24 HR PATCH.TD24 TD SCH (09:29)
[2019-03-21] MEDS: DOCUSATE SODIUM 100 MG CAPSULE PO SCH (09:29)
[2019-03-21] MEDS: PREGABALIN 75 MG CAPSULE PO SCH ×2 (09:29→21:38)
[2019-03-21] MEDS: OXYCODONE HCL SR 10 MG TABLET PO SCH ×2 (09:30→21:39)
[2019-03-21] MEDS: MIDODRINE HCL 5 MG TABLET PO SCH ×4 (09:33→18:04)
[2019-03-21] MEDS: METOPROLOL TARTRATE 25 MG TABLET PO SCH ×2 (09:34→21:45)
[2019-03-21] MEDS: LEVOFLOXACIN 750 MG/D5W RTU 750 MG/150 ML RTUPB IV SCH (09:35)
--- NOTE | 2019-03-21 13:32 | PDOC PROGRESS REPORT ---
Subjective Progress Note for:: 03/21/19 Subjective:: This is a 54 yr old male with a PMH of chronic AFib (taken off Xarelto due to bleeding issues on the left hip), multiple left hip orthopedic surgeries (including hip replacement, washout for infected hardware, prior revisions) who presented with drainage from 1 of the left hip sutures site after recent revision. Patient was initially scheduled for a washout. He was started on IV antibiotics including vancomycin. However, while on the floor he appeared to have developed anaphylaxis and acute respiratory failure to vancomycin hence was subsequently upgraded to the ICU. He was initially placed on BiPAP and later did improve and transferred back to the floor. 03/16: Patient is scheduled for debridement of the left hip tomorrow by orthopedics pending results of stress testing. Otherwise, no acute event overnight. He denies chest pain or shortness of breath. He does say that he has breakthrough pain from his rheumatoid arthritis. Will resume his home pain medication regimen. 03/17: Patient is going for debridement of her left hip today. No fever or chills. 03/18: No acute event overnight. Patient underwent irrigation debridement, head and liner exchange, with repeat fixation of the greater trochanter yesterday which was uneventful. He denies acute complaints. Pain is well controlled. 03/19: RN reported significant bloody discharge from the surgical site early this mornning. Reports dressing was significantly soaked with bloody discharge. His hemoglobin dropped down to 7.6. Ordered packed RBC transfusion. Heparin was d/pierre yesterday and he did not receive Xarelto yesterday. 03/20: However patient had some bleeding on the surgical site this morning. He has been off any heparin products for more than 48 hours now. He has also not been restarted yet on Xarelto. 03/21: Patient had another episode of bleeding on the surgical site. Hemoglobin dropped down again to 6.9 from 8.9. 2 units of packed RBC ordered. Also discussed antibiotic recommendation from ID with patient. He expresses concern that he developed paresthesias and tingling sensation on his legs and feet after he was treated with ciprofloxacin for a few weeks in the past. He says that the above symptoms have persisted since then. Due to concern of peripheral neuropathy with p.o. levofloxacin, we discussed the other ID recommendation of doing a PICC line and using IV Rocephin daily instead. He is more amenable to pursuing the PICC line rather than risking neuropathy with levofloxacin. Discussed with Dr. James who has recommended to continue blood transfusion for now and to continue to monitor for recurrence of bleeding. Final intraoperative culture grew Group B Strep. Ortho is agreeable to a 6 week course of IV Rocephin as well. Will order for PICC line placement. Reason For Visit: AFIB RVR Physical Exam Vital Signs: Temp Pulse Resp BP Pulse Ox 98.1 F 82 17 104/58 L 100 03/21/19 12:53 03/21/19 13:00 03/21/19 12:53 03/21/19 13:00 03/21/19 12:53 Intake & Output 03/20/19 03/21/19 03/22/19 06:59 06:59 06:59 Intake Total 5821 610 0 Output Total 5950 2650 Balance -129 -2040 0 Weight 211 lb 13.828 oz 233 lb 11.04 oz General appearance: PRESENT: no acute distress, well-developed, well-nourished Head exam: PRESENT: atraumatic, normocephalic Eye exam: PRESENT: conjunctiva pink, EOMI, PERRLA. ABSENT: scleral icterus Ear exam: PRESENT: normal external ear exam Mouth exam: PRESENT: moist, tongue midline Neck exam: ABSENT: carotid bruit, JVD, lymphadenopathy, thyromegaly Respiratory exam: PRESENT: clear to auscultation alessia. ABSENT: rales, rhonchi, wheezes Cardiovascular exam: PRESENT: RRR. ABSENT: diastolic murmur, rubs, systolic murmur Pulses: PRESENT: normal dorsalis pedis pul GI/Abdominal exam: PRESENT: normal bowel sounds, soft. ABSENT: distended, guarding, mass, organolmegaly, rebound, tenderness Rectal exam: PRESENT: deferred Neurological exam: PRESENT: alert, awake, oriented to person, oriented to place, oriented to time, oriented to situation, CN II-XII grossly intact. ABSENT: m otor sensory deficit Results Laboratory Results: 03/21/19 05:07 03/21/19 05:07 03/19/19 03/21/19 03/21/19 12:30 05:07 05:07 WBC 8.0 RBC 2.88 L Hgb 6.9 L Hct 21.1 L MCV 73 L MCH 24.1 L MCHC 33.0 RDW 20.6 H Plt Count 421 Sodium 134.8 L Potassium 4.5 Chloride 101 Carbon Dioxide 28 Anion Gap 6 BUN 10 Creatinine 0.86 Est GFR ( Amer) > 60 Glucose 93 Calcium 8.0 L Blood Type AB POSITIVE Antibody Screen NEGATIVE 03/17/19 14:02 Hip - Joint Gram Stain - Final 03/17/19 14:02 Hip - Joint Wound Culture - Final Group B Beta Streptococcus No Anaerobic Organisms 03/15/19 10:57 Blood Blood Culture - Final NO GROWTH IN 5 DAYS 03/15/19 10:45 Blood Blood Culture - Final NO GROWTH IN 5 DAYS 03/12/19 03/15/19 03/15/19 15:38 15:05 15:05 Creatine Kinase 21 L CK-MB (CK-2) 0.25 Troponin I < 0.012 < 0.012 03/16/19 08:05 Creatine Kinase CK-MB (CK-2) Troponin I < 0.012 Impressions: Chest X-Ray 03/12/19 15:59 IMPRESSION: NO ACUTE RADIOGRAPHIC FINDING IN THE CHEST. Hip X-Ray 03/12/19 15:59 IMPRESSION: Status post left total hip arthroplasty with revision to include cerclage wires. Today's examination demonstrates a comminuted fracture of the proximal femur with altered position and appearance of the cerclage wires. Adjacent subcutaneous gas is not entirely unexpected in the immediate post operative setting. Cellulitis may have a similar appearance. 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 Previous wound culture grew GBS, Pseudomonas and Citrobacter. Continue IV levofloxacin. Intraoperative culture is pending. Will consult infectious disease for further insight on antibiotic recommendations and duration of therap y. 03/19: Intraoperative culture growing Group B Streptococcus. Continue IV levofloxacin. Await further recommendations from ID. 03/21: Also discussed antibiotic recommendation from ID with patient. He expresses concern that he developed paresthesias and tingling sensation on his legs and feet after he was treated with ciprofloxacin for a few weeks in the past. He says that the above symptoms have persisted since then. Due to concern of peripheral neuropathy with p.o. levofloxacin, we discussed the other ID recommendation of doing a PICC line and using IV Rocephin daily instead. He is more amenable to pursuing the PICC line rather than risking neuropathy with levofloxacin. Discussed with Dr. James who has recommended to continue blood transfusion for now and to continue to monitor for recurrence of bleeding. Final intraoperative culture grew Group B Strep. Ortho is agreeable to a 6 week course of IV Rocephin as well. Will order for PICC line placement. (2) A-fib Qualifiers: Atrial fibrillation type: unspecified Qualified Code(s): I48.91 - Unspecified atrial fibrillation Is this a current diagnosis for this admission?: Yes Plan: 03/16: Rate-controlled. On heparin drip and digoxin. 03/18: DC lopressor due to low normal blood pressures. Discussed in length with patient about resuming Xarelto. He says he wants to be resumed on Xarelto but prefers to be just on 10 mg dosing rather than 20 mg. He verbalized understanding of the risks and benefits. 03/19: Off heparin drip. Xarelto held and was not given yesterday. We will continue to hold off on anticoagulation for now due to bleeding requiring transfusion. (3) Acute blood loss anemia Is this a current diagnosis for this admission?: Yes Plan: 03/20: 1 unit of packed RBC ordered. 03/21: Patient had another episode of bleeding on the surgical site. Hemoglobin dropped down again to 6.9 from 8.9. 2 units of packed RBC ordered. - Time Time Spent with patient: 25-34 minutes
[2019-03-21] MEDS: DIGOXIN 0.25 MG TABLET PO SCH (21:44)
[2019-03-21] MEDS: TRAZODONE HCL 50 MG TABLET PO SCH (21:45)
[2019-03-21] MEDS: ZOLPIDEM TARTRATE 5 MG TABLET PO PRN (22:46)
[2019-03-22] MEDS: OXYCODONE HCL IR 5 MG TABLET PO PRN ×2 (07:45→14:27)
[2019-03-22] MEDS: METOPROLOL TARTRATE 25 MG TABLET PO SCH ×2 (09:12→21:22)
[2019-03-22] MEDS: KETOROLAC TROMETHAMINE INJ/PF 30 MG/1 ML SDV IV PRN ×3 (09:27→21:21)
[2019-03-22] MEDS: PREGABALIN 75 MG CAPSULE PO SCH ×2 (09:28→21:18)
[2019-03-22] MEDS: NICOTINE 14 MG/24 HR PATCH.TD24 TD SCH (09:28)
[2019-03-22] MEDS: MIDODRINE HCL 5 MG TABLET PO SCH ×3 (09:28→18:15)
[2019-03-22] MEDS: OXYCODONE HCL SR 10 MG TABLET PO SCH ×2 (09:28→21:19)
[2019-03-22] MEDS: DOCUSATE SODIUM 100 MG CAPSULE PO SCH (09:28)
[2019-03-22] MEDS: CEFTRIAXONE 2 GM/D5W RTU 2 GM/50 ML RTUPB IV SCH (09:29)
[2019-03-22 10:38] LABS: HEMATOCRIT 31.4 % (37.9-51.0); MEAN CORPUSCULAR HEMOGLOBIN 24.7 pg (27.0-33.4); MEAN CORPUSCULAR HGB CONC 32.3 g/dL (32.0-36.0); MEAN CORPUSCULAR VOLUME 76 fl (80-97); PLATELET COUNT 484 10^3/uL (150-450); RED BLOOD COUNT 4.11 10^6/uL (4.35-5.55); RED CELL DISTRIBUTION WIDTH 21.1 % (11.5-14.0)
[2019-03-22 10:43] LABS: HEMOGLOBIN 10.2 g/dL (13.5-17.0)
[2019-03-22 11:15] LABS: APPEARANCE,URINE CLEAR; BILIRUBIN,URINE NEGATIVE (NEGATIVE); COLOR,URINE STRAW; GLUCOSE, URINE NEGATIVE (NEGATIVE); KETONES,URINE NEGATIVE (NEGATIVE); LEUKOCYTE ESTERASE,URINE NEGATIVE (NEGATIVE); NITRITE,URINE NEGATIVE (NEGATIVE); PROTEIN,URINE NEGATIVE (NEGATIVE); URINE SPECIFIC GRAVITY 1.006; UROBILINOGEN,URINE NEGATIVE mg/dL (<2.0)
--- NOTE | 2019-03-22 12:09 | RADIOLOGY REPORT (SQ) ---
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 FLUOROSCOPY TIME: 1 minutes and 7 seconds. 2 images saved to PACS. TECHNIQUE: Placement of a PICC utilizing fluoroscopic and sonographic guidance. LIMITATIONS: None. PROCEDURE: The procedure, risks, benefits, and alternatives were discussed with the patient in the p reprocedural area, and all questions were answered. Informed consent was obtained verbally and in wri ting. The patient was then brought to the procedural suite, positioned supine on the fluoroscopy table, and a time-out was performed. At first the left upper extremity was evaluated with ultrasound and the brachial vein was found to be patent and compressible. The left upper extremity was then prepped and draped with 2% chlorhexidine utilizing standard sterile technique. After the skin over the basilic vein was anesthetized with 1% l idocaine, ultrasound guidance was used to access the vessel with a 21-gauge needle - a sonographic im age was stored for documentation. A 0.018 inch guidewire was then inserted through the needle and adv anced under fluoroscopic guidance into the SVC. After that, the needle was exchanged over the guidewi re for a peel-away sheath. A 5 Portuguese double - lumen PICC was then cut to the appropriate length of 4 0 cm, inserted through the sheath and advanced under fluoroscopic guidance into the SVC. After that, the peel-away sheath was removed and a fluoroscopic image of the chest was obtained to confirm proper position of the catheter tip within SVC. The lumens of the PICC were then aspirated, flushed with sterile saline and heparinized. At the end of the procedure the PICC was secured in place and a sterile dressing applied over it. The patient tolerated the procedure well without immediate complication. At the end of the procedure the patient's condition was unchanged from the preprocedural baseline. No IV conscious sedation was administered. Physiologic monitoring was provided before, during, and after the procedure. Documentation of epxy-mp-[id number] time performing proceduralist spent monitoring the patient: 15 minutes. IMPRESSION: SUCCESSFUL PLACEMENT OF A 5 FR DUAL LUMEN 40 CM PICC VIA THE LEFT BASILIC VEIN. COMMENT: Patient medication list reviewed: Yes- Quality ID# [id number]:Eligible professional attests to doc umenting in the medical record they obtained, updated, or reviewed the patient's current medications. . Quality ID 145: Final reports for procedures using fluoroscopy that document radiation exposure stephanie sarai, or exposure time and number of fluorographic images (if radiation exposure indices are not avail able) Quality ID #76: The patient was prepped and draped using maximum sterile barrier technique including cap, mask, sterile gown, sterile gloves, a large sterile sheet, hand hygiene, and 2% Chlorhexidine fo r cutaneous antisepsis. When ultrasound is used, sterile ultrasound techniques are followed requiring sterile gel and sterile probes. TECHNICAL DOCUMENTATION: JOB ID: [id number] [employer]- All Rights Reserved Reading location - IP/workstation name: [email or web address]
--- NOTE | 2019-03-22 12:09 | RADIOLOGY REPORT (SQ) ---
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 FLUOROSCOPY TIME: 1 minutes and 7 seconds. 2 images saved to PACS. TECHNIQUE: Placement of a PICC utilizing fluoroscopic and sonographic guidance. LIMITATIONS: None. PROCEDURE: The procedure, risks, benefits, and alternatives were discussed with the patient in the p reprocedural area, and all questions were answered. Informed consent was obtained verbally and in wri ting. The patient was then brought to the procedural suite, positioned supine on the fluoroscopy table, and a time-out was performed. At first the left upper extremity was evaluated with ultrasound and the brachial vein was found to be patent and compressible. The left upper extremity was then prepped and draped with 2% chlorhexidine utilizing standard sterile technique. After the skin over the basilic vein was anesthetized with 1% l idocaine, ultrasound guidance was used to access the vessel with a 21-gauge needle - a sonographic im age was stored for documentation. A 0.018 inch guidewire was then inserted through the needle and adv anced under fluoroscopic guidance into the SVC. After that, the needle was exchanged over the guidewi re for a peel-away sheath. A 5 Telugu double - lumen PICC was then cut to the appropriate length of 4 0 cm, inserted through the sheath and advanced under fluoroscopic guidance into the SVC. After that, the peel-away sheath was removed and a fluoroscopic image of the chest was obtained to confirm proper position of the catheter tip within SVC. The lumens of the PICC were then aspirated, flushed with sterile saline and heparinized. At the end of the procedure the PICC was secured in place and a sterile dressing applied over it. The patient tolerated the procedure well without immediate complication. At the end of the procedure the patient's condition was unchanged from the preprocedural baseline. No IV conscious sedation was administered. Physiologic monitoring was provided before, during, and after the procedure. Documentation of xptp-lt-dhzl time performing proceduralist spent monitoring the patient: 15 minutes. IMPRESSION: SUCCESSFUL PLACEMENT OF A 5 FR DUAL LUMEN 40 CM PICC VIA THE LEFT BASILIC VEIN. COMMENT: Patient medication list reviewed: Yes- Quality ID# [id number]:Eligible professional attests to doc umenting in the medical record they obtained, updated, or reviewed the patient's current medications. . Quality ID 145: Final reports for procedures using fluoroscopy that document radiation exposure stephanie sarai, or exposure time and number of fluorographic images (if radiation exposure indices are not avail able) Quality ID #76: The patient was prepped and draped using maximum sterile barrier technique including cap, mask, sterile gown, sterile gloves, a large sterile sheet, hand hygiene, and 2% Chlorhexidine fo r cutaneous antisepsis. When ultrasound is used, sterile ultrasound techniques are followed requiring sterile gel and sterile probes. TECHNICAL DOCUMENTATION: JOB ID: [id number] [employer]- All Rights Reserved Reading location - IP/workstation name: [email or web address]
--- NOTE | 2019-03-22 12:09 | RADIOLOGY REPORT (SQ) ---
EXAM DESCRIPTION: PICC INSERTION; FLUORO/CV PLACEMENT; U/S GUIDE FOR VASCULAR ACCESS COMPLETED DATE/TIME: 03/22/2019 11:25 am REASON FOR STUDY: retirement IV antibiotics; CORRECTION IV ABX; ELIGIBILITY EXAMINER ABX COMPARISON: None. FLUOROSCOPY TIME: 1 minutes and 7 seconds. 2 images saved to PACS. TECHNIQUE: Placement of a PICC utilizing fluoroscopic and sonographic guidance. LIMITATIONS: None. PROCEDURE: The procedure, risks, benefits, and alternatives were discussed with the patient in the p reprocedural area, and all questions were answered. Informed consent was obtained verbally and in wri ting. The patient was then brought to the procedural suite, positioned supine on the fluoroscopy table, and a time-out was performed. At first the left upper extremity was evaluated with ultrasound and the brachial vein was found to be patent and compressible. The left upper extremity was then prepped and draped with 2% chlorhexidine utilizing standard sterile technique. After the skin over the basilic vein was anesthetized with 1% l idocaine, ultrasound guidance was used to access the vessel with a 21-gauge needle - a sonographic im age was stored for documentation. A 0.018 inch guidewire was then inserted through the needle and adv anced under fluoroscopic guidance into the SVC. After that, the needle was exchanged over the guidewi re for a peel-away sheath. A 5 Hebrew double - lumen PICC was then cut to the appropriate length of 4 0 cm, inserted through the sheath and advanced under fluoroscopic guidance into the SVC. After that, the peel-away sheath was removed and a fluoroscopic image of the chest was obtained to confirm proper position of the catheter tip within SVC. The lumens of the PICC were then aspirated, flushed with sterile saline and heparinized. At the end of the procedure the PICC was secured in place and a sterile dressing applied over it. The patient tolerated the procedure well without immediate complication. At the end of the procedure the patient's condition was unchanged from the preprocedural baseline. No IV conscious sedation was administered. Physiologic monitoring was provided before, during, and after the procedure. Documentation of eija-kb-grcl time performing proceduralist spent monitoring the patient: 15 minutes. IMPRESSION: SUCCESSFUL PLACEMENT OF A 5 FR DUAL LUMEN 40 CM PICC VIA THE LEFT BASILIC VEIN. COMMENT: Patient medication list reviewed: Yes- Quality ID# [id number]:Eligible professional attests to doc umenting in the medical record they obtained, updated, or reviewed the patient's current medications. . Quality ID 145: Final reports for procedures using fluoroscopy that document radiation exposure stephanie sarai, or exposure time and number of fluorographic images (if radiation exposure indices are not avail able) Quality ID #76: The patient was prepped and draped using maximum sterile barrier technique including cap, mask, sterile gown, sterile gloves, a large sterile sheet, hand hygiene, and 2% Chlorhexidine fo r cutaneous antisepsis. When ultrasound is used, sterile ultrasound techniques are followed requiring sterile gel and sterile probes. TECHNICAL DOCUMENTATION: JOB ID: [id number] [employer]- All Rights Reserved Reading location - IP/workstation name: [email or web address]
--- NOTE | 2019-03-22 13:12 | PDOC PROGRESS REPORT ---
Subjective Progress Note for:: 03/22/19 Subjective:: This is a 54 yr old male with a PMH of chronic AFib (taken off Xarelto due to bleeding issues on the left hip), multiple left hip orthopedic surgeries (including hip replacement, washout for infected hardware, prior revisions) who presented with drainage from 1 of the left hip sutures site after recent revision. Patient was initially scheduled for a washout. He was started on IV antibiotics including vancomycin. However, while on the floor he appeared to have developed anaphylaxis and acute respiratory failure to vancomycin hence was subsequently upgraded to the ICU. He was initially placed on BiPAP and later did improve and transferred back to the floor. 03/16: Patient is scheduled for debridement of the left hip tomorrow by orthopedics pending results of stress testing. Otherwise, no acute event overnight. He denies chest pain or shortness of breath. He does say that he has breakthrough pain from his rheumatoid arthritis. Will resume his home pain medication regimen. 03/17: Patient is going for debridement of her left hip today. No fever or chills. 03/18: No acute event overnight. Patient underwent irrigation debridement, head and liner exchange, with repeat fixation of the greater trochanter yesterday which was uneventful. He denies acute complaints. Pain is well controlled. 03/19: RN reported significant bloody discharge from the surgical site early this mornning. Reports dressing was significantly soaked with bloody discharge. His hemoglobin dropped down to 7.6. Ordered packed RBC transfusion. Heparin was d/pierre yesterday and he did not receive Xarelto yesterday. 03/20: However patient had some bleeding on the surgical site this morning. He has been off any heparin products for more than 48 hours now. He has also not been restarted yet on Xarelto. 03/21: Patient had another episode of bleeding on the surgical site. Hemoglobin dropped down again to 6.9 from 8.9. 2 units of packed RBC ordered. Also discussed antibiotic recommendation from ID with patient. He expresses concern that he developed paresthesias and tingling sensation on his legs and feet after he was treated with ciprofloxacin for a few weeks in the past. He says that the above symptoms have persisted since then. Due to concern of peripheral neuropathy with p.o. levofloxacin, we discussed the other ID recommendation of doing a PICC line and using IV Rocephin daily instead. He is more amenable to pursuing the PICC line rather than risking neuropathy with levofloxacin. Discussed with Dr. James who has recommended to continue blood transfusion for now and to continue to monitor for recurrence of bleeding. Final intraoperative culture grew Group B Strep. Ortho is agreeable to a 6 week course of IV Rocephin as well. Will order for PICC line placement. 03/22: Patient had another episode of bloody discharge from the surgical site upon encounter this morning. This appears to be less bloody compared to yesterday's episode. He remains to be off any form of anticoagulation. Otherwise no other acute complaints or issues. Await further reevaluation and recommendation from ortho. Reason For Visit: AFIB RVR Physical Exam Vital Signs: Temp Pulse Resp BP Pulse Ox 98.2 F 73 18 108/61 97 03/22/19 07:22 03/22/19 07:22 03/22/19 07:22 03/22/19 07:22 03/22/19 07:22 Intake & Output 03/21/19 03/22/19 03/23/19 06:59 06:59 06:59 Intake Total 610 1780 50 Output Total 2650 4225 Balance -2040 -2445 50 Weight 233 lb 11.04 oz 235 lb 0.204 oz General appearance: PRESENT: no acute distress, well-developed, well-nourished Head exam: PRESENT: atraumatic, normocephalic Eye exam: PRESENT: conjunctiva pink, EOMI, PERRLA. ABSENT: scleral icterus Ear exam: PRESENT: normal external ear exam Mouth exam: PRESENT: moist, tongue midline Neck exam: ABSENT: carotid bruit, JVD, lymphadenopathy, thyromegaly Respiratory exam: PRESENT: clear to auscultation alessia. ABSENT: rales, rhonchi, wheezes Cardiovascular exam: PRESENT: RRR. ABSENT: diastolic murmur, rubs, systolic murmur Pulses: PRESENT: normal dorsalis pedis pul GI/Abdominal exam: PRESENT: normal bowel sounds, soft. ABSENT: distended, guarding, mass, organolmegaly, rebound, tenderness Rectal exam: PRESENT: deferred Neurological exam: PRESENT: alert, awake, oriented to person, oriented to place, oriented to time, oriented to situation, CN II-XII grossly intact. ABSENT: motor sensory deficit Results Laboratory Results: 03/22/19 10:18 03/21/19 05:07 03/19/19 03/22/19 03/22/19 12:30 09:40 10:18 WBC 8.0 RBC 4.11 L Hgb 10.2 L D Hct 31.4 L MCV 76 L MCH 24.7 L MCHC 32.3 RDW 21.1 H Plt Count 484 H Urine Color STRAW Urine Appearance CLEAR Urine pH 6.0 Ur Specific [place] 1.006 Urine Protein NEGATIVE Urine Glucose (UA) NEGATIVE Urine Ketones NEGATIVE Urine Blood NEGATIVE Urine Nitrite NEGATIVE Ur Leukocyte Esterase NEGATIVE Urine RBC (Auto) 1 Blood Type AB POSITIVE Antibody Screen NEGATIVE 03/12/19 03/15/19 03/15/19 15:38 15:05 15:05 Creatine Kinase 21 L CK-MB (CK-2) 0.25 Troponin I < 0.012 < 0.012 03/16/19 08:05 Creatine Kinase CK-MB (CK-2) Troponin I < 0.012 Impressions: Chest X-Ray 03/12/19 15:59 IMPRESSION: NO ACUTE RADIOGRAPHIC FINDING IN THE CHEST. Hip X-Ray 03/12/19 15:59 IMPRESSION: Status post left total hip arthroplasty with revision to include cerclage wires. Today's examination demonstrates a comminuted fracture of the proximal femur with altered position and appearance of the cerclage wires. Adjacent subcutaneous gas is not entirely unexpected in the immediate postoperative setting. Cellulitis may have a similar appearance. Guidance Fluoroscopy 03/22/19 00:00 IMPRESSION: SUCCESSFUL PLACEMENT OF A 5 FR DUAL LUMEN 40 CM PICC VIA THE LEFT BASILIC VEIN. Interventional Vascular Procedure 03/22/19 00:00 IMPRESSION: SUCCESSFUL PLACEMENT OF A 5 FR DUAL LUMEN 40 CM PICC VIA THE LEFT BASILIC VEIN. PICC Line Insertion 03/22/19 00:00 IMPRESSION: SUCCESSFUL PLACEMENT OF A 5 FR DUAL LUMEN 40 CM PICC VIA THE LEFT BASILIC VEIN. 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 Previous wound culture grew GBS, Pseudomonas and Citrobacter. Continue IV levofloxacin. Intraoperative culture is pending. Will consult infectious disease for further insight on antibiotic recommendations and duration of therapy. 03/19: Intraoperative culture growing Group B Streptococcus. Continue IV levofloxacin. Await further recommendations from ID. 03/21: Also discussed antibiotic recommendation from ID with patient. He expresses concern that he developed paresthesias and tingling sensation on his legs and feet after he was treated with ciprofloxacin for a few weeks in the past. He says that the above symptoms have persisted since then. Due to concern of peripheral neuropathy with p.o. levofloxacin, we discussed the other ID recommendation of doing a PICC line and using IV Rocephin daily instead. He is more amenable to pursuing the PICC line rather than risking neuropathy with levofloxacin. Discussed with Dr. James who has recommended to continue blood transfusion for now and to continue to monitor for recurrence of bleeding. Final intraoperative culture grew Group B Strep. Ortho is agreeable to a 6 week course of IV Rocephin as well. Will order for PICC line placement. 03/22: Patient had another episode of bloody discharge from the surgical site upon encounter this morning. This appears to be less bloody compared to yesterday's episode. He remains to be off any form of anticoagulation. Await further reevaluation and recommendation from ortho. (2) A-fib Qualifiers: Atrial fibrillation type: unspecified Qualified Code(s): I48.91 - Unspecified atrial fibrillation Is this a current diagnosis for this admission?: Yes Plan: 03/16: Rate-controlled. On heparin drip and digoxin. 03/18: DC lopressor due to low normal blood pressures. Discussed in length with patient about resuming Xarelto. He says he wants to be resumed on Xarelto but prefers to be just on 10 mg dosing rather than 20 mg. He verbalized understanding of the risks and benefits. 03/19: Off heparin drip. Xarelto held and was not given yesterday. We will c ontinue to hold off on anticoagulation for now due to bleeding requiring transfusion. 03/22: He has been off any anticoagulation or antiplatelet due to bleeding issues mentioned above. (3) Acute blood loss anemia Is this a current diagnosis for this admission?: Yes Plan: 03/20: 1 unit of packed RBC ordered. 03/21: Patient had another episode of bleeding on the surgical site. Hemoglobin dropped down again to 6.9 from 8.9. 2 units of packed RBC ordered. - Time Time Spent with patient: 25-34 minutes
[2019-03-22] MEDS: TRAZODONE HCL 50 MG TABLET PO SCH (21:18)
[2019-03-22] MEDS: DIGOXIN 0.25 MG TABLET PO SCH (21:19)
[2019-03-22] MEDS: NORMAL SALINE 10 ML SDV (SCHEDULED) IV SCH (21:20)
[2019-03-23] MEDS: KETOROLAC TROMETHAMINE INJ/PF 30 MG/1 ML SDV IV PRN ×3 (02:59→19:12)
[2019-03-23] MEDS: NORMAL SALINE 10 ML SDV (AFTER EACH USE) IV PRN (03:00)
[2019-03-23] MEDS: OXYCODONE HCL IR 5 MG TABLET PO PRN ×2 (04:34→14:54)
--- NOTE | 2019-03-23 07:08 | PDOC PROGRESS REPORT ---
Subjective Progress Note for:: 03/23/19 Reason For Visit: AFIB RVR 54-year-old black male status post left hip revision arthroplasty with intraoperative cultures positive for group B strep. Patient continues to ambulate with minimal discomfort. Persistent serosanguineous drainage from the wound. Physical Exam Vital Signs: Temp Pulse Resp BP Pulse Ox 36.9 C 75 12 91/52 L 97 03/23/19 04:28 03/23/19 07:00 03/23/19 04:28 03/23/19 04:28 03/23/19 04:28 Intake & Output 03/22/19 03/23/19 03/24/19 06:59 06:59 06:59 Intake Total 1780 1110 Output Total 4225 2700 Balance -2445 -1590 Weight 106.6 kg General appearance: PRESENT: no acute distress Head exam: PRESENT: normocephalic Respiratory exam: PRESENT: unlabored Cardiovascular exam: PRESENT: RRR Pulses: PRESENT: +1 pedal pulses bilateral Vascular exam: PRESENT: normal capillary refill Rectal exam: PRESENT: deferred Extremities exam: PRESENT: other - Left hip dressing in place. Small amount of serosanguineous drainage present currently. Neurological exam: PRESENT: alert, awake, oriented to person, oriented to place, oriented to time, oriented to situation. ABSENT: motor sensory deficit Skin exam: PRESENT: dry, intact, warm. ABSENT: cyanosis, rash Results Laboratory Results: 03/22/19 10:18 03/21/19 05:07 03/22/19 03/22/19 09:40 10:18 WBC 8.0 RBC 4.11 L Hgb 10.2 L D Hct 31.4 L MCV 76 L MCH 24.7 L MCHC 32.3 RDW 21.1 H Plt Count 484 H Urine Color STRAW Urine Appearance CLEAR Urine pH 6.0 Ur Specific [place] 1.006 Urine Protein NEGATIVE Urine Glucose (UA) NEGATIVE Urine Ketones NEGATIVE Urine Blood NEGATIVE Urine Nitrite NEGATIVE Ur Leukocyte Esterase NEGATIVE Urine RBC (Auto) 1 03/12/19 03/15/19 03/15/19 15:38 15:05 15:05 Creatine Kinase 21 L CK-MB (CK-2) 0.25 Troponin I < 0.012 < 0.012 03/16/19 08:05 Creatine Kinase CK-MB (CK-2) Troponin I < 0.012 Impressions: Chest X-Ray 03/12/19 15:59 IMPRESSION: NO ACUTE RADIOGRAPHIC FINDING IN THE CHEST. Hip X-Ray 03/12/19 15:59 IMPRESSION: Status post left total hip arthroplasty with revision to include cerclage wires. Today's examination demonstrates a comminuted fracture of the proximal femur with altered position and appearance of the cerclage wires. Adjacent subcutaneous gas is not entirely unexpected in the immediate postoperative setting. Cellulitis may have a similar appearance. Guidance Fluoroscopy 03/22/19 00:00 IMPRESSION: SUCCESSFUL PLACEMENT OF A 5 FR DUAL LUMEN 40 CM PICC VIA THE LEFT BASILIC VEIN. Interventional Vascular Procedure 03/22/19 00:00 IMPRESSION: SUCCESSFUL PLACEMENT OF A 5 FR DUAL LUMEN 40 CM PICC VIA THE LEFT BASILIC VEIN. PICC Line Insertion 03/22/19 00:00 IMPRESSION: SUCCESSFUL PLACEMENT OF A 5 FR DUAL LUMEN 40 CM PICC VIA THE LEFT BASILIC VEIN. Status: Imported from PACS Assessment & Plan - Diagnosis (1) History of hip replacement Qualifiers: Laterality: left Qualified Code(s): Z96.642 - Presence of left artificial hip joint Is this a current diagnosis for this admission?: Yes Plan: Patient will continue to ambulate with physical therapy and weightbearing as tolerated basis. Plan for dressing changes by nursing every shift with some attempt to quantitate the drainage. (2) Acute blood loss anemia Is this a current diagnosis for this admission?: Yes - Time Time Spent with patient: 15-24 minutes Anticipated discharge: Home with Homehealth Within: Other
[2019-03-23 08:49] LABS: HEMATOCRIT 31.8 % (37.9-51.0); HEMOGLOBIN 10.1 g/dL (13.5-17.0); MEAN CORPUSCULAR HEMOGLOBIN 24.5 pg (27.0-33.4); MEAN CORPUSCULAR HGB CONC 31.9 g/dL (32.0-36.0); MEAN CORPUSCULAR VOLUME 77 fl (80-97); PLATELET COUNT 512 10^3/uL (150-450); RED BLOOD COUNT 4.13 10^6/uL (4.35-5.55); RED CELL DISTRIBUTION WIDTH 21.9 % (11.5-14.0)
[2019-03-23 08:52] LABS: INTERNATIONAL RATION (INR) 1.16; PROTHROMBIN TIME 14.9 SEC (11.4-15.4)
[2019-03-23 08:53] LABS: PARTIAL THROMBOPLASTIN TIME 42.4 SEC (23.5-35.8)
[2019-03-23] MEDS: METOPROLOL TARTRATE 25 MG TABLET PO SCH ×2 (09:01→21:52)
[2019-03-23] MEDS: OXYCODONE HCL SR 10 MG TABLET PO SCH ×2 (09:07→21:49)
[2019-03-23] MEDS: DOCUSATE SODIUM 100 MG CAPSULE PO SCH (09:07)
[2019-03-23] MEDS: PREGABALIN 75 MG CAPSULE PO SCH ×2 (09:07→21:50)
[2019-03-23] MEDS: MIDODRINE HCL 5 MG TABLET PO SCH ×3 (09:08→17:11)
[2019-03-23] MEDS: NICOTINE 14 MG/24 HR PATCH.TD24 TD SCH (09:08)
[2019-03-23] MEDS: NORMAL SALINE 10 ML SDV (SCHEDULED) IV SCH ×2 (09:09→21:52)
[2019-03-23 09:12] LABS: ANION GAP 7 (5-19); BLOOD UREA NITROGEN 11 mg/dL (7-20); CALCIUM 8.4 mg/dL (8.4-10.2); CARBON DIOXIDE 31 mmol/L (22-30); CHLORIDE 103 mmol/L (98-107); GLUCOSE 85 mg/dL (75-110); POTASSIUM 5.1 mmol/L (3.6-5.0)
[2019-03-23] MEDS: CEFTRIAXONE 2 GM/D5W RTU 2 GM/50 ML RTUPB IV SCH (09:12)
[2019-03-23 09:35] LABS: ABSOLUTE LYMPHOCYTES# (MANUAL) 1.6 10^3/uL (0.5-4.7); ABSOLUTE MONOCYTES # (MANUAL) 1.2 10^3/uL (0.1-1.4); BASOPHILS % (MANUAL) 1 % (0-2); EOSINOPHILS % (MANUAL) 2 % (0-6); LYMPHOCYTES % (MANUAL) 27 % (13-45); MONOCYTES % (MANUAL) 20 % (3-13); SEGMENTED NEUTROPHILS % (MAN) 50 % (42-78); TOTAL CELLS COUNTED 100
[2019-03-23 09:36] LABS: ANISOCYTOSIS 3+; HYPOCHROMASIA 1+; OVALOCYTES 1+; PLATELET COMMENT INCREASED; POIKILOCYTOSIS 1+
--- NOTE | 2019-03-23 10:46 | PDOC PROGRESS REPORT ---
Subjective Progress Note for:: 03/23/19 Reason For Visit: AFIB RVR 03/23/2019 54-year-old male who is been in hospital recently for multiple visits for MRSA involving the left hip. Admitted approximately 11 days ago now for continued left hip problems i.e. bleeding as well as atrial fib. Patient has not been on his Xarelto due to multiple hip surgeries for his beta-blockers or calcium channel blockers due to hypotension Physical Exam Vital Signs: Temp Pulse Resp BP Pulse Ox 98.3 F 73 18 102/54 L 96 03/23/19 08:41 03/23/19 08:41 03/23/19 08:41 03/23/19 08:41 03/23/19 08:41 Intake & Output 03/22/19 03/23/19 03/24/19 06:59 06:59 06:59 Intake Total 1780 3110 50 Output Total 4225 4125 Balance -2445 -1015 50 Weight 106.6 kg 106.3 kg General appearance: PRESENT: no acute distress, other - Patient has no complaints this morning , other than he does not want to go home until his bleeding from his left hip wound stops completely Respiratory exam: PRESENT: clear to auscultation alessia. ABSENT: rales, rhonchi, wheezes Cardiovascular exam: PRESENT: RRR. ABSENT: diastolic murmur, rubs, systolic murmur Neurological exam: PRESENT: alert, awake, oriented to person, oriented to place, oriented to time, oriented to situation, CN II-XII grossly intact. ABSENT: motor sensory deficit Psychiatric exam: PRESENT: appropriate affect, normal mood. ABSENT: homicidal ideation, suicidal ideation Results Laboratory Results: 03/23/19 08:26 03/23/19 08:26 03/22/19 03/22/19 03/23/19 09:40 10:18 08:26 WBC 8.0 6.0 RBC 4.11 L 4.13 L Hgb 10.2 L D 10.1 L Hct 31.4 L 31.8 L MCV 76 L 77 L MCH 24.7 L 24.5 L MCHC 32.3 31.9 L RDW 21.1 H 21.9 H Plt Count 484 H 512 H Seg Neutrophils % Not Reportable Sodium Potassium Chloride Carbon Dioxide Anion Gap BUN Creatinine Est GFR ( Amer) Glucose Calcium Urine Color STRAW Urine Appearance CLEAR Urine pH 6.0 Ur Specific [place] 1.006 Urine Protein NEGATIVE Urine Glucose (UA) NEGATIVE Urine Ketones NEGATIVE Urine Blood NEGATIVE Urine Nitrite NEGATIVE Ur Leukocyte Esterase NEGATIVE Urine RBC (Auto) 1 03/23/19 08:26 WBC RBC Hgb Hct MCV MCH MCHC RDW Plt Count Seg Neutrophils % Sodium 140.5 Potassium 5.1 H Chloride 103 Carbon Dioxide 31 H Anion Gap 7 BUN 11 Creatinine 0.89 Est GFR ( Amer) > 60 Glucose 85 Calcium 8.4 Urine Color Urine Appearance Urine pH Ur Specific [place] Urine Protein Urine Glucose (UA) Urine Ketones Urine Blood Urine Nitrite Ur Leukocyte Esterase Urine RBC (Auto) 03/12/19 03/15/19 03/15/19 15:38 15:05 15:05 Creatine Kinase 21 L CK-MB (CK-2) 0.25 Troponin I < 0.012 < 0.012 03/16/19 08:05 Creatine Kinase CK-MB (CK-2) Troponin I < 0.012 Impressions: Chest X-Ray 03/12/19 15:59 IMPRESSION: NO ACUTE RADIOGRAPHIC FINDING IN THE CHEST. Hip X-Ray 03/12/19 15:59 IMPRESSION: Status post left total hip arthroplasty with revision to include cerclage wires. Today's examination demonstrates a comminuted fracture of the proximal femur with altered position and appearance of the cerclage wires. Adjacent subcutaneous gas is not entirely unexpected in the immediate postoperative setting. Cellulitis may have a similar appearance. Guidance Fluoroscopy 03/22/19 00:00 IMPRESSION: SUCCESSFUL PLACEMENT OF A 5 FR DUAL LUMEN 40 CM PICC VIA THE LEFT BASILIC VEIN. Interventional Vascular Procedure 03/22/19 00:00 IMPRESSION: SUCCESSFUL PLACEMENT OF A 5 FR DUAL LUMEN 40 CM PICC VIA THE LEFT BASILIC VEIN. PICC Line Insertion 03/22/19 00:00 IMPRESSION: SUCCESSFUL PLACEMENT OF A 5 FR DUAL LUMEN 40 CM PICC VIA THE LEFT BASILIC VEIN. Assessment and Plan - Diagnosis (1) Acute blood loss anemia Is this a current diagnosis for this admission?: Yes (2) History of hip replacement Qualifiers: Laterality: left Qualified Code(s): Z96.642 - Presence of left artificial hip joint Is this a current diagnosis for this admission?: Yes (3) Surgical wound infection Is this a current diagnosis for this admission?: Yes - Plan Summary Summary: 03/23/2019 Patient's vital signs are stable he is afebrile, in fact has had no fever since second day of admission. Blood pressure appears to be stable around 102/54. O2 sat 96% on room air For the last 2 days now his hemoglobin is been stable at 10.1 white count is normal at 6000 Coags are basically normal. Potassium is up slightly today at 5.1, give 1 dose of Kayexalate. Renal functions appear normal Wound culture is growing out group B beta strep, which appears to be sensitive to most drugs with the exception of clindamycin Patient had PICC line inserted yesterday. Will continue to follow orthopedics recommendations - Time Time Spent with patient: 25-34 minutes
[2019-03-23] MEDS ORDERED: SODIUM POLYSTYRENE SULFONATE 15 GM/60 ML PO ONE (16:15)
[2019-03-23] MEDS: TRAZODONE HCL 50 MG TABLET PO SCH (21:50)
[2019-03-23] MEDS: DIGOXIN 0.25 MG TABLET PO SCH (21:51)
[2019-03-23] MEDS: ZOLPIDEM TARTRATE 5 MG TABLET PO PRN (21:59)
[2019-03-24] MEDS: KETOROLAC TROMETHAMINE INJ/PF 30 MG/1 ML SDV IV PRN ×3 (03:58→18:07)
[2019-03-24] MEDS: NORMAL SALINE 10 ML SDV (AFTER EACH USE) IV PRN (03:59)
[2019-03-24] MEDS: MIDODRINE HCL 5 MG TABLET PO SCH ×3 (09:05→18:07)
[2019-03-24] MEDS: PREGABALIN 75 MG CAPSULE PO SCH ×2 (09:05→21:09)
[2019-03-24] MEDS: OXYCODONE HCL SR 10 MG TABLET PO SCH (09:05)
[2019-03-24] MEDS: METOPROLOL TARTRATE 25 MG TABLET PO SCH ×2 (09:06→21:10)
[2019-03-24] MEDS: DOCUSATE SODIUM 100 MG CAPSULE PO SCH (09:07)
[2019-03-24] MEDS: NICOTINE 14 MG/24 HR PATCH.TD24 TD SCH (09:07)
[2019-03-24] MEDS: NORMAL SALINE 10 ML SDV (SCHEDULED) IV SCH ×2 (09:07→21:10)
[2019-03-24] MEDS: CEFTRIAXONE 2 GM/D5W RTU 2 GM/50 ML RTUPB IV SCH (09:08)
--- NOTE | 2019-03-24 13:01 | PDOC PROGRESS REPORT ---
Subjective Progress Note for:: 03/24/19 Reason For Visit: AFIB RVR 03/24/2019 Patient is been in the hospital now for 12 days and was originally admitted for left hip pain as well as drainage and discharge from the left hip post surgical site. Patient was just recently in the hospital debridement and washout of his left surgical hip site Physical Exam Vital Signs: Temp Pulse Resp BP Pulse Ox 98.4 F 122 H 18 134/76 H 96 03/24/19 07:30 03/24/19 07:30 03/24/19 07:30 03/24/19 07:30 03/24/19 07:30 Intake & Output 03/23/19 03/24/19 03/25/19 06:59 06:59 06:59 Intake Total 3110 3050 Output Total 4125 2675 Balance -1015 375 Weight 106.3 kg 105.5 kg General appearance: PRESENT: no acute distress, other - She is sitting up in bed does not appear to be in any pain Respiratory exam: PRESENT: clear to auscultation alessia. ABSENT: rales, rhonchi, wheezes Cardiovascular exam: PRESENT: RRR. ABSENT: diastolic murmur, rubs, systolic murmur Neurological exam: PRESENT: alert, awake, oriented to person, oriented to place, oriented to time, oriented to situation, CN II-XII grossly intact. ABSENT: motor sensory deficit Psychiatric exam: PRESENT: appropriate affect, normal mood. ABSENT: homicidal ideation, suicidal ideation Results Laboratory Results: 03/23/19 08:26 03/23/19 08:26 03/12/19 03/15/19 03/15/19 15:38 15:05 15:05 Creatine Kinase 21 L CK-MB (CK-2) 0.25 Troponin I < 0.012 < 0.012 03/16/19 08:05 Creatine Kinase CK-MB (CK-2) Troponin I < 0.012 Impressions: Chest X-Ray 03/12/19 15:59 IMPRESSION: NO ACUTE RADIOGRAPHIC FINDING IN THE CHEST. Hip X-Ray 03/12/19 15:59 IMPRESSION: Status post left total hip arthroplasty with revision to include cerclage wires. Today's examination demonstrates a comminuted fracture of the proximal femur with altered position and appearance of the cerclage wires. Adjacent subcutaneous gas is not entirely unexpected in the immediate postoperative setting. Cellulitis may have a similar appearance. Guidance Fluoroscopy 03/22/19 00:00 IMPRESSION: SUCCESSFUL PLACEMENT OF A 5 FR DUAL LUMEN 40 CM PICC VIA THE LEFT BASILIC VEIN. Interventional Vascular Procedure 03/22/19 00:00 IMPRESSION: SUCCESSFUL PLACEMENT OF A 5 FR DUAL LUMEN 40 CM PICC VIA THE LEFT BASILIC VEIN. PICC Line Insertion 03/22/19 00:00 IMPRESSION: SUCCESSFUL PLACEMENT OF A 5 FR DUAL LUMEN 40 CM PICC VIA THE LEFT BASILIC VEIN. Assessment and Plan - Diagnosis (1) Acute blood loss anemia Is this a current diagnosis for this admission?: Yes (2) History of hip replacement Qualifiers: Laterality: left Qualified Code(s): Z96.642 - Presence of left artificial hip joint Is this a current diagnosis for this admission?: Yes (3) Surgical wound infection Is this a current diagnosis for this admission?: Yes - Plan Summary Summary: 03/23/2019 Patient's vital signs are stable he is afebrile, in fact has had no fever since second day of admission. Blood pressure appears to be stable around 102/54. O2 sat 96% on room air For the last 2 days now his hemoglobin is been stable at 10.1 white count is normal at 6000 Coags are basically normal. Potassium is up slightly today at 5.1, give 1 dose of Kayexalate. Renal functions appear normal Wound culture is growing out group B beta strep, which appears to be sensitive to most drugs with the exception of clindamycin Patient had PICC line inserted yesterday. Will continue to follow orthopedics recommendations 03/24/2019 According to infectious disease she could be switched to p.o. Levaquin 150 mg for 6 weeks, patient could continue IV antibiotics such as Rocephin 2 g IV daily for 6 weeks. Patient's white count remains normal at 6000, H&H is stable History is grossly normal patient did receive 1 dose of Kayexalate yesterday slightly high potassium Patient is continuing with daily dressing changes - Time Time Spent with patient: 15-24 minutes
[2019-03-24] MEDS: OXYCODONE HCL IR 5 MG TABLET PO PRN (13:27)
[2019-03-24] MEDS: TRAZODONE HCL 50 MG TABLET PO SCH (21:09)
[2019-03-24] MEDS: DIGOXIN 0.25 MG TABLET PO SCH (21:09)
[2019-03-25] MEDS: ZOLPIDEM TARTRATE 5 MG TABLET PO PRN ×2 (01:31→22:10)
[2019-03-25] MEDS: OXYCODONE HCL IR 5 MG TABLET PO PRN ×3 (05:46→21:21)
--- NOTE | 2019-03-25 06:42 | PDOC PROGRESS REPORT ---
Subjective Progress Note for:: 03/25/19 Reason For Visit: AFIB RVR 54-year-old black male status post left hip revision arthroplasty washout for post operative surgical site infection growing group B strep. Patient compl aining of an arthritis flare and pain. Physical Exam Vital Signs: Temp Pulse Resp BP Pulse Ox 36.9 C 77 16 120/70 98 03/25/19 01:33 03/25/19 02:00 03/25/19 01:33 03/25/19 01:33 03/25/19 01:33 Intake & Output 03/23/19 03/24/19 03/25/19 06:59 06:59 06:59 Intake Total 3110 3050 2550 Output Total 4125 2675 2350 Balance -1015 375 200 Weight 106.3 kg 105.5 kg General appearance: PRESENT: no acute distress, mild distress Respiratory exam: PRESENT: unlabored Cardiovascular exam: PRESENT: RRR Pulses: PRESENT: +1 pedal pulses bilateral Vascular exam: PRESENT: normal capillary refill GI/Abdominal exam: PRESENT: soft Rectal exam: PRESENT: deferred Extremities exam: PRESENT: other - Left hip dressing change by nursing last night at approximately 9 PM. Considerable drainage this morning when I changed it. Drainage continues to be largely serosanguineous. Neurological exam: PRESENT: alert, awake, oriented to person, oriented to place, oriented to time, oriented to situation. ABSENT: motor sensory deficit Psychiatric exam: PRESENT: appropriate affect, normal mood. ABSENT: homicidal ideation, suicidal ideation Skin exam: PRESENT: dry, intact, warm. ABSENT: cyanosis, rash Results Laboratory Results: 03/23/19 08:26 03/23/19 08:26 03/12/19 03/15/19 03/15/19 15:38 15:05 15:05 Creatine Kinase 21 L CK-MB (CK-2) 0.25 Troponin I < 0.012 < 0.012 03/16/19 08:05 Creatine Kinase CK-MB (CK-2) Troponin I < 0.012 Impressions: Chest X-Ray 03/12/19 15:59 IMPRESSION: NO ACUTE RADIOGRAPHIC FINDING IN THE CHEST. Hip X-Ray 03/12/19 15:59 IMPRESSION: Status post left total hip arthroplasty with revision to include cerclage wires. Today's examination demonstrates a comminuted fracture of the proximal femur with altered position and appearance of the cerclage wires. Adjacent subcutaneous gas is not entirely unexpected in the immediate postoperative setting. Cellulitis may have a similar appearance. Guidance Fluoroscopy 03/22/19 00:00 IMPRESSION: SUCCESSFUL PLACEMENT OF A 5 FR DUAL LUMEN 40 CM PICC VIA THE LEFT BASILIC VEIN. Interventional Vascular Procedure 03/22/19 00:00 IMPRESSION: SUCCESSFUL PLACEMENT OF A 5 FR DUAL LUMEN 40 CM PICC VIA THE LEFT BASILIC VEIN. PICC Line Insertion 03/22/19 00:00 IMPRESSION: SUCCESSFUL PLACEMENT OF A 5 FR DUAL LUMEN 40 CM PICC VIA THE LEFT B ASILIC VEIN. Status: Imported from PACS Assessment & Plan - Diagnosis (1) History of hip replacement Qualifiers: Laterality: left Qualified Code(s): Z96.642 - Presence of left artificial hip joint Is this a current diagnosis for this admission?: Yes Plan: Ongoing drainage is concerning. However I do believe that the patient's been treated appropriately surgically and that we have the appropriate antibiotics on board. My thought is that we continue with a course of observation, antibiotic administration, and dressing changes every shift. (2) Acute blood loss anemia Is this a current diagnosis for this admission?: Yes - Time Time Spent with patient: 15-24 minutes Anticipated discharge: Home with Homehealth Within: Other
[2019-03-25] MEDS: KETOROLAC TROMETHAMINE INJ/PF 30 MG/1 ML SDV IV PRN ×2 (07:46→19:40)
[2019-03-25] MEDS: METOPROLOL TARTRATE 25 MG TABLET PO SCH ×2 (10:11→21:23)
[2019-03-25] MEDS: DOCUSATE SODIUM 100 MG CAPSULE PO SCH (10:16)
[2019-03-25] MEDS: NICOTINE 14 MG/24 HR PATCH.TD24 TD SCH (10:22)
[2019-03-25] MEDS: CEFTRIAXONE 2 GM/D5W RTU 2 GM/50 ML RTUPB IV SCH (10:22)
[2019-03-25] MEDS: MIDODRINE HCL 5 MG TABLET PO SCH ×3 (10:22→19:19)
[2019-03-25] MEDS: NORMAL SALINE 10 ML SDV (SCHEDULED) IV SCH ×2 (10:23→21:23)
[2019-03-25] MEDS: PREGABALIN 75 MG CAPSULE PO SCH ×2 (10:23→22:05)
[2019-03-25] MEDS: OXYCODONE HCL SR 10 MG TABLET PO SCH ×2 (11:27→22:05)
--- NOTE | 2019-03-25 12:09 | PDOC PROGRESS REPORT ---
Subjective Progress Note for:: 03/25/19 Reason For Visit: AFIB RVR 03/25/2019 Patient admitted for left hip pain, drainage from the left hip opioid dependency, atrial fib with RVR Physical Exam Vital Signs: Temp Pulse Resp BP Pulse Ox 99.6 F 94 17 102/59 L 94 03/25/19 07:33 03/25/19 07:33 03/25/19 07:33 03/25/19 07:33 03/25/19 07:33 Intake & Output 03/24/19 03/25/19 03/26/19 06:59 06:59 06:59 Intake Total 3050 2800 Output Total 2675 3050 Balance 375 -250 Weight 105.5 kg 103.8 kg General appearance: PRESENT: mild distress, other - Will renew patient's pain medications today Respiratory exam: PRESENT: clear to auscultation alessia. ABSENT: rales, rhonchi, wheezes Cardiovascular exam: PRESENT: RRR. ABSENT: diastolic murmur, rubs, systolic murmur Extremities exam: PRESENT: other - Wound being dressed daily by nursing as well as general surgery Neurological exam: PRESENT: alert, awake, oriented to person, oriented to place, oriented to time, oriented to situation, CN II-XII grossly intact. ABSENT: motor sensory deficit Psychiatric exam: PRESENT: appropriate affect, normal mood. ABSENT: homicidal ideation, suicidal ideation Results Laboratory Results: 03/23/19 08:26 03/23/19 08:26 03/12/19 03/15/19 03/15/19 15:38 15:05 15:05 Creatine Kinase 21 L CK-MB (CK-2) 0.25 Troponin I < 0.012 < 0.012 03/16/19 08:05 Creatine Kinase CK-MB (CK-2) Troponin I < 0.012 Impressions: Chest X-Ray 03/12/19 15:59 IMPRESSION: NO ACUTE RADIOGRAPHIC FINDING IN THE CHEST. Hip X-Ray 03/12/19 15:59 IMPRESSION: Status post left total hip arthroplasty with revision to include cerclage wires. Today's examination demonstrates a comminuted fracture of the proximal femur with altered position and appearance of the cerclage wires. Adjacent subcutaneous gas is not entirely unexpected in the immediate postoperative setting. Cellulitis may have a similar appearance. Guidance Fluoroscopy 03/22/19 00:00 IMPRESSION: SUCCESSFUL PLACEMENT OF A 5 FR DUAL LUMEN 40 CM PICC VIA THE LEFT BASILIC VEIN. Interventional Vascular Procedure 03/22/19 00:00 IMPRESSION: SUCCESSFUL PLACEMENT OF A 5 FR DUAL LUMEN 40 CM PICC VIA THE LEFT BASILIC VEIN. PICC Line Insertion 03/22/19 00:00 IMPRESSION: SUCCESSFUL PLACEMENT OF A 5 FR DUAL LUMEN 40 CM PICC VIA THE LEFT BASILIC VEIN. Assessment and Plan - Diagnosis (1) Acute blood loss anemia Is this a current diagnosis for this admission?: Yes (2) History of hip replacement Qualifiers: Laterality: left Qualified Code(s): Z96.642 - Presence of left artificial hip joint Is this a current diagnosis for this admission?: Yes (3) Surgical wound infection Is this a current diagnosis for this admission?: Yes (4) A-fib Qualifiers: Atrial fibrillation type: unspecified Qualified Code(s): I48.91 - Unspecifi ed atrial fibrillation Is this a current diagnosis for this admission?: Yes - Plan Summary Summary: 03/23/2019 Patient's vital signs are stable he is afebrile, in fact has had no fever since second day of admission. Blood pressure appears to be stable around 102/54. O2 sat 96% on room air For the last 2 days now his hemoglobin is been stable at 10.1 white count is normal at 6000 Coags are basically normal. Potassium is up slightly today at 5.1, give 1 dose of Kayexalate. Renal functions appear normal Wound culture is growing out group B beta strep, which appears to be sensitive to most drugs with the exception of clindamycin Patient had PICC line inserted yesterday. Will continue to follow orthopedics recommendations 03/24/2019 According to infectious disease he could be switched to p.o. Levaquin 150 mg for 6 weeks, patient could continue IV antibiotics such as Rocephin 2 g IV daily for 6 weeks. Patient's white count remains normal at 6000, H&H is stable electrolytes are grossly normal patient did receive 1 dose of Kayexalate yesterday slightly high potassium Patient is continuing with daily dressing changes 03/25/2019 Temperature is up slightly to 99.6 , but rate is stable around 80, pressures well controlled 102/59 Will recheck labs today. Plan on doing this about every second or third day, however not daily She has been on antibiotics since admission date of 03/12/2019, 13 days now Continue daily wound care per the direction of orthopedic surgery - Time Time Spent with patient: 15-24 minutes
[2019-03-25 13:43] LABS: ALBUMIN 2.3 g/dL (3.5-5.0); ALKALINE PHOSPHATASE 105 U/L (38-126); ANION GAP 6 (5-19); ASPARTATE AMINO TRANSFERASE 22 U/L (17-59); BILIRUBIN,DIRECT 0.2 mg/dL (0.0-0.4); BILIRUBIN,TOTAL 0.2 mg/dL (0.2-1.3); BLOOD UREA NITROGEN 10 mg/dL (7-20); C-REACTIVE PROTEIN 69.4 mg/L (<10.0); CALCIUM 8.1 mg/dL (8.4-10.2); CARBON DIOXIDE 30 mmol/L (22-30); CHLORIDE 103 mmol/L (98-107); GLUCOSE 100 mg/dL (75-110); POTASSIUM 4.8 mmol/L (3.6-5.0); TOTAL PROTEIN 5.9 g/dL (6.3-8.2)
[2019-03-25] MEDS: TRAZODONE HCL 50 MG TABLET PO SCH (22:04)
[2019-03-25] MEDS: DIGOXIN 0.25 MG TABLET PO SCH (22:10)
[2019-03-26] MEDS: OXYCODONE HCL IR 5 MG TABLET PO PRN ×3 (03:51→18:29)
--- NOTE | 2019-03-26 06:34 | PDOC PROGRESS REPORT ---
Subjective Progress Note for:: 03/26/19 Reason For Visit: AFIB RVR 54-year-old black male with a left hip group B strep periprosthetic infection on Rocephin with dressing changes Physical Exam Vital Signs: Temp Pulse Resp BP Pulse Ox 36.5 C 70 20 109/52 L 95 03/26/19 03:52 03/26/19 03:52 03/26/19 03:52 03/26/19 03:52 03/26/19 03:52 Intake & Output 03/24/19 03/25/19 03/26/19 06:59 06:59 06:59 Intake Total 3050 2800 910 Output Total 2675 3050 3700 Balance 375 250 -2790 Weight 105.5 kg 103.8 kg 106 kg General appearance: PRESENT: no acute distress Respiratory exam: PRESENT: unlabored Cardiovascular exam: PRESENT: RRR Pulses: PRESENT: +1 pedal pulses bilateral Extremities exam: PRESENT: other - Dressing change this morning. Wound is well approximated with sutures. Continued serosanguineous drainage. Results Laboratory Results: 03/23/19 08:26 03/25/19 13:05 03/25/19 13:05 Sodium 138.7 Potassium 4.8 Chloride 103 Carbon Dioxide 30 Anion Gap 6 BUN 10 Creatinine 0.89 Est GFR ( Amer) > 60 Glucose 100 Calcium 8.1 L Total Bilirubin 0.2 AST 22 Alkaline Phosphatase 105 C-Reactive Protein 69.4 H Total Protein 5.9 L Albumin 2.3 L 03/12/19 03/15/19 03/15/19 15:38 15:05 15:05 Creatine Kinase 21 L CK-MB (CK-2) 0.25 Troponin I < 0.012 < 0.012 03/16/19 08:05 Creatine Kinase CK-MB (CK-2) Troponin I < 0.012 Impressions: Chest X-Ray 03/12/19 15:59 IMPRESSION: NO ACUTE RADIOGRAPHIC FINDING IN THE CHEST. Hip X-Ray 03/12/19 15:59 IMPRESSION: Status post left total hip arthroplasty with revision to include cerclage wires. Today's examination demonstrates a comminuted fracture of the proximal femur with altered position and appearance of the cerclage wires. Adjacent subcutaneous gas is not entirely unexpected in the immediate postoperative setting. Cellulitis may have a similar appearance. Guidance Fluoroscopy 03/22/19 00:00 IMPRESSION: SUCCESSFUL PLACEMENT OF A 5 FR DUAL LUMEN 40 CM PICC VIA THE LEFT BASILIC VEIN. Interventional Vascular Procedure 03/22/19 00:00 IMPRESSION: SUCCESSFUL PLACEMENT OF A 5 FR DUAL LUMEN 40 CM PICC VIA THE LEFT BASILIC VEIN. PICC Line Insertion 03/22/19 00:00 IMPRESSION: SUCCESSFUL PLACEMENT OF A 5 FR DUAL LUMEN 40 CM PICC VIA THE LEFT BASILIC VEIN. Status: Imported from PACS Assessment & Plan - Diagnosis (1) History of hip replacement Qualifiers: Laterality: left Qualified Code(s): Z96.642 - Presence of left artificial hip joint Is this a current diagnosis for this admission?: Yes Plan: It is difficult for me to discern whether the level of drainage is decreasing. Laboratory values demonstrate a steady ESR in the mid 60s but a C-reactive protein that has decreased from 160 to 60. In light of this I am encouraged. Continued dressing changes per shift. Anticipate the need for 6 weeks of IV Rocephin therapy 2 g IV every 24 hours. Spoke with utilization review who will initiate the approval process with the [facility] for this. (2) Acute blood loss anemia Is this a current diagnosis for this admission?: Yes - Time Time Spent with patient: 15-24 minutes Anticipated discharge: Home with Homehealth Within: Other
[2019-03-26 07:00] LABS: HEMATOCRIT 34.2 % (37.9-51.0); MEAN CORPUSCULAR HEMOGLOBIN 24.7 pg (27.0-33.4); MEAN CORPUSCULAR HGB CONC 32.3 g/dL (32.0-36.0); MEAN CORPUSCULAR VOLUME 76 fl (80-97); PLATELET COUNT 451 10^3/uL (150-450); RED BLOOD COUNT 4.47 10^6/uL (4.35-5.55); WHITE BLOOD COUNT 6.5 10^3/uL (4.0-10.5)
[2019-03-26 07:48] LABS: ERYTHROCYTE SEDIMENTATION RATE 79 mm/hr (0-20)
[2019-03-26 08:01] LABS: ANION GAP 5 (5-19); BLOOD UREA NITROGEN 12 mg/dL (7-20); C-REACTIVE PROTEIN 76.4 mg/L (<10.0); CALCIUM 8.6 mg/dL (8.4-10.2); CARBON DIOXIDE 31 mmol/L (22-30); CHLORIDE 101 mmol/L (98-107); GLUCOSE 77 mg/dL (75-110); POTASSIUM 4.6 mmol/L (3.6-5.0)
[2019-03-26] MEDS: OXYCODONE HCL SR 10 MG TABLET PO SCH ×2 (10:18→21:50)
[2019-03-26] MEDS: PREGABALIN 75 MG CAPSULE PO SCH ×2 (10:18→21:49)
[2019-03-26] MEDS: MIDODRINE HCL 5 MG TABLET PO SCH ×3 (10:18→18:28)
[2019-03-26] MEDS: CEFTRIAXONE 2 GM/D5W RTU 2 GM/50 ML RTUPB IV SCH (10:19)
[2019-03-26] MEDS: METOPROLOL TARTRATE 25 MG TABLET PO SCH ×2 (10:19→21:45)
[2019-03-26] MEDS: NORMAL SALINE 10 ML SDV (SCHEDULED) IV SCH ×2 (10:19→21:50)
[2019-03-26] MEDS: DOCUSATE SODIUM 100 MG CAPSULE PO SCH (10:19)
[2019-03-26] MEDS: NICOTINE 14 MG/24 HR PATCH.TD24 TD SCH (10:19)
--- NOTE | 2019-03-26 11:24 | PDOC PROGRESS REPORT ---
Subjective Progress Note for:: 03/26/19 Reason For Visit: AFIB RVR, left hip drainage, acute blood loss anemia Physical Exam Vital Signs: Temp Pulse Resp BP Pulse Ox 98.5 F 81 18 104/54 L 96 03/26/19 07:13 03/26/19 07:13 03/26/19 07:13 03/26/19 07:13 03/26/19 07:13 Intake & Output 03/25/19 03/26/19 03/27/19 06:59 06:59 06:59 Intake Total 2800 910 Output Total 3050 4600 Balance -250 -3690 Weight 103.8 kg 106 kg General appearance: PRESENT: no acute distress, other - Sitting up in chair in no apparent distress Respiratory exam: PRESENT: clear to auscultation alessia. ABSENT: rales, rhonchi, wheezes Cardiovascular exam: PRESENT: RRR, other - We will repeat twelve-lead EKG today with his history of atrial fib. ABSENT: diastolic murmur, rubs, systolic murmur Neurological exam: PRESENT: alert, awake, oriented to person, oriented to place, oriented to time, oriented to situation, CN II-XII grossly intact. ABSENT: motor sensory deficit Psychiatric exam: PRESENT: appropriate affect, normal mood, other - Patient expresses his frustration with this taking so long and the fact that he is going to have to be on IV antibiotics at discharge. I have reassured the patient that he is improving.. ABSENT: homicidal ideation, suicidal ideation Results Laboratory Results: 03/26/19 06:38 03/26/19 06:38 03/25/19 03/26/19 03/26/19 13:05 06:38 06:38 WBC 6.5 RBC 4.47 Hgb 11.0 L Hct 34.2 L MCV 76 L MCH 24.7 L MCHC 32.3 RDW 22.0 H Plt Count 451 H Sodium 138.7 137.0 Potassium 4.8 4.6 Chloride 103 101 Carbon Dioxide 30 31 H Anion Gap 6 5 BUN 10 12 Creatinine 0.89 0.93 Est GFR ( Amer) > 60 > 60 Glucose 100 77 Calcium 8.1 L 8.6 Total Bilirubin 0.2 AST 22 Alkaline Phosphatase 105 C-Reactive Protein 69.4 H 76.4 H Total Protein 5.9 L Albumin 2.3 L 03/12/19 03/15/19 03/15/19 15:38 15:05 15:05 Creatine Kinase 21 L CK-MB (CK-2) 0.25 Troponin I < 0.012 < 0.012 03/16/19 08:05 Creatine Kinase CK-MB (CK-2) Troponin I < 0.012 Impressions: Chest X-Ray 03/12/19 15:59 IMPRESSION: NO ACUTE RADIOGRAPHIC FINDING IN THE CHEST. Hip X-Ray 03/12/19 15:59 IMPRESSION: Status post left total hip arthroplasty with revision to include cerclage wires. Today's examination demonstrates a comminuted fracture of the proximal femur with altered position and appearance of the cerclage wires. Clotilde cent subcutaneous gas is not entirely unexpected in the immediate postoperative setting. Cellulitis may have a similar appearance. Guidance Fluoroscopy 03/22/19 00:00 IMPRESSION: SUCCESSFUL PLACEMENT OF A 5 FR DUAL LUMEN 40 CM PICC VIA THE LEFT BASILIC VEIN. Interventional Vascular Procedure 03/22/19 00:00 IMPRESSION: SUCCESSFUL PLACEMENT OF A 5 FR DUAL LUMEN 40 CM PICC VIA THE LEFT BASILIC VEIN. PICC Line Insertion 03/22/19 00:00 IMPRESSION: SUCCESSFUL PLACEMENT OF A 5 FR DUAL LUMEN 40 CM PICC VIA THE LEFT BASILIC VEIN. Assessment and Plan - Diagnosis (1) Acute blood loss anemia Is this a current diagnosis for this admission?: Yes (2) History of hip replacement Qualifiers: Laterality: left Qualified Code(s): Z96.642 - Presence of left artificial hip joint Is this a current diagnosis for this admission?: Yes (3) Surgical wound infection Is this a current diagnosis for this admission?: Yes (4) A-fib Qualifiers: Atrial fibrillation type: unspecified Qualified Code(s): I48.91 - Unspecified atrial fibrillation Is this a current diagnosis for this admission?: Yes - Plan Summary Summary: 03/23/2019 Patient's vital signs are stable he is afebrile, in fact has had no fever since second day of admission. Blood pressure appears to be stable around 102/54. O2 sat 96% on room air For the last 2 days now his hemoglobin is been stable at 10.1 white count is normal at 6000 Coags are basically normal. Potassium is up slightly today at 5.1, give 1 dose of Kayexalate. Renal functions appear normal Wound culture is growing out group B beta strep, which appears to be sensitive to most drugs with the exception of clindamycin Patient had PICC line inserted yesterday. Will continue to follow orthopedics recommendations 03/24/2019 According to infectious disease he could be switched to p.o. Levaquin 150 mg for 6 weeks, patient could continue IV antibiotics such as Rocephin 2 g IV daily for 6 weeks. Patient's white count remains normal at 6000, H&H is stable electrolytes are grossly normal patient did receive 1 dose of Kayexalate yesterday slightly high potassium Patient is continuing with daily dressing changes 03/25/2019 Temperature is up slightly to 99.6 , but rate is stable around 80, pressures well controlled 102/59 Will recheck labs today. Plan on doing this about every second or third day, however not daily he has been on antibiotics since admission date of 03/12/2019, 13 days now Continue daily wound care per the direction of orthopedic surgery 03/26/2019 Temperature back down to 97-98 Labs from yesterday show a very stable white count 6.5 H&H is actually going up 11.0 34.2, platelets are normal 451 INR is normal, 1.16 electrolytes are normal Will try to [facility] the [facility] I have discussed this with discharge planning, orthopedic surgery is attending to patient's wound daily Patient appears hemodynamically and medically stable - Time Time Spent with patient: 25-34 minutes
[2019-03-26] MEDS: KETOROLAC TROMETHAMINE INJ/PF 30 MG/1 ML SDV IV PRN (15:08)
--- NOTE | 2019-03-26 18:13 | EKG REPORT ---
SEVERITY:- ABNORMAL ECG - ATRIAL FIBRILLATION, V-RATE 71-102 LOW VOLTAGE IN FRONTAL LEADS BORDERLINE T ABNORMALITIES, INFERIOR LEADS : Confirmed by: Qamar Martino MD 26-Mar-2019 18:12:30
[2019-03-26] MEDS: DIGOXIN 0.25 MG TABLET PO SCH (21:49)
[2019-03-26] MEDS: TRAZODONE HCL 50 MG TABLET PO SCH (21:50)
[2019-03-26] MEDS: ZOLPIDEM TARTRATE 5 MG TABLET PO PRN (21:54)
[2019-03-27] MEDS: OXYCODONE HCL IR 5 MG TABLET PO PRN ×4 (00:37→23:35)
[2019-03-27] MEDS: KETOROLAC TROMETHAMINE INJ/PF 30 MG/1 ML SDV IV PRN (04:49)
[2019-03-27] MEDS: OXYCODONE HCL SR 10 MG TABLET PO SCH ×2 (09:50→21:28)
[2019-03-27] MEDS: PREGABALIN 75 MG CAPSULE PO SCH ×2 (09:51→21:27)
[2019-03-27] MEDS: NICOTINE 14 MG/24 HR PATCH.TD24 TD SCH (09:51)
[2019-03-27] MEDS: CEFTRIAXONE 2 GM/D5W RTU 2 GM/50 ML RTUPB IV SCH (09:52)
[2019-03-27] MEDS: MIDODRINE HCL 5 MG TABLET PO SCH ×2 (09:52→17:08)
[2019-03-27] MEDS: NORMAL SALINE 10 ML SDV (SCHEDULED) IV SCH ×2 (09:52→21:29)
[2019-03-27] MEDS: METOPROLOL TARTRATE 25 MG TABLET PO SCH ×2 (09:53→21:30)
[2019-03-27] MEDS: DOCUSATE SODIUM 100 MG CAPSULE PO SCH (09:53)
--- NOTE | 2019-03-27 11:07 | PDOC PROGRESS REPORT ---
Subjective Progress Note for:: 03/27/19 Reason For Visit: AFIB RVR Physical Exam Vital Signs: Temp Pulse Resp BP Pulse Ox 98.1 F 78 17 80/40 L 95 03/27/19 07:38 03/27/19 07:38 03/27/19 07:38 03/27/19 07:38 03/27/19 07:38 Intake & Output 03/26/19 03/27/19 03/28/19 06:59 06:59 05:59 Intake Total 910 1500 Output Total 4600 2600 Balance -3690 -1100 Weight 106 kg 106.4 kg General appearance: PRESENT: no acute distress Respiratory exam: PRESENT: clear to auscultation alessia. ABSENT: rales, rhonchi, wheezes Cardiovascular exam: PRESENT: RRR. ABSENT: diastolic murmur, rubs, systolic murmur Neurological exam: PRESENT: alert, awake, oriented to person, oriented to place, oriented to time, oriented to situation, CN II-XII grossly intact. ABSENT: motor sensory deficit Psychiatric exam: PRESENT: appropriate affect, normal mood. ABSENT: homicidal ideation, suicidal ideation Results Laboratory Results: 03/26/19 06:38 03/26/19 06:38 03/12/19 03/15/19 03/15/19 15:38 15:05 15:05 Creatine Kinase 21 L CK-MB (CK-2) 0.25 Troponin I < 0.012 < 0.012 03/16/19 08:05 Creatine Kinase CK-MB (CK-2) Troponin I < 0.012 Impressions: Chest X-Ray 03/12/19 15:59 IMPRESSION: NO ACUTE RADIOGRAPHIC FINDING IN THE CHEST. Hip X-Ray 03/12/19 15:59 IMPRESSION: Status post left total hip arthroplasty with revision to include cerclage wires. Today's examination demonstrates a comminuted fracture of the proximal femur with altered position and appearance of the cerclage wires. Adjacent subcutaneous gas is not entirely unexpected in the immediate postoperative setting. Cellulitis may have a similar appearance. Guidance Fluoroscopy 03/22/19 00:00 IMPRESSION: SUCCESSFUL PLACEMENT OF A 5 FR DUAL LUMEN 40 CM PICC VIA THE LEFT BASILIC VEIN. Interventional Vascular Procedure 03/22/19 00:00 IMPRESSION: SUCCESSFUL PLACEMENT OF A 5 FR DUAL LUMEN 40 CM PICC VIA THE LEFT BASILIC VEIN. PICC Line Insertion 03/22/19 00:00 IMPRESSION: SUCCESSFUL PLACEMENT OF A 5 FR DUAL LUMEN 40 CM PICC VIA THE LEFT BASILIC VEIN. Assessment and Plan - Diagnosis (1) Acute blood loss anemia Is this a current diagnosis for this admission?: Yes (2) History of hip replacement Qualifiers: Laterality: left Qualified Code(s): Z96.642 - Presence of left artificial hip joint Is this a current diagnosis for this admission?: Yes (3) Surgical wound infection Is this a current diagnosis for this admission?: Yes (4) A-fib Qualifiers: Atrial fibrillation type: unspecified Qualified Code(s): I48.91 - Unspecified atrial fibrillation Is this a current diagnosis for this admission?: Yes - Plan Summary Summary: 03/23/2019 Patient's vital signs are stable he is afebrile, in fact has had no fever since second day of admission. Blood pressure appears to be stable around 102/54. O2 sat 96% on room air For the last 2 days now his hemoglobin is been stable at 10.1 white count is normal at 6000 Coags are basically normal. Potassium is up slightly today at 5.1, give 1 dose of Kayexalate. Renal functions appear normal Wound culture is growing out group B beta strep, which appears to be sensitive to most drugs with the exception of clindamycin Patient had PICC line inserted yesterday. Will continue to follow orthopedics recommendations 03/24/2019 According to infectious disease he could be switched to p.o. Levaquin 150 mg for 6 weeks, patient could continue IV antibiotics such as Rocephin 2 g IV daily for 6 weeks. Patient's white count remains normal at 6000, H&H is stable electrolytes are grossly normal patient did receive 1 dose of Kayexalate yesterday slightly high potassium Patient is continuing with daily dressing changes 03/25/2019 Temperature is up slightly to 99.6 , but rate is stable around 80, pressures well controlled 102/59 Will recheck labs today. Plan on doing this about every second or third day, however not daily he has been on antibiotics since admission date of 03/12/2019, 13 days now Continue daily wound care per the direction of orthopedic surgery 03/26/2019 Temperature back down to 97-98 Labs from yesterday show a very stable white count 6.5 H&H is actually going up 11.0 34.2, platelets are normal 451 INR is normal, 1.16, electrolytes are normal Will try to secure outpatient IV [facility] 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
[2019-03-27] MEDS: TRAZODONE HCL 50 MG TABLET PO SCH (21:27)
[2019-03-27] MEDS: DIGOXIN 0.25 MG TABLET PO SCH (21:28)
[2019-03-27] MEDS: ZOLPIDEM TARTRATE 5 MG TABLET PO PRN (23:38)
[2019-03-28] MEDS: OXYCODONE HCL IR 5 MG TABLET PO PRN ×2 (04:11→17:40)
[2019-03-28] MEDS: KETOROLAC TROMETHAMINE INJ/PF 30 MG/1 ML SDV IV PRN (07:46)
[2019-03-28] MEDS: MIDODRINE HCL 5 MG TABLET PO SCH ×3 (07:46→17:40)
--- NOTE | 2019-03-28 08:34 | PDOC PROGRESS REPORT ---
Subjective Progress Note for:: 03/28/19 Reason For Visit: AFIB RVR 54-year-old black male status post I&D of the left hip with positive cultures for group B strep. Patient complaining of headache and increasing rheumatoid arthritis pain. Patient seen in conjunction with Mr. chilel Physical Exam Vital Signs: Temp Pulse Resp BP Pulse Ox 37.0 C 89 16 93/69 L 96 03/28/19 04:40 03/28/19 07:00 03/28/19 04:40 03/28/19 04:40 03/28/19 04:40 Intake & Output 03/27/19 03/28/19 03/29/19 07:59 06:59 06:59 Intake Total Output Total Balance Weight Physical Exam: Patient is alert, oriented, and appropriate. General appearance: PRESENT: no acute distress, mild distress Head exam: PRESENT: normocephalic Respiratory exam: PRESENT: unlabored Cardiovascular exam: PRESENT: RRR Pulses: PRESENT: +1 pedal pulses bilateral Vascular exam: PRESENT: normal capillary refill GI/Abdominal exam: PRESENT: soft Rectal exam: PRESENT: deferred Musculoskeletal exam: PRESENT: other - Left hip dressing with minor drainage today. By report there was increased drainage yesterday. Neurological exam: PRESENT: alert, awake, oriented to person, oriented to place, oriented to time, oriented to situation. ABSENT: motor sensory deficit Results Laboratory Results: 03/26/19 06:38 03/26/19 06:38 03/12/19 03/15/19 03/15/19 15:38 15:05 15:05 Creatine Kinase 21 L CK-MB (CK-2) 0.25 Troponin I < 0.012 < 0.012 03/16/19 08:05 Creatine Kinase CK-MB (CK-2) Troponin I < 0.012 Impressions: Chest X-Ray 03/12/19 15:59 IMPRESSION: NO ACUTE RADIOGRAPHIC FINDING IN THE CHEST. Hip X-Ray 03/12/19 15:59 IMPRESSION: Status post left total hip arthroplasty with revision to include cerclage wires. Today's examination demonstrates a comminuted fracture of the proximal femur with altered position and appearance of the cerclage wires. Adjacent subcutaneous gas is not entirely unexpected in the immediate postoperative setting. Cellulitis may have a similar appearance. Guidance Fluoroscopy 03/22/19 00:00 IMPRESSION: SUCCESSFUL PLACEMENT OF A 5 FR DUAL LUMEN 40 CM PICC VIA THE LEFT BASILIC VEIN. Interventional Vascular Procedure 03/22/19 00:00 IMPRESSION: SUCCESSFUL PLACEMENT OF A 5 FR DUAL LUMEN 40 CM PICC VIA THE LEFT BASILIC VEIN. PICC Line Insertion 03/22/19 00:00 IMPRESSION: SUCCESSFUL PLACEMENT OF A 5 FR DUAL LUMEN 40 CM PICC VIA THE LEFT BASILIC VEIN. Status: Imported from PACS Assessment & Plan - Diagnosis (1) History of hip replacement Qualifiers: Laterality: left Qualified Code(s): Z96.642 - Presence of left artificial hip joint Is this a current diagnosis for this admission?: Yes Plan: Overall potentially drainage is decreasing in the left lower extremity. Plan will be to continue administration Rocephin and activity as tolerated basis. Dressing changes every shift. Anticipate discharge home with home health once the drainage has stopped. We will readjust patient's analgesic medication per his request. This point the patient is without Xarelto because of ongoing drainage. Reassured that his current headache is not related to an underlying probable embolic event. (2) Acute blood loss anemia Is this a current diagnosis for this admission?: Yes - Time Time Spent with patient: 15-24 minutes Anticipated discharge: Home with Homehealth Within: Other
[2019-03-28] MEDS: DOCUSATE SODIUM 100 MG CAPSULE PO SCH (09:49)
[2019-03-28] MEDS: METOPROLOL TARTRATE 25 MG TABLET PO SCH ×2 (09:50→21:59)
[2019-03-28] MEDS ORDERED: OXYCODONE HCL SR 10 MG TABLET PO SCH (10:00)
[2019-03-28] MEDS: PREGABALIN 75 MG CAPSULE PO SCH ×2 (10:08→22:01)
[2019-03-28] MEDS: ASPIRIN 81 MG TABLET, CHEWABLE PO SCH (10:08)
[2019-03-28] MEDS: NICOTINE 14 MG/24 HR PATCH.TD24 TD SCH (10:09)
[2019-03-28] MEDS: OXYCODONE HCL SR 10 MG TABLET PO SCH ×2 (10:09→21:58)
[2019-03-28] MEDS: CEFTRIAXONE 2 GM/D5W RTU 2 GM/50 ML RTUPB IV SCH (10:10)
[2019-03-28] MEDS: NORMAL SALINE 10 ML SDV (SCHEDULED) IV SCH ×2 (10:10→23:24)
[2019-03-28] MEDS ORDERED: TRAMADOL HCL 50 MG TABLET PO PRN (12:00)
--- NOTE | 2019-03-28 12:00 | PDOC PROGRESS REPORT ---
Subjective Progress Note for:: 03/28/19 Reason For Visit: AFIB RVR Physical Exam Vital Signs: Temp Pulse Resp BP Pulse Ox 98.6 F 89 16 93/69 L 96 03/28/19 04:40 03/28/19 07:00 03/28/19 04:40 03/28/19 04:40 03/28/19 04:40 Intake & Output 03/27/19 03/28/19 03/29/19 07:59 06:59 06:59 Intake Total Output Total Balance Weight General appearance: PRESENT: mild distress, other - To mild headache and body aches secondary to rheumatoid arthritis Respiratory exam: PRESENT: clear to auscultation alessia. ABSENT: rales, rhonchi, wheezes Cardiovascular exam: PRESENT: RRR. ABSENT: diastolic murmur, rubs, systolic murmur Neurological exam: PRESENT: alert, awake, oriented to person, oriented to place, oriented to time, oriented to situation, CN II-XII grossly intact, other - Patient has no focal deficits. ABSENT: motor sensory deficit Psychiatric exam: PRESENT: anxious, unusual affect, other - This is patient's baseline Results Laboratory Results: 03/26/19 06:38 03/26/19 06:38 03/12/19 03/15/19 03/15/19 15:38 15:05 15:05 Creatine Kinase 21 L CK-MB (CK-2) 0.25 Troponin I < 0.012 < 0.012 03/16/19 08:05 Creatine Kinase CK-MB (CK-2) Troponin I < 0.012 Impressions: Chest X-Ray 03/12/19 15:59 IMPRESSION: NO ACUTE RADIOGRAPHIC FINDING IN THE CHEST. Hip X-Ray 03/12/19 15:59 IMPRESSION: Status post left total hip arthroplasty with revision to include cerclage wires. Today's examination demonstrates a comminuted fracture of the proximal femur with altered position and appearance of the cerclage wires. Adjacent subcutaneous gas is not entirely unexpected in the immediate postoperative setting. Cellulitis may have a similar appearance. Guidance Fluoroscopy 03/22/19 00:00 IMPRESSION: SUCCESSFUL PLACEMENT OF A 5 FR DUAL LUMEN 40 CM PICC VIA THE LEFT BASILIC VEIN. Interventional Vascular Procedure 03/22/19 00:00 IMPRESSION: SUCCESSFUL PLACEMENT OF A 5 FR DUAL LUMEN 40 CM PICC VIA THE LEFT BASILIC VEIN. PICC Line Insertion 03/22/19 00:00 IMPRESSION: SUCCESSFUL PLACEMENT OF A 5 FR DUAL LUMEN 40 CM PICC VIA THE LEFT BASILIC VEIN. Assessment and Plan - Diagnosis (1) Acute blood loss anemia Is this a current diagnosis for this admission?: Yes (2) History of hip replacement Qualifiers: Laterality: left Qualified Code(s): Z96.642 - Presence of left artificial hip joint Is this a current diagnosis for this admission?: Yes (3) Surgical wound infection Is this a current diagnosis for this admission?: Yes (4) A-fib Qualifiers: Atrial fibrillation type: unspecified Qualified Code(s): I48.91 - Unspecified atrial fibrillation Is this a current diagnosis for this admission?: Yes (5) Rheumatoid arthritis Is this a current diagnosis for this admission?: Yes (6) Chronic pain Is this a current diagnosis for this admission?: Yes - Plan Summary Summary: 03/23/2019 Patient's vital signs are stable he is afebrile, in fact has had no fever since second day of admission. Blood pressure appears to be stable around 102/54. O2 sat 96% on room air For the last 2 days now his hemoglobin is been stable at 10.1 white count is normal at 6000 Coags are basically normal. Potassium is up slightly today at 5.1, give 1 dose of Kayexalate. Renal functions appear normal Wound culture is growing out group B beta strep, which appears to be sensitive to most drugs with the exception of clindamycin Patient had PICC line inserted yesterday. Will continue to follow orthopedics recommendations 03/24/2019 According to infectious disease he could be switched to p.o. Levaquin 150 mg for 6 weeks, patient could continue IV antibiotics such as Rocephin 2 g IV daily for 6 weeks. Patient's white count remains normal at 6000, H&H is stable electrolytes are grossly normal patient did receive 1 dose of Kayexalate yesterday slightly high potassium Patient is continuing with daily dressing changes 03/25/2019 Temperature is up slightly to 99.6 , but rate is stable around 80, pressures well controlled 102/59 Will recheck labs today. Plan on doing this about every second or third day, however not daily he has been on antibiotics since admission date of 03/12/2019, 13 days now Continue daily wound care per the direction of orthopedic surgery 03/26/2019 Temperature back down to 97-98 Labs from yesterday show a very stable white count 6.5 H&H is actually going up 11.0 34.2, platelets are normal 451 INR is normal, 1.16, electrolytes are normal Will try to [facility] 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 His normal medication was discontinued due to the risk of bleeding, and needs to continue to be stopped, due to continued risk of bleeding Patient is asking that we adjust his pain medication, his request seem appropriate. We will recheck all of his labs tomorrow morning. Wound appears to be draining less with each passing day. No significant changes to medical management. However will add 81 mg of aspirin daily. Switch from Toradol to tramadol for breakthrough pain since Toradol does have a risk for bleeding. - Time Time Spent with patient: 25-34 minutes
[2019-03-28] MEDS: TRAZODONE HCL 50 MG TABLET PO SCH (22:01)
[2019-03-28] MEDS: DIGOXIN 0.25 MG TABLET PO SCH (22:01)
[2019-03-28] MEDS: ZOLPIDEM TARTRATE 5 MG TABLET PO PRN (23:52)
[2019-03-29] MEDS: OXYCODONE HCL IR 5 MG TABLET PO PRN ×3 (01:30→12:44)
[2019-03-29] MEDS: MIDODRINE HCL 5 MG TABLET PO SCH ×3 (08:21→17:26)
[2019-03-29] MEDS: OXYCODONE HCL SR 10 MG TABLET PO SCH ×2 (09:55→22:27)
[2019-03-29] MEDS: PREGABALIN 75 MG CAPSULE PO SCH ×2 (09:55→22:26)
[2019-03-29] MEDS: ASPIRIN 81 MG TABLET, CHEWABLE PO SCH (09:56)
[2019-03-29] MEDS: NICOTINE 14 MG/24 HR PATCH.TD24 TD SCH (09:59)
[2019-03-29] MEDS: NORMAL SALINE 10 ML SDV (SCHEDULED) IV SCH ×2 (09:59→22:29)
[2019-03-29] MEDS: METOPROLOL TARTRATE 25 MG TABLET PO SCH ×2 (10:01→22:28)
[2019-03-29] MEDS: DOCUSATE SODIUM 100 MG CAPSULE PO SCH (10:01)
[2019-03-29] MEDS: CEFTRIAXONE 2 GM/D5W RTU 2 GM/50 ML RTUPB IV SCH (12:39)
[2019-03-29] MEDS ORDERED: METHYLPREDNISOLONE INJ 125 MG/2 ML SDV IV ONE (13:00)
--- NOTE | 2019-03-29 13:10 | PDOC PROGRESS REPORT ---
Subjective Progress Note for:: 03/29/19 Reason For Visit: AFIB RVR 03/29/2019 please the plan summary dictated below Physical Exam Vital Signs: Temp Pulse Resp BP Pulse Ox 98.4 F 84 18 113/57 L 85 L 03/29/19 07:35 03/29/19 07:35 03/29/19 07:35 03/29/19 07:35 03/29/19 07:35 Intake & Output 03/28/19 03/29/19 03/30/19 06:59 06:59 06:59 Intake Total 4290 Output Total 6665 Balance -2375 Weight 103.6 kg General appearance: PRESENT: no acute distress Respiratory exam: PRESENT: clear to auscultation alessia. ABSENT: rales, rhonchi, wheezes Cardiovascular exam: PRESENT: RRR. ABSENT: diastolic murmur, rubs, systolic murmur Neurological exam: PRESENT: alert, awake, oriented to person, oriented to place, oriented to time, oriented to situation, CN II-XII grossly intact. ABSENT: motor sensory deficit Psychiatric exam: PRESENT: appropriate affect, normal mood. ABSENT: homicidal ideation, suicidal ideation Skin exam: PRESENT: other - Per the nursing notes today, she has soaked through 2 ABD pads, Loree 4 inch squares of gauze, through the Chux pad to the draw sheet. This appears to be serosanguineous fluid Results Laboratory Results: 03/26/19 06:38 03/26/19 06:38 03/12/19 03/15/19 03/15/19 15:38 15:05 15:05 Creatine Kinase 21 L CK-MB (CK-2) 0.25 Troponin I < 0.012 < 0.012 03/16/19 08:05 Creatine Kinase CK-MB (CK-2) Troponin I < 0.012 Impressions: Chest X-Ray 03/12/19 15:59 IMPRESSION: NO ACUTE RADIOGRAPHIC FINDING IN THE CHEST. Hip X-Ray 03/12/19 15:59 IMPRESSION: Status post left total hip arthroplasty with revision to include cerclage wires. Today's examination demonstrates a comminuted fracture of the proximal femur with altered position and appearance of the cerclage wires. Adjacent subcutaneous gas is not entirely unexpected in the immediate postoperative setting. Cellulitis may have a similar appearance. Guidance Fluoroscopy 03/22/19 00:00 IMPRESSION: SUCCESSFUL PLACEMENT OF A 5 FR DUAL LUMEN 40 CM PICC VIA THE LEFT BASILIC VEIN. Interventional Vascular Procedure 03/22/19 00:00 IMPRESSION: SUCCESSFUL PLACEMENT OF A 5 FR DUAL LUMEN 40 CM PICC VIA THE LEFT BASILIC VEIN. PICC Line Insertion 03/22/19 00:00 IMPRESSION: SUCCESSFUL PLACEMENT OF A 5 FR DUAL LUMEN 40 CM PICC VIA THE LEFT BASILIC VEIN. Assessment and Plan - Diagnosis (1) Acute blood loss anemia Is this a current diagnosis for this admission?: Yes (2) History of hip replacement Qualifiers: Laterality: left Qualified Code(s): Z96.642 - Presence of left artificial hip joint Is this a current diagnosis for this admission?: Yes (3) Surgical wound infection Is this a current diagnosis for this admission?: Yes (4) A-fib Qualifiers: Atrial fibrillation type: unspecified Qualified Code(s): I48.91 - Unspecified atrial fibrillation Is this a current diagnosis for this admission?: Yes (5) Rheumatoid arthritis Is this a current diagnosis for this admission?: Yes (6) Chronic pain Is this a current diagnosis for this admission?: Yes - Plan Summary Summary: 03/23/2019 Patient's vital signs are stable he is afebrile, in fact has had no fever since second day of admission. Blood pressure appears to be stable around 102/54. O2 sat 96% on room air For the last 2 days now his hemoglobin is been stable at 10.1 white count is normal at 6000 Coags are basically normal. Potassium is up slightly today at 5.1, give 1 dose of Kayexalate. Renal functions appear normal Wound culture is growing out group B beta strep, which appears to be sensitive to most drugs with the exception of clindamycin Patient had PICC line inserted yesterday. Will continue to follow orthopedics recommendations 03/24/2019 According to infectious disease he could be switched to p.o. Levaquin 150 mg for 6 weeks, patient could continue IV antibiotics such as Rocephin 2 g IV daily for 6 weeks. Patient's white count remains normal at 6000, H&H is stable electrolytes are grossly normal patient did receive 1 dose of Kayexalate yesterday slightly high potassium Patient is continuing with daily dressing changes 03/25/2019 Temperature is up slightly to 99.6 , but rate is stable around 80, pressures well controlled 102/59 Will recheck labs today. Plan on doing this about every second or third day, however not daily he has been on antibiotics since admission date of 03/12/2019, 13 days now Continue daily wound care per the direction of orthopedic surgery 03/26/2019 Temperature back down to 97-98 Labs from yesterday show a very stable white count 6.5 H&H is actually going up 11.0 34.2, platelets are normal 451 INR is normal, 1.16, electrolytes are normal [facility] I have discussed this with discharge planning, orthopedic surgery is attending to patient's wound daily Patient appears hemodynamically and medically stable 03/27/2019 Patient's blood pressure this morning was 80/40, however patient was not tachycardic, as well as an air quality instrument specialist reading. Yesterday's hemoglobin was stable, in fact slightly up from previously now at 11.0 I am going to increase his air quality instrument specialist Midodrine dosage to 10 mg, keep his afternoon and evening dose at 5 According to nursing he is saturating his dressing on the left hip, mostly just serous like fluid, as opposed to blood Continue on course with antibiotics 03/28/2019 Patient seen in conjunction with orthopedic surgery 98 6 pulse between 70 and 80, pressures are slightly low in the morning but this is patient's normal hemodynamic status Patient is complaining of a mild frontal headache body aches which she attributes to his rheumatoid arthritis. His normal medication was discontinued due to the risk of bleeding, and needs to continue to be stopped, due to continued risk of bleeding Patient is asking that we adjust his pain medication, his request seem ap propriate. We will recheck all of his labs tomorrow morning. Wound appears to be draining less with each passing day. No significant changes to medical management. However will add 81 mg of aspirin daily. Switch from Toradol to tramadol for breakthrough pain since Toradol does have a risk for bleeding. 03/29/2019 Patient is asking for an anti-inflammatory drug his wrist pain secondary to rheumatoid. Patient is aware that we do not want to give him any medications which might increase his risk for bleeding. He was given a one-time dose of Solu-Medrol 125 mg IV. Today [facility] 2 g of Rocephin IV daily until May 06. This will be a total of 6 weeks of IV Rocephin. The patient need longer treatment the paperwork will need to be updated. She remains afebrile blood pressure remains stable. Labs will be repeated today Continue wound care per orthopedics - Time Time Spent with patient: 25-34 minutes
[2019-03-29] MEDS: NORMAL SALINE 10 ML SDV (AFTER EACH USE) IV PRN (14:22)
[2019-03-29 14:44] LABS: HEMATOCRIT 29.4 % (37.9-51.0); HEMOGLOBIN 9.8 g/dL (13.5-17.0); MEAN CORPUSCULAR HEMOGLOBIN 25.1 pg (27.0-33.4); MEAN CORPUSCULAR HGB CONC 33.3 g/dL (32.0-36.0); MEAN CORPUSCULAR VOLUME 76 fl (80-97); PLATELET COUNT 331 10^3/uL (150-450); RED BLOOD COUNT 3.89 10^6/uL (4.35-5.55); RED CELL DISTRIBUTION WIDTH 21.8 % (11.5-14.0); WHITE BLOOD COUNT 6.7 10^3/uL (4.0-10.5)
[2019-03-29 15:14] LABS: BLOOD UREA NITROGEN 7 mg/dL (7-20); CALCIUM 8.4 mg/dL (8.4-10.2); CARBON DIOXIDE 33 mmol/L (22-30); GLUCOSE 108 mg/dL (75-110)
[2019-03-29 15:22] LABS: ABSOLUTE LYMPHOCYTES# (MANUAL) 1.5 10^3/uL (0.5-4.7); ABSOLUTE MONOCYTES # (MANUAL) 0.5 10^3/uL (0.1-1.4); BASOPHILS % (MANUAL) 4 % (0-2); EOSINOPHILS % (MANUAL) 12 % (0-6); LYMPHOCYTES % (MANUAL) 22 % (13-45); MONOCYTES % (MANUAL) 7 % (3-13); SEGMENTED NEUTROPHILS % (MAN) 55 % (42-78); TOTAL CELLS COUNTED 100
[2019-03-29 15:25] LABS: ANION GAP 6 (5-19); ANISOCYTOSIS 2+; CHLORIDE 98 mmol/L (98-107); HYPOCHROMASIA 1+; OVALOCYTES 1+; PLATELET COMMENT ADEQUATE; POIKILOCYTOSIS 1+; POTASSIUM 4.9 mmol/L (3.6-5.0); TARGET CELLS SLIGHT
[2019-03-29] MEDS: DIGOXIN 0.25 MG TABLET PO SCH (22:28)
[2019-03-29] MEDS: TRAZODONE HCL 50 MG TABLET PO SCH (22:28)
[2019-03-29] MEDS: ZOLPIDEM TARTRATE 5 MG TABLET PO PRN (22:40)
--- NOTE | 2019-03-30 07:00 | PDOC PROGRESS REPORT ---
Subjective Progress Note for:: 03/30/19 Reason For Visit: AFIB RVR Patient complains of sweating this morning. Remains afebrile. Physical Exam Vital Signs: Temp Pulse Resp BP Pulse Ox 36.5 C 63 16 152/84 H 94 03/30/19 03:49 03/30/19 03:49 03/30/19 03:49 03/30/19 03:49 03/30/19 03:49 Intake & Output 03/28/19 03/29/19 03/30/19 06:59 06:59 06:59 Intake Total 4290 1470 Output Total 6641 4636 Balance -1743 -119 Weight 103.6 kg General appearance: PRESENT: no acute distress Respiratory exam: PRESENT: unlabored Extremities exam: PRESENT: other - Left hip drainage is decreasing. Results Laboratory Results: 03/29/19 14:30 03/29/19 14:30 03/29/19 03/29/19 14:30 14:30 WBC 6.7 RBC 3.89 L Hgb 9.8 L Hct 29.4 L MCV 76 L MCH 25.1 L MCHC 33.3 RDW 21.8 H Plt Count 331 Seg Neutrophils % Not Reportable Sodium 137.2 Potassium 4.9 Chloride 98 Carbon Dioxide 33 H Anion Gap 6 BUN 7 Creatinine 0.91 Est GFR ( Amer) > 60 Glucose 108 Calcium 8.4 03/12/19 03/15/19 03/15/19 15:38 15:05 15:05 Creatine Kinase 21 L CK-MB (CK-2) 0.25 Troponin I < 0.012 < 0.012 03/16/19 08:05 Creatine Kinase CK-MB (CK-2) Troponin I < 0.012 Impressions: Chest X-Ray 03/12/19 15:59 IMPRESSION: NO ACUTE RADIOGRAPHIC FINDING IN THE CHEST. Hip X-Ray 03/12/19 15:59 IMPRESSION: Status post left total hip arthroplasty with revision to include cerclage wires. Today's examination demonstrates a comminuted fracture of the proximal femur with altered position and appearance of the cerclage wires. Adjacent subcutaneous gas is not entirely unexpected in the immediate postoperative setting. Cellulitis may have a similar appearance. Guidance Fluoroscopy 03/22/19 00:00 IMPRESSION: SUCCESSFUL PLACEMENT OF A 5 FR DUAL LUMEN 40 CM PICC VIA THE LEFT BASILIC VEIN. Interventional Vascular Procedure 03/22/19 00:00 IMPRESSION: SUCCESSFUL PLACEMENT OF A 5 FR DUAL LUMEN 40 CM PICC VIA THE LEFT BASILIC VEIN. PICC Line Insertion 03/22/19 00:00 IMPRESSION: SUCCESSFUL PLACEMENT OF A 5 FR DUAL LUMEN 40 CM PICC VIA THE LEFT BASILIC VEIN. Status: Imported from [facility] Assessment & Plan - Diagnosis (1) History of hip replacement Qualifiers: Laterality: left Qualified Code(s): Z96.642 - Presence of left artificial hip joint Is this a current diagnosis for this admission?: Yes Plan: Continue current care including IV Rocephin. Dressing changes every shift. (2) Acute blood loss anemia Is this a current diagnosis for this admission?: Yes - Time Time Spent with patient: 15-24 minutes Anticipated discharge: Home with Homehealth Within: Other
[2019-03-30] MEDS: MIDODRINE HCL 5 MG TABLET PO SCH ×3 (08:54→18:00)
[2019-03-30] MEDS: OXYCODONE HCL IR 5 MG TABLET PO PRN ×3 (08:55→20:17)
[2019-03-30] MEDS: OXYCODONE HCL SR 10 MG TABLET PO SCH ×2 (10:40→22:05)
[2019-03-30] MEDS: DOCUSATE SODIUM 100 MG CAPSULE PO SCH (10:40)
[2019-03-30] MEDS: ASPIRIN 81 MG TABLET, CHEWABLE PO SCH (10:40)
[2019-03-30] MEDS: PREGABALIN 75 MG CAPSULE PO SCH ×2 (10:41→22:05)
[2019-03-30] MEDS: METOPROLOL TARTRATE 25 MG TABLET PO SCH ×2 (10:42→22:06)
[2019-03-30] MEDS: CEFTRIAXONE 2 GM/D5W RTU 2 GM/50 ML RTUPB IV SCH (10:43)
[2019-03-30] MEDS: NICOTINE 14 MG/24 HR PATCH.TD24 TD SCH (10:44)
[2019-03-30] MEDS: NORMAL SALINE 10 ML SDV (SCHEDULED) IV SCH ×2 (10:47→22:07)
--- NOTE | 2019-03-30 14:33 | PDOC PROGRESS REPORT ---
Subjective Progress Note for:: 03/30/19 Subjective:: Patient states that he is feeling well. Still has some drainage from the incision site. Has been ambulating comfortably with a walker. Patient is concerned about leaving the hospital while his wound is still having drainage. Reason For Visit: AFIB RVR Physical Exam Vital Signs: Temp Pulse Resp BP Pulse Ox 98.2 F 71 18 135/66 H 96 03/30/19 11:04 03/30/19 11:04 03/30/19 11:04 03/30/19 11:04 03/30/19 11:04 Intake & Output 03/29/19 03/30/19 03/31/19 06:59 06:59 06:59 Intake Total 4290 1870 950 Output Total 6665 3350 1000 Balance -2375 -1480 -50 Weight 103.6 kg 102.8 kg General appearance: PRESENT: no acute distress, cooperative Head exam: PRESENT: normocephalic Eye exam: PRESENT: EOMI Mouth exam: PRESENT: moist Respiratory exam: PRESENT: clear to auscultation alessia Cardiovascular exam: PRESENT: RRR, +S1, +S2 Vascular exam: ABSENT: pallor GI/Abdominal exam: PRESENT: normal bowel sounds, soft. ABSENT: guarding, rebound, rigid, tenderness Rectal exam: PRESENT: deferred Gentrourinary exam: ABSENT: ecchymosis Extremities exam: PRESENT: other - Swelling mild, no erythema of left hip and incision site. No evidence purulent drainage currently.. ABSENT: calf tenderness Musculoskeletal exam: PRESENT: ambulatory Neurological exam: PRESENT: alert, awake, oriented to person, oriented to place, oriented to time Psychiatric exam: ABSENT: agitated Focused psych exam: ABSENT: catatonic Results Laboratory Results: 03/29/19 14:30 03/29/19 14:30 03/29/19 03/29/19 14:30 14:30 WBC 6.7 RBC 3.89 L Hgb 9.8 L Hct 29.4 L MCV 76 L MCH 25.1 L MCHC 33.3 RDW 21.8 H Plt Count 331 Seg Neutrophils % Not Reportable Sodium 137.2 Potassium 4.9 Chloride 98 Carbon Dioxide 33 H Anion Gap 6 BUN 7 Creatinine 0.91 Est GFR ( Amer) > 60 Glucose 108 Calcium 8.4 03/12/19 03/15/19 03/15/19 15:38 15:05 15:05 Creatine Kinase 21 L CK-MB (CK-2) 0.25 Troponin I < 0.012 < 0.012 03/16/19 08:05 Creatine Kinase CK-MB (CK-2) Troponin I < 0.012 Impressions: Chest X-Ray 03/12/19 15:59 IMPRESSION: NO ACUTE RADIOGRAPHIC FINDING IN THE CHEST. Hip X-Ray 03/12/19 15:59 IMPRESSION: Status post left total hip arthroplasty with revision to include cerclage wires. Today's examination demonstrates a comminuted fracture of the proximal femur with altered position and appearance of the cerclage wires. Adjacent subcutaneous gas is not entirely unexpected in the immediate postoperative setting. Cellulitis may have a similar appearance. Guidance Fluoroscopy 03/22/19 00:00 IMPRESSION: SUCCESSFUL PLACEMENT OF A 5 FR DUAL LUMEN 40 CM PICC VIA THE LEFT BASILIC VEIN. Interventional Vascular Procedure 03/22/19 00:00 IMPRESSION: SUCCESSFUL PLACEMENT OF A 5 FR DUAL LUMEN 40 CM PICC VIA THE LEFT BASILIC VEIN. PICC Line Insertion 03/22/19 00:00 IMPRESSION: SUCCESSFUL PLACEMENT OF A 5 FR DUAL LUMEN 40 CM PICC VIA THE LEFT BASILIC VEIN. 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 Qualifiers: Encounter type: initial encounter Qualified Code(s): T84.52XA - Infection and inflammatory reaction due to internal left hip prosthesis, initial encounter Is this a current diagnosis for this admission?: Yes (2) Acute blood loss anemia Is this a current diagnosis for this admission?: Yes (3) A-fib Qualifiers: Atrial fibrillation type: unspecified Qualified Code(s): I48.91 - Unspecified atrial fibrillation Is this a current diagnosis for this admission?: Yes Plan: (4) Rheumatoid arthritis Is this a current diagnosis for this admission?: Yes - Plan Summary Summary: 03/23/2019 Patient's vital signs are stable he is afebrile, in fact has had no fever since second day of admission. Blood pressure appears to be stable around 102/54. O2 sat 96% on room air For the last 2 days now his hemoglobin is been stable at 10.1 white count is normal at 6000 Coags are basically normal. Potassium is up slightly today at 5.1, give 1 dose of Kayexalate. Renal functions appear normal Wound culture is growing out group B beta strep, which appears to be sensitive to most drugs with the exception of clindamycin Patient had PICC line inserted yesterday. Will continue to follow orthopedics recommendations 03/24/2019 According to infectious disease he could be switched to p.o. Levaquin 150 mg for 6 weeks, patient could continue IV antibiotics such as Rocephin 2 g IV daily for 6 weeks. Patient's white count remains normal at 6000, H&H is stable electrolytes are grossly normal patient did receive 1 dose of Kayexalate yesterday slightly high potassium Patient is continuing with daily dressing changes 03/25/2019 Temperature is up slightly to 99.6 , but rate is stable around 80, pressures well controlled 102/59 Will recheck labs today. Plan on doing this about every second or third day, however not daily he has been on antibiotics since admission date of 03/12/2019, 13 days now Continue daily wound care per the direction of orthopedic surgery 03/26/2019 Temperature back down to 97-98 Labs from yesterday show a very stable white count 6.5 H&H is actually going up 11.0 34.2, platelets are normal 451 INR is normal, 1.16, electrolytes are normal Will try to secure outpatient IV antibiotics for the next 4 weeks through the [facility]. I have discussed this with discharge planning, orthopedic surgery is attending to patient's wound daily Patient appears hemodynamically and medically stable 03/27/2019 Patient's blood pressure this morning was 80/40, however patient was not tachycardic, as well as an service writer reading. Yesterday's hemoglobin was stable, in fact slightly up from previously now at 11.0 I am going to increase his service writer Midodrine dosage to 10 mg, keep his afternoon and evening dose at 5 According to nursing he is saturating his dressing on the left hip, mostly just serous like fluid, as opposed to blood Continue on course with antibiotics 03/28/2019 Patient seen in conjunction with orthopedic surgery 98 6 pulse between 70 and 80, pressures are slightly low in the morning but this is patient's normal hemodynamic status Patient is complaining of a mild frontal headache body aches which she attributes to his rheumatoid arthritis. His normal medication was discontinued due to the risk of bleeding, and needs to continue to be stopped, due to continued risk of bleeding Patient is asking that we adjust his pain medication, his request seem appropriate. We will recheck all of his labs tomorrow morning. Wound appears to be draining less with each passing day. No significant changes to medical management. However will add 81 mg of aspirin daily. Switch from Toradol to tramadol for breakthrough pain since Toradol does have a risk for bleeding. 03/29/2019 Patient is asking for an anti-inflammatory drug his wrist pain secondary to rheumatoid. Patient is aware that we do not want to give him any medications which might increase his risk for bleeding. He was given a one-time dose of Solu-Medrol 125 mg IV. Today with the help of discharge planning I filled out the paperwork for the [facility] facility concerning his IV antibiotics. 2 g of Rocephin IV daily until May 06. This will be a total of 6 weeks of IV Rocephin. The patient need longer treatment the paperwork will need to be updated. She remains afebrile blood pressure remains stable. Labs will be repeated today Continue wound care per orthopedics 03/30/2019 Patient still currently stable this time. Currently [facility] Patient will continue antibiotics through May 06 as planned. Likely anticipated discharge for tomorrow once his antibiotics is guaranteed delivery to the [facility] facility. - Time Time Spent with patient: 25-34 minutes
[2019-03-30] MEDS ORDERED: BACLOFEN 10 MG TABLET PO PRN (16:25)
[2019-03-30] MEDS: ZOLPIDEM TARTRATE 5 MG TABLET PO PRN (22:05)
[2019-03-30] MEDS: DIGOXIN 0.25 MG TABLET PO SCH (22:06)
[2019-03-30] MEDS: TRAZODONE HCL 50 MG TABLET PO SCH (22:06)
[2019-03-31] MEDS: OXYCODONE HCL IR 5 MG TABLET PO PRN ×3 (05:45→18:01)
[2019-03-31 06:13] LABS: ABSOLUTE LYMPHOCYTES (AUTO) 1.6 10^3/uL (0.5-4.7); ABSOLUTE MONOCYTES (AUTO) 0.8 10^3/uL (0.1-1.4); ABSOLUTE NEUT (AUTO) 4.6 10^3/uL (1.7-8.2); BASOPHILS % (AUTO) 0.4 % (0-2); EOSINOPHILS % (AUTO) 0.4 % (0-6); HEMATOCRIT 29.2 % (37.9-51.0); HEMOGLOBIN 9.5 g/dL (13.5-17.0); LYMPHOCYTES % (AUTO) 22.8 % (13-45); MEAN CORPUSCULAR HEMOGLOBIN 24.4 pg (27.0-33.4); MEAN CORPUSCULAR HGB CONC 32.6 g/dL (32.0-36.0); MEAN CORPUSCULAR VOLUME 75 fl (80-97); MONOCYTES % (AUTO) 11.4 % (3-13); PLATELET COUNT 357 10^3/uL (150-450); RED CELL DISTRIBUTION WIDTH 21.3 % (11.5-14.0); TOTAL CELLS COUNTED % (AUTO) 100 %
[2019-03-31 06:36] LABS: ANION GAP 6 (5-19); BLOOD UREA NITROGEN 13 mg/dL (7-20); CALCIUM 8.9 mg/dL (8.4-10.2); CARBON DIOXIDE 31 mmol/L (22-30); CHLORIDE 108 mmol/L (98-107); GLUCOSE 90 mg/dL (75-110); POTASSIUM 4.3 mmol/L (3.6-5.0)
[2019-03-31] MEDS: MIDODRINE HCL 5 MG TABLET PO SCH ×3 (08:42→18:03)
[2019-03-31] MEDS: DOCUSATE SODIUM 100 MG CAPSULE PO SCH (09:57)
[2019-03-31] MEDS: ASPIRIN 81 MG TABLET, CHEWABLE PO SCH (09:57)
[2019-03-31] MEDS: METOPROLOL TARTRATE 25 MG TABLET PO SCH ×2 (10:00→22:33)
[2019-03-31] MEDS: PREGABALIN 75 MG CAPSULE PO SCH ×2 (10:01→22:32)
[2019-03-31] MEDS: NICOTINE 14 MG/24 HR PATCH.TD24 TD SCH (10:02)
[2019-03-31] MEDS: NORMAL SALINE 10 ML SDV (SCHEDULED) IV SCH ×2 (10:02→22:31)
[2019-03-31] MEDS: OXYCODONE HCL SR 10 MG TABLET PO SCH ×2 (10:04→22:33)
[2019-03-31] MEDS: CEFTRIAXONE 2 GM/D5W RTU 2 GM/50 ML RTUPB IV SCH (10:05)
--- NOTE | 2019-03-31 16:36 | PDOC PROGRESS REPORT ---
Subjective Progress Note for:: 03/31/19 Subjective:: Patient is doing well today. Is able to ambulate without much difficulty with the aid of a walker. Denies any fevers. Still having some drainage from the site. Reason For Visit: AFIB RVR Physical Exam Vital Signs: Temp Pulse Resp BP Pulse Ox 97.6 F 68 18 110/68 97 03/31/19 12:28 03/31/19 12:28 03/31/19 12:28 03/31/19 12:28 03/31/19 12:28 Intake & Output 03/30/19 03/31/19 04/01/19 06:59 06:59 06:59 Intake Total 1870 2210 50 Output Total 3350 3900 Balance -1480 -1690 50 Weight 102.8 kg 102.5 kg General appearance: PRESENT: no acute distress, cooperative, well-developed. ABSENT: thin Head exam: ABSENT: atraumatic Neck exam: ABSENT: JVD Respiratory exam: PRESENT: clear to auscultation alessia, symmetrical, unlabored. ABSENT: tachypnea Cardiovascular exam: PRESENT: RRR, +S1, +S2. ABSENT: tachycardia GI/Abdominal exam: PRESENT: normal bowel sounds, soft. ABSENT: distended, firm, guarding Extremities exam: PRESENT: other - Left hip incision with mild serous drainage but no purulent Musculoskeletal exam: PRESENT: ambulatory Results Laboratory Results: 03/31/19 05:50 03/31/19 05:50 03/31/19 03/31/19 05:50 05:50 WBC 7.0 RBC 3.90 L Hgb 9.5 L Hct 29.2 L MCV 75 L MCH 24.4 L MCHC 32.6 RDW 21.3 H Plt Count 357 Seg Neutrophils % 65.0 Sodium 144.9 Potassium 4.3 Chloride 108 H Carbon Dioxide 31 H Anion Gap 6 BUN 13 Creatinine 0.76 Est GFR ( Amer) > 60 Glucose 90 Calcium 8.9 03/12/19 03/15/19 03/15/19 15:38 15:05 15:05 Creatine Kinase 21 L CK-MB (CK-2) 0.25 Troponin I < 0.012 < 0.012 03/16/19 08:05 Creatine Kinase CK-MB (CK-2) Troponin I < 0.012 Impressions: Chest X-Ray 03/12/19 15:59 IMPRESSION: NO ACUTE RADIOGRAPHIC FINDING IN THE CHEST. Hip X-Ray 03/12/19 15:59 IMPRESSION: Status post left total hip arthroplasty with revision to include cerclage wires. Today's examination demonstrates a comminuted fracture of the proximal femur with altered position and appearance of the cerclage wires. Adjacent subcutaneous gas is not entirely unexpected in the immediate postoperative setting. Cellulitis may have a similar appearance. Guidance Fluoroscopy 03/22/19 00:00 IMPRESSION: SUCCESSFUL PLACEMENT OF A 5 FR DUAL LUMEN 40 CM PICC VIA THE LEFT BASILIC VEIN. Interventional Vascular Procedure 03/22/19 00:00 IMPRESSION: SUCCESSFUL PLACEMENT OF A 5 FR DUAL LUMEN 40 CM PICC VIA THE LEFT BASILIC VEIN. PICC Line Insertion 03/22/19 00:00 IMPRESSION: SUCCESSFUL PLACEMENT OF A 5 FR DUAL LUMEN 40 CM PICC VIA THE LEFT BASILIC VEIN. 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 Qualifiers: Encounter type: initial encounter Qualified Code(s): T84.52XA - Infection and inflammatory reaction due to internal left hip prosthesis, initial encounter Is this a current diagnosis for this admission?: Yes (2) Acute blood loss anemia Is this a current diagnosis for this admission?: Yes (3) A-fib Qualifiers: Atrial fibrillation type: unspecified Qualified Code(s): I48.91 - Unspecifi ed atrial fibrillation Is this a current diagnosis for this admission?: Yes (4) Rheumatoid arthritis Is this a current diagnosis for this admission?: Yes - Plan Summary Summary: 03/23/2019 Patient's vital signs are stable he is afebrile, in fact has had no fever since second day of admission. Blood pressure appears to be stable around 102/54. O2 sat 96% on room air For the last 2 days now his hemoglobin is been stable at 10.1 white count is normal at 6000 Coags are basically normal. Potassium is up slightly today at 5.1, give 1 dose of Kayexalate. Renal functions appear normal Wound culture is growing out group B beta strep, which appears to be sensitive to most drugs with the exception of clindamycin Patient had PICC line inserted yesterday. Will continue to follow orthopedics recommendations 03/24/2019 According to infectious disease he could be switched to p.o. Levaquin 150 mg for 6 weeks, patient could continue IV antibiotics such as Rocephin 2 g IV daily for 6 weeks. Patient's white count remains normal at 6000, H&H is stable electrolytes are grossly normal patient did receive 1 dose of Kayexalate yesterday slightly high potassium Patient is continuing with daily dressing changes 03/25/2019 Temperature is up slightly to 99.6 , but rate is stable around 80, pressures well controlled 102/59 Will recheck labs today. Plan on doing this about every second or third day, however not daily he has been on antibiotics since admission date of 03/12/2019, 13 days now Continue daily wound care per the direction of orthopedic surgery 03/26/2019 Temperature back down to 97-98 Labs from yesterday show a very stable white count 6.5 H&H is actually going up 11.0 34.2, platelets are normal 451 INR is normal, 1.16, electrolytes are normal Will try [facility] the [facility] I have discussed this with discharge planning, orthopedic surgery is attending to patient's wound daily Patient appears hemodynamically and medically stable 03/27/2019 Patient's blood pressure this morning was 80/40, however patient was not tachycardic, as well as an hairspring vibrator reading. Yesterday's hemoglobin was stable, in fact slightly up from previously now at 11.0 I am going to increase his hairspring vibrator Midodrine dosage to 10 mg, keep his afternoon and evening dose at 5 According to nursing he is saturating his dressing on the left hip, mostly just serous like fluid, as opposed to blood Continue on course with antibiotics 03/28/2019 Patient seen in conjunction with orthopedic surgery 98 6 pulse between 70 and 80, pressures are slightly low in the morning but this is patient's normal hemodynamic status Patient is complaining of a mild frontal headache body aches which she attributes to his rheumatoid arthritis. His normal medication was discontinued due to the risk of bleeding, and needs to continue to be stopped, due to continued risk of bleeding Patient is asking that we adjust his pain medication, his request seem appropriate. We will recheck all of his labs tomorrow morning. Wound appears to be draining less with each passing day. No significant changes to medical management. However will add 81 mg of aspirin daily. Switch from Toradol to tramadol for breakthrough pain since Toradol does have a risk for bleeding. 03/29/2019 Patient is asking for an anti-inflammatory drug his wrist pain secondary to rheumatoid. Patient is aware that we do not want to give him any medications which might increase his risk for bleeding. He was given a one-time dose of Solu-Medrol 125 mg IV. Today with the help of discharge planning I filled out the paperwork for the [place] facility concerning his IV antibiotics. 2 g of Rocephin IV daily until May 06. This will be a total of 6 weeks of IV Rocephin. The patient need longer treatment the paperwork will need to be updated. She remains afebrile blood pressure remains stable. Labs will be repeated today Continue wound care per orthopedics 03/30/2019 Patient still currently stable this time. Currently [facility] Patient will continue antibiotics through May 06 as planned. Likely anticipated discharge for tomorrow once his antibiotics is guaranteed [facility]. 03/31/2019 We will continue with antibiotic as discussed. Patient will be going home with home health. Setting up services for outpatient [facility] for antibiotics administration and physical therapy as well as wound dressing. - Time Time Spent with patient: 15-24 minutes Anticipated discharge: Home with Homehealth Within: within 24 hours
[2019-03-31] MEDS: ZOLPIDEM TARTRATE 5 MG TABLET PO PRN (22:32)
[2019-03-31] MEDS: DIGOXIN 0.25 MG TABLET PO SCH (22:32)
[2019-03-31] MEDS: TRAZODONE HCL 50 MG TABLET PO SCH (22:32)
[2019-04-01] MEDS: OXYCODONE HCL IR 5 MG TABLET PO PRN ×2 (08:09→14:53)
[2019-04-01] MEDS: CEFTRIAXONE 2 GM/D5W RTU 2 GM/50 ML RTUPB IV SCH (10:45)
[2019-04-01] MEDS: PREGABALIN 75 MG CAPSULE PO SCH (10:46)
[2019-04-01] MEDS: OXYCODONE HCL SR 10 MG TABLET PO SCH (10:46)
[2019-04-01] MEDS: DOCUSATE SODIUM 100 MG CAPSULE PO SCH (10:47)
[2019-04-01] MEDS: METOPROLOL TARTRATE 25 MG TABLET PO SCH (10:47)
[2019-04-01] MEDS: ASPIRIN 81 MG TABLET, CHEWABLE PO SCH (10:47)
[2019-04-01] MEDS: MIDODRINE HCL 5 MG TABLET PO SCH ×2 (10:47→10:48)
[2019-04-01] MEDS: NORMAL SALINE 10 ML SDV (SCHEDULED) IV SCH (10:48)
[2019-04-01] MEDS: NICOTINE 14 MG/24 HR PATCH.TD24 TD SCH (10:48)
--- NOTE | 2019-04-01 12:48 | PDOC DISCHARGE SUMMARY ---
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 Blood pressure appears to be stable around 102/54. O2 sat 96% on room air For the last 2 days now his hemoglobin is been stable at 10.1 white count is normal at 6000 Coags are basically normal. Potassium is up slightly today at 5.1, give 1 dose of Kayexalate. Renal functions appear normal Wound culture is growing out group B beta strep, which appears to be sensitive to most drugs with the exception of clindamycin Patient had PICC line inserted yesterday. Will continue to follow orthopedics recommendations 03/24/2019 According to infectious disease he could be switched to p.o. Levaquin 150 mg for 6 weeks, patient could continue IV antibiotics such as Rocephin 2 g IV daily for 6 weeks. Patient's white count remains normal at 6000, H&H is stable electrolytes are grossly normal patient did receive 1 dose of Kayexalate yesterday slightly high potassium Patient is continuing with daily dressing changes 03/25/2019 Temperature is up slightly to 99.6 , but rate is stable around 80, pressures well controlled 102/59 Will recheck labs today. Plan on doing this about every second or third day, however not daily he has been on antibiotics since admission date of 03/12/2019, 13 days now Continue daily wound care per the direction of orthopedic surgery 03/26/2019 Temperature back down to 97-98 Labs from yesterday show a very stable white count 6.5 H&H is actually going up 11.0 34.2, platelets are normal 451 INR is normal, 1.16, electrolytes are normal Will try to secure outpatient IV antibiotics for the next 4 weeks through the [place]. I have discussed this with discharge planning, orthopedic surgery is attending to patient's wound daily Patient appears hemodynamically and medically stable 03/27/2019 Patient's blood pressure this morning was 80/40, however patient was not tachycardic, as well as an shank rander reading. Yesterday's hemoglobin was stable, in fact slightly up from previously now at 11.0 I am going to increase his shank rander Midodrine dosage to 10 mg, keep his afternoon and evening dose at 5 According to nursing he is saturating his dressing on the left hip, mostly just serous like fluid, as opposed to blood Continue on course with antibiotics 03/28/2019 Patient seen in conjunction with orthopedic surgery 98 6 pulse between 70 and 80, pressures are slightly low in the morning but this is patient's normal hemodynamic status Patient is complaining of a mild frontal headache body aches which she attributes to his rheumatoid arthritis. His normal medication was discontinued due to the risk of bleeding, and needs to continue to be stopped, due to continued risk of bleeding Patient is asking that we adjust his pain medication, his request seem appropriate. We will recheck all of his labs tomorrow morning. Wound appears to be draining less with each passing day. No significant changes to medical management. However will add 81 mg of aspirin daily. Switch from Toradol to tramadol for breakthrough pain since Toradol does have a risk for bleeding. 03/29/2019 Patient is asking for an anti-inflammatory drug his wrist pain secondary to rheumatoid. Patient is aware that we do not want to give him any medications which might increase his risk for bleeding. He was given a one-time dose of Solu-Medrol 125 mg IV. Today with the help of discharge planning I [facility]. 2 g of Rocephin IV daily until May 06. This will be a total of 6 weeks of IV Rocephin. The patient need longer treatment the paperwork will need to be updated. She remains afebrile blood pressure remains stable. Labs will be repeated today Continue wound care per orthopedics 03/30/2019 Patient still currently stable this time. Currently working [facility] Patient will continue antibiotics through May 06 as planned. Likely anticipated discharge for tomorrow once his antibiotics is [facility]. 03/31/2019 We will continue with antibiotic as discussed. Patient will be going home with home health. Setting up services for outpatient [facility] for antibiotics administration and physical therapy as well as wound dressing. 04/01/2019 Patient discharged after afternoon dose of Rocephin. Patient has been set up with home health and outpatient antibiotics infusions. He has been given instructions for changing his wound dressing will be assisted by home skilled nurse. Patient is to continue Rocephin through May 06, 2019. - Additional Information Resuscitation Status: Full Code Discharge Diet: As Tolerated Discharge Activity: No Lifting Over 10 Pounds Referrals: KARTHIKEYAN DE LA ROSA MD [ACTIVE STAFF] - 04/07/19 2:30 pm WESLEY NASCIMENTO MD [ACTIVE STAFF] - 04/06/19 3:15 pm (Please call office to confirm. Dr Nascimento will like to see you in his office next Friday.) [facility] - Follow up as needed (Patient will have to make own appointment. [facility] will not let anyone but patient make appointment.) Prescriptions: Docusate Sodium [Colace 100 mg Capsule] 100 mg PO DAILY 30 Days capsule Metoprolol Tartrate [Lopressor 25 mg Tablet] 12.5 mg PO Q12 30 Days tablet Nicotine [Nicoderm 14 mg/24 Hr Transdermal Patch] 1 each TD DAILY 30 Days patch.[id number] Ceftriaxone 2 gm/D5w RTU [Rocephin RTU 2 gm/D5w 50 ml Premix Bag] 2 gm IV DAILY 35 Days rtupb Home Medications: Morphine Sulfate [Ms Contin] 15 mg PO Q12 03/12/19 Oxycodone HCl [Oxy-Ir 5 mg Tablet] 5 mg PO Q6HP PRN 03/12/19 Pregabalin [Lyrica] 225 mg PO Q12 03/12/19 Ceftriaxone 2 gm/D5w RTU [Rocephin RTU 2 gm/D5w 50 ml Premix Bag] 2 gm IV DAILY 35 Days rtupb 03/31/19 Docusate Sodium [Colace 100 mg Capsule] 100 mg PO DAILY 30 Days capsule 03/31/19 Metoprolol Tartrate [Lopressor 25 mg Tablet] 12.5 mg PO Q12 30 Days tablet 03/31/19 Nicotine [Nicoderm 14 mg/24 Hr Transdermal Patch] 1 each TD DAILY 30 Days patch.[id number] 03/31/19 History of Present Illiness History of Present Illness: KERRI STODDARD is a 54 year old male with a PMH of chronic AFib (taken off Xarelto due to bleeding issues on the left hip), multiple left hip orthopedic surgeries (including hip replacement, washout for infected hardware, prior revisions) who presented with drainage from 1 of the left hip sutures site after recent revision. Patient was initially scheduled for a washout. He was started on IV antibiotics including vancomycin. However, while on the floor he appeared to have developed anaphylaxis and acute respiratory failure to vancomycin hence was subsequently upgraded to the ICU. He was initially placed on BiPAP and later did improve and transferred back to the floor. Patient is scheduled for debridement of the left hip tomorrow by orthopedics pending results of stress testing. Otherwise, no acute event overnight. He denies chest pain or shortness of breath. He does say that he has breakthrough pain from his rheumatoid arthritis. Will resume his home pain medication regimen. Physical Exam Vital Signs: Temp Pulse Resp BP Pulse Ox 98.1 F 77 16 123/74 98 04/01/19 08:42 04/01/19 08:42 04/01/19 08:42 04/01/19 08:42 04/01/19 08:42 Intake & Output 03/31/19 04/01/19 04/02/19 06:59 06:59 06:59 Intake Total 2210 1236 Output Total 3900 700 Balance -1690 536 Weight 102.5 kg 99.1 kg General appearance: PRESENT: no acute distress, cooperative Head exam: PRESENT: normocephalic Eye exam: PRESENT: EOMI Mouth exam: PRESENT: moist Neck exam: ABSENT: JVD Respiratory exam: PRESENT: clear to auscultation alessia, symmetrical, unlabored. ABSENT: tachypnea, wheezes Cardiovascular exam: PRESENT: RRR, +S1, +S2. ABSENT: tachycardia Vascular exam: ABSENT: pallor GI/Abdominal exam: PRESENT: normal bowel sounds, soft. ABSENT: rebound, rigid, tenderness Rectal exam: PRESENT: deferred Extremities exam: PRESENT: other - In dressing at incision site on left hip without any purulent but mild serous drainage Neurological exam: PRESENT: alert, awake, oriented to person, oriented to place, oriented to time, oriented to situation Psychiatric exam: ABSENT: anxious Results Laboratory Results: WBC 7.0 10^3/uL (4.0-10.5) 03/31/19 05:50 RBC 3.90 10^6/uL (4.35-5.55) L 03/31/19 05:50 Hgb 9.5 g/dL (13.5-17.0) L 03/31/19 05:50 Hct 29.2 % (37.9-51.0) L 03/31/19 05:50 MCV 75 fl (80-97) L 03/31/19 05:50 MCH 24.4 pg (27.0-33.4) L 03/31/19 05:50 MCHC 32.6 g/dL (32.0-36.0) 03/31/19 05:50 RDW 21.3 % (11.5-14.0) H 03/31/19 05:50 Plt Count 357 10^3/uL (150-450) 03/31/19 05:50 Lymph % (Auto) 22.8 % (13-45) 03/31/19 05:50 Beadle % (Auto) 11.4 % (3-13) 03/31/19 05:50 Eos % (Auto) 0.4 % (0-6) 03/31/19 05:50 Baso % (Auto) 0.4 % (0-2) 03/31/19 05:50 Absolute Neuts (auto) 4.6 10^3/uL (1.7-8.2) 03/31/19 05:50 Absolute Lymphs (auto) 1.6 10^3/uL (0.5-4.7) 03/31/19 05:50 Absolute Monos (auto) 0.8 10^3/uL (0.1-1.4) 03/31/19 05:50 Absolute Eos (auto) 0.0 10^3/uL (0.0-0.6) 03/31/19 05:50 Absolute Basos (auto) 0.0 10^3/uL (0.0-0.2) 03/31/19 05:50 Total Counted 100 03/29/19 14:30 Seg Neutrophils % 65.0 % (42-78) 03/31/19 05:50 Seg Neuts % (Manual) 55 % (42-78) 03/29/19 14:30 Lymphocytes % (Manual) 22 % (13-45) 03/29/19 14:30 Monocytes % (Manual) 7 % (3-13) 03/29/19 14:30 Eosinophils % (Manual) 12 % (0-6) H 03/29/19 14:30 Basophils % (Manual) 4 % (0-2) H 03/29/19 14:30 Abs Neuts (Manual) 3.7 10^3/uL (1.7-8.2) 03/29/19 14:30 Abs Lymphs (Manual) 1.5 10^3/uL (0.5-4.7) 03/29/19 14:30 Abs Monocytes (Manual) 0.5 10^3/uL (0.1-1.4) 03/29/19 14:30 Absolute Eos (Manual) 0.8 10^3/uL (0.0-0.6) H 03/29/19 14:30 Abs Basophils (Manual) 0.3 10^3/uL (0.0-0.2) H 03/29/19 14:30 Platelet Comment ADEQUATE 03/29/19 14:30 Hypochromasia 1+ 03/29/19 14:30 Poikilocytosis 1+ 03/29/19 14:30 Anisocytosis 2+ 03/29/19 14:30 Microcytosis SLIGHT 03/29/19 14:30 Target Cells SLIGHT 03/29/19 14:30 Ovalocytes 1+ 03/29/19 14:30 ESR 79 mm/hr (0-20) H 03/26/19 06:38 PT 14.9 SEC (11.4-15.4) 03/23/19 08:26 INR 1.16 03/23/19 08:26 APTT 42.4 SEC (23.5-35.8) H 03/23/19 08:26 Carbonic Acid 1.26 mmol/L (1.05-1.35) 03/13/19 01:13 HCO3/H2CO3 Ratio 18:1 03/13/19 01:13 ABG pH 7.37 (7.35-7.45) 03/13/19 01:13 ABG pCO2 41.7 mmHg (35-45) 03/13/19 01:13 ABG pO2 579.2 mmHg (80-100) H 03/13/19 01:13 ABG HCO3 23.6 mmol/L (20-24) 03/13/19 01:13 ABG Total CO2 24.8 mmol/L (23-27) 03/13/19 01:13 ABG O2 Saturation 99.9 % (94-98) H 03/13/19 01:13 ABG Base Excess -1.6 mmol/L 03/13/19 01:13 FiO2 100% 03/13/19 01:13 Sodium 144.9 mmol/L (137-145) 03/31/19 05:50 Potassium 4.3 mmol/L (3.6-5.0) 03/31/19 05:50 Chloride 108 mmol/L (98-107) H 03/31/19 05:50 Carbon Dioxide 31 mmol/L (22-30) H 03/31/19 05:50 Anion Gap 6 (5-19) 03/31/19 05:50 BUN 13 mg/dL (7-20) 03/31/19 05:50 Creatinine 0.76 mg/dL (0.52-1.25) 03/31/19 05:50 Est GFR ( Amer) > 60 (>60) 03/31/19 05:50 Est GFR (MDRD) Non-Af > 60 (>60) 03/31/19 05:50 Glucose 90 mg/dL (75-110) 03/31/19 05:50 POC Glucose 127 mg/dL (70-110) H 03/12/19 23:19 Hemoglobin A1c % 5.0 % (4.7-6.0) 03/16/19 08:05 Lactic Acid 1.1 mmol/L (0.7-2.1) 03/15/19 09:00 Calcium 8.9 mg/dL (8.4-10.2) 03/31/19 05:50 Phosphorus 4.6 mg/dL (2.5-4.5) H 03/16/19 08:05 Magnesium 2.0 mg/dL (1.6-2.3) 03/16/19 08:05 Total Bilirubin 0.2 mg/dL (0.2-1.3) 03/25/19 13:05 Direct Bilirubin 0.2 mg/dL (0.0-0.4) 03/25/19 13:05 Neonat Total Bilirubin Not Reportable 03/25/19 13:05 Neonat Direct Bilirubin Not Reportable 03/25/19 13:05 Neonat Indirect Bili Not Reportable 03/25/19 13:05 AST 22 U/L (17-59) 03/25/19 13:05 ALT 10 U/L (<50) 03/25/19 13:05 Alkaline Phosphatase 105 U/L (38-126) 03/25/19 13:05 Ammonia < 8.7 umol/L (9-33) L 03/16/19 08:05 Creatine Kinase 21 U/L (55-170) L 03/15/19 15:05 CK-MB (CK-2) 0.25 ng/mL (<4.55) 03/15/19 15:05 Troponin I < 0.012 ng/mL 03/16/19 08:05 C-Reactive Protein 76.4 mg/L (<10.0) H 03/26/19 06:38 Total Protein 5.9 g/dL (6.3-8.2) L 03/25/19 13:05 Albumin 2.3 g/dL (3.5-5.0) L 03/25/19 13:05 Urine Color STRAW 03/22/19 09:40 Urine Appearance CLEAR 03/22/19 09:40 Urine pH 6.0 (5.0-9.0) 03/22/19 09:40 Ur Specific [place] 1.006 03/22/19 09:40 Urine Protein NEGATIVE mg/dL (NEGATIVE) 03/22/19 09:40 Urine Glucose (UA) NEGATIVE mg/dL (NEGATIVE) 03/22/19 09:40 Urine Ketones NEGATIVE mg/dL (NEGATIVE) 03/22/19 09:40 Urine Blood NEGATIVE (NEGATIVE) 03/22/19 09:40 Urine Nitrite NEGATIVE (NEGATIVE) 03/22/19 09:40 Urine Bilirubin NEGATIVE (NEGATIVE) 03/22/19 09:40 Urine Urobilinogen NEGATIVE mg/dL (<2.0) 03/22/19 09:40 Ur Leukocyte Esterase NEGATIVE (NEGATIVE) 03/22/19 09:40 Urine WBC (Auto) 2 /HPF 03/17/19 06:00 Urine RBC (Auto) 1 /HPF 03/22/19 09:40 Urine Mucus (Auto) RARE /LPF 03/22/19 09:40 Urine Ascorbic Acid NEGATIVE (NEGATIVE) 03/22/19 09:40 Digoxin 0.72 ng/mL (0.8-2.0) L 03/15/19 10:45 Valproic Acid < 10.0 ug/mL (50.0-120.0) L 03/16/19 08:05 Blood Type AB POSITIVE 03/19/19 12:30 Antibody Screen NEGATIVE 03/19/19 12:30 Crossmatch See Detail 03/19/19 12:30 03/12/19 03/15/19 03/16/19 15:38 15:05 08:05 CK-MB (CK-2) 0.25 Troponin I < 0.012 < 0.012 < 0.012 Impressions: Chest X-Ray 03/12/19 00:00 IMPRESSION: Mild left basilar opacity consistent with atelectasis and/or pneumonia. Chest X-Ray 03/12/19 15:59 IMPRESSION: NO ACUTE RADIOGRAPHIC FINDING IN THE CHEST. Hip X-Ray 03/12/19 15:59 IMPRESSION: Status post left total hip arthroplasty with revision to include cerclage wires. Today's examination demonstrates a comminuted fracture of the proximal femur with altered position and appearance of the cerclage wires. Adjacent subcutaneous gas is not entirely unexpected in the immediate postoperative setting. Cellulitis may have a similar appearance. Guidance Fluoroscopy 03/22/19 00:00 IMPRESSION: SUCCESSFUL PLACEMENT OF A 5 FR DUAL LUMEN 40 CM PICC VIA THE LEFT BASILIC VEIN. Interventional Vascular Procedure 03/22/19 00:00 IMPRESSION: SUCCESSFUL PLACEMENT OF A 5 FR DUAL LUMEN 40 CM PICC VIA THE LEFT BASILIC VEIN. PICC Line Insertion 03/22/19 00:00 IMPRESSION: SUCCESSFUL PLACEMENT OF A 5 FR DUAL LUMEN 40 CM PICC VIA THE LEFT BASILIC VEIN. Stroke Is this a Stroke Patient?: No Acute Heart Failure - Is this a Heart Failure Patient?: No
[2019-04-01 13:26] VITALS: BP 95/55
== END 2019-04-01 15:00 | disposition home health service (06) | DRG 466 ==
LOC: ER 14:53 → EH 18:00 → 3W 21:45 → ICU 23:51 → 3S 03-15 17:07
PROVIDERS: ADMIT Internal Medicine; ATTEND Internal Medicine
PROC: 5A09357 Assistance with Respiratory Ventilation, Less than 24 Consecutive Hours, Continuous Positive Airway Pressure (ICD-10-PCS; 2019-03-12)
PROC: 0SPB0JZ Removal of Synthetic Substitute from Left Hip Joint, Open Approach (ICD-10-PCS; 2019-03-17)
PROC: 0SRB0JZ Replacement of Left Hip Joint with Synthetic Substitute, Open Approach (ICD-10-PCS; principal; 2019-03-17 11:45)
PROC: 30233N1 Transfusion of Nonautologous Red Blood Cells into Peripheral Vein, Percutaneous Approach (ICD-10-PCS; 2019-03-19)
PROC: 30233N1 Transfusion of Nonautologous Red Blood Cells into Peripheral Vein, Percutaneous Approach (ICD-10-PCS; 2019-03-21)
PROC: 02HV33Z Insertion of Infusion Device into Superior Vena Cava, Percutaneous Approach (ICD-10-PCS; 2019-03-22)
DX: T84.52XA Infection and inflammatory reaction due to internal left hip prosthesis, initial encounter (principal); S72.025A Nondisplaced fracture of epiphysis (separation) (upper) of left femur, initial encounter for closed fracture; J96.21 Acute and chronic respiratory failure with hypoxia; Z16.39 Resistance to other specified antimicrobial drug; I48.20 Chronic atrial fibrillation, unspecified; J44.1 Chronic obstructive pulmonary disease with (acute) exacerbation; F11.20 Opioid dependence, uncomplicated; D62 Acute posthemorrhagic anemia; Z96.642 Presence of left artificial hip joint; M06.9 Rheumatoid arthritis, unspecified; G62.9 Polyneuropathy, unspecified; B95.1 Streptococcus, group B, as the cause of diseases classified elsewhere; T36.8X5A Adverse effect of other systemic antibiotics, initial encounter; Y92.239 Unspecified place in hospital as the place of occurrence of the external cause; F32.9 Major depressive disorder, single episode, unspecified; F17.200 Nicotine dependence, unspecified, uncomplicated; I10 Essential (primary) hypertension; G89.29 Other chronic pain; Z88.6 Allergy status to analgesic agent; Z88.3 Allergy status to other anti-infective agents; Z88.8 Allergy status to other drugs, medicaments and biological substances
CPT/HCPCS: 01210; 36415; 36430; 36569; 36600; 71045; 71046; 76937; 77001; 78452; 80048; 80053; 80162; 80164; 81001; 82140; 82550; 82553; 82803; 82962; 83036; 83605; 83735; 84100; 84484; 85025; 85027; 85610; 85652; 85730; 86140; 86850; 86900; 86901; 86920; 87040; 87070; 87075; 87077; 87186; 87205; 93005; 93010; 93017; 93306; 94660; 96361; 96374; 96375; 99231; 99232; 99233; 99284; 99291; A9500; C1769; C1776; J0696; J0744; J1160; J1170; J1200; J1642; J1644; J1720; J1885; J1940; J1956; J2020; J2185; J2250; J2270; J2370; J2405; J2785; J2930; J3010; J3370; J3490; J7030; J7060; J7120; J7614; P9016; Q9969

== ENCOUNTER 2019-04-08 17:08 | Emergency (ER) | payer OTHER, MEDICARE ==
--- NOTE | 2019-04-08 17:45 | ER Document Report ---
ED Medical Screen (RME) - General Chief Complaint: Hand Swelling Stated Complaint: POSSIBLE BLOOD CLOT Time Seen by Provider: 04/08/19 17:21 Primary Care Provider: WESLEY NASCIMENTO MD [Primary Care Provider] - Follow up as needed Notes: 54-year-old male with atrial fibrillation currently off anticoagulation secondary to a recent hip washout and revision by Dr. Nascimento presents to the emergency department from the [place] for concern for a blood clot in his right upper extremity. Patient noted yesterday that the tip of his right pinky finger was numb and noticed today that it is swollen and tight. He does have tenderness to palpation just proximal to the DIP but no other symptoms. Of note, patient does have a PICC line in his left proximal upper extremity. Is on outpatient Rocephin for the next 4-1/2 weeks. She denies fevers or chills, denies acute shortness of breath, denies chest pain. Exam: Well-appearing in no acute distress, the right pinky DIP with pallor, swollen, right pinky is swollen and stiff, loss of sensation to the tip of the right pinky, irregular cardiac rhythm auscultated with no murmur I have greeted and performed a rapid initial assessment of this patient. A comprehensive ED assessment and evaluation of the patient, analysis of test results and completion of medical decision making process will be conducted by an additional ED providers. TRAVEL OUTSIDE OF THE [place] IN LAST 30 DAYS: No - Related Data Allergies/Adverse Reactions: vancomycin Allergy (Severe, Verified 04/08/19 17:21) Anaphylaxis adalimumab [From Humira] Adverse Reaction (Verified 04/08/19 17:21) etanercept [From Enbrel] Adverse Reaction (Verified 04/08/19 17:21) gabapentin Adverse Reaction (Verified 04/08/19 17:21) methotrexate Adverse Reaction (Verified 04/08/19 17:21) Past Medical History - Social History Chew tobacco use (# tins/day): No Frequency of alcohol use: None Drug Abuse: None - Past Medical History Cardiac Medical History: Reports: Hx Atrial Fibrillation Denies: Hx Congestive Heart Failure, Hx Coronary Artery Disease, Hx Heart Attack, Hx Hypercholesterolemia, Hx Hypertension, Hx Peripheral Vascular Disease, Hx Pulmonary Embolism, Hx Heart Murmur Pulmonary Medical History: Reports: Hx COPD Denies: Hx Asthma, Hx Bronchitis, Hx Pneumonia, Hx Respiratory Failure, Hx Sleep Apnea, Hx Tuberculosis Neurological Medical History: Denies: Hx Cerebrovascular Accident, Hx Seizures, Hx Parkinson's Disease Endocrine Medical History: Denies: Hx Graves' Disease, Hx Hyperthyroidism, Hx Hypothyroidism Renal/ Medical History: Denies: Hx Benign Prostatic Hyperplasia, Hx End Stage Renal Disease, Hx Kidney Stones Malignancy Medical History: Denies Hx Leukemia, Denies Hx Lung Cancer GI Medical History: Reports: Hx Ulcer. Denies: Hx Gastroesophageal Reflux Disease Musculoskeltal Medical History: Reports Hx Arthritis, Denies Hx Fibromyalgia, Denies Hx Multiple Sclerosis, Denies Hx Muscular Dystrophy, Denies Hx Systemic Lupus Erythematosus Psychiatric Medical History: Reports: Hx Depression Denies: Hx Bipolar Disorder, Hx Dementia, Hx Post Traumatic Stress Disorder, Hx Schizophrenia Traumatic Medical History: Denies: Hx Fractures Infectious Medical History: Denies: Hx HIV Past Surgical History: Reports: Hx Cardiac Catheterization - AFIB ablation, Hx Orthopedic Surgery - Multiple procedures on the left hip for infection and prosthetic instabilit, Other - Catheter ablation X 2 afib. Denies: Hx Appendectomy, Hx Bowel Surgery, Hx Cholecystectomy, Hx Coronary Artery Bypass Graft, Hx Gastric Bypass Surgery, Hx Herniorrhaphy, Hx Pacemaker, Hx Tonsillectomy - Immunizations Immunizations up to date: Yes Hx Diphtheria, Pertussis, Tetanus Vaccination: Yes Physical Exam - Vital signs Vitals: Temp Pulse Resp BP Pulse Ox 98.2 F 110 H 16 120/67 95 04/08/19 17:12 04/08/19 17:12 04/08/19 17:12 04/08/19 17:12 04/08/19 17:12 Course - Vital Signs Vital signs: Temp Pulse Resp BP Pulse Ox 98.2 F 110 H 16 120/67 95 04/08/19 17:12 04/08/19 17:12 04/08/19 17:12 04/08/19 17:12 04/08/19 17:12 Doctor's Discharge - Discharge Referrals: WESLEY NASCIMENTO MD [Primary Care Provider] - Follow up as needed
[2019-04-08 18:27] LABS: ABSOLUTE BASOPHILS # (AUTO) 0.1 10^3/uL (0.0-0.2); ABSOLUTE EOSINOPHILS # (AUTO) 0.6 10^3/uL (0.0-0.6); ABSOLUTE LYMPHOCYTES (AUTO) 0.9 10^3/uL (0.5-4.7); ABSOLUTE NEUT (AUTO) 3.4 10^3/uL (1.7-8.2); BASOPHILS % (AUTO) 0.9 % (0-2); EOSINOPHILS % (AUTO) 10.4 % (0-6); HEMATOCRIT 32.7 % (37.9-51.0); HEMOGLOBIN 10.5 g/dL (13.5-17.0); LYMPHOCYTES % (AUTO) 15.7 % (13-45); MEAN CORPUSCULAR HGB CONC 32.1 g/dL (32.0-36.0); MEAN CORPUSCULAR VOLUME 75 fl (80-97); MONOCYTES % (AUTO) 16.4 % (3-13); PLATELET COUNT 340 10^3/uL (150-450); RED BLOOD COUNT 4.37 10^6/uL (4.35-5.55); RED CELL DISTRIBUTION WIDTH 21.2 % (11.5-14.0); SEGMENTED NEUTROPHILS % (AUTO) 56.6 % (42-78); TOTAL CELLS COUNTED % (AUTO) 100 %
[2019-04-08 18:39] LABS: INTERNATIONAL RATION (INR) 1.14; PROTHROMBIN TIME 14.7 SEC (11.4-15.4)
[2019-04-08 18:40] LABS: PARTIAL THROMBOPLASTIN TIME 38.2 SEC (23.5-35.8)
--- NOTE | 2019-04-08 19:28 | RADIOLOGY REPORT (SQ) ---
EXAM DESCRIPTION: VENOUS UNILATERAL UPPER COMPLETED DATE/TIME: 04/08/2019 7:10 pm REASON FOR STUDY: RUE SWELLING COMPARISON: None. TECHNIQUE: Dynamic and static shannon scale and color images acquired of the right arm venous system. S elected spectral images acquired with additional compression and augmentation maneuvers. The contrala teral subclavian vein and internal jugular vein were also imaged. Images stored on PACS. LIMITATIONS: None. FINDINGS: INTERNAL JUGULAR VEIN: Normal phasicity, compression, augmentation. No visualized echogeni c material on shannon scale. No defects on color images. Comparison opposite side normal. SUBCLAVIAN VEIN: Normal compression, augmentation. No visualized echogenic material on shannon scale. No defects on color images. AXILLARY VEIN: Normal compression, augmentation. No visualized echogenic material on shannon scale. No d efects on color images. BRACHIAL VEIN: Normal compression, augmentation. No visualized echogenic material on shannon scale. No d efects on color images. BASILIC VEIN: Normal compression, augmentation. No visualized echogenic material on shannon scale. No de fects on color images. CEPHALIC VEIN: Normal compression, augmentation. No visualized echogenic material on shannon scale. No d efects on color images. OTHER: No other significant finding. CONTRALATERAL SUBCLAVIAN VEIN AND INTERNAL JUGULAR VEIN: Normal phasicity, compression and augmentation. No visualized echogenic material on shannon scale. No de fects on color images. IMPRESSION: NO EVIDENCE DVT OR SVT IN THE RIGHT ARM. TECHNICAL DOCUMENTATION: JOB ID: [id number] [employer]- All Rights Reserved Reading location - IP/workstation name: [email or web address]
--- NOTE | 2019-04-08 20:27 | ER Document Report ---
ED Hand/Wrist Injury - General Chief Complaint: Hand Swelling Stated Complaint: POSSIBLE BLOOD CLOT Time Seen by Provider: 04/08/19 17:21 Primary Care Provider: WESLEY JAMES MD [Primary Care Provider] - Follow up as needed Notes: 54-year-old male with atrial fibrillation currently off anticoagulation secondary to a recent hip washout and revision by Dr. James presents to the emergency department from the [place] for concern for a blood clot in his right upper extremity. Patient noted yesterday that the tip of his right pinky finger was numb and noticed today that it is swollen and tight. He does have tenderness to palpation just proximal to the DIP but no other symptoms. Of note, patient does have a PICC line in his left proximal upper extremity. Is on outpatient Rocephin for the next 4-1/2 weeks. She denies fevers or chills, denies acute shortness of breath, denies chest pain. TRAVEL OUTSIDE OF THE [place] IN LAST 30 DAYS: No - Related Data Allergies/Adverse Reactions: vancomycin Allergy (Severe, Verified 04/08/19 17:21) Anaphylaxis adalimumab [From Humira] Adverse Reaction (Verified 04/08/19 17:21) etanercept [From Enbrel] Adverse Reaction (Verified 04/08/19 17:21) gabapentin Adverse Reaction (Verified 04/08/19 17:21) methotrexate Adverse Reaction (Verified 04/08/19 17:21) Past Medical History - Social History Smoking Status: Never Smoker Chew tobacco use (# tins/day): No Frequency of alcohol use: None Drug Abuse: None Family History: CAD Patient has suicidal ideation: No Patient has homicidal ideation: No - Past Medical History Cardiac Medical History: Reports: Hx Atrial Fibrillation Denies: Hx Congestive Heart Failure, Hx Coronary Artery Disease, Hx Heart Attack, Hx Hypercholesterolemia, Hx Hypertension, Hx Peripheral Vascular Disease, Hx Pulmonary Embolism, Hx Heart Murmur Pulmonary Medical History: Reports: Hx COPD Denies: Hx Asthma, Hx Bronchitis, Hx Pneumonia, Hx Respiratory Failure, Hx Sleep Apnea, Hx Tuberculosis Neurological Medical History: Denies: Hx Cerebrovascular Accident, Hx Seizures, Hx Parkinson's Disease Endocrine Medical History: Denies: Hx Graves' Disease, Hx Hyperthyroidism, Hx Hypothyroidism Renal/ Medical History: Denies: Hx Benign Prostatic Hyperplasia, Hx End Stage Renal Disease, Hx Kidney Stones Malignancy Medical History: Denies Hx Leukemia, Denies Hx Lung Cancer GI Medical History: Reports: Hx Ulcer. Denies: Hx Gastroesophageal Reflux Disease Musculoskeletal Medical History: Reports Hx Arthritis, Denies Hx Fibromyalgia, Denies Hx Multiple Sclerosis, Denies Hx Muscular Dystrophy, Denies Hx Systemic Lupus Erythematosus Psychiatric Medical History: Reports: Hx Depression Denies: Hx Bipolar Disorder, Hx Dementia, Hx Post Traumatic Stress Disorder, Hx Schizophrenia Traumatic Medical History: Denies: Hx Fractures Infectious Medical History: Denies: Hx HIV Past Surgical History: Reports: Hx Cardiac Catheterization - AFIB ablation, Hx Orthopedic Surgery - Multiple procedures on the left hip for infection and prosthetic instabilit, Other - Catheter ablation X 2 afib. Denies: Hx Appendectomy, Hx Bowel Surgery, Hx Cholecystectomy, Hx Coronary Artery Bypass Graft, Hx Gastric Bypass Surgery, Hx Herniorrhaphy, Hx Pacemaker, Hx To nsillectomy - Immunizations Immunizations up to date: Yes Hx Diphtheria, Pertussis, Tetanus Vaccination: Yes Hx Pneumococcal Vaccination: 11/23/09 Review of Systems - Review of Systems Constitutional: See HPI EENT: No symptoms reported Cardiovascular: See HPI Respiratory: No symptoms reported Gastrointestinal: No symptoms reported Genitourinary: No symptoms reported Male Genitourinary: No symptoms reported Musculoskeletal: See HPI Skin: See HPI Hematologic/Lymphatic: No symptoms reported Neurological/Psychological: No symptoms reported Physical Exam - Vital signs Vitals: Temp Pulse Resp BP Pulse Ox 98.2 F 110 H 16 120/67 95 04/08/19 17:12 04/08/19 17:12 04/08/19 17:12 04/08/19 17:12 04/08/19 17:12 - Notes Notes: PHYSICAL EXAMINATION: Reviewed vital signs and charting by RN GENERAL: Alert, interacts well. No acute distress. HEAD: Normocephalic, atraumatic. EYES: Pupils equal and round. Extraocular movements intact. ENT: Oral mucosa moist, tongue midline. NECK: Full range of motion. Trachea midline. LUNGS: Clear to auscultation bilaterally, no wheezes, rales, or rhonchi. No respiratory distress. HEART: Irregular rhythm, no murmur ABDOMEN: soft, non-tender. No distention. Bowel sounds present EXTREMITIES: Moves all 4 extremities spontaneously. No edema, No cyanosis, the right pinky DIP with pallor, swollen, right pinky is swollen and stiff, loss of sensation to the tip of the right pinky PSYCH: Normal affect, normal mood. SKIN: Warm, dry, normal turgor. No rashes or lesions noted. Course - Re-evaluation Re-evalutation: 04/08/19 20:26 Patient is well-appearing and nontoxic. This is a complicated patient who has a history with Dr. James for multiple hip surgeries but presents with a separate chief and my attending physician, Dr. erwin, look at his finger who recommended that I call orthopedics weapons mechanic. I then called the on-call [facility] for surgeries who said that because this is unrelated to any work Dr. James is done it should go to the on-call orthopedics for the hospital. I then called Dr. Liriano, on-call orthopedist for the emergency department, who recommended that he follow-up first thing with him on Friday morning. He recommended that if the patient develops a fever, develops any worsening erythema or lymphedema, red streaks, or any infectious symptoms to immediately return to the emergency department as he is on-call for the emergency department all weekend and he will come and see him personally. I explained all of this to the patient. We did do a right upper extremity Doppler which was negative for DVT, x-ray of the hand was negative for any air to be concerned about gangrene, no leukocytosis. Patient is on Rocephin for the next 4-1/2 weeks and has an existing PICC line so he is getting antibiotics. Patient understands the plan completely and agrees to it. He is stable for discharge - Vital Signs Vital signs: Temp Pulse Resp BP Pulse Ox 98.2 F 110 H 16 120/67 95 04/08/19 17:12 04/08/19 17:12 04/08/19 17:12 04/08/19 17:12 04/08/19 17:12 - Laboratory Result Diagrams: 04/08/19 18:10 Laboratory results interpreted by me: 04/08/19 04/08/19 18:10 18:10 Hgb 10.5 L Hct 32.7 L MCV 75 L MCH 24.0 L RDW 21.2 H Holt % (Auto) 16.4 H Eos % (Auto) 10.4 H APTT 38.2 H Discharge - Discharge Clinical Impression: Swelling of right little finger Condition: Good Disposition: HOME, SELF-CARE Additional Instructions: You were seen in the emergency department for a swollen right pinky finger. We did a venous Doppler of the arm to ensure you do not have a blood clot and that was negative for blood clot. We did an x-ray of your hand and that did not show any evidence of obvious infection or gangrene. Your lab work was normal and there is no evidence of infection in your blood. After speaking with Dr. James's on-call who referred me to Dr. Liriano, orthopedist on-call his recommendation is for you to elevate it, ice it, and it is okay to do ibuprofen 600 mg every 6 hours for inflammation. It is critically important, though, that you return to the emergency department if you develop a fever, he started to notice red streaks moving up your arm, or your finger starts to turn necrotic which is or you get skin breakdown and it turns black. Otherwise, Dr. Liriano want you to follow-up with him in the office on Friday morning. If you have any concerns over the weekend, though, he is weapons mechanic all weekend and he will see you here in the emergency department. Referrals: WESLEY JAMES MD [Primary Care Provider] - Follow up as needed MARIELOS LIRIANO JR, DO [ACTIVE PROVISIONAL STAFF] - 04/12/19 8:00 am
--- NOTE | 2019-04-08 20:29 | RADIOLOGY REPORT (SQ) ---
EXAM DESCRIPTION: Right hand RadLex: XR HAND 3 OR MORE VIEWS Views: 3 CLINICAL HISTORY: 54 years Male, pinky edema, contracture COMPARISON: None. FINDINGS: There are chronic changes at the 5th MCP joint, with reactive osteophyte formation on both sides of the joint. Some remodeling of the distal head of the 5th metacarpal suggests an old injury, but there is no acute fracture. No soft tissue air. No lytic changes or acute periosteal reaction. Mild chronic osteoarthritic changes are also noted at the 1st MCP joint. Bony mineralization is normal. There is some narrowing and sclerosis of the radiocarpal joint IMPRESSION: 1. 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 2. No acute fracture or dislocation.
[2019-04-08 21:06] VITALS: BP 122/72
== END 2019-04-08 21:07 | disposition home or self-care (01) ==
LOC: ER 17:08
DX: M79.89 Other specified soft tissue disorders (principal); R20.0 Anesthesia of skin; I49.9 Cardiac arrhythmia, unspecified; J44.9 Chronic obstructive pulmonary disease, unspecified; Z98.890 Other specified postprocedural states; Z87.892 Personal history of anaphylaxis; Z88.1 Allergy status to other antibiotic agents
CPT/HCPCS: 36415; 85025; 85610; 85730; 93971; 99284

== ENCOUNTER 2019-04-09 01:41 | Emergency (ER) | payer OTHER, MEDICARE ==
[2019-04-09 02:01] VITALS: BP 137/67
== END 2019-04-09 06:01 | disposition left against medical advice (07) ==
LOC: ER 01:41
DX: Z53.21 Procedure and treatment not carried out due to patient leaving prior to being seen by health care provider (principal)

== ENCOUNTER 2019-04-11 14:50 | Observation (INO) | payer OTHER, MEDICARE ==
[2019-04-11] MEDS ORDERED: IPRATROPIUM/ALBUTEROL 0.5-2.5 MG/3 ML AMPUL NEB ONE ×2 (15:19→17:49)
--- NOTE | 2019-04-11 15:23 | ER Document Report ---
ED Medical Screen (RME) - General Chief Complaint: Hand Pain Stated Complaint: RIGHT HAND PAIN Time Seen by Provider: 04/11/19 15:10 Primary Care Provider: WESLEY NASCIMENTO MD [Primary Care Provider] - Follow up as needed Notes: Patient is a 54-year-old male with a history of A. fib currently off anticoagulation due to recent hip revision by Dr. Nascimento who presents to the emergency department with 2 complaints. Patient reports he was seen here the other day with discoloration to the tip of the right fifth digit on his hand. Patient reports it was pale. Patient reports since then he has developed a blood blister that did pop. Patient reports there was a large amount of blood and pus coming from the distal aspect of his finger. Patient denies fever. Patient reports the finger is now red hot and swollen. Patient also reports having history of COPD and emphysema. Patient reports he is attempted to use his albuterol inhaler and Combivent at home multiple times this morning without much relief. Patient reports he feels short of breath with ambulating and laying down which makes it worse. Patient reports Dr. Naveen Gibson told him to start the blood thinner again. Patient reports he did take this for 1 day. Patient reports he stopped taking it because the wound to his left hip became extremely red. He does have a follow-up with Dr. Nascimento this week. TRAVEL OUTSIDE OF THE [place] IN LAST 30 DAYS: No - Related Data Allergies/Adverse Reactions: vancomycin Allergy (Severe, Verified 04/08/19 17:21) Anaphylaxis adalimumab [From Humira] Adverse Reaction (Verified 04/08/19 17:21) etanercept [From Enbrel] Adverse Reaction (Verified 04/08/19 17:21) gabapentin Adverse Reaction (Verified 04/08/19 17:21) methotrexate Adverse Reaction (Verified 04/08/19 17:21) Past Medical History - Social History Chew tobacco use (# tins/day): No Frequency of alcohol use: None Drug Abuse: None - Past Medical History Cardiac Medical History: Reports: Hx Atrial Fibrillation Denies: Hx Congestive Heart Failure, Hx Coronary Artery Disease, Hx Heart Attack, Hx Hypercholesterolemia, Hx Hypertension, Hx Peripheral Vascular Disease, Hx Pulmonary Embolism, Hx Heart Murmur Pulmonary Medical History: Reports: Hx COPD Denies: Hx Asthma, Hx Bronchitis, Hx Pneumonia, Hx Respiratory Failure, Hx Sleep Apnea, Hx Tuberculosis Neurological Medical History: Denies: Hx Cerebrovascular Accident, Hx Seizures, Hx Parkinson's Disease Endocrine Medical History: Denies: Hx Graves' Disease, Hx Hyperthyroidism, Hx Hy pothyroidism Renal/ Medical History: Denies: Hx Benign Prostatic Hyperplasia, Hx End Stage Renal Disease, Hx Kidney Stones Malignancy Medical History: Denies Hx Leukemia, Denies Hx Lung Cancer GI Medical History: Reports: Hx Ulcer. Denies: Hx Gastroesophageal Reflux Disease Musculoskeltal Medical History: Reports Hx Arthritis, Denies Hx Fibromyalgia, Denies Hx Multiple Sclerosis, Denies Hx Muscular Dystrophy, Denies Hx Systemic Lupus Erythematosus Psychiatric Medical History: Reports: Hx Depression Denies: Hx Bipolar Disorder, Hx Dementia, Hx Post Traumatic Stress Disorder, Hx Schizophrenia Traumatic Medical History: Denies: Hx Fractures Infectious Medical History: Denies: Hx HIV Past Surgical History: Reports: Hx Cardiac Catheterization - AFIB ablation, Hx Orthopedic Surgery - Multiple procedures on the left hip for infection and prosthetic instabilit, Other - Catheter ablation X 2 afib. Denies: Hx Appendectomy, Hx Bowel Surgery, Hx Cholecystectomy, Hx Coronary Artery Bypass Graft, Hx Gastric Bypass Surgery, Hx Herniorrhaphy, Hx Pacemaker, Hx Tonsillectomy - Immunizations Immunizations up to date: Yes Hx Diphtheria, Pertussis, Tetanus Vaccination: Yes Physical Exam - Vital signs Vitals: Temp Pulse Resp BP Pulse Ox 97.7 F 109 H 22 H 129/62 H 96 04/11/19 14:57 04/11/19 14:57 04/11/19 14:57 04/11/19 14:57 04/11/19 14:57 Course - Vital Signs Vital signs: Temp Pulse Resp BP Pulse Ox 97.7 F 109 H 22 H 129/62 H 96 04/11/19 14:57 04/11/19 14:57 04/11/19 14:57 04/11/19 14:57 04/11/19 14:57 Doctor's Discharge - Discharge Referrals: WESLEY NASCIMENTO MD [Primary Care Provider] - Follow up as needed
--- NOTE | 2019-04-11 16:20 | RADIOLOGY REPORT (SQ) ---
EXAM DESCRIPTION: HAND RIGHT 3 VIEWS COMPLETED DATE/TIME: 04/11/2019 3:55 pm REASON FOR STUDY: shortness of breath Right 5th digit redness and swelling distally. COMPARISON: Right hand x-ray 04/08/2019. EXAM PARAMETERS: NUMBER OF VIEWS: Three views. TECHNIQUE: AP, lateral and oblique radiographic images acquired of the right hand. LIMITATIONS: None. FINDINGS: MINERALIZATION: Normal. BONES: No acute fracture or dislocation. Degenerative changes are noted at the 1st metacarpophalange al joint and at the 5th metacarpophalangeal joint. Degenerative changes are also noted at the carpal bones and at the distal radioulnar joint. SOFT TISSUES: Diffuse soft tissue swelling at the 5th digit. No radiopaque foreign body. IMPRESSION: No acute fracture at the right hand. Diffuse soft tissue swelling at the right 5th fing er. Degenerative changes at the 1st and 5th MCP joints. TECHNICAL DOCUMENTATION: JOB ID: [id number] [employer]- All Rights Reserved Reading location - IP/workstation name: [email or web address]
--- NOTE | 2019-04-11 16:22 | RADIOLOGY REPORT (SQ) ---
EXAM DESCRIPTION: CHEST 2 VIEWS COMPLETED DATE/TIME: 04/11/2019 3:55 pm REASON FOR STUDY: shortness of breath COMPARISON: 03/12/2019. EXAM PARAMETERS: NUMBER OF VIEWS: two views TECHNIQUE: Digital Frontal and Lateral radiographic views of the chest acquired. RADIATION DOSE: NA LIMITATIONS: none FINDINGS: LUNGS AND PLEURA: No opacities, masses or pneumothorax. No pleural effusion. MEDIASTINUM AND HILAR STRUCTURES: No masses or contour abnormalities. HEART AND VASCULAR STRUCTURES: Heart normal size. No evidence for failure. BONES: No acute findings. HARDWARE: None in the chest. OTHER: No other significant finding. IMPRESSION: NO ACUTE RADIOGRAPHIC FINDING IN THE CHEST. TECHNICAL DOCUMENTATION: JOB ID: [id number] [employer]- All Rights Reserved Reading location - IP/workstation name: [email or web address]
[2019-04-11 16:35] LABS: ABSOLUTE BASOPHILS # (AUTO) 0.1 10^3/uL (0.0-0.2); ABSOLUTE EOSINOPHILS # (AUTO) 0.7 10^3/uL (0.0-0.6); ABSOLUTE LYMPHOCYTES (AUTO) 0.9 10^3/uL (0.5-4.7); ABSOLUTE NEUT (AUTO) 3.8 10^3/uL (1.7-8.2); BASOPHILS % (AUTO) 0.8 % (0-2); EOSINOPHILS % (AUTO) 11.4 % (0-6); HEMATOCRIT 29.9 % (37.9-51.0); HEMOGLOBIN 9.7 g/dL (13.5-17.0); LYMPHOCYTES % (AUTO) 13.8 % (13-45); MEAN CORPUSCULAR HEMOGLOBIN 24.1 pg (27.0-33.4); MEAN CORPUSCULAR HGB CONC 32.4 g/dL (32.0-36.0); MEAN CORPUSCULAR VOLUME 74 fl (80-97); MONOCYTES % (AUTO) 15.3 % (3-13); PLATELET COUNT 280 10^3/uL (150-450); RED BLOOD COUNT 4.02 10^6/uL (4.35-5.55); RED CELL DISTRIBUTION WIDTH 21.4 % (11.5-14.0); SEGMENTED NEUTROPHILS % (AUTO) 58.7 % (42-78); TOTAL CELLS COUNTED % (AUTO) 100 %; WHITE BLOOD COUNT 6.5 10^3/uL (4.0-10.5)
[2019-04-11 16:38] LABS: ALBUMIN 3.2 g/dL (3.5-5.0); ALKALINE PHOSPHATASE 143 U/L (38-126); ANION GAP 5 (5-19); ASPARTATE AMINO TRANSFERASE 36 U/L (17-59); BILIRUBIN,DIRECT 0.2 mg/dL (0.0-0.4); BILIRUBIN,TOTAL 0.3 mg/dL (0.2-1.3); BLOOD UREA NITROGEN 11 mg/dL (7-20); CALCIUM 8.4 mg/dL (8.4-10.2); CARBON DIOXIDE 30 mmol/L (22-30); CHLORIDE 102 mmol/L (98-107); GLUCOSE 81 mg/dL (75-110); POTASSIUM 4.5 mmol/L (3.6-5.0)
[2019-04-11] MEDS ORDERED: METHYLPREDNISOLONE INJ 125 MG/2 ML SDV IV ONE (17:49)
[2019-04-11] MEDS ORDERED: ALBUTEROL SULFATE 0.083% NEB 2.5 MG/3 ML AMPUL NEB ONE (17:49)
[2019-04-11] MEDS ORDERED: OXYCODONE HCL IR 5 MG TABLET PO ONE (18:04)
[2019-04-11] MEDS ORDERED: CEFTRIAXONE 1 GM/D5W RTU 1 GM/50 ML RTUPB IV ONE (18:30)
[2019-04-11 18:44] LABS: NT PRO BNP 3010 pg/mL (<125); TROPONIN I < 0.012 ng/mL
[2019-04-11] MEDS: MAGNESIUM SULFATE/D5W 1 GM/100 ML RTUPB IV SCH ×2 (19:27→19:41)
--- NOTE | 2019-04-11 19:33 | ER Document Report ---
ED General - General Chief Complaint: Hand Pain Stated Complaint: RIGHT HAND PAIN Time Seen by Provider: 04/11/19 15:10 Primary Care Provider: WESLEY NASCIMENTO MD [ACTIVE STAFF] - Follow up as needed Mode of Arrival: Ambulatory Information source: Patient Notes: Patient is a 54-year-old male presenting to the emergency department with multiple complaints. Complaint #1 is shortness of breath and wheezing. Patient reports increased wheezing from his baseline. He does report history of COPD and emphysema, states that he is taken multiple breathing treatments at home without relief. Denies any fevers, reports productive cough. Complaint #2 is swelling to his right fifth digit, states this is been going on for several days, states that he is supposed to follow-up with orthopedics, states he has an appointment tomorrow but wanted to get it checked out today since he states that is getting worse. TRAVEL OUTSIDE OF THE [place] IN LAST 30 DAYS: No - Related Data Allergies/Adverse Reactions: vancomycin Allergy (Severe, Verified 04/08/19 17:21) Anaphylaxis adalimumab [From Humira] Adverse Reaction (Verified 04/08/19 17:21) etanercept [From Enbrel] Adverse Reaction (Verified 04/08/19 17:21) gabapentin Adverse Reaction (Verified 04/08/19 17:21) methotrexate Adverse Reaction (Verified 04/08/19 17:21) Past Medical History - General Information source: Patient - Social History Smoking Status: Never Smoker Chew tobacco use (# tins/day): No Frequency of alcohol use: None Drug Abuse: None Family History: CAD Patient has suicidal ideation: No Patient has homicidal ideation: No - Past Medical History Cardiac Medical History: Reports: Hx Atrial Fibrillation Denies: Hx Congestive Heart Failure, Hx Coronary Artery Disease, Hx Heart Attack, Hx Hypercholesterolemia, Hx Hypertension, Hx Peripheral Vascular Disease, Hx Pulmonary Embolism, Hx Heart Murmur Pulmonary Medical History: Reports: Hx COPD Denies: Hx Asthma, Hx Bronchitis, Hx Pneumonia, Hx Respiratory Failure, Hx Sleep Apnea, Hx Tuberculosis Neurological Medical History: Denies: Hx Cerebrovascular Accident, Hx Seizures, Hx Parkinson's Disease Endocrine Medical History: Denies: Hx Graves' Disease, Hx Hyperthyroidism, Hx Hypothyroidism Renal/ Medical History: Denies: Hx Benign Prostatic Hyperplasia, Hx End Stage Renal Disease, Hx Kidney Stones Malignancy Medical History: Denies Hx Leukemia, Denies Hx Lung Cancer GI Medical History: Reports: Hx Ulcer. Denies: Hx Gastroesophageal Reflux Disease Musculoskeletal Medical History: Reports Hx Arthritis, Denies Hx Fibromyalgia, Denies Hx Multiple Sclerosis, Denies Hx Muscular Dystrophy, Denies Hx Systemic Lupus Erythematosus Psychiatric Medical History: Reports: Hx Depression Denies: Hx Bipolar Disorder, Hx Dementia, Hx Post Traumatic Stress Disorder, Hx Schizophrenia Traumatic Medical History: Denies: Hx Fractures Infectious Medical History: Denies: Hx HIV Past Surgical History: Reports: Hx Cardiac Catheterization - AFIB ablation, Hx Orthopedic Surgery - Multiple procedures on the left hip for infection and prosthetic instabilit, Other - Catheter ablation X 2 afib. Denies: Hx Appendectomy, Hx Bowel Surgery, Hx Cholecystectomy, Hx Coronary Artery Bypass Graft, Hx Gastric Bypass Surgery, Hx Herniorrhaphy, Hx Pacemaker, Hx Tonsillectomy - Immunizations Immunizations up to date: Yes Hx Diphtheria, Pertussis, Tetanus Vaccination: Yes Hx Pneumococcal Vaccination: 11/23/09 Review of Systems - Review of Systems Constitutional: No symptoms reported EENT: No symptoms reported Cardiovascular: No symptoms reported Respiratory: Cough, Short of breath, Sputum, Wheezing Gastrointestinal: No symptoms reported Genitourinary: No symptoms reported Male Genitourinary: No symptoms reported Musculoskeletal: See HPI Skin: See HPI Hematologic/Lymphatic: No symptoms reported Neurological/Psychological: No symptoms reported Physical Exam - Vital signs Vitals: Temp Pulse Resp BP Pulse Ox 97.7 F 109 H 22 H 129/62 H 96 04/11/19 14:57 04/11/19 14:57 04/11/19 14:57 04/11/19 14:57 04/11/19 14:57 - Notes Notes: PHYSICAL EXAMINATION: GENERAL: Well-appearing, well-nourished. HEAD: Atraumatic, normocephalic. EYES: Pupils equal round and reactive to light, extraocular movements intact, sclera anicteric, conjunctiva are normal. ENT: Nares patent, oropharynx clear without exudates. Moist mucous membranes. NECK: Normal range of motion, supple without lymphadenopathy LUNGS: Inspiratory and expiratory wheezes noted bilaterally. HEART: Regular rate and rhythm without murmurs ABDOMEN: Soft, nontender, nondistended abdomen. No guarding, no rebound. No ma sses appreciated. Musculoskeletal: Normal range of motion, no pitting or edema. No cyanosis. NEUROLOGICAL: Cranial nerves grossly intact. Normal speech, normal gait. Normal sensory, motor exams PSYCH: Normal mood, normal affect. SKIN: Erythema and edema noted to right fifth digits, slightly altered sensation, cap refill less than 2 seconds. Course - Re-evaluation Re-evalutation: Laboratory 04/11/19 04/11/19 04/11/19 16:07 16:07 16:07 WBC 6.5 RBC 4.02 L Hgb 9.7 L Hct 29.9 L MCV 74 L MCH 24.1 L MCHC 32.4 RDW 21.4 H Plt Count 280 Lymph % (Auto) 13.8 Kerr % (Auto) 15.3 H Eos % (Auto) 11.4 H Baso % (Auto) 0.8 Absolute Neuts (auto) 3.8 Absolute Lymphs (auto) 0.9 Absolute Monos (auto) 1.0 Absolute Eos (auto) 0.7 H Absolute Basos (auto) 0.1 Seg Neutrophils % 58.7 Sodium 137.3 Potassium 4.5 Chloride 102 Carbon Dioxide 30 Anion Gap 5 BUN 11 Creatinine 0.79 Est GFR ( Amer) > 60 Est GFR (MDRD) Non-Af > 60 Glucose 81 Calcium 8.4 Total Bilirubin 0.3 Direct Bilirubin 0.2 Neonat Total Bilirubin Not Reportable Neonat Direct Bilirubin Not Reportable Neonat Indirect Bili Not Reportable AST 36 ALT 15 Alkaline Phosphatase 143 H Troponin I < 0.012 NT-Pro-B Natriuret Pep 3010 H Total Protein 7.0 Albumin 3.2 L Chest X-Ray 04/11/19 15:19 IMPRESSION: NO ACUTE RADIOGRAPHIC FINDING IN THE CHEST. Hand X-Ray 04/11/19 15:19 IMPRESSION: No acute fracture at the right hand. Diffuse soft tissue swelling at the right 5th finger. Degenerative changes at the 1st and 5th MCP joints. Patient had significant inspiratory and expiratory wheezes noted at time of arrival. He states he had already taken several breathing treatments at home without relief. He was given an additional breathing treatment here in the em ergency department. Wheezing did not resolve at all. Patient was then given additional breathing treatments as well as IV Solu-Medrol. After reevaluation patient continues to have bilateral wheezes. Chest x-ray was unremarkable. I did add on a BNP and troponin, BNP was elevated at 3000, he patient has not had a history of BMP elevated this high before. Patient's primary care provider is at the [facility], I will call the hospitalist to attempt to admit this patient. Patient's second complaint of right fifth digit pain and swelling work-up has been unremarkable, no white count, x-ray shows some swelling but no gas in the wound, will defer this problem at this time and focus on patient's respiratory issues. - Vital Signs Vital signs: Temp Pulse Resp BP Pulse Ox 97.7 F 103 H 18 136/80 H 96 04/11/19 17:47 04/11/19 17:47 04/11/19 17:47 04/11/19 17:47 04/11/19 17:47 - Laboratory Result Diagrams: 04/11/19 16:07 04/11/19 16:07 Laboratory results interpreted by me: 04/11/19 04/11/19 04/11/19 16:07 16:07 16:07 RBC 4.02 L Hgb 9.7 L Hct 29.9 L MCV 74 L MCH 24.1 L RDW 21.4 H Kerr % (Auto) 15.3 H Eos % (Auto) 11.4 H Absolute Eos (auto) 0.7 H Alkaline Phosphatase 143 H NT-Pro-B Natriuret Pep 3010 H Albumin 3.2 L Discharge - Discharge Clinical Impression: COPD exacerbation Condition: Stable Disposition: ADMITTED INPATIENT Admitting Provider: Jones (Hospitalist) Unit Admitted: Medical Floor Referrals: WESLEY NASCIMENTO MD [ACTIVE STAFF] - Follow up as needed
[2019-04-11] MEDS ORDERED: PROMETHAZINE HCL INJ 25 MG/1 ML VIAL IV PRN (20:33)
[2019-04-11] MEDS ORDERED: LEVALBUTEROL HCL NEB 0.63 MG/3 ML AMPUL NEB PRN (20:33)
[2019-04-11] MEDS ORDERED: MAG HYDROX/AL HYDROX/SIMETH SUSP 30 ML UDCUP PO PRN (20:33)
[2019-04-11] MEDS ORDERED: MAGNESIUM HYDROXIDE SUSP 30 ML UDCUP PO PRN (20:33)
[2019-04-11] MEDS ORDERED: TEMAZEPAM 15 MG CAPSULE PO PRN (20:33)
[2019-04-11] MEDS ORDERED: NICOTINE 21 MG/24 HR PATCH.TD24 TD PRN (20:40)
[2019-04-11] MEDS ORDERED: MORPHINE SULFATE 10 MG/ML INJ IV PRN ×2 (20:40)
[2019-04-11] MEDS ORDERED: ACETAMINOPHEN 325 MG TABLET PO PRN (20:40)
[2019-04-11] MEDS ORDERED: FAMOTIDINE 20 MG TABLET PO SCH (22:00)
[2019-04-11] MEDS ORDERED: METOPROLOL SUCCINATE 25 MG TAB.SR.24H PO SCH (22:00)
[2019-04-11] MEDS ORDERED: HEPARIN SOD (PORCINE) 5,000 UNIT/ML 1 ML VIAL SUBCUT SCH (22:00)
[2019-04-11] MEDS ORDERED: NORMAL SALINE INJ/PF 0.9% 10 ML SDV IV SCH (22:00)
--- NOTE | 2019-04-11 22:16 | EKG REPORT ---
SEVERITY:- ABNORMAL ECG - ATRIAL FIBRILLATION, V-RATE 94-143 BORDERLINE RIGHT AXIS DEVIATION : Confirmed by: Astrid De Jesus MD 11-Apr-2019 22:16:36
[2019-04-11] MEDS: MORPHINE SULFATE 10 MG/ML INJ IV PRN (22:34)
[2019-04-11] MEDS: LEVALBUTEROL HCL NEB 1.25 MG/3 ML AMPUL NEB SCH (23:47)
[2019-04-11] MEDS: IPRATROPIUM BROMIDE 0.02% NEB 0.5 MG/2.5 ML AMPUL NEB SCH (23:47)
[2019-04-12] MEDS: METHYLPREDNISOLONE INJ 40 MG/1 ML SDV IV SCH ×2 (00:07→06:09)
[2019-04-12] MEDS: MORPHINE SULFATE 10 MG/ML INJ IV PRN ×2 (00:55→06:08)
--- NOTE | 2019-04-12 02:10 | PDOC H&P ---
History of Present Illness Admission Date/PCP: 04/11/2019 19:50 [facility] Patient complains of: Dyspnea History of Present Illness: KERRI STODDARD is a 54 year old male who presented to the emergency room with a four-day history of swelling in his right fifth finger and a 3-day history of dyspnea. 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 ER evaluation of his right fifth finger showed actually improvement of his swelling and no x-ray evidence of significant osteomyelitis or other changes. The patient admits progressively worsening dyspnea over the last 3 days accompanied by a productive cough (whitish sputum) and increased wheezing. His dyspnea is worsened by activity or exertion. He denies other associated or accompanying signs and symptoms. He admits numerous prior similar episodes related to his COPD (emphysema). He used his home nebulizer to deliver 3 treatments prior to coming to the emergency room, noting no improvement in his dyspnea or wheezing. He denies identification of any additional aggravating or ameliorating factors for his dyspnea. In the emergency room he was found to have wheezing and increased work of breathing on exam, though his oxygen saturation was normal. Chest x-ray showed no evidence of acute pulmonary disease. Patient was treated with IV Solu-Medrol and nebulizer therapy utilizing DuoNeb in the emergency room but showed no improvement in his respiratory status and he did not feel comfortable being discharged home. Patient was subsequently admitted to the hospital for further evaluation treatment. Past Medical History Cardiac Medical History: Reports: Atrial Fibrillation Denies: Congestive Heart Failure, Coronary Artery Disease, Myocardial Infarction, Hyperlipidema, Hypertension, Peripheral Vascular Disease, Pulmonary Embolism, Heart Murmur Pulmonary Medical History: Reports: Bronchitis, Chronic Obstructive Pulmonary Disease (COPD), Pneumonia, Respiratory Failure Denies: Asthma, Sleep Apnea, Tuberculosis EENT Medical History: Denies: Cataracts, Ears - Hearing aids Neurological Medical History: Denies: Hemorrhagic CVA, Ischemic CVA, Seizures Endocrine Medical History: Denies: Diabetes Mellitus Type 1, Diabetes Mellitus Type 2, Hyperthyroidism, Hypothyroidism Renal/ Medical History: Denies: Chronic Kidney Disease, Nephrolithiasis Malignancy Medical History: Reports: None GI Medical History: Denies: Cirrhosis, Crohn's Disease, Gastroesophageal Reflux Disease, Hepatitis, Peptic Ulcer Disease, Ulcerative Colitis Musculoskeltal Medical History: Reports: Arthritis - Rheumatoid arthritis, Other - Chronic pain with chronic opiate use, chronic steroid use Denies: Fibromyalgia, Gout Skin Medical History: Denies: Eczema, Psoriasis Psychiatric Medical History: Reports: Depression, Tobacco Dependency Denies: Alcohol Dependency, Bipolar Disorder, Dementia, Post Traumatic Stress Disorder, Substance Abuse Traumatic Medical History: Reports: None Hematology: Denies: Anemia, Bleeding Tendencies Infectious Medical History: Reports: None Past Surgical History Past Surgical History: Reports: Cardiac Catheterization, Orthopedic Surgery - Multiple procedures on the left hip for infection and prosthetic instabilit, Other - Catheter ablation X 2 afib Social History Information Source: Patient Lives with: Spouse/Significant other Smoking Status: Current Every Day Smoker Electronic Cigarette use?: No Frequency of Alcohol Use: None Hx Recreational Drug Use: No Drugs: None Hx Prescription Drug Abuse: No - Advance Directive Resuscitation Status: Full Code Surrogate healthcare decision maker:: Zeynep Stoddard Family History Family History: CAD. denies: DM, Hypertension, Malignancy Parental Family History Reviewed: Yes Children Family History Reviewed: No Sibling(s) Family History Reviewed.: Yes Medication/Allergy Home Medications: Morphine Sulfate [Ms Contin] 15 mg PO Q12 03/12/19 Oxycodone HCl [Oxy-Ir 5 mg Tablet] 5 mg PO Q6HP PRN 03/12/19 Pregabalin [Lyrica] 225 mg PO Q12 03/12/19 Ceftriaxone 2 gm/D5w RTU [Rocephin RTU 2 gm/D5w 50 ml Premix Bag] 2 gm IV DAILY 35 Days rtupb 03/31/19 Docusate Sodium [Colace 100 mg Capsule] 100 mg PO DAILY 30 Days capsule 03/31/19 Metoprolol Tartrate [Lopressor 25 mg Tablet] 12.5 mg PO Q12 30 Days tablet 03/31/19 Nicotine [Nicoderm 14 mg/24 Hr Transdermal Patch] 1 each TD DAILY 30 Days patch.td24 03/31/19 Allergies/Adverse Reactions: vancomycin Allergy (Severe, Verified 04/08/19 17:21) Anaphylaxis adalimumab [From Humira] Adverse Reaction (Verified 04/08/19 17:21) etanercept [From Enbrel] Adverse Reaction (Verified 04/08/19 17:21) gabapentin Adverse Reaction (Verified 04/08/19 17:21) methotrexate Adverse Reaction (Verified 04/08/19 17:21) Review of Systems Constitutional: ABSENT: chills, fever(s) Eyes: ABSENT: visual disturbances, other - Eye pain Ears: ABSENT: hearing changes, other - Ear pain Nose, Mouth, and Throat: ABSENT: mouth pain, sore throat Cardiovascular: PRESENT: as per HPI, dyspnea on exertion. ABSENT: chest pain, palpitations Respiratory: PRESENT: as per HPI, cough, dyspnea, sputum. ABSENT: hemoptysis Gastrointestinal: ABSENT: abdominal pain, constipation, diarrhea, nausea, vomiting Genitourinary: ABSENT: dysuria, hematuria Musculoskeletal: PRESENT: other - Swelling of right fifth finger, draining wound of left hip. ABSENT: back pain, muscle weakness Integumentary: ABSENT: pruritus, rash Neurological: ABSENT: confusion, convulsions, focal weakness, memory loss, syncope Psychiatric: ABSENT: anxiety, depression Endocrine: ABSENT: cold intolerance, heat intolerance Hematologic/Lymphatic: ABSENT: easy bleeding, easy bruising Allergic/Immunologic: ABSENT: seasonal rhinorrhea Physical Exam Vital Signs: Temp Pulse Resp BP Pulse Ox 97.7 F 103 H 18 136/80 H 96 04/11/19 17:47 04/11/19 17:47 04/11/19 17:47 04/11/19 17:47 04/11/19 17:47 Intake & Output 04/09/19 04/10/19 04/11/19 23:59 23:59 23:59 Intake Total 150 Balance 150 Weight 103.873 kg General appearance: PRESENT: no acute distress, cooperative Head exam: PRESENT: atraumatic, normocephalic Eye exam: PRESENT: conjunctiva pink. ABSENT: conjunctival injection, scleral icterus Ear exam: PRESENT: normal external ear exam. ABSENT: bleeding, drainage Mouth exam: PRESENT: dry mucosa, neck supple Neck exam: ABSENT: thyromegaly, tracheal deviation Respiratory exam: PRESENT: accessory muscle use - Mildly increased work of breathing with use of accessory muscles, decreased breath sounds - Mildly decreased breath sounds throughout all diaz, prolonged expiratory phas - Mildly prolonged expiratory phase throughout all diaz, symmetrical, wheezes - Moderate expiratory wheezes present in all diaz. ABSENT: rales, rhonchi Cardiovascular exam: PRESENT: irregular rhythm - Irregularly irregular rate and rhythm. ABSENT: clicks, gallop, rubs Pulses: PRESENT: normal radial pulses, normal dorsalis pedis pul Vascular exam: PRESENT: normal capillary refill. ABSENT: pallor GI/Abdominal exam: PRESENT: normal bowel sounds, soft Rectal exam: PRESENT: deferred Extremities exam: PRESENT: tenderness - Moderate tenderness with mild swelling noted of the right fifth finger, other - Left hip wound with dressings applied is noted.. ABSENT: pedal edema Musculoskeletal exam: ABSENT: deformity, dislocation Neurological exam: PRESENT: alert, oriented to person, oriented to place, oriented to time, oriented to situation, CN II-XII grossly intact. ABSENT: motor sensory deficit Psychiatric exam: PRESENT: appropriate affect, normal mood, other - Alternatively passive-aggressive and angry/demanding Skin exam: PRESENT: dry, warm, other - Left hip wound as previously noted. ABSENT: jaundice, rash, urticaria Results Laboratory Results: 04/11/19 16:07 04/11/19 16:07 04/11/19 04/11/19 16:07 16:07 WBC 6.5 RBC 4.02 L Hgb 9.7 L Hct 29.9 L MCV 74 L MCH 24.1 L MCHC 32.4 RDW 21.4 H Plt Count 280 Seg Neutrophils % 58.7 Sodium 137.3 Potassium 4.5 Chloride 102 Carbon Dioxide 30 Anion Gap 5 BUN 11 Creatinine 0.79 Est GFR ( Amer) > 60 Glucose 81 Calcium 8.4 Total Bilirubin 0.3 AST 36 Alkaline Phosphatase 143 H Total Protein 7.0 Albumin 3.2 L 04/11/19 16:07 Troponin I < 0.012 NT-Pro-B Natriuret Pep 3010 H Impressions: Chest X-Ray 04/11/19 15:19 IMPRESSION: NO ACUTE RADIOGRAPHIC FINDING IN THE CHEST. Hand X-Ray 04/11/19 15:19 IMPRESSION: No acute fracture at the right hand. Diffuse soft tissue swelling at the right 5th finger. Degenerative changes at the 1st and 5th MCP joints. Assessment and Plan - Diagnosis (1) Acute exacerbation of chronic obstructive pulmonary disease (COPD) Is this a current diagnosis for this admission?: Yes (2) Swelling of right little finger Is this a current diagnosis for this admission?: Yes (3) Open wnd hip/thigh-complicated Qualifiers: Encounter type: subsequent encounter Laterality: right Qualified Code(s): S71.001D - Unspecified open wound, right hip, subsequent encounter; S71.101D - Unspecified open wound, right thigh, subsequent encounter Is this a current diagnosis for this admission?: Yes (4) A-fib Qualifiers: Atrial fibrillation type: unspecified chronic Qualified Code(s): I48.20 - Chronic atrial fibrillation, unspecified; I48.2 - Chronic atrial fibrillation Is this a current diagnosis for this admission?: Yes (5) Rheumatoid arthritis Qualifiers: Rheumatoid arthritis location: unspecified site Rheumatoid factor presence: unspecified presence Qualified Code(s): M06.9 - Rheumatoid arthritis, unspecified Is this a current diagnosis for this admission?: Yes (6) Chronic pain Qualifiers: Chronic pain type: other chronic pain Qualified Code(s): G89.29 - Other chronic pain Is this a current diagnosis for this admission?: Yes (7) Dysthymia Is this a current diagnosis for this admission?: Yes (8) Tobacco use disorder, severe, dependence Is this a current diagnosis for this admission?: Yes - Plan Summary Summary: Patient is admitted to the medical floor where he will receive routine supportive and symptomatic cares. He will be continued on Rocephin intravenously and IV Zithromax will be added for additional respiratory coverage. He will receive an aggressive pulmonary toilet utilizing nebulized Xopenex, Atrovent and Pulmicort. He will receive intravenous steroids utilizing Solu-Medrol 40 mg IV every 6 hours x3 doses. He will receive supplemental oxygen if required for maintenance of his oxygen saturation and empiric nocturnal CPAP will be employed to attempt further improvement in his respiratory status. A routine consultation for evaluation of his right fifth finger will be placed for Dr. Liriano. He will be continued on his usual medications for control of his chronic medical problems as soon as his medical reconciliation has been confirmed by pharmacy. He will receive morphine sulfate 2 to 4 mg IV every 2 hours on as-needed basis for pain control using a sliding scale. Smoking cessation has been advised and counseled briefly at the bedside. A nicotine replacement patch is available for the patient's use, if desired. Further evaluation and treatment will be provided as needed. - Time Time Spent with patient: 25-34 minutes Smoking Cessation Education: 3 to 10 minutes Medications reviewed and adjusted accordingly: Yes Anticipated discharge: Home with Homehealth - Inpatient Certification Based on my medical assessment, after consideration of the patient's comorbidities, presenting symptoms, or acuity I expect that the services needed warrant INPATIENT care.: Yes I certify that my determination is in accordance with my understanding of Medicare's requirements for reasonable and necessary INPATIENT services [42 CFR 412.3e].: Yes Medical Necessity: Failure to Improve With Outpatient Therapy, Need for Nebulizer Therapy and Monitoring of Response, Risk of Complication if Not Cared For in Hospital, Risk of Diagnosis Which Will Require Inpatient Eval/Care/Monitoring
[2019-04-12] MEDS ORDERED: TRAZODONE HCL 50 MG TABLET PO ONE (03:00)
[2019-04-12] MEDS ORDERED: NORMAL SALINE 10 ML SDV (AFTER EACH USE) IV PRN (03:00)
[2019-04-12] MEDS ORDERED: RIVAROXABAN 10 MG TABLET PO ONE (03:00)
[2019-04-12 06:31] LABS: HEMATOCRIT 30.2 % (37.9-51.0); HEMOGLOBIN 9.8 g/dL (13.5-17.0); MEAN CORPUSCULAR HEMOGLOBIN 24.1 pg (27.0-33.4); MEAN CORPUSCULAR HGB CONC 32.4 g/dL (32.0-36.0); MEAN CORPUSCULAR VOLUME 75 fl (80-97); PLATELET COUNT 265 10^3/uL (150-450); RED BLOOD COUNT 4.05 10^6/uL (4.35-5.55); RED CELL DISTRIBUTION WIDTH 21.4 % (11.5-14.0); WHITE BLOOD COUNT 4.7 10^3/uL (4.0-10.5)
[2019-04-12 06:51] LABS: ANION GAP 10 (5-19); BLOOD UREA NITROGEN 10 mg/dL (7-20); CALCIUM 8.6 mg/dL (8.4-10.2); CARBON DIOXIDE 27 mmol/L (22-30); CHLORIDE 104 mmol/L (98-107); GLUCOSE 162 mg/dL (75-110); POTASSIUM 5.2 mmol/L (3.6-5.0)
[2019-04-12 07:51] VITALS: BP 163/95
[2019-04-12] MEDS ORDERED: BUDESONIDE NEB 0.5 MG/2 ML AMPUL NEB SCH (08:00)
--- NOTE | 2019-04-12 08:29 | PDOC CONSULTATION ---
Consultation Consult Date: 04/12/19 Provider Consulted: MARIELOS FLORES JR Consult reason:: Right 5th digit swelling History of Present Illness Admission Date/PCP: 04/11/19 21:05 [facility] History of Present Illness: KERRI STODDARD is a 54 year old male who presented to the ER this past with slight right 5th digit swelling and was discharged home on abx. However, due to progression and some drainage, he returned yesterday. He has a history of chronic left hip PJI being managed by Dr. James. He explains that over the past few days it has progressed from a localized point over the dorsum of his 5th distal phalanx to now include the PIP with diffuse swelling. He has pain with passive extension but no tracking up the forearm. He was also admitted for productive cough, wheezing and dyspnea. Past Medical History Cardiac Medical History: Reports: Atrial Fibrillation Denies: Congestive Heart Failure, Coronary Artery Disease, Myocardial Infarction, Hyperlipidema, Hypertension, Peripheral Vascular Disease, Pulmonary Embolism, Heart Murmur Pulmonary Medical History: Reports: Bronchitis, Chronic Obstructive Pulmonary Disease (COPD), Pneumonia, Respiratory Failure Denies: Asthma, Sleep Apnea, Tuberculosis EENT Medical History: Denies: Cataracts, Ears - Hearing aids Neurological Medical History: Denies: Hemorrhagic CVA, Ischemic CVA, Seizures Endocrine Medical History: Denies: Diabetes Mellitus Type 1, Diabetes Mellitus Type 2, Hyperthyroidism, Hypothyroidism Renal/ Medical History: Denies: Chronic Kidney Disease, End Stage Renal Disease, Nephrolithiasis Malignancy Medical History: Reports: None Denies: Breast Cancer, Cervical Cancer, Leukemia, Lung Cancer, Ovarian Cancer GI Medical History: Denies: Cirrhosis, Crohn's Disease, Gastroesophageal Reflux Disease, Hepatitis, Peptic Ulcer Disease, Ulcerative Colitis Musculoskeltal Medical History: Reports: Arthritis - Rheumatoid arthritis, Other - Chronic pain with chronic opiate use, chronic steroid use Denies: Fibromyalgia, Gout Skin Medical History: Denies: Eczema, Psoriasis Psychiatric Medical History: Reports: Depression, Tobacco Dependency Denies: Alcohol Dependency, Bipolar Disorder, Dementia, Post Traumatic Stress Disorder, Substance Abuse Traumatic Medical History: Reports: None Hematology: Denies: Anemia, Hemophilia, Sickle Cell Disease, Bleeding Tendencies Infectious Medical History: Reports: None Denies: HIV Past Surgical History Past Surgical History: Reports: Cardiac Catheterization, Orthopedic Surgery - Multiple procedures on the left hip for infection and prosthetic instabilit, Other - Catheter ablation X 2 afib Denies: Appendectomy, Cholecystectomy, Coronary Artery Bypass Graft, Gastric Bypass Surgery, Herniorrhaphy, Pacemaker, Tonsillectomy Social History Lives with: Spouse/Significant other Smoking Status: Current Every Day Smoker Electronic Cigarette use?: No Frequency of Alcohol Use: None Hx Recreational Drug Use: No Drugs: None Hx Prescription Drug Abuse: No - Advance Directive Resuscitation Status: Full Code Family History Family History: CAD. denies: DM, Hypertension, Malignancy Parental Family History Reviewed: Yes Children Family History Reviewed: NA Sibling(s) Family History Reviewed.: NA Medication/Allergy Allergies/Adverse Reactions: vancomycin Allergy (Severe, Verified 04/08/19 17:21) Anaphylaxis adalimumab [From Humira] Adverse Reaction (Verified 04/08/19 17:21) etanercept [From Enbrel] Adverse Reaction (Verified 04/08/19 17:21) gabapentin Adverse Reaction (Verified 04/08/19 17:21) methotrexate Adverse Reaction (Verified 04/08/19 17:21) Review of Systems Review of Systems: Constitutional: ABSENT: anorexia, chills, night sweats Cardiovascular: ABSENT: chest pain Respiratory: POSITIVE dyspnea Gastrointestinal: ABSENT: vomiting Genitourinary: ABSENT: dysuria Integumentary: ABSENT: rash Neurological: ABSENT: confusion, memory loss, numbness Psychiatric: ABSENT: hallucinations Hematologic/Lymphatic: ABSENT: easy bleeding Physical Exam Vital Signs: Temp Pulse Resp BP Pulse Ox 98.0 F 85 20 163/95 H 93 04/12/19 07:32 04/12/19 07:32 04/12/19 07:32 04/12/19 07:32 04/12/19 07:32 Intake & Output 04/11/19 04/12/19 04/13/19 06:59 06:59 06:59 Intake Total 850 Output Total 1300 Balance -450 Weight 103.8 kg Physical Exam: General appearance: PRESENT: no acute distress, cooperative, well-nourished Head exam: PRESENT: atraumatic, normocephalic Eye exam: PRESENT: EOMI Ear exam: PRESENT: normal external ear exam Mouth exam: PRESENT: neck supple Neck exam: ABSENT: tracheal deviation Respiratory exam: PRESENT: symmetrical, unlabored. ABSENT: accessory muscle use, wheezes Pulses: PRESENT: normal radial pulses, normal dorsalis pedis pul Vascular exam: PRESENT: normal capillary refill GI/Abdominal exam: ABSENT: distended, firm Extremities exam: PRESENT: full ROM of bilateral shoulders, elbows wrists, knees and ankles without pain. Left hip S/P Surgical intervention Musculoskeletal exam: PRESENT: full ROM, normal inspection of all 4 extremities aside from that noted below. Neurological exam: PRESENT: alert, awake, oriented to person, oriented to place, oriented to time Psychiatric exam: PRESENT: appropriate affect. ABSENT: agitated Focused psych exam: ABSENT: catatonic Skin exam: PRESENT: intact. ABSENT: dry All as above aside from that noted in the HPI and the following: - Right 5th digit swollen from the PIP distally with erythema and some pain to extension. Not flexor tenosynovitis picture yet, more appearing like a felon. Sensation and capillary refill intact to the digit. Small dorsal area with open blister and serous drainage. Volarly, there appears to be a developing abscess. No proximal tracking of erythema, able to perform passive motion with some pain. Results Laboratory Results: 04/12/19 06:21 04/12/19 06:21 04/11/19 04/11/19 04/12/19 16:07 16:07 06:21 WBC 6.5 4.7 RBC 4.02 L 4.05 L Hgb 9.7 L 9.8 L Hct 29.9 L 30.2 L MCV 74 L 75 L MCH 24.1 L 24.1 L MCHC 32.4 32.4 RDW 21.4 H 21.4 H Plt Count 280 265 Seg Neutrophils % 58.7 Sodium 137.3 Potassium 4.5 Chloride 102 Carbon Dioxide 30 Anion Gap 5 BUN 11 Creatinine 0.79 Est GFR ( Amer) > 60 Glucose 81 Calcium 8.4 Magnesium Total Bilirubin 0.3 AST 36 Alkaline Phosphatase 143 H Total Protein 7.0 Albumin 3.2 L 04/12/19 06:21 WBC RBC Hgb Hct MCV MCH MCHC RDW Plt Count Seg Neutrophils % Sodium 140.6 Potassium 5.2 H Chloride 104 Carbon Dioxide 27 Anion Gap 10 BUN 10 Creatinine 0.67 Est GFR ( Amer) > 60 Glucose 162 H Calcium 8.6 Magnesium 2.4 H Total Bilirubin AST Alkaline Phosphatase Total Protein Albumin 04/11/19 16:07 Troponin I < 0.012 NT-Pro-B Natriuret Pep 3010 H Impressions: Chest X-Ray 04/11/19 15:19 IMPRESSION: NO ACUTE RADIOGRAPHIC FINDING IN THE CHEST. Hand X-Ray 04/11/19 15:19 IMPRESSION: No acute fracture at the right hand. Diffuse soft tissue swelling at the right 5th finger. Degenerative changes at the 1st and 5th MCP joints. Assessment & Plan - Diagnosis (1) Felon of finger of right hand Plan: At this time, it does not quite look appropriate to ammon, there is no overt abscess. Will potentially improve with ABX alone but I will follow and consider I&D. - OT for ROM, will help him to be moving the finger
[2019-04-12] MEDS: IPRATROPIUM BROMIDE 0.02% NEB 0.5 MG/2.5 ML AMPUL NEB SCH (08:42)
[2019-04-12] MEDS: LEVALBUTEROL HCL NEB 1.25 MG/3 ML AMPUL NEB SCH (08:42)
[2019-04-12] MEDS ORDERED: METOPROLOL TARTRATE 25 MG TABLET PO SCH (10:00)
[2019-04-12] MEDS ORDERED: NORMAL SALINE 10 ML SDV (SCHEDULED) IV SCH (10:00)
[2019-04-12] MEDS ORDERED: DOCUSATE SODIUM 100 MG CAPSULE PO SCH (10:00)
--- NOTE | 2019-04-12 15:27 | Left Against Medical Advice ---
Against Medical Advice Admission Date/Time: 04/11/19 21:05 Primary Care Provider: [facility] Date of Patient Emigration: 04/12/19 - Summary: Summary: Please see Admission and Progress Notes as well. KERRI STODDARD is a 54 M, who LEFT AGAINST MEDICAL ADVICE. The Patient was admitted on 04/11/19 21:05.
[2019-04-12] MEDS ORDERED: RIVAROXABAN 10 MG TABLET PO SCH (17:00)
[2019-04-12] MEDS ORDERED: CEFTRIAXONE 2 GM/D5W RTU 2 GM/50 ML RTUPB IV SCH (18:00)
[2019-04-12] MEDS ORDERED: TRAZODONE HCL 50 MG TABLET PO SCH (22:00)
== END 2019-04-12 10:31 | disposition left against medical advice (07) ==
LOC: ER 14:50 → EH 21:05 → INTOOBSV 21:05 → 4S 04-12 00:32
PROVIDERS: ADMIT Emergency Medicine; ATTEND Emergency Medicine
DX: J44.1 Chronic obstructive pulmonary disease with (acute) exacerbation (principal); L03.011 Cellulitis of right finger; M06.9 Rheumatoid arthritis, unspecified; G89.29 Other chronic pain; I48.20 Chronic atrial fibrillation, unspecified; S71.001D Unspecified open wound, right hip, subsequent encounter; S71.101D Unspecified open wound, right thigh, subsequent encounter; X58.XXXD Exposure to other specified factors, subsequent encounter; F34.1 Dysthymic disorder; F17.200 Nicotine dependence, unspecified, uncomplicated; Z79.891 Long term (current) use of opiate analgesic; Z82.49 Family history of ischemic heart disease and other diseases of the circulatory system; Z79.899 Other long term (current) drug therapy; Z98.890 Other specified postprocedural states
CPT/HCPCS: 93005; 36592; 94640 ×3; 99285; 96375; 96365; 36415 ×2; 87070; 87205; 83735; 85025; 85027; 80048; 80053; 84484; 83880; 71046; 73130; 93010; 94660; J1644; J2920; J2930; J2270 ×2; J3475; J0696; J3490 ×2; J7620; J1642; 85610; 85730; 93971

== ENCOUNTER 2019-04-12 17:56 | Emergency (ER) | payer OTHER, MEDICARE ==
--- NOTE | 2019-04-12 18:36 | ER Document Report ---
ED Medical Screen (RME) - General Chief Complaint: Breathing Difficulty Stated Complaint: DIFFICULTY BREATHING Time Seen by Provider: 04/12/19 18:23 Primary Care Provider: [facility] [Primary Care Provider] - Follow up as needed Notes: Patient is a 54-year-old male who presents the emergency department with 2 medical concerns. His first is that he is short of breath. Patient was admitted for COPD exacerbation last night. He was on BiPAP at night. Patient left AGAINST MEDICAL ADVICE in the morning because he states that he was not having a good experience. Patient states that he is a war and he has P TSD and that the reason why he had left. His second concern is that he has right fifth finger swelling. Orthopedic physician saw him this morning. Patient's last breathing treatment was at 1630 this afternoon. It was a DuoNeb from home. Exam: Expiratory wheezes noted throughout all lung diaz. I have greeted and performed a rapid initial assessment of this patient. A comprehensive ED assessment and evaluation of the patient, analysis of test results and completion of medical decision making process will be conducted by an additional ED providers. TRAVEL OUTSIDE OF THE [place] IN LAST 30 DAYS: No - Related Data Allergies/Adverse Reactions: vancomycin Allergy (Severe, Verified 04/12/19 18:13) Anaphylaxis adalimumab [From Humira] Adverse Reaction (Verified 04/12/19 18:13) etanercept [From Enbrel] Adverse Reaction (Verified 04/12/19 18:13) gabapentin Adverse Reaction (Verified 04/12/19 18:13) methotrexate Adverse Reaction (Verified 04/12/19 18:13) Home Medications: copd. emphysema. afib. ptsd. tbi. rheum arthritis. osteo Past Medical History - Social History Chew tobacco use (# tins/day): No Frequency of alcohol use: None Drug Abuse: None - Past Medical History Cardiac Medical History: Reports: Hx Atrial Fibrillation Denies: Hx Congestive Heart Failure, Hx Coronary Artery Disease, Hx Heart Attack, Hx Hypercholesterolemia, Hx Hypertension, Hx Peripheral Vascular Disease, Hx Pulmonary Embolism, Hx Heart Murmur Pulmonary Medical History: Reports: Hx Bronchitis, Hx COPD, Hx Pneumonia, Hx Respiratory Failure Denies: Hx Asthma, Hx Sleep Apnea, Hx Tuberculosis Neurological Medical History: Denies: Hx Cerebrovascular Accident, Hx Seizures, Hx Parkinson's Disease Endocrine Medical History: Denies: Hx Diabetes Mellitus Type 1, Hx Diabetes Mellitus Type 2, Hx Graves' Disease, Hx Hyperthyroidism, Hx Hypothyroidism Renal/ Medical History: Denies: Hx Benign Prostatic Hyperplasia, Hx End Stage Renal Disease, Hx Kidney Stones Malignancy Medical History: Denies Hx Leukemia, Denies Hx Lung Cancer GI Medical History: Reports: Hx Ulcer. Denies: Hx Cirrhosis, Hx Crohn's Disease, Hx Gastroesophageal Reflux Disease, Hx Hepatitis, Hx Ulcerative Colitis Musculoskeltal Medical History: Reports Hx Arthritis - Rheumatoid arthritis, Denies Hx Fibromyalgia, Denies Hx Gout, Denies Hx Multiple Sclerosis, Denies Hx Muscular Dystrophy, Denies Hx Systemic Lupus Erythematosus Skin Medical History: Denies Hx Eczema, Denies Hx Psoriasis Psychiatric Medical History: Reports: Hx Depression Denies: Hx Bipolar Disorder, Hx Dementia, Hx Post Traumatic Stress Disorder, Hx Schizophrenia Traumatic Medical History: Denies: Hx Fractures Infectious Medical History: Denies: Hx Hepatitis, Hx HIV Past Surgical History: Reports: Hx Cardiac Catheterization, Hx Orthopedic Surgery - Multiple procedures on the left hip for infection and prosthetic instabilit, Other - Catheter ablation X 2 afib. Denies: Hx Appendectomy, Hx Bowel Surgery, Hx Cholecystectomy, Hx Coronary Artery Bypass Graft, Hx Gastric Bypass Surgery, Hx Herniorrhaphy, Hx Pacemaker, Hx Tonsillectomy - Immunizations Immunizations up to date: Yes Hx Diphtheria, Pertussis, Tetanus Vaccination: Yes Physical Exam - Vital signs Vitals: Temp Pulse BP Pulse Ox 98.2 F 94 158/99 H 97 04/12/19 18:01 04/12/19 18:01 04/12/19 18:01 04/12/19 18:01 Course - Vital Signs Vital signs: Temp Pulse Resp BP Pulse Ox 98.2 F 94 158/99 H 97 04/12/19 18:01 04/12/19 18:01 04/12/19 18:01 04/12/19 18:01 Doctor's Discharge - Discharge Referrals: [facility] [Primary [facility]] - Follow up as needed
--- NOTE | 2019-04-12 19:04 | RADIOLOGY REPORT (SQ) ---
EXAM DESCRIPTION: CHEST SINGLE VIEW COMPLETED DATE/TIME: 04/12/2019 6:47 pm REASON FOR STUDY: shortness of breath COMPARISON: 04/11/2019 EXAM PARAMETERS: NUMBER OF VIEWS: One view. TECHNIQUE: Single frontal radiographic view of the chest acquired. RADIATION DOSE: NA LIMITATIONS: None. FINDINGS: LUNGS AND PLEURA: Hyperexpansion of the lungs. No infiltrate, effusion, or mass. MEDIASTINUM AND HILAR STRUCTURES: No masses. Contour normal. HEART AND VASCULAR STRUCTURES: Heart normal in size. Normal vasculature. BONES: No acute findings. HARDWARE: None in the chest. OTHER: No other significant finding. IMPRESSION: Chronic lung changes with no acute cardiopulmonary finding. TECHNICAL DOCUMENTATION: JOB ID: [id number] [employer]- All Rights Reserved Reading location - IP/workstation name: [email or web address]
[2019-04-12 19:19] LABS: ABSOLUTE LYMPHOCYTES (AUTO) 0.6 10^3/uL (0.5-4.7); ABSOLUTE MONOCYTES (AUTO) 0.7 10^3/uL (0.1-1.4); ABSOLUTE NEUT (AUTO) 3.6 10^3/uL (1.7-8.2); BASOPHILS % (AUTO) 0.1 % (0-2); HEMATOCRIT 30.5 % (37.9-51.0); HEMOGLOBIN 9.9 g/dL (13.5-17.0); LYMPHOCYTES % (AUTO) 12.3 % (13-45); MEAN CORPUSCULAR HEMOGLOBIN 23.9 pg (27.0-33.4); MEAN CORPUSCULAR HGB CONC 32.4 g/dL (32.0-36.0); MEAN CORPUSCULAR VOLUME 74 fl (80-97); MONOCYTES % (AUTO) 14.6 % (3-13); PLATELET COUNT 294 10^3/uL (150-450); RED BLOOD COUNT 4.13 10^6/uL (4.35-5.55); RED CELL DISTRIBUTION WIDTH 21.3 % (11.5-14.0); TOTAL CELLS COUNTED % (AUTO) 100 %
[2019-04-12 19:21] LABS: VENOUS BLOOD BASE EXCESS 2.5 mmol/L; VENOUS BLOOD HCO3 28.3 mmol/L (20-32); VENOUS BLOOD PCO2 49.1 mmHg (35-63); VENOUS BLOOD PH 7.38 (7.30-7.42)
[2019-04-12 19:38] LABS: ALBUMIN 3.7 g/dL (3.5-5.0); ALKALINE PHOSPHATASE 143 U/L (38-126); ANION GAP 10 (5-19); ASPARTATE AMINO TRANSFERASE 35 U/L (17-59); BILIRUBIN,DIRECT 0.2 mg/dL (0.0-0.4); BILIRUBIN,TOTAL 0.3 mg/dL (0.2-1.3); BLOOD UREA NITROGEN 12 mg/dL (7-20); CARBON DIOXIDE 28 mmol/L (22-30); CHLORIDE 101 mmol/L (98-107); GLUCOSE 113 mg/dL (75-110); TOTAL PROTEIN 8.2 g/dL (6.3-8.2)
[2019-04-12 19:51] LABS: NT PRO BNP 8500 pg/mL (<125); TROPONIN I < 0.012 ng/mL
[2019-04-12] MEDS ORDERED: ALBUTEROL SULFATE 0.083% NEB 2.5 MG/3 ML AMPUL NEB ONE (23:43)
[2019-04-12] MEDS ORDERED: METHYLPREDNISOLONE INJ 40 MG/1 ML SDV IV ONE (23:45)
--- NOTE | 2019-04-13 00:11 | ER Document Report ---
ED General - General TRAVEL OUTSIDE OF THE [place] IN LAST 30 DAYS: No - Related Data Home Medications: copd. emphysema. afib. ptsd. tbi. rheum arthritis. osteo <DESIREE DAN - Last Filed: 04/13/19 03:28> <SHIRELY EDEN - Last Filed: 04/13/19 09:56> - General Chief Complaint: Breathing Difficulty Stated Complaint: DIFFICULTY BREATHING Time Seen by Provider: 04/12/19 18:23 Primary Care Provider: [facility] [Primary Care Provider] - Follow up as needed - [facility] Notes: . Mr. Shepard is a 54-year-old male presenting with a chief complaints of breathing difficulties and swelling of his left fifth finger. This gentleman was seen here last night in the emergency department and subsequently admitted by Dr. Goldman with an exacerbation of COPD and apparent cellulitis of his left fifth finger. The patient apparently became "dissatisfied" with his circumstances on the inpatient service and signed himself out AMA this afternoon around 3 PM. He subsequently became more short of breath and his finger is hurting and he is come back and requesting readmission to the hospital at this time. Patient reports a 4-day history of cough productive of white sputum and increased wheezing. Long-standing history of COPD. Patient was receiving IV Solu-Medrol on the inpatient service. He denies fever or chills. He denies chest pain. He continues to smoke daily. He denies drug abuse currently. Prior to signing himself out AMA the patient been seen both [facility] for consultation regarding the swelling of his left fifth finger. They determined that this was a felon but did not feel it was ready for surgical drainage. Ongoing IV antibiotics were suggested. We note that the patient is currently receiving Rocephin IV for treatment of a chronically infected left hip prosthesis. Patient is being followed by Dr. James for this. (DESIREE DAN) - Related Data Allergies/Adverse Reactions: vancomycin Allergy (Severe, Verified 04/12/19 18:13) Anaphylaxis adalimumab [From Humira] Adverse Reaction (Verified 04/12/19 18:13) etanercept [From Enbrel] Adverse Reaction (Verified 04/12/19 18:13) gabapentin Adverse Reaction (Verified 04/12/19 18:13) methotrexate Adverse Reaction (Verified 04/12/19 18:13) Past Medical History - Social History Smoking Status: Current Every Day Smoker Chew tobacco use (# tins/day): No Frequency of alcohol use: None Drug Abuse: None Family History: CAD. denies: DM, Hypertension, Malignancy Patient has suicidal ideation: No Patient has homicidal ideation: No - Past Medical History Cardiac Medical History: Reports: Hx Atrial Fibrillation Denies: Hx Congestive Heart Failure, Hx Coronary Artery Disease, Hx Heart Attack, Hx Hypercholesterolemia, Hx Hypertension, Hx Peripheral Vascular Disease, Hx Pulmonary Embolism, Hx Heart Murmur Pulmonary Medical History: Reports: Hx Bronchitis, Hx COPD, Hx Pneumonia, Hx Respiratory Failure Denies: Hx Asthma, Hx Sleep Apnea, Hx Tuberculosis Neurological Medical History: Denies: Hx Cerebrovascular Accident, Hx Seizures, Hx Parkinson's Disease Endocrine Medical History: Denies: Hx Diabetes Mellitus Type 1, Hx Diabetes Mellitus Type 2, Hx Graves' Disease, Hx Hyperthyroidism, Hx Hypothyroidism Renal/ Medical History: Denies: Hx Benign Prostatic Hyperplasia, Hx End Stage Renal Disease, Hx Kidney Stones Malignancy Medical History: Denies Hx Leukemia, Denies Hx Lung Cancer GI Medical History: Reports: Hx Ulcer. Denies: Hx Cirrhosis, Hx Crohn's Disease, Hx Gastroesophageal Reflux Disease, Hx Hepatitis, Hx Ulcerative Colitis Musculoskeletal Medical History: Reports Hx Arthritis - Rheumatoid arthritis, Denies Hx Fibromyalgia, Denies Hx Gout, Denies Hx Multiple Sclerosis, Denies Hx Muscular Dystrophy, Denies Hx Systemic Lupus Erythematosus Skin Medical History: Denies Hx Eczema, Denies Hx Psoriasis Psychiatric Medical History: Reports: Hx Depression, Other - PTSD Denies: Hx Bipolar Disorder, Hx Dementia, Hx Post Traumatic Stress Disorder, Hx Schizophrenia Traumatic Medical History: Denies: Hx Fractures Infectious Medical History: Denies: Hx Hepatitis, Hx HIV Past Surgical History: Reports: Hx Cardiac Catheterization, Hx Orthopedic Surgery - Multiple procedures on the left hip for infection and prosthetic instabilit, Other - Catheter ablation X 2 afib. Denies: Hx Appendectomy, Hx Bowel Surgery, Hx Cholecystectomy, Hx Coronary Artery Bypass Graft, Hx Gastric Bypass Surgery, Hx Herniorrhaphy, Hx Pacemaker, Hx Tonsillectomy - Immunizations Immunizations up to date: Yes Hx Diphtheria, Pertussis, Tetanus Vaccination: Yes Hx Pneumococcal Vaccination: 11/23/09 <DESIREE DAN E - Last Filed: 04/13/19 03:28> Review of Systems <DESIREE DAN E - Last Filed: 04/13/19 03:28> - Review of Systems Notes: Constitutional: Negative for fever. HENT: Negative for sore throat. Eyes: Negative for visual changes. Cardiovascular: Negative for chest pain. Respiratory: As per HPI. Gastrointestinal: Negative for abdominal pain, vomiting or diarrhea. Genitourinary: Negative for dysuria. Musculoskeletal: As per HPI. Skin: Negative for rash. Neurological: Negative for headaches, weakness or numbness. 10 point ROS negative except as marked above and in HPI. (DESIREE DAN) Physical Exam <DESIREE DAN - Last Filed: 04/13/19 03:28> - Vital signs Vitals: Temp Pulse BP Pulse Ox 98.2 F 94 158/99 H 97 04/12/19 18:01 04/12/19 18:01 04/12/19 18:01 04/12/19 18:01 Notes: GENERAL: Well-developed well-nourished male approximately stated age who appears mildly dyspneic. SKIN: Good turgor no rashes. HEAD: Normocephalic atraumatic. EYES: PERRLA. Conjunctivae and sclerae clear. EARS: CANALS AND TMS CLEAR. NOSE: CLEAR. MOUTH: Moist mucosa. Good dentition. No stridor or edema. No drooling. Throat: Clear. NECK: Supple. No masses or thyromegaly. No adenopathy. Carotids 2+ without bruits. No JVD. BACK: Symmetrical without tenderness. CHEST: Mild dyspnea with minimal use of accessory muscles and prolonged expiratory phase. Scattered faint wheezes bilaterally HEART: Regular rhythm. No murmur gallop or rub. ABDOMEN: Soft nontender without masses, organomegaly or rebound. Bowel sounds normally active. No bruits. GENITALIA: Deferred. EXTREMITIES: 2+ edema of the volar aspect of the distal phalanx of the left fifth finger with associated tenderness mild redness and warmth. No calf tenderness. Cap refill less than 1.5 seconds. Dorsalis pedis and posterior tibial pulses 3+ and symmetrical. NEUROLOGICAL: GCS 15. Alert and oriented x3. Normal gait. Fluent speech. Cranial nerves II through XII intact. Sensorimotor and cerebellar normal. Normal tone. Psychiatric: Patient is very impatient and intermittently demanding a hostile. (DESIREE DAN) Course - Laboratory Result Diagrams: 04/12/19 19:02 04/12/19 19:02 - Diagnostic Test Radiology reviewed: Reports reviewed <DESIREE DAN - Last Filed: 04/13/19 03:28> - Laboratory Result Diagrams: 04/12/19 19:02 04/12/19 19:02 <SHIRLEY EDEN - Last Filed: 04/13/19 09:56> - Re-evaluation Re-evalutation: 04/13/19 00:18 Patient is receiving nebulized albuterol and IV Solu-Medrol with nasal O2 2 L/min via cannula. I am contacting the hospitalist Dr. Goldman for admission at this time. 04/13/19 03:28 Hospitalist did not feel patient warrants readmission at this time. Patient is dissatisfied and says that he wants to have an ultrasound of his legs before he leaves here. This service is not available during nighttime hours after 10 PM in this facility. We will hold patient in the ER overnight and obtain the ultrasound in the morning prior to disposition. Further care the patient is turned over to Dr. Hernández at this time (DESIREE VALENTIN) - Vital Signs Vital signs: Temp Pulse Resp BP Pulse Ox 97.8 F 68 14 155/105 H 100 04/13/19 02:25 04/12/19 21:41 04/13/19 07:01 04/13/19 07:01 04/13/19 06:03 - Laboratory Laboratory results interpreted by me: 04/12/19 04/12/19 04/12/19 19:02 19:02 19:02 RBC 4.13 L Hgb 9.9 L Hct 30.5 L MCV 74 L MCH 23.9 L RDW 21.3 H Lymph % (Auto) 12.3 L [place] % (Auto) 14.6 H Glucose 113 H Alkaline Phosphatase 143 H NT-Pro-B Natriuret Pep 8500 H - Transfer of Care Notes: 04/13/19 09:55 Note patient was checked out to me by Dr. erwin who apparently was waiting on vascular study as patient requested to be ruled out for DVTs. That report is negative patient claims he would rather still go home lungs occasional wheezes bilaterally he feels almost back to normal and said that he would rather try it at home with prednisone and his albuterol. I told him that if he gets any worse to return. (SHIRLEY EDEN) Discharge <DESIREE DAN - Last Filed: 04/13/19 03:28> <SHIRLEY EDEN - Last Filed: 04/13/19 09:56> - Discharge Clinical Impression: COPD exacerbation Condition: Good Disposition: HOME, SELF-CARE Instructions: Chronic Obstructive Lung Disease ([facility]) Additional Instructions: Follow-up with your regular doctor for further treatment return if worse Prescriptions: Prednisone [Deltasone 20 mg Tablet] 2 tab PO DAILY 5 Days #10 tablet Albuterol Sulfate [Proventil 0.5% Neb 2.5 mg/0.5 ml Vial.neb] 2.5 mg NEB Q6 PRN #20 vial.neb PRN Reason: Shortness Of Breath [facility]errals: [facility] [Primary Care Provider] - Follow up as needed
--- NOTE | 2019-04-13 02:29 | PDOC CONSULTATION ---
Consultation Consult Date: 04/13/19 Attending physician:: DESIREE DAN Provider Consulted: EVAN TRAVIS Consult reason:: Return to ER after leaving hospital AMA History of Present Illness Admission Date/PCP: 04/13/2019 00:54 [facility] Patient complains of: Swollen legs History of Present Illness: KERRI STODDARD is a 54 year old male who presented to the emergency room a few hours after leaving the hospital AGAINST MEDICAL ADVICE on 04/12/2019. He left the hospital because he did not like his room due to the fact that it had a 2 door entry. He returned to the emergency room with a broad list of complaints again including a painful right little finger, shortness of breath, palpitations, concerns about developing blood clots due to his atrial fibrillation and swelling in his lower extremities. The emergency room provider found no new condition or significant change in the patient's status and asked for a consultation to get a second evaluation of the patient such that he may be discharged if appropriate. The patient was reminded that none of these were new complaints and that by and large they had been evaluated numerous times. He stated that he felt the swelling in his legs was worse than usual. He was unsure as to how long it might have been worse than usual because he had not noticed it for a long time until a nurse in triage asked him "if his legs are always swollen". Past Medical History Cardiac Medical History: Reports: Atrial Fibrillation Denies: Congestive Heart Failure, Coronary Artery Disease, Myocardial Infarction, Hyperlipidema, Hypertension, Peripheral Vascular Disease, Pulmonary Embolism, Heart Murmur Pulmonary Medical History: Reports: Bronchitis, Chronic Obstructive Pulmonary Disease (COPD), Pneumonia, Respiratory Failure Denies: Asthma, Sleep Apnea, Tuberculosis EENT Medical History: Denies: Cataracts, Ears - Hearing aids Neurological Medical History: Denies: Hemorrhagic CVA, Ischemic CVA, Seizures Endocrine Medical History: Denies: Diabetes Mellitus Type 1, Diabetes Mellitus Type 2, Hyperthyroidism, Hypothyroidism, Obesity Renal/ Medical History: Denies: Chronic Kidney Disease, Nephrolithiasis Malignancy Medical History: Reports: None GI Medical History: Denies: Cirrhosis, Crohn's Disease, Gastroesophageal Reflux Disease, Hepatitis, Peptic Ulcer Disease, Ulcerative Colitis Musculoskeltal Medical History: Reports: Arthritis - Rheumatoid arthritis Denies: Fibromyalgia, Gout Skin Medical History: Denies: Eczema, Psoriasis Psychiatric Medical History: Reports: Depression, Post Traumatic Stress Disorde r, Tobacco Dependency, Other - PTSD Denies: Alcohol Dependency, Substance Abuse Traumatic Medical History: Reports: None Hematology: Denies: Anemia, Sickle Cell Disease, Bleeding Tendencies Infectious Medical History: Reports: None Denies: HIV Past Surgical History Past Surgical History: Reports: Cardiac Catheterization, Orthopedic Surgery - Multiple procedures on the left hip for infection and prosthetic instabilit, Other - Catheter ablation X 2 afib Social History Information Source: Patient Lives with: Spouse/Significant other Smoking Status: Current Every Day Smoker Electronic Cigarette use?: Yes - quit Frequency of Alcohol Use: None Hx Recreational Drug Use: No Drugs: None Hx Prescription Drug Abuse: No - Advance Directive Resuscitation Status: Full Code Surrogate healthcare decision maker:: Zeynep Stoddard Family History Family History: CAD. denies: DM, Hypertension, Malignancy Parental Family History Reviewed: Yes Children Family History Reviewed: No Sibling(s) Family History Reviewed.: Yes Medication/Allergy Allergies/Adverse Reactions: vancomycin Allergy (Severe, Verified 04/12/19 18:13) Anaphylaxis adalimumab [From Humira] Adverse Reaction (Verified 04/12/19 18:13) etanercept [From Enbrel] Adverse Reaction (Verified 04/12/19 18:13) gabapentin Adverse Reaction (Verified 04/12/19 18:13) methotrexate Adverse Reaction (Verified 04/12/19 18:13) Review of Systems Constitutional: ABSENT: chills, fever(s) Eyes: ABSENT: visual disturbances, other - Eye pain Ears: ABSENT: hearing changes, other - Ear pain Nose, Mouth, and Throat: ABSENT: headache(s), mouth pain, sore throat Cardiovascular: PRESENT: as per HPI, dyspnea on exertion, edema - Bilateral lower extremities, palpitations. ABSENT: chest pain Respiratory: PRESENT: as per HPI, dyspnea. 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 ABSENT: diaphoresis, pruritus, rash Neurological: ABSENT: confusion, convulsions, focal weakness, memory loss, syncope Psychiatric: ABSENT: anxiety, depression Endocrine: ABSENT: cold intolerance, heat intolerance Hematologic/Lymphatic: ABSENT: easy bleeding, easy bruising Allergic/Immunologic: ABSENT: seasonal rhinorrhea Physical Exam Vital Signs: Temp Pulse Resp BP Pulse Ox 98.2 F 68 12 147/91 H 95 04/12/19 21:41 04/12/19 21:41 04/12/19 21:41 04/12/19 21:41 04/12/19 21:41 Intake & Output 04/11/19 04/12/19 04/13/19 23:59 23:59 23:59 Weight 104.8 kg General appearance: PRESENT: no acute distress, cooperative Head exam: PRESENT: atraumatic, normocephalic Eye exam: PRESENT: conjunctiva pink. ABSENT: conjunctival injection, scleral icterus Ear exam: PRESENT: normal external ear exam. ABSENT: bleeding, drainage Mouth exam: PRESENT: dry mucosa, neck supple Neck exam: ABSENT: thyromegaly, tracheal deviation Respiratory exam: PRESENT: decreased breath sounds - Mildly decreased breath sounds in all diaz consistent with mild to moderate COPD, prolonged expiratory phas - Mildly prolonged expiratory phase in all diaz, symmetrical, unlabored, wheezes - Mild expiratory wheezes in all diaz Cardiovascular exam: PRESENT: RRR. ABSENT: clicks, gallop, rubs Pulses: PRESENT: normal radial pulses, normal dorsalis pedis pul Vascular exam: PRESENT: normal capillary refill. ABSENT: pallor GI/Abdominal exam: PRESENT: normal bowel sounds, soft Rectal exam: PRESENT: deferred Extremities exam: PRESENT: +2 edema - 2+ pitting pretibial edema of the bilateral lower extremities is noted. Swelling of the left lower extremity is slightly greater than the right.. ABSENT: joint swelling, tenderness Musculoskeletal exam: ABSENT: deformity, dislocation Neurological exam: PRESENT: alert, oriented to person, oriented to place, oriented to time, oriented to situation, CN II-XII grossly intact. ABSENT: motor sensory deficit Psychiatric exam: PRESENT: appropriate affect, normal mood, other - Somewhat volatile personality with passive-aggressive demeanor rapidly replaced by angry/hostile demeanor Skin exam: PRESENT: dry, erythema - Erythema and edema of the right fifth distal finger (area of middle and distal phalanges), intact, warm. ABSENT: jaundice, rash, urticaria Results Laboratory Results: 04/12/19 19:02 04/12/19 19:02 04/12/19 04/12/19 04/12/19 19:02 19:02 19:02 WBC 5.0 RBC 4.13 L Hgb 9.9 L Hct 30.5 L MCV 74 L MCH 23.9 L MCHC 32.4 RDW 21.3 H Plt Count 294 Seg Neutrophils % 73.0 VBG pH 7.38 VBG pCO2 49.1 VBG HCO3 28.3 VBG Base Excess 2.5 Sodium 138.9 Potassium 5.0 Chloride 101 Carbon Dioxide 28 Anion Gap 10 BUN 12 Creatinine 0.76 Est GFR ( Amer) > 60 Glucose 113 H Calcium 9.0 Total Bilirubin 0.3 AST 35 Alkaline Phosphatase 143 H Total Protein 8.2 Albumin 3.7 04/12/19 19:02 Troponin I < 0.012 NT-Pro-B Natriuret Pep 8500 H Impressions: Chest X-Ray 04/12/19 18:32 IMPRESSION: Chronic lung changes with no acute cardiopulmonary finding. Assessment and Plan - Diagnosis (1) Bilateral lower extremity edema Is this a current diagnosis for this admission?: Yes (2) Chronic obstructive pulmonary disease Qualifiers: COPD type: unspecified COPD Qualified Code(s): J44.9 - Chronic obstructive pulmonary disease, unspecified Is this a current diagnosis for this admission?: Yes (3) Opiate dependence, continuous Is this a current diagnosis for this admission?: Yes (4) A-fib Qualifiers: Atrial fibrillation type: unspecified chronic Qualified Code(s): I48.20 - Chronic atrial fibrillation, unspecified; I48.2 - Chronic atrial fibrillation Is this a current diagnosis for this admission?: Yes (5) Surgical wound infection Is this a current diagnosis for this admission?: Yes (6) Rheumatoid arthritis Qualifiers: Rheumatoid arthritis location: unspecified site Rheumatoid factor presence: unspecified presence Qualified Code(s): M06.9 - Rheumatoid arthritis, unspecified Is this a current diagnosis for this admission?: Yes (7) Chronic pain Qualifiers: Chronic pain type: other chronic pain Qualified Code(s): G89.29 - Other chronic pain Is this a current diagnosis for this admission?: Yes (8) Dysthymia Is this a current diagnosis for this admission?: Yes (9) Felon of finger of right hand Is this a current diagnosis for this admission?: Yes - Plan Summary Summary: The patient's bilateral lower extremity edema is very likely secondary to his chronic use of pregabalin. The edema is worse on the left side than the right side due to decreased lymphatic return on the left side secondary to his chronic wound. This problem and the aforementioned likely causes were discussed with the patient in depth and the remainder of the problems identified were discussed with the patient in less detail but again he was reminded that these were all chronic problems without significant change from his baseline. I did not recommend that the patient be hospitalized or placed on observation status. I discussed with the emergency room doctor the options of discharging the patient immediately or possibly letting the patient remain in the ER until he could have an ultrasound study of his bilateral lower extremities to rule out DVTs. The ER provider has taken my suggestion under advisement. - Time Time Spent with patient: 25-34 minutes Medications reviewed and adjusted accordingly: No Anticipated discharge: Home - Inpatient Certification Based on my medical assessment, after consideration of the patient's comorbidities, presenting symptoms, or acuity I expect that the services needed warrant INPATIENT care.: No I certify that my determination is in accordance with my understanding of Medicare's requirements for reasonable and necessary INPATIENT services [42 CFR 412.3e].: No
[2019-04-13] MEDS ORDERED: FUROSEMIDE INJ/PF 20 MG/2 ML SDV IV ONE (03:27)
--- NOTE | 2019-04-13 07:40 | EKG REPORT ---
SEVERITY:- ABNORMAL ECG - ATRIAL FIBRILLATION LOW VOLTAGE IN FRONTAL LEADS : Confirmed by: Qamar Martino MD 13-Apr-2019 07:39:34
--- NOTE | 2019-04-13 09:49 | RADIOLOGY REPORT (SQ) ---
EXAM DESCRIPTION: VENOUS BILATERAL LOWER COMPLETED DATE/TIME: 04/13/2019 9:34 am REASON FOR STUDY: r/o DVT COMPARISON: 04/08/2019 TECHNIQUE: Dynamic and static shannon scale and color images acquired of both lower extremity venous sy stems. Selected spectral images acquired with additional compression and augmentation maneuvers. Imag es stored on PACS. LIMITATIONS: None. FINDINGS: RIGHT LEG COMMON FEMORAL AND FEMORAL: Normal phasicity, compression and augmentation. No visualized echogenic m aterial on shannon scale. No defects on color images. POPLITEAL: Normal compression and augmentation. No visualized echogenic material on shannon scale. No de fects on color images. CALF VESSELS: Normal compression and augmentation. No visualized echogenic material on shannon scale. No defects on color image. GSV AND SSV: Normal compression. No visualized echogenic material on shannon scale. No defects on color images. ANY DEEP VENOUS INSUFFICIENCY: Not evaluated. ANY EVIDENCE OF POPLITEAL CYST: No. OTHER: No other significant finding. LEFT LEG COMMON FEMORAL AND FEMORAL: Normal phasicity, compression and augmentation. No visualized echogenic m aterial on shannon scale. No defects on color images. POPLITEAL: Normal compression and augmentation. No visualized echogenic material on shannon scale. No de fects on color images. CALF VESSELS: Normal compression and augmentation. No visualized echogenic material on shannon scale. No defects on color images. GSV AND SSV: Normal compression. No visualized echogenic material on shannon scale. No defects on color images. ANY DEEP VENOUS INSUFFICIENCY: Not evaluated. ANY EVIDENCE POPLITEAL CYST: No. OTHER: No other significant finding. IMPRESSION: NO EVIDENCE DVT OR SVT IN EITHER LEG. TECHNICAL DOCUMENTATION: JOB ID: [id number] [employer]- All Rights Reserved Reading location - IP/workstation name: [email or web address]
[2019-04-13] MEDS ORDERED: HYDRALAZINE HCL INJ/PF 20 MG/1 ML SDV IV ONE (10:41)
[2019-04-13 12:18] VITALS: BP 174/114
== END 2019-04-13 12:20 | disposition home or self-care (01) ==
LOC: ER 17:56
DX: I16.0 Hypertensive urgency (principal); J44.1 Chronic obstructive pulmonary disease with (acute) exacerbation; F17.210 Nicotine dependence, cigarettes, uncomplicated; I48.91 Unspecified atrial fibrillation; Z88.3 Allergy status to other anti-infective agents; Z96.642 Presence of left artificial hip joint
CPT/HCPCS: 93005; 94640; 99285; 96374; 96375; 36415; 87070; 84484; 82803; 83880; 93970; 71045; 93010; J1940; J0360; J2920

== ENCOUNTER 2019-07-02 04:07 | Inpatient (IN) | payer OTHER, MEDICARE ==
[2019-07-02] MEDS ORDERED: DILTIAZEM HCL INJ 25 MG/5 ML VIAL ONE (04:24)
[2019-07-02] MEDS ORDERED: DILTIAZEM HCL/D5W 125 MG/125 ML RTUINJ IV PRN ×2 (04:32→05:54)
[2019-07-02 04:43] LABS: ABSOLUTE BASOPHILS # (AUTO) 0.1 10^3/uL (0.0-0.2); ABSOLUTE EOSINOPHILS # (AUTO) 0.8 10^3/uL (0.0-0.6); ABSOLUTE LYMPHOCYTES (AUTO) 1.8 10^3/uL (0.5-4.7); ABSOLUTE MONOCYTES (AUTO) 1.1 10^3/uL (0.1-1.4); ABSOLUTE NEUT (AUTO) 8.5 10^3/uL (1.7-8.2); BASOPHILS % (AUTO) 0.5 % (0-2); EOSINOPHILS % (AUTO) 6.3 % (0-6); HEMATOCRIT 38.6 % (37.9-51.0); HEMOGLOBIN 12.7 g/dL (13.5-17.0); LYMPHOCYTES % (AUTO) 14.7 % (13-45); MEAN CORPUSCULAR HEMOGLOBIN 25.7 pg (27.0-33.4); MEAN CORPUSCULAR HGB CONC 32.9 g/dL (32.0-36.0); MEAN CORPUSCULAR VOLUME 78 fl (80-97); MONOCYTES % (AUTO) 8.7 % (3-13); PLATELET COUNT 330 10^3/uL (150-450); RED BLOOD COUNT 4.95 10^6/uL (4.35-5.55); RED CELL DISTRIBUTION WIDTH 19.4 % (11.5-14.0); SEGMENTED NEUTROPHILS % (AUTO) 69.8 % (42-78); TOTAL CELLS COUNTED % (AUTO) 100 %; WHITE BLOOD COUNT 12.2 10^3/uL (4.0-10.5)
[2019-07-02 04:50] LABS: ALBUMIN 4.3 g/dL (3.5-5.0); ALKALINE PHOSPHATASE 143 U/L (38-126); ANION GAP 12 (5-19); ASPARTATE AMINO TRANSFERASE 23 U/L (17-59); BILIRUBIN,DIRECT 0.2 mg/dL (0.0-0.4); BILIRUBIN,TOTAL 0.7 mg/dL (0.2-1.3); BLOOD UREA NITROGEN 18 mg/dL (7-20); CALCIUM 9.4 mg/dL (8.4-10.2); CARBON DIOXIDE 27 mmol/L (22-30); CHLORIDE 104 mmol/L (98-107); GLUCOSE 83 mg/dL (75-110); POTASSIUM 3.9 mmol/L (3.6-5.0)
[2019-07-02] MEDS ORDERED: DILTIAZEM HCL INJ 25 MG/5 ML VIAL IV ONE (04:50)
--- NOTE | 2019-07-02 04:50 | ER Document Report ---
Entered by ELSA KIRBY SCRIBE 07/02/19 0431 Acting as scribe for:JOSEFINA SANCHEZ IV, MD ED Cardiac - General Chief Complaint: Chest Pain Stated Complaint: SHORTNESS OF BREATH/CHEST PAIN Primary Care Provider: [facility] [Primary [facility] Provider] - Follow up as needed Mode of Arrival: Wheelchair Information source: Patient Notes: This 54-year-old male patient presents to the emergency department today with complaints of chest pain, palpitations, and a heart racing sensation with associated shortness of breath that began prior to arrival. Patient also mentions that he has had a x4-5 day history of a productive cough. TRAVEL OUTSIDE OF THE [place] IN LAST 30 DAYS: No - Related Data Allergies/Adverse Reactions: vancomycin Allergy (Severe, Verified 07/02/19 04:45) Anaphylaxis adalimumab [From Humira] Adverse Reaction (Verified 07/02/19 04:45) etanercept [From Enbrel] Adverse Reaction (Verified 07/02/19 04:45) gabapentin Adverse Reaction (Verified 07/02/19 04:45) methotrexate Adverse Reaction (Verified 07/02/19 04:45) Past Medical History - General Information source: Patient, [facility] Records - Social History Smoking Status: Former Smoker Cigarette use (# per day): No Frequency of alcohol use: None Drug Abuse: None Lives with: Family Family History: CAD - Past Medical History Cardiac Medical History: Reports: Hx Atrial Fibrillation Pulmonary Medical History: Reports: Hx Bronchitis, Hx COPD, Hx Pneumonia, Hx Respiratory Failure Renal/ Medical History: GI Medical History: Reports: Hx Ulcer Musculoskeletal Medical History: Reports Hx Arthritis - Rheumatoid arthritis Psychiatric Medical History: Reports: Hx Depression Past Surgical History: Reports: Hx Cardiac Catheterization, Hx Orthopedic Surgery - Multiple procedures on the left hip for infection and prosthetic instabilit, Other - Catheter ablation X 2 afib - Immunizations Immunizations up to date: Yes Hx Diphtheria, Pertussis, Tetanus Vaccination: Yes Hx Pneumococcal Vaccination: 11/23/09 Review of Systems - Review of Systems Constitutional: No symptoms reported EENT: No symptoms reported Cardiovascular: See HPI, Chest pain, Palpitations, Heart racing Respiratory: See HPI, Cough, Short of breath Gastrointestinal: No symptoms reported Genitourinary: No symptoms reported Male Genitourinary: No symptoms reported Musculoskeletal: No symptoms reported Skin: No symptoms reported Hematologic/Lymphatic: No symptoms reported Neurological/Psychological: No symptoms reported -: Yes All other systems reviewed and negative Physical Exam - Vital signs Vitals: Resp 19 07/02/19 04:19 - Notes Notes: Physical Exam: General: Alert. HEENT: Normocephalic. Atraumatic. PERRL. Extraocular movements intact. Oropharynx clear. Neck: Supple. Non-tender. Respiratory: No respiratory distress. Clear and equal breath sounds bilaterally. Cardiovascular: Irregularly irregular, tachycardic into the 140s. Abdominal: Normal Inspection. Non-tender. No distension. Normal Bowel Sounds. Back: No gross abnormalities. Extremities: Moves all four extremities. Upper extremities: Normal inspection. Normal ROM. Lower extremities: Normal inspection. No edema. Normal ROM. Neurological: Normal cognition. AAOx4. Normal speech. Psychological: Normal affect. Normal Mood. Skin: Warm. Dry. Normal color. Course - Vital Signs Vital signs: Temp Pulse Resp BP Pulse Ox 25 H 145/79 H 97 07/02/19 05:01 07/02/19 05:00 07/02/19 05:01 - Laboratory Result Diagrams: 07/02/19 04:25 07/02/19 04:25 Laboratory results interpreted by me: 07/02/19 07/02/19 07/02/19 04:25 04:25 04:25 WBC 12.2 H Hgb 12.7 L MCV 78 L MCH 25.7 L RDW 19.4 H Eos % (Auto) 6.3 H Absolute Neuts (auto) 8.5 H Absolute Eos (auto) 0.8 H PT APTT Alkaline Phosphatase 143 H NT-Pro-B Natriuret Pep 2000 H 07/02/19 04:25 WBC Hgb MCV MCH RDW Eos % (Auto) Absolute Neuts (auto) Absolute Eos (auto) PT 16.4 H APTT 41.6 H Alkaline Phosphatase NT-Pro-B Natriuret Pep - Consults dr. chapman, cardiology Time consulted: 05:38 - agreed pt should be admitted, started on diltiazem gtt, will consult Reason for consultation: 07/02/19 05:[address] rvr dr[address] whalen Time consulted: 05:54 - accepted pt for admit to IMCU Reason for consultation: 07/02/19 05:54 a fib with rvr Discharge - Discharge Clinical Impression: Atrial fibrillation with rapid ventricular response Disposition: ADMITTED OBSERVATION Admitting Provider: [facility] (Hospitalist) Unit Admitted: IMCU Referrals: [facility] [Primary Care Provider] - Follow up as needed I personally performed the services described in the documentation, reviewed and edited the documentation which was dictated to the scribe in my presence, and it accurately records my words and actions.
--- NOTE | 2019-07-02 04:54 | RADIOLOGY REPORT (SQ) ---
EXAM DESCRIPTION: XR CHEST 1 VIEW COMPLETED DATE/TME: 07/02/2019 04:33 CLINICAL HISTORY: tachycardia COMPARISON: 04/12/2019 FINDINGS: Single frontal view of the chest. Cardiomediastinal silhouette: Normal size and contour. Lungs: No consolidation or pneumothorax. Left costophrenic angle blunting may represent pleural-parenchymal scarring or small left pleural effusion. Bones: No acute osseous abnormality. Leads overlie the chest. Upper abdomen: No abnormality identified. IMPRESSION: 1. No acute pneumonic process identified.
[2019-07-02 05:01] LABS: NT PRO BNP 2000 pg/mL (<125)
[2019-07-02 05:08] LABS: ANISOCYTOSIS 2+; HYPOCHROMASIA SLIGHT
[2019-07-02 05:09] LABS: PLATELET COMMENT ADEQUATE
[2019-07-02 05:13] LABS: PARTIAL THROMBOPLASTIN TIME 41.6 SEC (23.5-35.8)
[2019-07-02 05:16] LABS: INTERNATIONAL RATION (INR) 1.31; PROTHROMBIN TIME 16.4 SEC (11.4-15.4)
[2019-07-02 05:20] LABS: TROPONIN I < 0.012 ng/mL
[2019-07-02] MEDS ORDERED: OXYCODONE HCL IR 5 MG TABLET PO ONE (05:33)
[2019-07-02] MEDS ORDERED: MAGNESIUM HYDROXIDE SUSP 30 ML UDCUP PO PRN (05:54)
[2019-07-02] MEDS ORDERED: ACETAMINOPHEN 325 MG TABLET PO PRN (05:54)
[2019-07-02] MEDS ORDERED: IPRATROPIUM/ALBUTEROL 0.5-2.5 MG/3 ML AMPUL NEB PRN (05:54)
[2019-07-02] MEDS ORDERED: MAG HYDROX/AL HYDROX/SIMETH SUSP 30 ML UDCUP PO PRN (05:54)
[2019-07-02] MEDS ORDERED: NORMAL SALINE 1000 ML 1,000 ML IV ONE (05:56)
[2019-07-02] MEDS ORDERED: FENTANYL 12 MCG/HR PATCH.TD72 TD ONE (06:28)
--- NOTE | 2019-07-02 06:41 | PDOC H&P ---
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 He presents with wo rsening shortness of breath with exertion cough with yellow sputum and dull right-sided chest pain. He also complains of recent onset of black tarry stools. He admits to concurrent use of diclofenac with ibuprofen and Xarelto. In the emergency room he is found to be tachypneic with A. fib with RVR he is started on IV diltiazem and improved denying chest pain at rest. He does not currently take a rate controlling medication. Fountain Operator is Dr. Kay, image scientist Dr. Bazzi primary care provider Dr. Matute. Past Medical History Cardiac Medical History: Reports: Atrial Fibrillation Denies: Congestive Heart Failure, Coronary Artery Disease, Myocardial Infarction, Hyperlipidema, Hypertension, Peripheral Vascular Disease, Pulmonary Embolism, Heart Murmur Pulmonary Medical History: Reports: Bronchitis, Chronic Obstructive Pulmonary Disease (COPD), Pneumonia, Respiratory Failure Denies: Asthma, Sleep Apnea, Tuberculosis Neurological Medical History: Denies: Seizures Endocrine Medical History: Denies: Diabetes Mellitus Type 1, Diabetes Mellitus Type 2, Hyperthyroidism, Hypothyroidism Renal/ Medical History: Denies: End Stage Renal Disease Malignancy Medical History: Denies: Breast Cancer, Cervical Cancer, Leukemia, Lung Cancer, Ovarian Cancer GI Medical History: Denies: Cirrhosis, Crohn's Disease, Gastroesophageal Reflux Disease, Hepatitis, Ulcerative Colitis Musculoskeltal Medical History: Reports: Arthritis - Rheumatoid arthritis Denies: Fibromyalgia, Gout Skin Medical History: Denies: Eczema, Psoriasis Psychiatric Medical History: Reports: Depression Denies: Bipolar Disorder, Dementia, Post Traumatic Stress Disorder Hematology: Denies: Anemia, Hemophilia, Sickle Cell Disease, Bleeding Tendencies Infectious Medical History: Denies: HIV Past Surgical History Past Surgical History: Reports: Cardiac Catheterization, Orthopedic Surgery - Multiple procedures on the left hip for infection and prosthetic instabilit, Other - Catheter ablation X 2 afib Denies: Appendectomy, Cholecystectomy, Coronary Artery Bypass Graft, Gastric Bypass Surgery, Herniorrhaphy, Pacemaker, Tonsillectomy Social History Information Source: Patient, [facility] Records Lives with: Family Smoking Status: Former Smoker Frequency of Alcohol Use: None Hx Recreational Drug Use: No Drugs: None Hx Prescription Drug Abuse: No - Advance Directive Resuscitation Status: Full Code Family History Family History: Arthritis, CAD Parental Family History Reviewed: Yes Children Family History Reviewed: Yes Sibling(s) Family History Reviewed.: Yes Medication/Allergy Home Medications: Albuterol Sulfate [Proventil 0.5% Neb 2.5 mg/0.5 ml Vial.neb] 2.5 mg NEB Q6 PRN #20 vial.neb 04/13/19 Amlodipine Besylate [Norvasc 10 mg Tablet] 10 mg PO DAILY #30 tablet 04/13/19 Prednisone [Deltasone 20 mg Tablet] 2 tab PO DAILY 5 Days #10 tablet 04/13/19 Allergies/Adverse Reactions: vancomycin Allergy (Severe, Verified 07/02/19 04:45) Anaphylaxis adalimumab [From Humira] Adverse Reaction (Verified 07/02/19 04:45) etanercept [From Enbrel] Adverse Reaction (Verified 07/02/19 04:45) gabapentin Adverse Reaction (Verified 07/02/19 04:45) methotrexate Adverse Reaction (Verified 07/02/19 04:45) Review of Systems Constitutional: PRESENT: as per HPI, fatigue. ABSENT: weakness, weight gain, weight loss Eyes: ABSENT: visual disturbances Ears: ABSENT: hearing changes Cardiovascular: PRESENT: as per HPI, chest pain, dyspnea on exertion. ABSENT: edema, orthropnea, palpitations Respiratory: PRESENT: as per HPI, cough, dyspnea, sputum Gastrointestinal: PRESENT: melena, nausea. ABSENT: constipation, hematemesis, hematochezia, vomiting Genitourinary: ABSENT: dysuria, hematuria Musculoskeletal: PRESENT: as per HPI, other. ABSENT: joint swelling Integumentary: ABSENT: rash, wounds Neurological: ABSENT: abnormal gait, abnormal speech, confusion, dizziness, focal weakness, syncope Psychiatric: ABSENT: anxiety, depression, homidical ideation, suicidal ideation Endocrine: ABSENT: cold intolerance, heat intolerance, polydipsia, polyuria Hematologic/Lymphatic: ABSENT: easy bleeding, easy bruising Physical Exam Vital Signs: Temp Pulse Resp BP Pulse Ox 21 H 149/95 H 96 07/02/19 06:01 07/02/19 06:00 07/02/19 06:01 Intake & Output 06/30/19 07/01/19 07/02/19 11:59 11:59 11:59 Weight 98.4 kg General appearance: PRESENT: cooperative, mild distress, well-developed, well- nourished Head exam: PRESENT: atraumatic, normocephalic Eye exam: PRESENT: conjunctiva pink, EOMI, PERRLA. ABSENT: scleral icterus Ear exam: PRESENT: normal external ear exam Mouth exam: PRESENT: moist, tongue midline Neck exam: ABSENT: carotid bruit, JVD, lymphadenopathy, thyromegaly Respiratory exam: PRESENT: accessory muscle use, prolonged expiratory phas, retraction, symmetrical, tachypnea, wheezes. ABSENT: rales, rhonchi Cardiovascular exam: PRESENT: irregular rhythm, +S1, +S2, tachycardia Pulses: PRESENT: normal dorsalis pedis pul Vascular exam: PRESENT: normal capillary refill GI/Abdominal exam: PRESENT: normal bowel sounds, soft. ABSENT: distended, guarding, mass, organolmegaly, rebound, tenderness Rectal exam: PRESENT: deferred Extremities exam: PRESENT: full ROM. ABSENT: calf tenderness, clubbing, pedal edema Neurological exam: PRESENT: alert, awake, oriented to person, oriented to place, oriented to time, oriented to situation, CN II-XII grossly intact. ABSENT: motor sensory deficit Psychiatric exam: PRESENT: appropriate affect, normal mood. ABSENT: homicidal ideation, suicidal ideation Skin exam: PRESENT: dry, intact, warm. ABSENT: cyanosis, rash Results Laboratory Results: 07/02/19 04:25 07/02/19 04:25 07/02/19 07/02/19 04:25 04:25 WBC 12.2 H RBC 4.95 Hgb 12.7 L Hct 38.6 MCV 78 L MCH 25.7 L MCHC 32.9 RDW 19.4 H Plt Count 330 Seg Neutrophils % 69.8 Sodium 142.8 Potassium 3.9 Chloride 104 Carbon Dioxide 27 Anion Gap 12 BUN 18 Creatinine 0.92 Est GFR ( Amer) > 60 Glucose 83 Calcium 9.4 Total Bilirubin 0.7 AST 23 Alkaline Phosphatase 143 H Total Protein 8.0 Albumin 4.3 07/02/19 04:25 Troponin I < 0.012 NT-Pro-B Natriuret Pep 2000 H Impressions: Chest X-Ray 07/02/19 04:33 IMPRESSION: 1. No acute pneumonic process identified. Assessment and Plan - Diagnosis (1) Atrial fibrillation with rapid ventricular response Is this a current diagnosis for this admission?: Yes Plan: Exacerbation likely secondary to decompensated COPD from bronchitis. IMCU admission, IV diltiazem, follow-up cardiology consult (2) Melena Is this a current diagnosis for this admission?: Yes Plan: Likely secondary to concurrent Xarelto, diclofenac and ibuprofen. Follow-up heme occult stool consider GI consult with Dr. Bazzi. (3) Acute exacerbation of chronic obstructive pulmonary disease (COPD) Is this a current diagnosis for this admission?: Yes Plan: Xopenex and Atrovent. Flutter valve, incentive spirometry, prednisone, follow- up ESR for possible RA component. (4) Chronic pain Qualifiers: Chronic pain type: other chronic pain Qualified Code(s): G89.29 - Other chronic pain Is this a current diagnosis for this admission?: Yes Plan: Continue oxycodone 15 every 12 and fentanyl 12.5 every 72 hour (5) Rheumatoid arthritis Qualifiers: Rheumatoid arthritis location: unspecified site Rheumatoid factor presence: unspecified presence Qualified Code(s): M06.9 - Rheumatoid arthritis, unspecified Is this a current diagnosis for this admission?: Yes Plan: Follow-up ESR given concern of possible pulmonary component. - Time Time Spent with patient: 25-34 minutes - Inpatient Certification Medical Necessity: Need Close Monitoring Due to Risk of Patient Decompensation
[2019-07-02] MEDS: IPRATROPIUM BROMIDE 0.02% NEB 0.5 MG/2.5 ML AMPUL NEB SCH ×3 (07:51→20:40)
[2019-07-02] MEDS: LEVALBUTEROL HCL NEB 1.25 MG/3 ML AMPUL NEB SCH ×3 (07:51→20:40)
[2019-07-02] MEDS ORDERED: PANTOPRAZOLE SODIUM 80 MG in NORMAL SALINE 100 ML IV ONE ×2 (08:30→10:30)
[2019-07-02] MEDS: DOXYCYCLINE HYCLATE 100 MG TABLET PO SCH ×3 (08:55→21:23)
[2019-07-02] MEDS: DILTIAZEM HCL 90 MG TABLET PO SCH ×4 (10:27→23:39)
[2019-07-02] MEDS: DOCUSATE SODIUM 100 MG CAPSULE PO SCH ×2 (10:29→21:23)
[2019-07-02] MEDS: PREDNISONE 20 MG TABLET PO SCH ×2 (10:30→18:20)
--- NOTE | 2019-07-02 13:03 | PDOC CONSULTATION ---
Consultation Consult Date: 07/02/19 Provider Consulted: RAFI SWAIN Consult reason:: Atrial fibrillation, rapid ventricular response History of Present Illness Admission Date/PCP: 07/02/19 06:15 [facility] Patient complains of: Palpitations, cough with expectoration History of Present Illness: KERRI STODDARD is a 54 year old male 1. Chronic permanent atrial fibrillation 2. Systemic hypertension 3. 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 Nicotine dependence-cigarettes in remission. 5. Systemic anticoagulation-rivaroxaban Patient presents with complaints of palpitations. He was found to be in atrial fibrillation with rapid ventricular response. There is also report of cough with yellow expectoration and mild dyspnea. The symptoms have lasted for a week. A week prior to this patient had taken NSAIDs and reports dark stools. That has since passed. Presently he feels much better. Since admission he was started on intravenous diltiazem infusion which is resulted in his ventricular rate being better controlled. He is on chronic suppressive antibiotic therapy for infected left hip prosthesis. No heart failure symptoms are endorsed at the moment. He is completely stopped smoking cigarettes. Past Medical History Cardiac Medical History: Reports: Atrial Fibrillation Denies: Congestive Heart Failure, Coronary Artery Disease, Myocardial Infar ction, Hyperlipidema, Hypertension, Peripheral Vascular Disease, Pulmonary Embolism, Heart Murmur Pulmonary Medical History: Reports: Bronchitis, Chronic Obstructive Pulmonary Disease (COPD), Pneumonia, Respiratory Failure Denies: Asthma, Sleep Apnea, Tuberculosis Neurological Medical History: Denies: Seizures Endocrine Medical History: Denies: Diabetes Mellitus Type 1, Diabetes Mellitus Type 2, Hyperthyroidism, Hypothyroidism Renal/ Medical History: Denies: End Stage Renal Disease Malignancy Medical History: Denies: Breast Cancer, Cervical Cancer, Leukemia, Lung Cancer, Ovarian Cancer GI Medical History: Denies: Cirrhosis, Crohn's Disease, Gastroesophageal Reflux Disease, Hepatitis, Ulcerative Colitis Musculoskeltal Medical History: Reports: Arthritis - Rheumatoid arthritis Denies: Fibromyalgia, Gout Skin Medical History: Denies: Eczema, Psoriasis Psychiatric Medical History: Reports: Depression Denies: Bipolar Disorder, Dementia, Post Traumatic Stress Disorder Hematology: Denies: Anemia, Hemophilia, Sickle Cell Disease, Bleeding Tendencies Infectious Medical History: Denies: HIV Past Surgical History Past Surgical History: Reports: Cardiac Catheterization, Orthopedic Surgery - Multiple procedures on the left hip for infection and prosthetic instabilit, Other - Catheter ablation X 2 afib Denies: Appendectomy, Cholecystectomy, Coronary Artery Bypass Graft, Gastric Bypass Surgery, Herniorrhaphy, Pacemaker, Tonsillectomy Social History Lives with: Family Smoking Status: Former Smoker Frequency of Alcohol Use: None Hx Recreational Drug Use: No Drugs: None Hx Prescription Drug Abuse: No - Advance Directive Resuscitation Status: Full Code Family History Family History: Arthritis, CAD Parental Family History Reviewed: No - No familial illnesses Children Family History Reviewed: NA Sibling(s) Family History Reviewed.: NA Medication/Allergy Home Medications: Albuterol Sulfate [Proair Hfa Inhalation Aerosol 8.5 gm Mdi] 2 puff IH Q6HP PRN 07/02/19 Albuterol Sulfate [Ventolin 0.083% Neb 2.5 mg/3 ml Ampul] 1 vial NEB QIDP PRN 07/02/19 Amoxicillin 1 tab PO TID 07/02/19 Chlorhexidine Gluconate [Periogard 0.12% Oral Rinse 15 ml] 15 ml PO BID 07/02/19 Fentanyl [Duragesic 12 Mcg/Hr Transdermal Patch] 1 each TD Q3D 07/02/19 Fluticasone/Umeclidin/Vilanter [Trelegy 100-62.5-25 Mcg Ellipta 14 Dose/Dpi] 1 each PO DAILY 07/02/19 Ibuprofen [Advil] 600 mg PO Q2D 07/02/19 Morphine Sulfate [Ms Contin] 15 mg PO Q12 07/02/19 Mupirocin [Bactroban 2% Ointment 22 gm] 1 applic TP BID 07/02/19 [place]-3/Dha/Epa/Fish Oil [Fish Oil 1,000 mg Softgel] 2 each PO BID 07/02/19 Oxycodone HCl [Roxicodone] 10 mg PO QID 07/02/19 Polyethylene Glycol 3350 [Miralax Powder 17 gm/Packet] 1 packet PO DAILYP PRN 07/02/19 Prednisone [Deltasone 5 mg Tablet] 5 mg PO DAILY 07/02/19 Sildenafil Citrate 50 mg PO ASDIR PRN 07/02/19 Tiotropium Reform [Spiriva Respimat] 2 puff IH DAILY 07/02/19 Tofacitinib Citrate [Xeljanz] 5 mg PO BID 07/02/19 Allergies/Adverse Reactions: vancomycin Allergy (Severe, Verified 07/02/19 04:45) Anaphylaxis adalimumab [From Humira] Adverse Reaction (Verified 07/02/19 04:45) etanercept [From Enbrel] Adverse Reaction (Verified 07/02/19 04:45) gabapentin Adverse Reaction (Verified 07/02/19 04:45) methotrexate Adverse Reaction (Verified 07/02/19 04:45) Review of Systems Constitutional: PRESENT: as per HPI, fatigue Cardiovascular: PRESENT: palpitations Respiratory: PRESENT: cough, dyspnea, sputum Gastrointestinal: PRESENT: melena Neurological: PRESENT: as per HPI Physical Exam Vital Signs: Temp Pulse Resp BP Pulse Ox 98.8 F 20 115/64 96 07/02/19 10:31 07/02/19 11:38 07/02/19 11:38 07/02/19 11:38 Intake & Output 07/01/19 07/02/19 07/03/19 06:59 06:59 06:59 Intake Total 1077 Balance 1077 Weight 98.4 kg General appearance: PRESENT: no acute distress, cooperative Head exam: PRESENT: atraumatic, normocephalic Eye exam: PRESENT: conjunctiva pink, EOMI Mouth exam: PRESENT: moist Respiratory exam: PRESENT: decreased breath sounds, rhonchi, symmetrical Cardiovascular exam: PRESENT: irregular rhythm, +S1, +S2 Pulses: PRESENT: normal radial pulses GI/Abdominal exam: PRESENT: soft Rectal exam: PRESENT: deferred Musculoskeletal exam: PRESENT: normal inspection Neurological exam: PRESENT: alert, awake, oriented to person, oriented to place, oriented to time, oriented to situation Psychiatric exam: PRESENT: appropriate affect Skin exam: PRESENT: dry Results Laboratory Results: 07/02/19 04:25 07/02/19 04:25 07/02/19 07/02/19 07/02/19 04:25 04:25 04:25 WBC 12.2 H RBC 4.95 Hgb 12.7 L Hct 38.6 MCV 78 L MCH 25.7 L MCHC 32.9 RDW 19.4 H Plt Count 330 Seg Neutrophils % 69.8 Sodium 142.8 Potassium 3.9 Chloride 104 Carbon Dioxide 27 Anion Gap 12 BUN 18 Creatinine 0.92 Est GFR ( Amer) > 60 Glucose 83 Calcium 9.4 Total Bilirubin 0.7 AST 23 Alkaline Phosphatase 143 H Total Protein 8.0 Albumin 4.3 TSH 2.29 07/02/19 07/02/19 04:25 06:35 Troponin I < 0.012 < 0.012 NT-Pro-B Natriuret Pep 2000 H EKG Comments: Twelve-lead EKG. Atrial fibrillation rapid ventricular response Telemetry presently shows atrial fibrillation controlled ventricular response at about 69 bpm. Impressions: Chest X-Ray 07/02/19 04:33 IMPRESSION: 1. No acute pneumonic process identified. Status: Image reviewed by me - No acute process is evident. Assessment & Plan - Diagnosis (1) Atrial fibrillation with rapid ventricular response Is this a current diagnosis for this admission?: Yes Plan: Atrial fibrillation rapid ventricular response. Intravenous diltiazem has been started with better control of ventricular rate Would recommend weaning IV diltiazem and starting oral diltiazem. Preferably the same dose ought to work. If not we can increase the dose or add a second agent such as low-dose beta-edil Continue systemic anticoagulation with rivaroxaban especially with a hematocrit and hemoglobin hold steady. Reported GI bleed is over a week ago with dark stools in the setting of NSAID use. (2) Melena Is this a current diagnosis for this admission?: Yes Plan: Patient does not report the symptom anymore He had taken some oral NSAIDs which had resulted probably in dark stools. So long as he is not bleeding and hemoglobin and hematocrit are steady systemic anticoagulation should be pursued (4) Chronic obstructive pulmonary disease Qualifiers: COPD type: unspecified COPD Qualified Code(s): J44.9 - Chronic obstructive pulmonary disease, unspecified Is this a current diagnosis for this admission?: Yes Plan: His breath sounds are coarse bilaterally with diffuse end expiratory rhonchi suggestive of bronchospasm There is likely acute exacerbation of COPD and bronchitis probably due to an infectious process. This may have triggered increased rate of the atrial fibrillation and should respond with treatment of infection. - Notes Notes: Rate control measures only for atrial fibrillation No evidence of heart failure Continue systemic anticoagulation if hematocrit and hemoglobin are steady. Treatment of respiratory infection/bronchitis
[2019-07-02 14:08] LABS: URINE AMPHETAMINES SCREEN NEGATIVE; URINE BARBITURATES SCREEN NEGATIVE; URINE BENZODIAZEPINES SCREEN NEGATIVE; URINE COCAINE SCREEN NEGATIVE; URINE MARIJUANA (THC) SCREEN NEGATIVE; URINE METHADONE SCREEN NEGATIVE; URINE PHENCYCLIDINE SCREEN NEGATIVE
--- NOTE | 2019-07-02 14:53 | EKG REPORT ---
SEVERITY:- ABNORMAL ECG - ATRIAL FIBRILLATION VENTRICULAR PREMATURE COMPLEX BORDERLINE T ABNORMALITIES, INFERIOR LEADS : Confirmed by: Astrid De Jesus MD 02-Jul-2019 14:51:42
[2019-07-02] MEDS: OXYCODONE HCL IR 5 MG TABLET PO PRN (21:23)
[2019-07-02] MEDS: OXYCODONE HCL SR 10 MG TABLET PO SCH (21:24)
[2019-07-02] MEDS: NORMAL SALINE 100 ML with PANTOPRAZOLE SODIUM 80 MG IV PRN ×2 (21:25)
[2019-07-02] MEDS ORDERED: NICOTINE 7 MG/24 HR PATCH.TD24 TD ONE (23:15)
[2019-07-03] MEDS: IPRATROPIUM BROMIDE 0.02% NEB 0.5 MG/2.5 ML AMPUL NEB SCH ×2 (02:00→08:55)
[2019-07-03] MEDS: LEVALBUTEROL HCL NEB 1.25 MG/3 ML AMPUL NEB SCH ×2 (02:00→08:56)
[2019-07-03 05:51] LABS: ABSOLUTE LYMPHOCYTES (AUTO) 1.2 10^3/uL (0.5-4.7); ABSOLUTE MONOCYTES (AUTO) 0.7 10^3/uL (0.1-1.4); ABSOLUTE NEUT (AUTO) 7.5 10^3/uL (1.7-8.2); BASOPHILS % (AUTO) 0.2 % (0-2); EOSINOPHILS % (AUTO) 0.3 % (0-6); HEMATOCRIT 33.2 % (37.9-51.0); HEMOGLOBIN 10.9 g/dL (13.5-17.0); LYMPHOCYTES % (AUTO) 12.5 % (13-45); MEAN CORPUSCULAR HEMOGLOBIN 25.7 pg (27.0-33.4); MEAN CORPUSCULAR HGB CONC 32.9 g/dL (32.0-36.0); MEAN CORPUSCULAR VOLUME 78 fl (80-97); MONOCYTES % (AUTO) 7.6 % (3-13); PLATELET COUNT 319 10^3/uL (150-450); RED BLOOD COUNT 4.24 10^6/uL (4.35-5.55); RED CELL DISTRIBUTION WIDTH 18.8 % (11.5-14.0); SEGMENTED NEUTROPHILS % (AUTO) 79.4 % (42-78); TOTAL CELLS COUNTED % (AUTO) 100 %; WHITE BLOOD COUNT 9.4 10^3/uL (4.0-10.5)
[2019-07-03 06:11] LABS: ANION GAP 8 (5-19); BLOOD UREA NITROGEN 15 mg/dL (7-20); CALCIUM 9.2 mg/dL (8.4-10.2); CARBON DIOXIDE 25 mmol/L (22-30); CHLORIDE 106 mmol/L (98-107); GLUCOSE 114 mg/dL (75-110); POTASSIUM 4.5 mmol/L (3.6-5.0)
[2019-07-03] MEDS: NORMAL SALINE 100 ML with PANTOPRAZOLE SODIUM 80 MG IV PRN ×2 (06:33)
[2019-07-03] MEDS: DILTIAZEM HCL 90 MG TABLET PO SCH ×4 (06:33→23:38)
[2019-07-03] MEDS: OXYCODONE HCL SR 10 MG TABLET PO SCH ×2 (09:12→21:24)
[2019-07-03] MEDS: PREDNISONE 20 MG TABLET PO SCH ×2 (09:12→17:18)
[2019-07-03] MEDS: DOCUSATE SODIUM 100 MG CAPSULE PO SCH ×2 (09:13→17:20)
[2019-07-03] MEDS: DOXYCYCLINE HYCLATE 100 MG TABLET PO SCH ×2 (09:18→21:25)
[2019-07-03] MEDS: OXYCODONE HCL IR 5 MG TABLET PO PRN ×2 (09:18→17:18)
[2019-07-03] MEDS: PREGABALIN 75 MG CAPSULE PO SCH ×2 (14:00→21:25)
[2019-07-03] MEDS: PANTOPRAZOLE SODIUM 40 MG TABLET.DR PO SCH (16:12)
[2019-07-03] MEDS: FLUTICASONE/UMECLIDIN/VILANTER 100-62.5-25 MCG/DOSE IH SCH (16:12)
--- NOTE | 2019-07-03 16:28 | PDOC PROGRESS REPORT ---
Subjective Progress Note for:: 07/03/19 Subjective:: No adverse events overnight. No new complaints. Vital signs been stable. He says his breathing feels pretty good at rest but he still wheezing some. Heart rate is been well controlled. No bleeding. Reason For Visit: AFIB BRONCHITIS Physical Exam Vital Signs: Temp Pulse Resp BP Pulse Ox 97.9 F 54 L 16 107/64 97 07/03/19 15:18 07/03/19 15:18 07/03/19 15:18 07/03/19 15:18 07/03/19 15:18 Intake & Output 07/02/19 07/03/19 07/04/19 06:59 06:59 06:59 Intake Total 1787 46 Output Total 475 Balance 1312 46 Weight 98.4 kg 99 kg General appearance: PRESENT: no acute distress, cooperative, disheveled Respiratory exam: PRESENT: prolonged expiratory phas, symmetrical, unlabored, wheezes. ABSENT: accessory muscle use, crackles, rales, retraction, rhonchi, tachypnea Cardiovascular exam: PRESENT: irregular rhythm Pulses: PRESENT: normal carotid pulses Vascular exam: PRESENT: normal capillary refill GI/Abdominal exam: PRESENT: normal bowel sounds, soft. ABSENT: distended, g uarding, rebound, tenderness Extremities exam: ABSENT: clubbing, pedal edema Musculoskeletal exam: PRESENT: normal inspection. ABSENT: deformity Neurological exam: PRESENT: alert, awake, oriented to person, oriented to place, oriented to situation Psychiatric exam: PRESENT: appropriate affect, normal mood Skin exam: PRESENT: dry, warm Results Laboratory Results: 07/03/19 04:53 07/03/19 04:53 07/03/19 07/03/19 04:53 04:53 WBC 9.4 RBC 4.24 L Hgb 10.9 L Hct 33.2 L MCV 78 L MCH 25.7 L MCHC 32.9 RDW 18.8 H Plt Count 319 Seg Neutrophils % 79.4 H Sodium 138.7 Potassium 4.5 Chloride 106 Carbon Dioxide 25 Anion Gap 8 BUN 15 Creatinine 0.56 Est GFR ( Amer) > 60 Glucose 114 H Calcium 9.2 07/02/19 07/02/19 07/02/19 04:25 06:35 13:26 Troponin I < 0.012 < 0.012 < 0.012 NT-Pro-B Natriuret Pep 2000 H 07/02/19 19:46 Troponin I < 0.012 NT-Pro-B Natriuret Pep Impressions: Chest X-Ray 07/02/19 04:33 IMPRESSION: 1. No acute pneumonic process identified. Assessment and Plan - Diagnosis (1) Atrial fibrillation with rapid ventricular response Is this a current diagnosis for this admission?: Yes Plan: Controlled now on p.o. Cardizem. Will convert to long-acting Cardizem tomorrow morning. Anticoagulation currently on hold, will probably be able to resume at discharge. (2) Melena Is this a current diagnosis for this admission?: Yes Plan: He has been on some Protonix, but it sounds like this was something that he had perhaps a week or 2 ago and has not had since. His blood counts have all been stable and in his usual range, with his hemoglobin around 10 being normal for him. We will continue his Protonix twice a day, cardiology is recommending that he resume his anticoagulation when he is discharged. He has seen Dr. Putnam as an outpatient will arrange outpatient follow-up. (3) Acute and chronic respiratory failure with hypoxia Is this a current diagnosis for this admission?: Yes Plan: We will try to wean him off oxygen today and ambulate him. (4) Acute exacerbation of chronic obstructive pulmonary disease (COPD) Is this a current diagnosis for this admission?: Yes Plan: Responding to steroids, antibiotics, and bronchodilators. - Time Time Spent with patient: 15-24 minutes
[2019-07-03] MEDS ORDERED: (PENDING PHARMACY ID) (Tofacitinib Citrate [Xeljanz] 5 MG) PO SCH (18:00)
[2019-07-03] MEDS ORDERED: NICOTINE 7 MG/24 HR PATCH.TD24 TD SCH (22:00)
[2019-07-04] MEDS: DILTIAZEM HCL 90 MG TABLET PO SCH (05:40)
[2019-07-04] MEDS: PANTOPRAZOLE SODIUM 40 MG TABLET.DR PO SCH ×2 (05:46→17:14)
[2019-07-04] MEDS: PREGABALIN 75 MG CAPSULE PO SCH ×2 (05:46→14:42)
[2019-07-04] MEDS: OXYCODONE HCL SR 10 MG TABLET PO SCH (10:45)
[2019-07-04] MEDS: PREDNISONE 20 MG TABLET PO SCH ×2 (10:45→17:15)
[2019-07-04] MEDS: OXYCODONE HCL IR 5 MG TABLET PO PRN (10:45)
[2019-07-04] MEDS: DOXYCYCLINE HYCLATE 100 MG TABLET PO SCH (10:46)
[2019-07-04] MEDS: FLUTICASONE/UMECLIDIN/VILANTER 100-62.5-25 MCG/DOSE IH SCH (10:46)
[2019-07-04] MEDS: DOCUSATE SODIUM 100 MG CAPSULE PO SCH ×2 (10:46→17:14)
[2019-07-04] MEDS ORDERED: DILTIAZEM HCL 240 MG CAPSULE.CR PO SCH (11:00)
[2019-07-04 15:30] VITALS: BP 105/70
--- NOTE | 2019-07-04 16:23 | PDOC DISCHARGE SUMMARY ---
Impression - Admit/DC Date/PCP Admission Date/Primary Care Provider: 07/02/19 06:15 [place] [facility] Discharge Date: 07/04/19 - Discharge Diagnosis (1) Atrial fibrillation with rapid ventricular response Is this a current diagnosis for this admission?: Yes (2) Melena Is this a current diagnosis for this admission?: Yes (3) Acute and chronic respiratory failure with hypoxia Is this a current diagnosis for this admission?: Yes (4) Acute exacerbation of chronic obstructive pulmonary disease (COPD) Is this a current diagnosis for this admission?: Yes - Additional Information Resuscitation Status: Full Code Discharge Diet: Cardiac Discharge Activity: Activity As Tolerated Referrals: [facility] [Primary Care Provider] - Follow up as needed Prescriptions: Diltiazem HCl [Cardizem Cd 240 mg Capsule.cr] 240 mg PO DAILY #30 capsule.cr Prednisone [Deltasone 20 mg Tablet] 20 mg PO BID #10 tablet Doxycycline Hyclate [Vibramycin 100 mg Tablet] 100 mg PO Q12 #6 tablet Home Medications: Albuterol Sulfate [Proair HFA Inhalation Aerosol 8.5 gm MDI] 2 puff IH Q6HP PRN 07/02/19 Albuterol Sulfate [Ventolin 0.083% Neb 2.5 mg/3 mL Ampul] 1 vial NEB QIDP PRN 07/02/19 Amoxicillin 1 tab PO TID 07/02/19 Chlorhexidine Gluconate [Periogard 0.12% Oral Rinse 15 ml] 15 ml PO BID 07/02/19 Fentanyl [Duragesic 12 Mcg/Hr Transdermal Patch] 1 each TD Q3D 07/02/19 Fluticasone/Umeclidin/Vilanter [Trelegy 100-62.5-25 Mcg Ellipta 14 Dose/Dpi] 1 each PO DAILY 07/02/19 Ibuprofen [Advil] 600 mg PO Q2D 07/02/19 Morphine Sulfate [Ms Contin] 15 mg PO Q12 07/02/19 Mupirocin [Bactroban 2% Ointment 22 gm] 1 applic TP BID 07/02/19 [place]-3/Dha/Epa/Fish Oil [Fish Oil 1,000 mg Softgel] 2 each PO BID 07/02/19 Oxycodone HCl [Roxicodone] 10 mg PO QID 07/02/19 Polyethylene Glycol 3350 [Miralax Powder 17 gm/Packet] 1 packet PO DAILYP PRN 07/02/19 Prednisone [Deltasone 5 mg Tablet] 5 mg PO DAILY 07/02/19 Sildenafil Citrate 50 mg PO ASDIR PRN 07/02/19 Tiotropium [place] [Spiriva Respimat] 2 puff IH DAILY 07/02/19 Tofacitinib Citrate [Xeljanz] 5 mg PO BID 07/02/19 Diltiazem HCl [Cardizem Cd 240 mg Capsule.cr] 240 mg PO DAILY #30 capsule.cr 07/04/19 Doxycycline Hyclate [Vibramycin 100 mg Tablet] 100 mg PO Q12 #6 tablet 07/04/19 Prednisone [Deltasone 20 mg Tablet] 20 mg PO BID #10 tablet 07/04/19 History of Present Illiness History of Present Illness: KERRI STODDARD is a 54 year old male with an extensive past medical history of atrial fibrillation on Xarelto, rheumatoid arthritis on Xeljanz, 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 He presents with worsening shortness of breath with exertion cough with yellow sputum and dull right-sided chest pain. He also complains of recent onset of black tarry stools. He admits to concurrent use of diclofenac with ibuprofen and Xarelto. In the emergency room he is found to be tachypneic with A. fib with RVR he is started on IV diltiazem and improved denying chest pain at rest. He does not currently take a rate controlling medication. Mincemeat Maker is Dr. Kay, road gang supervisor Dr. Bazzi primary care provider Dr. Matute. Hospital Course Hospital Course: We got him under pretty good control on the Cardizem drip and then transition him over to short acting oral Cardizem. The dose that we had him on was effective but he had his heart rate going right around 60 and so we put him on a lesser equivalent dose of long-acting Cardizem and that seems to have gotten his heart rate into 70s and 80s with a normal blood pressure. He was already on Eliquis and he will continue that. He had not previously been on any rate controlling agents because he apparently had not needed it. I think this was set off by a COPD exacerbation. He was wheezing and requiring oxygen initially, but he responded to steroids and antibiotics and bronchodilators. He was on room air and ambulating in the hallway. He will finish a short burst of prednisone and some antibiotics and then he can resume his usual daily dose of prednisone as well as his amoxicillin prophylaxis for the issues he has been having with his prosthetic hip. He requested that his prescriptions be written out a setting of being sent electronically so we have done that. He will follow-up with his insurance risk analyst Dr. Kay in approximately 1 week. His labs and examination were reassuring he was discharged in stable condition. Physical Exam Vital Signs: Temp Pulse Resp BP Pulse Ox 98.0 F 66 16 105/70 97 07/04/19 15:24 07/04/19 15:24 07/04/19 15:24 07/04/19 15:24 07/04/19 15:24 Intake & Output 07/03/19 07/04/19 07/05/19 06:59 06:59 06:59 Intake Total 1787 2846 Output Total 475 Balance 1312 2846 Weight 99 kg 98.3 kg General appearance: PRESENT: no acute distress, cooperative, disheveled Respiratory exam: PRESENT: Decreased but clear bilaterally, symmetrical, unlabored. ABSENT: Prolonged expiratory phase, wheezes, accessory muscle use, crackles, rales, retraction, rhonchi, tachypnea Cardiovascular exam: PRESENT: irregular rhythm Pulses: PRESENT: normal carotid pulses Vascular exam: PRESENT: normal capillary refill GI/Abdominal exam: PRESENT: normal bowel sounds, soft. ABSENT: distended, guarding, rebound, tenderness Extremities exam: ABSENT: clubbing, pedal edema Musculoskeletal exam: PRESENT: normal inspection. ABSENT: deformity Neurological exam: PRESENT: alert, awake, oriented to person, oriented to place, oriented to situation Psychiatric exam: PRESENT: appropriate affect, normal mood Skin exam: PRESENT: dry, warm Results Laboratory Results: WBC 9.4 10^3/uL (4.0-10.5) 07/03/19 04:53 RBC 4.24 10^6/uL (4.35-5.55) L 07/03/19 04:53 Hgb 10.9 g/dL (13.5-17.0) L 07/03/19 04:53 Hct 33.2 % (37.9-51.0) L 07/03/19 04:53 MCV 78 fl (80-97) L 07/03/19 04:53 MCH 25.7 pg (27.0-33.4) L 07/03/19 04:53 MCHC 32.9 g/dL (32.0-36.0) 07/03/19 04:53 RDW 18.8 % (11.5-14.0) H 07/03/19 04:53 Plt Count 319 10^3/uL (150-450) 07/03/19 04:53 Lymph % (Auto) 12.5 % (13-45) L 07/03/19 04:53 [place] % (Auto) 7.6 % (3-13) 07/03/19 04:53 Eos % (Auto) 0.3 % (0-6) 07/03/19 04:53 Baso % (Auto) 0.2 % (0-2) 07/03/19 04:53 Absolute Neuts (auto) 7.5 10^3/uL (1.7-8.2) 07/03/19 04:53 Absolute Lymphs (auto) 1.2 10^3/uL (0.5-4.7) 07/03/19 04:53 Absolute Monos (auto) 0.7 10^3/uL (0.1-1.4) 07/03/19 04:53 Absolute Eos (auto) 0.0 10^3/uL (0.0-0.6) 07/03/19 04:53 Absolute Basos (auto) 0.0 10^3/uL (0.0-0.2) 07/03/19 04:53 Seg Neutrophils % 79.4 % (42-78) H 07/03/19 04:53 Platelet Comment ADEQUATE 07/02/19 04:25 Hypochromasia SLIGHT 07/02/19 04:25 Anisocytosis 2+ 07/02/19 04:25 Microcytosis SLIGHT 07/02/19 04:25 ESR 44 mm/hr (0-20) H 07/02/19 04:25 PT 16.4 SEC (11.4-15.4) H 07/02/19 04:25 INR 1.31 07/02/19 04:25 APTT 41.6 SEC (23.5-35.8) H 07/02/19 04:25 Sodium 138.7 mmol/L (137-145) 07/03/19 04:53 Potassium 4.5 mmol/L (3.6-5.0) 07/03/19 04:53 Chloride 106 mmol/L (98-107) 07/03/19 04:53 Carbon Dioxide 25 mmol/L (22-30) 07/03/19 04:53 Anion Gap 8 (5-19) 07/03/19 04:53 BUN 15 mg/dL (7-20) 07/03/19 04:53 Creatinine 0.56 mg/dL (0.52-1.25) 07/03/19 04:53 Est GFR ( Amer) > 60 (>60) 07/03/19 04:53 Est GFR (MDRD) Non-Af > 60 (>60) 07/03/19 04:53 Glucose 114 mg/dL (75-110) H 07/03/19 04:53 Calcium 9.2 mg/dL (8.4-10.2) 07/03/19 04:53 Total Bilirubin 0.7 mg/dL (0.2-1.3) 07/02/19 04:25 Direct Bilirubin 0.2 mg/dL (0.0-0.4) 07/02/19 04:25 Neonat Total Bilirubin Not Reportable 07/02/19 04:25 Neonat Direct Bilirubin Not Reportable 07/02/19 04:25 Neonat Indirect Bili Not Reportable 07/02/19 04:25 AST 23 U/L (17-59) 07/02/19 04:25 ALT 12 U/L (<50) 07/02/19 04:25 Alkaline Phosphatase 143 U/L (38-126) H 07/02/19 04:25 Troponin I < 0.012 ng/mL 07/02/19 19:46 NT-Pro-B Natriuret Pep 2000 pg/mL (<125) H 07/02/19 04:25 Total Protein 8.0 g/dL (6.3-8.2) 07/02/19 04:25 Albumin 4.3 g/dL (3.5-5.0) 07/02/19 04:25 TSH 2.29 uIU/mL (0.47-4.68) 07/02/19 04:25 Stool Occult Blood NEGATIVE (NEGATIVE) 07/03/19 17:15 Urine Opiates Screen NEGATIVE 07/02/19 13:30 Urine Methadone Screen NEGATIVE 07/02/19 13:30 Ur Barbiturates Screen NEGATIVE 07/02/19 13:30 Ur Phencyclidine Scrn NEGATIVE 07/02/19 13:30 Ur Amphetamines Screen NEGATIVE 07/02/19 13:30 U Benzodiazepines Scrn NEGATIVE 07/02/19 13:30 Urine Cocaine Screen NEGATIVE 07/02/19 13:30 U Marijuana (THC) Screen NEGATIVE 07/02/19 13:30 07/02/19 07/02/19 07/02/19 04:25 06:35 13:26 Troponin I < 0.012 < 0.012 < 0.012 NT-Pro-B Natriuret Pep 2000 H 07/02/19 19:46 Troponin I < 0.012 NT-Pro-B Natriuret Pep Impressions: Chest X-Ray 07/02/19 04:33 IMPRESSION: 1. No acute pneumonic process identified. Plan Time Spent: Greater than 30 Minutes Stroke Is this a Stroke Patient?: No Acute Heart Failure - Is this a Heart Failure Patient?: No
[2019-07-05] MEDS ORDERED: FENTANYL 12 MCG/HR PATCH.TD72 TD SCH (10:00)
== END 2019-07-04 18:03 | disposition home or self-care (01) | DRG 308 ==
LOC: ER 04:07 → EH 06:15 → 3S 18:45
PROVIDERS: ADMIT Internal Medicine; ATTEND Internal Medicine
DX: I48.21 Permanent atrial fibrillation (principal); J96.21 Acute and chronic respiratory failure with hypoxia; F11.20 Opioid dependence, uncomplicated; J44.1 Chronic obstructive pulmonary disease with (acute) exacerbation; K92.1 Melena; T84.52XA Infection and inflammatory reaction due to internal left hip prosthesis, initial encounter; M06.9 Rheumatoid arthritis, unspecified; F32.9 Major depressive disorder, single episode, unspecified; F43.10 Post-traumatic stress disorder, unspecified; I10 Essential (primary) hypertension; G89.29 Other chronic pain; Z96.642 Presence of left artificial hip joint; Z79.2 Long term (current) use of antibiotics; Z82.49 Family history of ischemic heart disease and other diseases of the circulatory system; Z87.891 Personal history of nicotine dependence; Z88.1 Allergy status to other antibiotic agents; Z88.8 Allergy status to other drugs, medicaments and biological substances; Z79.01 Long term (current) use of anticoagulants; Z79.899 Other long term (current) drug therapy; Z86.711 Personal history of pulmonary embolism; Z79.51 Long term (current) use of inhaled steroids
CPT/HCPCS: 36415; 71045; 80048; 80053; 80307; 82272; 83880; 84443; 84484; 85025; 85610; 85652; 85730; 93005; 93010; 94667; 94799; 96365; 96376; 99285; C9113; J3490; J7030; J7050; J7512

== ENCOUNTER 2019-09-29 23:52 | Inpatient (IN) | payer OTHER, MEDICARE ==
[2019-09-29] MEDS ORDERED: MORPHINE SULFATE 10 MG/ML INJ IV ONE (23:59)
[2019-09-30] MEDS ORDERED: BUMETANIDE INJ/PF 1 MG/4 ML SDV IV ONE (00:11)
--- NOTE | 2019-09-30 00:11 | ER Document Report ---
ED General - General Chief Complaint: Shortness Of Breath Stated Complaint: SHORTNESS OF BREATH Primary Care Provider: LISA,DANIELLE [Primary Care Provider] - Follow up as needed Notes: See mar 2019 KERRI STODDARD is a 54 year old male who presented to the emergency room with a history of dyspnea. He requests BiPAP for his dyspnea and he arrives by EMS after being given A/A and steroids. The patient admits progressively worsening dyspnea over the last 2 days accompanied by a productive cough (whitish sputum) and increased wheezing. His dyspnea is worsened by activity or exertion. He denies other associated or accompanying signs and s ymptoms. He admits numerous prior similar episodes related to his COPD (emphysema). He used his home nebulizer to deliver 3 treatments prior to coming to the emergency room, noting no improvement in his dyspnea or wheezing. He denies identification of any additional aggravating or ameliorating factors for his dyspnea. In the emergency room he was found to have wheezing and increased work of breathing on exam, though his oxygen saturation was normal. Chest x-ray showed no evidence of acute pulmonary disease. Patient was treated with IV Decadron and nebulizer therapy . The patient is alert, oriented, and able to express clearly in 2-3 word sentences his need for BiPAP. He had much impro vement after BiPAP was started. Also noted that Aneta ORR removed 1 of his 2 fentanyl patches while in the initial exam of this patient upon arrival.. Patient reports he has DJD of knees as well as chronic pain of right hip and bilateral ankles from being in the . He says he drinks black sandoval juice as well as boiling cayenne pepper storm and tumeric together as a drink. Patient was subsequently admitted to the hospital for further evaluation treatment. Past Medical History Cardiac Medical History: Reports: Atrial Fibrillation Denies: Congestive Heart Failure, Coronary Artery Disease, Myocardial Infarction, Hyperlipidema, Hypertension, Peripheral Vascular Disease, Pulmonary Embolism, Heart Murmur Pulmonary Medical History: Reports: Bronchitis, Chronic Obstructive Pulmonary Disease (COPD), Pneumonia, Respiratory Failure Denies: Asthma, Sleep Apnea, Tuberculosis EENT Medical History: Denies: Cataracts, Ears - Hearing aids Neurological Medical History: Denies: Hemorrhagic CVA, Ischemic CVA, Seizures Endocrine Medical History: Denies: Diabetes Mellitus Type 1, Diabetes Mellitus Type 2, Hyperthyroidism, Hypothyroidism Renal/ Medical History: Denies: Chronic Kidney Disease, Nephrolithiasis Malignancy Medical History: Reports: None GI Medical History: Denies: Cirrhosis, Crohn's Disease, Gastroesophageal Reflux Disease, Hepatitis, Peptic Ulcer Disease, Ulcerative Colitis Musculoskeltal Medical History: Reports: Arthritis - Rheumatoid arthritis, Other - Chronic pain with chronic opiate use, chronic steroid use Denies: Fibromyalgia, Gout Skin Medical History: Denies: Eczema, Psoriasis Psychiatric Medical History: Reports: Depression, Tobacco Dependency Denies: Alcohol Dependency, Bipolar Disorder, Dementia, Post Traumatic Stress Disorder, Substance Abuse Traumatic Medical History: Reports: None Hematology: Denies: Anemia, Bleeding Tendencies Infectious Medical History: Reports: None Past Surgical History Past Surgical History: Reports: Cardiac Catheterization, Orthopedic Surgery - Multiple procedures on the left hip for infection and prosthetic instabilit, Other - Catheter ablation X 2 afib Social History Information Source: Patient Lives with: Spouse/Significant other Smoking Status: Current Every Day Smoker Electronic Cigarette use?: No Frequency of Alcohol Use: None Hx Recreational Drug Use: No Drugs: None Hx Prescription Drug Abuse: No - Advance Directive Resuscitation Status: Full Code Surrogate healthcare decision maker:: Zeynep Stoddard Family History Family History: CAD. denies: DM, Hypertension, Malignancy Parental Family History Reviewed: Yes Children Family History Reviewed: No Sibling(s) Family History Reviewed.: Yes Medication/Allergy Home Medications: Morphine Sulfate [Ms Contin] 15 mg PO Q12 03/12/19 Oxycodone HCl [Oxy-Ir 5 mg Tablet] 5 mg PO Q6HP PRN 03/12/19 Pregabalin [Lyrica] 225 mg PO Q12 03/12/19 Ceftriaxone 2 gm/D5w RTU [Rocephin RTU 2 gm/D5w 50 ml Premix Bag] 2 gm IV DAILY 35 Days rtupb 03/31/19 Docusate Sodium [Colace 100 mg Capsule] 100 mg PO DAILY 30 Days capsule 03/31/19 Metoprolol Tartrate [Lopressor 25 mg Tablet] 12.5 mg PO Q12 30 Days tablet 03/31/19 Nicotine [Nicoderm 14 mg/24 Hr Transdermal Patch] 1 each TD DAILY 30 Days patch.td24 03/31/19 Allergies/Adverse Reactions: vancomycin Allergy (Severe, Verified 04/08/19 17:21) Anaphylaxis adalimumab [From Humira] Adverse Reaction (Verified 04/08/19 17:21) etanercept [From Enbrel] Adverse Reaction (Verified 04/08/19 17:21) gabapentin Adverse Reaction (Verified 04/08/19 17:21) methotrexate Adverse Reaction (Verified 04/08/19 17:21) Review of Systems Constitutional: ABSENT: chills, fever(s) Eyes: ABSENT: visual disturbances, other - Eye pain Ears: ABSENT: hearing changes, other - Ear pain Nose, Mouth, and Throat: ABSENT: mouth pain, sore throat Cardiovascular: PRESENT: as per HPI, dyspnea on exertion. ABSENT: chest pain, palpitations Respiratory: PRESENT: as per HPI, cough, dyspnea, sputum. ABSENT: hemoptysis Gastrointestinal: ABSENT: abdominal pain, constipation, diarrhea, nausea, vomiting Genitourinary: ABSENT: dysuria, hematuria Musculoskeletal: PRESENT: other - Swelling of right fifth finger, draining wound of left hip. ABSENT: back pain, muscle weakness Integumentary: ABSENT: pruritus, rash Neurological: ABSENT: confusion, convulsions, focal weakness, memory loss, syncope Psychiatric: ABSENT: anxiety, depression Endocrine: ABSENT: cold intolerance, heat intolerance Hematologic/Lymphatic: ABSENT: easy bleeding, easy bruising Allergic/Immunologic: ABSENT: seasonal rhinorrhea TRAVEL OUTSIDE OF THE [place] IN LAST 30 DAYS: No - Related Data Allergies/Adverse Reactions: vancomycin Allergy (Severe, Verified 07/02/19 04:45) Anaphylaxis adalimumab [From Humira] Adverse Reaction (Verified 07/02/19 04:45) etanercept [From Enbrel] Adverse Reaction (Verified 07/02/19 04:45) gabapentin Adverse Reaction (Verified 07/02/19 04:45) methotrexate Adverse Reaction (Verified 07/02/19 04:45) Past Medical History - General Information source: Patient - Social History Smoking Status: Former Smoker - Patient reports he began smoking in 1995 in [place] Cigarette use (# per day): No - Patient reports he stopped smoking 2 months ago Chew tobacco use (# tins/day): No Smoking Education Provided: No Family History: Arthritis, CAD - Past Medical History Cardiac Medical History: Reports: Hx Atrial Fibrillation Denies: Hx Congestive Heart Failure, Hx Coronary Artery Disease, Hx Heart Attack, Hx Hypercholesterolemia, Hx Hypertension, Hx Peripheral Vascular Disease, Hx Pulmonary Embolism, Hx Heart Murmur Pulmonary Medical History: Reports: Hx Bronchitis, Hx COPD, Hx Pneumonia, Hx Respiratory Failure Denies: Hx Asthma, Hx Sleep Apnea, Hx Tuberculosis Neurological Medical History: Denies: Hx Cerebrovascular Accident, Hx Seizures, Hx Parkinson's Disease Endocrine Medical History: Denies: Hx Diabetes Mellitus Type 1, Hx Diabetes Mellitus Type 2, Hx Graves' Disease, Hx Hyperthyroidism, Hx Hypothyroidism Renal/ Medical History: Denies: Hx Benign Prostatic Hyperplasia, Hx End Stage Renal Disease, Hx Kidney Stones Malignancy Medical History: Denies Hx Leukemia, Denies Hx Lung Cancer GI Medical History: Reports: Hx Ulcer. Denies: Hx Cirrhosis, Hx Crohn's Dise ase, Hx Gastroesophageal Reflux Disease, Hx Hepatitis, Hx Ulcerative Colitis Musculoskeletal Medical History: Reports Hx Arthritis - Rheumatoid arthritis, Denies Hx Fibromyalgia, Denies Hx Gout, Denies Hx Multiple Sclerosis, Denies Hx Muscular Dystrophy, Denies Hx Systemic Lupus Erythematosus Skin Medical History: Denies Hx Eczema, Denies Hx Psoriasis Psychiatric Medical History: Reports: Hx Depression Denies: Hx Bipolar Disorder, Hx Dementia, Hx Post Traumatic Stress Disorder, Hx Schizophrenia Traumatic Medical History: Denies: Hx Fractures Infectious Medical History: Denies: Hx Hepatitis, Hx HIV Past Surgical History: Reports: Hx Cardiac Catheterization, Hx Orthopedic Surgery - Multiple procedures on the left hip for infection and prosthetic instabilit, Other - Catheter ablation X 2 afib. Denies: Hx Appendectomy, Hx Bowel Surgery, Hx Cholecystectomy, Hx Coronary Artery Bypass Graft, Hx Gastric Bypass Surgery, Hx Herniorrhaphy, Hx Pacemaker, Hx Tonsillectomy - Immunizations Immunizations up to date: Yes Hx Diphtheria, Pertussis, Tetanus Vaccination: Yes Hx Pneumococcal Vaccination: 11/23/09 Review of Systems - Review of Systems Constitutional: See HPI, Malaise, Recent illness EENT: No symptoms reported Cardiovascular: No symptoms reported Respiratory: See HPI, Cough, Short of breath, Sputum, Wheezing Gastrointestinal: No symptoms reported Genitourinary: No symptoms reported Male Genitourinary: No symptoms reported Musculoskeletal: No symptoms reported Skin: No symptoms reported Hematologic/Lymphatic: No symptoms reported Neurological/Psychological: No symptoms reported Physical Exam - Vital signs Vitals: Temp 97.8 F 09/29/19 23:52 Interpretation: Tachypneic - General General appearance: Anxious - HEENT Head: Normocephalic, Atraumatic Eyes: Normal Pupils: PERRL Pharynx: Normal Neck: Normal - Respiratory Respiratory status: Respiratory distress, Labored, Tachypnea, Tripod position Chest status: Nontender Breath sounds: Decreased air movement, Wheezing Chest palpation: Normal - Cardiovascular Rhythm: Irregularly irregular Heart sounds: Normal auscultation Murmur: No - Abdominal Inspection: Normal Distension: No distension Bowel sounds: Normal Tenderness: Nontender Organomegaly: No organomegaly - Back Back: Normal - Extremities General upper extremity: Tender General lower extremity: Tender, Other - alessia ankles orif with chronic right hip Course - Vital Signs Vital signs: Temp Pulse Resp BP Pulse Ox 97.8 F 20 122/66 100 09/29/19 23:53 09/30/19 01:02 09/30/19 01:01 09/30/19 01:01 - Laboratory Result Diagrams: 09/30/19 00:01 09/30/19 00:01 Laboratory results interpreted by me: 09/30/19 09/30/19 09/30/19 00:01 00:01 00:01 Hgb 12.0 L Hct 36.3 L MCV 79 L MCH 26.2 L RDW 18.6 H Eos % (Auto) 17.1 H Absolute Eos (auto) 1.2 H Seg Neutrophils % 35.6 L Carbonic Acid ABG pH ABG pCO2 ABG pO2 ABG HCO3 ABG Total CO2 ABG O2 Saturation Alkaline Phosphatase 143 H NT-Pro-B Natriuret Pep 430 H 09/30/19 00:30 Hgb Hct MCV MCH RDW Eos % (Auto) Absolute Eos (auto) Seg Neutrophils % Carbonic Acid 1.77 H ABG pH 7.30 L ABG pCO2 58.8 H ABG pO2 147.9 H ABG HCO3 28.5 H ABG Total CO2 30.3 H ABG O2 Saturation 98.6 H Alkaline Phosphatase NT-Pro-B Natriuret Pep - Diagnostic Test Radiology reviewed: Reports reviewed - EKG Interpretation by Me Rate: Tachycardia - 108 bpm Rhythm: A.Fib Critical Care Note - Critical Care Note Total time excluding time spent on procedures (mins): 90 Comments: Patient much improved by 00 45 and speaking in full sentences with BiPAP on board. I discussed this case with Dr. Danish Saxena and he advised telemetry bed Discharge - Discharge Clinical Impression: COPD exacerbation, Acute exacerbation of chronic obstructive pulmonary disease (COPD) Chronic pain Qualifiers: Chronic pain type: chronic pain syndrome Qualified Code(s): G89.4 - Chronic pain syndrome Clinical Impression: (Ruled Out): Arthritis or polyarthritis, rheumatoid Condition: Good Disposition: ADMITTED INPATIENT Admitting Provider: Hemanth (Hospitalist) Unit Admitted: Telemetry Additional Instructions: Transfer patient to telemetry bed Referrals: [facility] [Primary Care [facility]] - Follow up as needed
[2019-09-30 00:14] LABS: ABSOLUTE BASOPHILS # (AUTO) 0.1 10^3/uL (0.0-0.2); ABSOLUTE EOSINOPHILS # (AUTO) 1.2 10^3/uL (0.0-0.6); ABSOLUTE LYMPHOCYTES (AUTO) 2.3 10^3/uL (0.5-4.7); ABSOLUTE MONOCYTES (AUTO) 0.9 10^3/uL (0.1-1.4); ABSOLUTE NEUT (AUTO) 2.5 10^3/uL (1.7-8.2); BASOPHILS % (AUTO) 1.1 % (0-2); EOSINOPHILS % (AUTO) 17.1 % (0-6); HEMATOCRIT 36.3 % (37.9-51.0); LYMPHOCYTES % (AUTO) 33.2 % (13-45); MEAN CORPUSCULAR HEMOGLOBIN 26.2 pg (27.0-33.4); MEAN CORPUSCULAR HGB CONC 33.2 g/dL (32.0-36.0); MEAN CORPUSCULAR VOLUME 79 fl (80-97); PLATELET COUNT 236 10^3/uL (150-450); RED BLOOD COUNT 4.59 10^6/uL (4.35-5.55); RED CELL DISTRIBUTION WIDTH 18.6 % (11.5-14.0); SEGMENTED NEUTROPHILS % (AUTO) 35.6 % (42-78); TOTAL CELLS COUNTED % (AUTO) 100 %; WHITE BLOOD COUNT 6.9 10^3/uL (4.0-10.5)
[2019-09-30 00:32] LABS: ALKALINE PHOSPHATASE 143 U/L (38-126); ANION GAP 7 (5-19); ASPARTATE AMINO TRANSFERASE 44 U/L (17-59); BILIRUBIN,TOTAL 0.4 mg/dL (0.2-1.3); BLOOD UREA NITROGEN 16 mg/dL (7-20); CALCIUM 8.8 mg/dL (8.4-10.2); CARBON DIOXIDE 29 mmol/L (22-30); CHLORIDE 102 mmol/L (98-107); GLUCOSE 92 mg/dL (75-110); POTASSIUM 3.9 mmol/L (3.6-5.0)
[2019-09-30 00:44] LABS: NT PRO BNP 430 pg/mL (<125)
[2019-09-30 00:49] LABS: TROPONIN I < 0.012 ng/mL
[2019-09-30 00:59] LABS: ARTERIAL BLOOD BASE EXCESS 1.1 mmol/L; ARTERIAL BLOOD H2CO3 1.77 mmol/L (1.05-1.35); ARTERIAL BLOOD HCO3 28.5 mmol/L (20-24); ARTERIAL BLOOD O2 SATURATION 98.6 % (94-98); ARTERIAL BLOOD PCO2 58.8 mmHg (35-45); ARTERIAL BLOOD PO2 147.9 mmHg (80-100); ARTERIAL BLOOD TOTAL CO2 30.3 mmol/L (23-27)
[2019-09-30 01:00] LABS: ARTERIAL BLOOD FIO2 45%
[2019-09-30] MEDS ORDERED: CEFTRIAXONE INJ 1000 MG VIAL IV ONE (01:06)
[2019-09-30] MEDS ORDERED: DEXAMETHASONE SOD PHOS INJ 10 MG/1 ML VIAL IV ONE (01:21)
--- NOTE | 2019-09-30 01:22 | RADIOLOGY REPORT (SQ) ---
EXAM DESCRIPTION: XR CHEST 1 VIEW COMPLETED DATE/TME: 09/30/2019 00:02 CLINICAL HISTORY: 54 years Male, sob COMPARISON: 07/02/19 NUMBER OF VIEWS/TECHNIQUE: 1/AP FINDINGS: Small chronic blunting-effusion of the bilateral costophrenic angle. Small chronic left basilar opacity.Normal cardiac silhouette size. No pneumothorax. Stable bony thorax. IMPRESSION: No significant change. Small chronic blunting-effusion of the bilateral costophrenic angle. Small chronic left basilar opacity-effusion.
[2019-09-30] MEDS ORDERED: ACETAMINOPHEN 325 MG TABLET PO PRN (01:23)
[2019-09-30] MEDS ORDERED: IPRATROPIUM/ALBUTEROL 0.5-2.5 MG/3 ML AMPUL NEB PRN (01:23)
[2019-09-30 01:28] LABS: APPEARANCE,URINE CLEAR; BILIRUBIN,URINE NEGATIVE (NEGATIVE); COLOR,URINE YELLOW; GLUCOSE, URINE NEGATIVE (NEGATIVE); KETONES,URINE NEGATIVE (NEGATIVE); LEUKOCYTE ESTERASE,URINE NEGATIVE (NEGATIVE); NITRITE,URINE NEGATIVE (NEGATIVE); PROTEIN,URINE NEGATIVE (NEGATIVE); UROBILINOGEN,URINE NEGATIVE mg/dL (<2.0)
[2019-09-30 01:33] LABS: INTERNATIONAL RATION (INR) 1.63; PROTHROMBIN TIME 19.5 SEC (11.4-15.4)
[2019-09-30] MEDS: PREDNISONE 20 MG TABLET PO SCH ×3 (01:52→17:36)
[2019-09-30] MEDS ORDERED: FLUTICASONE NASAL SPRAY 50 MCG/SPRY 120 SPRAY/16 GM ONE (01:59)
[2019-09-30] MEDS: FLUTICASONE NASAL SPRAY 50 MCG/SPRY 120 SPRAY/16 GM NASL SCH ×3 (02:21→22:12)
--- NOTE | 2019-09-30 02:58 | PDOC H&P ---
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 He presents with worsening shortness of breath over the last 3 days associated with a intermittently productive cough. He denies travel, fever nausea vomiting or infectious contacts. In the emergency department he is found to have oxygen saturations of 100% but hypercapnia with a PCO2 of 59 and 2 fentanyl patches of 25 mcg each. Formally on 12.5 mg fentanyl patch daily June 2019. A solitary patch is removed and his respiratory rate increases he is placed on BiPAP receiving Solu-Medrol, albuterol and Atrovent. He is referred to the hospitalist for admission. He denies chest pain nausea vomiting. He is imaging reveals old right lung scarring and chronic changes. He admits to a recent increased dose of his fentanyl patch. Past Medical History Cardiac Medical History: Reports: Atrial Fibrillation Denies: Congestive Heart Failure, Coronary Artery Disease, Myocardial Infarction, Hyperlipidema, Hypertension, Peripheral Vascular Disease, Pulmonary Embolism, Heart Murmur Pulmonary Medical History: Reports: Bronchitis, Chronic Obstructive Pulmonary Disease (COPD), Pneumonia, Respiratory Failure Denies: Asthma, Sleep Apnea, Tuberculosis Neurological Medical History: Denies: Seizures Endocrine Medical History: Denies: Diabetes Mellitus Type 1, Diabetes Mellitus Type 2, Hyperthyroidism, Hypothyroidism Renal/ Medical History: Denies: End Stage Renal Disease Malignancy Medical History: Denies: Breast Cancer, Cervical Cancer, Leukemia, Lung Cancer, Ovarian Cancer GI Medical History: Denies: Cirrhosis, Crohn's Disease, Gastroesophageal Reflux Disease, Hepatitis, Ulcerative Colitis Musculoskeltal Medical History: Reports: Arthritis - Rheumatoid arthritis Denies: Fibromyalgia, Gout Skin Medical History: Denies: Eczema, Psoriasis Psychiatric Medical History: Reports: Depression, Post Traumatic Stress Disorder, Tobacco Dependency Denies: Bipolar Disorder, Dementia Hematology: Denies: Anemia, Hemophilia, Sickle Cell Disease, Bleeding Tendencies Infectious Medical History: Denies: HIV Past Surgical History Past Surgical History: Reports: Cardiac Catheterization, Orthopedic Surgery - Multiple procedures on the left hip for infection and prosthetic instabilit, Other - Catheter ablation X 2 afib Denies: Appendectomy, Cholecystectomy, Coronary Artery Bypass Graft, Gastric Bypass Surgery, Herniorrhaphy, Pacemaker, Tonsillectomy Social History Information Source: Patient, [facility] Records Lives with: Spouse/Significant other Smoking Status: Former Smoker - Patient reports he began smoking in 1995 in [place] Electronic Cigarette use?: No Frequency of Alcohol Use: None Hx Recreational Drug Use: No Drugs: None Hx Prescription Drug Abuse: No - Advance Directive Resuscitation Status: Full Code Family History Family History: Arthritis, CAD Parental Family History Reviewed: Yes Children Family History Reviewed: Yes Sibling(s) Family History Reviewed.: Yes Medication/Allergy Home Medications: Albuterol Sulfate [Proair HFA Inhalation Aerosol 8.5 gm MDI] 2 puff IH Q6HP PRN 07/02/19 Albuterol Sulfate [Ventolin 0.083% Neb 2.5 mg/3 mL Ampul] 1 vial NEB QIDP PRN 07/02/19 Amoxicillin 1 tab PO TID 07/02/19 Chlorhexidine Gluconate [Periogard 0.12% Oral Rinse 15 ml] 15 ml PO BID 07/02/19 Fentanyl [Duragesic 12 Mcg/Hr Transdermal Patch] 1 each TD Q3D 07/02/19 Fluticasone/Umeclidin/Vilanter [Trelegy 100-62.5-25 Mcg Ellipta 14 Dose/Dpi] 1 each PO DAILY 07/02/19 Ibuprofen [Advil] 600 mg PO Q2D 07/02/19 Morphine Sulfate [Ms Contin] 15 mg PO Q12 07/02/19 Mupirocin [Bactroban 2% Ointment 22 gm] 1 applic TP BID 07/02/19 [place]-3/Dha/Epa/Fish Oil [Fish Oil 1,000 mg Softgel] 2 each PO BID 07/02/19 Oxycodone HCl [Roxicodone] 10 mg PO QID 07/02/19 Polyethylene Glycol 3350 [Miralax Powder 17 gm/Packet] 1 packet PO DAILYP PRN 07/02/19 Prednisone [Deltasone 5 mg Tablet] 5 mg PO DAILY 07/02/19 Sildenafil Citrate 50 mg PO ASDIR PRN 07/02/19 Tiotropium [place] [Spiriva Respimat] 2 puff IH DAILY 07/02/19 Tofacitinib Citrate [Xeljanz] 5 mg PO BID 07/02/19 Diltiazem HCl [Cardizem Cd 240 mg Capsule.cr] 240 mg PO DAILY #30 capsule.cr 07/04/19 Doxycycline Hyclate [Vibramycin 100 mg Tablet] 100 mg PO Q12 #6 tablet 07/04/19 Prednisone [Deltasone 20 mg Tablet] 20 mg PO BID #10 tablet 07/04/19 Allergies/Adverse Reactions: vancomycin Allergy (Severe, Verified 07/02/19 04:45) Anaphylaxis adalimumab [From Humira] Adverse Reaction (Verified 07/02/19 04:45) etanercept [From Enbrel] Adverse Reaction (Verified 07/02/19 04:45) gabapentin Adverse Reaction (Verified 07/02/19 04:45) methotrexate Adverse Reaction (Verified 07/02/19 04:45) Review of Systems Constitutional: ABSENT: chills, fever(s), headache(s), weight gain, weight loss Eyes: ABSENT: visual disturbances Ears: ABSENT: hearing changes Cardiovascular: ABSENT: chest pain, dyspnea on exertion, edema, orthropnea, palpitations Respiratory: ABSENT: cough, hemoptysis Gastrointestinal: ABSENT: abdominal pain, constipation, diarrhea, hematemesis, hematochezia, nausea, vomiting Genitourinary: ABSENT: dysuria, hematuria Musculoskeletal: ABSENT: joint swelling Integumentary: ABSENT: rash, wounds Neurological: ABSENT: abnormal gait, abnormal speech, confusion, dizziness, focal weakness, syncope Psychiatric: ABSENT: anxiety, depression, homidical ideation, suicidal ideation Endocrine: ABSENT: cold intolerance, heat intolerance, polydipsia, polyuria Hematologic/Lymphatic: ABSENT: easy bleeding, easy bruising Physical Exam Vital Signs: Temp Pulse Resp BP Pulse Ox 97.8 F 20 122/66 100 09/29/19 23:53 09/30/19 01:02 09/30/19 01:01 09/30/19 01:01 Intake & Output 09/28/19 09/29/19 09/30/19 11:59 11:59 11:59 Weight 108.9 kg General appearance: PRESENT: cooperative, mild distress, thin, well-developed, well-nourished Head exam: PRESENT: atraumatic, normocephalic Eye exam: PRESENT: conjunctiva pink, EOMI, PERRLA. ABSENT: scleral icterus Ear exam: PRESENT: normal external ear exam Mouth exam: PRESENT: moist, tongue midline Neck exam: ABSENT: carotid bruit, JVD, lymphadenopathy, thyromegaly Respiratory exam: PRESENT: accessory muscle use, clear to auscultation alessia, crackles, prolonged expiratory phas, tachypnea. ABSENT: rales, rhonchi, wheezes Cardiovascular exam: PRESENT: irregular rhythm. ABSENT: diastolic murmur, rubs, systolic murmur Pulses: PRESENT: normal dorsalis pedis pul Vascular exam: PRESENT: normal capillary refill GI/Abdominal exam: PRESENT: normal bowel sounds, soft. ABSENT: distended, guarding, mass, organolmegaly, rebound, tenderness Rectal exam: PRESENT: deferred Extremities exam: PRESENT: full ROM. ABSENT: calf tenderness, clubbing, pedal edema Neurological exam: PRESENT: alert, awake, oriented to person, oriented to place, oriented to time, oriented to situation, CN II-XII grossly intact. ABSENT: motor sensory deficit Psychiatric exam: PRESENT: appropriate affect, normal mood. ABSENT: homicidal ideation, suicidal ideation Skin exam: PRESENT: dry, intact, warm. ABSENT: cyanosis, rash Results Laboratory Results: 09/30/19 00:01 09/30/19 00:01 09/30/19 09/30/19 09/30/19 00:01 00:01 00:30 WBC 6.9 RBC 4.59 Hgb 12.0 L Hct 36.3 L MCV 79 L MCH 26.2 L MCHC 33.2 RDW 18.6 H Plt Count 236 Seg Neutrophils % 35.6 L Carbonic Acid 1.77 H HCO3/H2CO3 Ratio 16:1 ABG pH 7.30 L ABG pCO2 58.8 H ABG pO2 147.9 H ABG HCO3 28.5 H ABG O2 Saturation 98.6 H ABG Base Excess 1.1 FiO2 45% Sodium 137.9 Potassium 3.9 Chloride 102 Carbon Dioxide 29 Anion Gap 7 BUN 16 Creatinine 0.87 Est GFR ( Amer) > 60 Glucose 92 Calcium 8.8 Total Bilirubin 0.4 AST 44 Alkaline Phosphatase 143 H Total Protein 7.0 Albumin 4.0 Urine Color Urine Appearance Urine pH Ur Specific [place] Urine Protein Urine Glucose (UA) Urine Ketones Urine Blood Urine Nitrite Ur Leukocyte Esterase Urine WBC (Auto) Urine RBC (Auto) 09/30/19 00:55 WBC RBC Hgb Hct MCV MCH MCHC RDW Plt Count Seg Neutrophils % Carbonic Acid HCO3/H2CO3 Ratio ABG pH ABG pCO2 ABG pO2 ABG HCO3 ABG O2 Saturation ABG Base Excess FiO2 Sodium Potassium Chloride Carbon Dioxide Anion Gap BUN Creatinine Est GFR ( Amer) Glucose Calcium Total Bilirubin AST Alkaline Phosphatase Total Protein Albumin Urine Color YELLOW Urine Appearance CLEAR Urine pH 6.0 Ur Specific [place] 1.010 Urine Protein NEGATIVE Urine Glucose (UA) NEGATIVE Urine Ketones NEGATIVE Urine Blood SMALL H Urine Nitrite NEGATIVE Ur Leukocyte Esterase NEGATIVE Urine WBC (Auto) 1 Urine RBC (Auto) 1 09/30/19 00:01 Troponin I < 0.012 NT-Pro-B Natriuret Pep 430 H Impressions: Chest X-Ray 09/30/19 00:02 IMPRESSION: No significant change. Small chronic blunting-effusion of the bilateral costophrenic angle. Small chronic left basilar opacity-effusion. Assessment and Plan - Diagnosis (1) Acute hypercapnic respiratory failure Is this a current diagnosis for this admission?: Yes Plan: Likely multifactorial secondary to acute bronchitis complicated by chronic COPD and excessive narcotics. BiPAP, narcotic weaning and education. (2) Acute exacerbation of chronic obstructive pulmonary disease (COPD) Is this a current diagnosis for this admission?: Yes Plan: Multifactorial secondary to bronchitis and reduction of respiratory drive with excessive narcotic. Trial Levaquin, Flonase, Xopenex, Atrovent, prednisone, incentive spirometry and flutter valve (3) Chronic pain Qualifiers: Chronic pain type: chronic pain syndrome Qualified Code(s): G89.4 - Chronic pain syndrome Is this a current diagnosis for this admission?: Yes Plan: Education for risk of respiratory drive with excessive narcotic. (4) Rheumatoid arthritis Qualifiers: Rheumatoid factor presence: unspecified presence Laterality: unspecified laterality Is this a current diagnosis for this admission?: Yes Plan: Follow-up ESR, prednisone 20 twice daily (5) A-fib Qualifiers: Atrial fibrillation type: unspecified chronic Qualified Code(s): I48.20 - Chronic atrial fibrillation, unspecified; I48.2 - Chronic atrial fibrillation Is this a current diagnosis for this admission?: Yes Plan: Rate controlled, continue outpatient regiment - Time Time Spent with patient: 25-34 minutes - Inpatient Certification Medical Necessity: Need Close Monitoring Due to Risk of Patient Decompensation
[2019-09-30] MEDS ORDERED: HEPARIN SOD (PORCINE) 5,000 UNIT/ML 1 ML VIAL SUBCUT SCH (06:00)
[2019-09-30 06:23] LABS: HEMATOCRIT 35.9 % (37.9-51.0); MEAN CORPUSCULAR HEMOGLOBIN 26.1 pg (27.0-33.4); MEAN CORPUSCULAR HGB CONC 33.5 g/dL (32.0-36.0); MEAN CORPUSCULAR VOLUME 78 fl (80-97); PLATELET COUNT 213 10^3/uL (150-450); RED BLOOD COUNT 4.61 10^6/uL (4.35-5.55); RED CELL DISTRIBUTION WIDTH 18.2 % (11.5-14.0); WHITE BLOOD COUNT 7.2 10^3/uL (4.0-10.5)
[2019-09-30 06:48] LABS: ANION GAP 8 (5-19); BLOOD UREA NITROGEN 16 mg/dL (7-20); CARBON DIOXIDE 30 mmol/L (22-30); CHLORIDE 100 mmol/L (98-107); GLUCOSE 200 mg/dL (75-110); POTASSIUM 4.1 mmol/L (3.6-5.0)
[2019-09-30 06:56] LABS: ABSOLUTE LYMPHOCYTES# (MANUAL) 0.3 10^3/uL (0.5-4.7); BASOPHILS % (MANUAL) 0 % (0-2); EOSINOPHILS % (MANUAL) 1 % (0-6); LYMPHOCYTES % (MANUAL) 4 % (13-45); MONOCYTES % (MANUAL) 0 % (3-13); SEGMENTED NEUTROPHILS % (MAN) 95 % (42-78); TOTAL CELLS COUNTED 100
[2019-09-30 06:57] LABS: ANISOCYTOSIS 2+; HYPOCHROMASIA SLIGHT; OVALOCYTES SLIGHT; PLATELET COMMENT ADEQUATE; POIKILOCYTOSIS SLIGHT
[2019-09-30] MEDS: IPRATROPIUM BROMIDE 0.02% NEB 0.5 MG/2.5 ML AMPUL NEB SCH ×2 (08:19→16:57)
[2019-09-30] MEDS: LEVALBUTEROL HCL NEB 1.25 MG/3 ML AMPUL NEB SCH ×2 (08:19→16:57)
[2019-09-30] MEDS: LEVOFLOXACIN 750 MG/D5W RTU 750 MG/150 ML RTUPB IV SCH (10:47)
--- NOTE | 2019-09-30 11:26 | Progress Note ---
Provider Note Provider Note: Patient admitted by Dr. Saxena late this morning for left lower extremity cellulitis. Started on vancomycin/Zosyn. Patient seen and examined today. Left lower extremity shows lymphedema and large approximately 4 cm in diameter crater-like anterior jackson wound that does not have any significant drainage. Patient states her fever has been up to 103. Continue antibiotics IV Follow-up blood cultures Pain management Home medications selectively continued
--- NOTE | 2019-09-30 11:34 | Progress Note ---
Provider Note Provider Note: Patient admitted by Dr. Saxena late this morning for acute COPD exacerbation. Patient believes the trigger may have been exposure to cleaning chemicals, pollen, and very strong cologne sprayed into the air at his home. He is currently being treated with IV steroids, nebulizer treatments, inhalers, and having his fentanyl patch removed on admission. We will reconcile patient's pain medication once confirmed by pharmacy as this is what his primary concerns right now. He was counseled on the dangers of narcotics in the setting of respiratory failure. Patient seen and examined. Significant wheezing in all lung diaz. Notable hand deformities related to RA. Continue Solu-Medrol Continue nebulizer treatments Continue inhalers Needs follow-up with his manager stylist to change his RA medication which he states has not been working at all Needs follow-up with orthopedic surgery this fall to assess his knees for replacement as this is a significant source of his pain Pain control to be given cautiously in the setting of respiratory failure
[2019-09-30] MEDS ORDERED: (PENDING PHARMACY ID) (Albuterol Sulfate 2 PUFF) IH PRN (11:36)
[2019-09-30] MEDS ORDERED: ALBUTEROL SULFATE 0.083% NEB 2.5 MG/3 ML AMPUL NEB PRN (11:36)
--- NOTE | 2019-09-30 13:27 | EKG REPORT ---
SEVERITY:- ABNORMAL ECG - ATRIAL FIBRILLATION : Confirmed by: Qamar Martino MD 30-Sep-2019 13:25:41
[2019-09-30] MEDS: OXYCODONE HCL IR 5 MG TABLET PO SCH ×2 (14:04→22:11)
[2019-09-30] MEDS: LIDOCAINE 5% OINTMENT 35.44 GM TP SCH ×2 (14:08→17:37)
[2019-09-30] MEDS: RIVAROXABAN 10 MG TABLET PO SCH (17:36)
[2019-09-30] MEDS: OMEGA-3 ACID ETHYL ESTERS 1 GM CAPSULE PO SCH (17:36)
[2019-09-30] MEDS: CHLORHEXIDINE GLUCONATE 0.12% ORAL RINSE 15 ML UDC PO SCH (17:37)
[2019-09-30] MEDS ORDERED: FISH OIL PO SCH (18:00)
[2019-09-30] MEDS ORDERED: OMEGA PO SCH (18:00)
[2019-09-30] MEDS ORDERED: (PENDING PHARMACY ID) (Tofacitinib Citrate [Xeljanz] 5 MG) PO SCH (18:00)
[2019-09-30] MEDS ORDERED: DHA PO SCH (18:00)
[2019-09-30] MEDS ORDERED: EPA PO SCH (18:00)
[2019-09-30] MEDS: VARENICLINE TARTRATE 1 MG TABLET PO SCH (22:11)
[2019-09-30] MEDS ORDERED: PREGABALIN 75 MG CAPSULE PO ONE (22:15)
[2019-10-01] MEDS ORDERED: DILTIAZEM HCL 240 MG CAPSULE.CR PO ONE (01:00)
[2019-10-01] MEDS: IPRATROPIUM BROMIDE 0.02% NEB 0.5 MG/2.5 ML AMPUL NEB SCH ×2 (01:59→08:41)
[2019-10-01] MEDS: LEVALBUTEROL HCL NEB 1.25 MG/3 ML AMPUL NEB SCH ×2 (01:59→08:41)
[2019-10-01] MEDS: OXYCODONE HCL IR 5 MG TABLET PO SCH (06:13)
[2019-10-01 06:17] LABS: ABSOLUTE LYMPHOCYTES (AUTO) 0.8 10^3/uL (0.5-4.7); ABSOLUTE MONOCYTES (AUTO) 0.9 10^3/uL (0.1-1.4); ABSOLUTE NEUT (AUTO) 8.5 10^3/uL (1.7-8.2); BASOPHILS % (AUTO) 0.3 % (0-2); HEMATOCRIT 35.9 % (37.9-51.0); HEMOGLOBIN 12.1 g/dL (13.5-17.0); LYMPHOCYTES % (AUTO) 7.5 % (13-45); MEAN CORPUSCULAR HEMOGLOBIN 26.4 pg (27.0-33.4); MEAN CORPUSCULAR HGB CONC 33.8 g/dL (32.0-36.0); MEAN CORPUSCULAR VOLUME 78 fl (80-97); MONOCYTES % (AUTO) 8.6 % (3-13); PLATELET COUNT 220 10^3/uL (150-450); RED CELL DISTRIBUTION WIDTH 18.3 % (11.5-14.0); SEGMENTED NEUTROPHILS % (AUTO) 83.6 % (42-78); TOTAL CELLS COUNTED % (AUTO) 100 %; WHITE BLOOD COUNT 10.2 10^3/uL (4.0-10.5)
[2019-10-01 06:44] LABS: ANION GAP 6 (5-19); BLOOD UREA NITROGEN 21 mg/dL (7-20); CALCIUM 9.2 mg/dL (8.4-10.2); CARBON DIOXIDE 29 mmol/L (22-30); CHLORIDE 101 mmol/L (98-107); GLUCOSE 136 mg/dL (75-110); POTASSIUM 4.4 mmol/L (3.6-5.0)
[2019-10-01] MEDS: OMEGA-3 ACID ETHYL ESTERS 1 GM CAPSULE PO SCH ×2 (09:18→17:51)
[2019-10-01] MEDS: VARENICLINE TARTRATE 1 MG TABLET PO SCH ×2 (09:18→22:40)
[2019-10-01] MEDS: CALCIUM CARBONATE 600 MG/VITAMIN D3 400 UNIT TABLET PO SCH (09:18)
[2019-10-01] MEDS: CHLORHEXIDINE GLUCONATE 0.12% ORAL RINSE 15 ML UDC PO SCH ×2 (09:18→17:50)
[2019-10-01] MEDS: PREDNISONE 20 MG TABLET PO SCH (09:18)
[2019-10-01] MEDS: LIDOCAINE 5% OINTMENT 35.44 GM TP SCH ×3 (09:19→17:50)
[2019-10-01] MEDS: LEVOFLOXACIN 750 MG/D5W RTU 750 MG/150 ML RTUPB IV SCH (09:19)
[2019-10-01] MEDS: TAMSULOSIN HCL 0.4 MG CAP.SR.24H PO SCH (09:23)
[2019-10-01] MEDS: FERROUS SULFATE 325 MG TABLET PO SCH (09:23)
[2019-10-01] MEDS: FOLIC ACID 1 MG TABLET PO SCH (09:23)
[2019-10-01] MEDS: FLUTICASONE NASAL SPRAY 50 MCG/SPRY 120 SPRAY/16 GM NASL SCH ×2 (09:28→22:40)
[2019-10-01] MEDS ORDERED: HYDROQUINONE TP SCH (10:00)
[2019-10-01] MEDS ORDERED: PREGABALIN 75 MG CAPSULE PO SCH (10:00)
[2019-10-01] MEDS ORDERED: (PENDING PHARMACY ID) (Calcium Carbonate/Vitamin D3 [Calcium 500-Vit D3 200 Tablet] 1 EACH PO SCH (10:00)
[2019-10-01] MEDS ORDERED: FERROUS SULFATE 325 MG PO SCH (10:00)
[2019-10-01] MEDS ORDERED: PAROXETINE HCL 20 MG TABLET PO ONE (12:56)
[2019-10-01] MEDS ORDERED: FENTANYL 25 MCG/HR PATCH.TD72 TD SCH (13:00)
[2019-10-01] MEDS ORDERED: TRAZODONE HCL 50 MG TABLET PO PRN (13:03)
[2019-10-01] MEDS ORDERED: CALCIUM GLUCONATE 1000 MG/10 ML INJ IV ONE (13:27)
[2019-10-01] MEDS: OXYCODONE HCL IR 5 MG TABLET PO PRN (13:32)
--- NOTE | 2019-10-01 13:43 | PDOC PROGRESS REPORT ---
Subjective Progress Note for:: 10/01/19 Subjective:: Patient states that he will like to to be restarted on his fentanyl. Explained the risks and benefits of respiratory depression given COPD exacerbation but he would like to still be restarted on monitored. I explained with him that we will have to cut dose of his oxycodone. He also would like his Lyrica to be increased as he takes 225 bid at home I have bargained to put him on 150 twice a day which he is agreeable to. Otherwise feels that his breathing was a little difficult this morning but at a time of encounter was breathing fine. Reason For Visit: CPID EXACERBATION ACUTE BRONCHITIS Physical Exam Vital Signs: Temp Pulse Resp BP Pulse Ox 97.7 F 47 L 20 107/65 100 10/01/19 10:48 10/01/19 10:48 10/01/19 10:48 10/01/19 10:48 10/01/19 10:48 Intake & Output 09/30/19 10/01/19 10/02/19 06:59 06:59 06:59 Intake Total 250 1335 506 Output Total 1200 800 Balance -950 1335 -294 Weight 108.9 kg 102.7 kg General appearance: PRESENT: no acute distress, cooperative Neck exam: ABSENT: JVD Respiratory exam: PRESENT: symmetrical, unlabored, wheezes, other - On BiPAP. ABSENT: accessory muscle use, retraction, tachypnea Cardiovascular exam: PRESENT: RRR, +S1, +S2. ABSENT: tachycardia GI/Abdominal exam: PRESENT: soft. ABSENT: rebound, rigid, tenderness Neurological exam: PRESENT: alert, awake, oriented to person, oriented to place, oriented to time Results Laboratory Results: 10/01/19 05:56 10/01/19 05:56 10/01/19 10/01/19 05:56 05:56 WBC 10.2 RBC 4.60 Hgb 12.1 L Hct 35.9 L MCV 78 L MCH 26.4 L MCHC 33.8 RDW 18.3 H Plt Count 220 Seg Neutrophils % 83.6 H Sodium 136.4 L Potassium 4.4 Chloride 101 Carbon Dioxide 29 Anion Gap 6 BUN 21 H Creatinine 0.75 Est GFR ( Amer) > 60 Glucose 136 H Calcium 9.2 09/30/19 00:01 Troponin I < 0.012 NT-Pro-B Natriuret Pep 430 H Impressions: Chest X-Ray 09/30/19 00:02 IMPRESSION: No significant change. Small chronic blunting-effusion of the bilateral costophrenic angle. Small chronic left basilar opacity-effusion. Assessment and Plan - Diagnosis (1) Acute exacerbation of chronic obstructive pulmonary disease (COPD) Is this a current diagnosis for this admission?: Yes Plan: Likely triggered by fumes from disinfectant sprays at home. Continue nebulizer treatments. I have placed on DuoNebs every 6 hours. L DEANNA/ICS. Placed on Solu-Medrol IV every 12 hours. Levaquin for severe exacerbation. (2) Acute hypercapnic respiratory failure Is this a current diagnosis for this admission?: Yes Plan: Likely multifactorial secondary to acute bronchitis complicated by chronic COPD and excessive narcotics. Will take off BiPAP as he seems to be breathing comfortably but will continue BiPAP only nocturnally.. (3) Chronic atrial fibrillation Is this a current diagnosis for this admission?: Yes Plan: Diltiazem and Xarelto. Bradycardic likely from having too much diltiazem. Will give some calcium gluconate. (4) Chronic pain Qualifiers: Chronic pain type: chronic pain syndrome Qualified Code(s): G89.4 - Chronic pain syndrome Is this a current diagnosis for this admission?: Yes Plan: I spent a significant amount of time educating patient on significance of respiratory depression which could worsen patient's COPD exacerbation from the narcotics. I have also reviewed his electronic [facility] and we have come to the compromise of resuming his fentanyl patch but reducing his oxycodone IR dose and frequency. Also Lyrica at 150 mg twice daily instead of 225 mg. (5) Rheumatoid arthritis Qualifiers: Rheumatoid factor presence: unspecified presence Laterality: unspecified laterality Is this a current diagnosis for this admission?: Yes Plan: Age corrected ESR is normal. No evidence of acute flare. He is on Xeljanz at home. (6) PTSD (post-traumatic stress disorder) Is this a current diagnosis for this admission?: Yes Plan: Resume paroxetine. Trazodone dose reduced nightly as needed for insomnia. (7) Chronic infection of prosthetic hip Qualifiers: Encounter type: initial encounter Qualified Code(s): T84.59XA - Infection and inflammatory reaction due to other internal joint prosthesis, initial encounter; Z96.649 - Presence of unspecified artificial hip joint Is this a current diagnosis for this admission?: Yes Plan: On amoxicillin while outpatient. Will hold amoxicillin for now since he is on Levaquin for COPD exacerbation. - Time Time Spent with patient: 15-24 minutes
[2019-10-01] MEDS ORDERED: AMOXICILLIN TRIHYDRATE 500 MG CAPSULE PO SCH (14:00)
[2019-10-01] MEDS: IPRATROPIUM/ALBUTEROL 0.5-2.5 MG/3 ML AMPUL NEB SCH ×2 (14:11→20:54)
[2019-10-01] MEDS ORDERED: CALCIUM GLUCONATE 1 GM/NS 50 ML RTU IV ONE (14:30)
[2019-10-01] MEDS: FLUTICASONE/VILANTEROL 100-25 MCG/DOSE IH SCH (17:51)
[2019-10-01] MEDS: RIVAROXABAN 10 MG TABLET PO SCH (17:51)
[2019-10-01] MEDS: METHYLPREDNISOLONE INJ 40 MG/1 ML SDV IV SCH (22:40)
[2019-10-01] MEDS: PREGABALIN 75 MG CAPSULE PO SCH (22:40)
[2019-10-02] MEDS: IPRATROPIUM/ALBUTEROL 0.5-2.5 MG/3 ML AMPUL NEB SCH ×4 (02:11→20:13)
[2019-10-02] MEDS: TRAZODONE HCL 50 MG TABLET PO PRN (02:13)
[2019-10-02] MEDS: OMEGA-3 ACID ETHYL ESTERS 1 GM CAPSULE PO SCH ×2 (08:36→17:15)
[2019-10-02] MEDS: CALCIUM CARBONATE 600 MG/VITAMIN D3 400 UNIT TABLET PO SCH (08:36)
[2019-10-02] MEDS: DILTIAZEM HCL 240 MG CAPSULE.CR PO SCH (08:36)
[2019-10-02] MEDS: VARENICLINE TARTRATE 1 MG TABLET PO SCH ×2 (09:40→22:14)
[2019-10-02] MEDS: FLUTICASONE/VILANTEROL 100-25 MCG/DOSE IH SCH (09:40)
[2019-10-02] MEDS: FLUTICASONE NASAL SPRAY 50 MCG/SPRY 120 SPRAY/16 GM NASL SCH ×2 (09:40→22:15)
[2019-10-02] MEDS: FERROUS SULFATE 325 MG TABLET PO SCH (09:40)
[2019-10-02] MEDS: TAMSULOSIN HCL 0.4 MG CAP.SR.24H PO SCH (09:40)
[2019-10-02] MEDS: PREGABALIN 75 MG CAPSULE PO SCH ×2 (09:41→22:14)
[2019-10-02] MEDS: PAROXETINE HCL 20 MG TABLET PO SCH (09:41)
[2019-10-02] MEDS: METHYLPREDNISOLONE INJ 40 MG/1 ML SDV IV SCH ×2 (09:41→22:14)
[2019-10-02] MEDS: FOLIC ACID 1 MG TABLET PO SCH (09:41)
[2019-10-02] MEDS: CHLORHEXIDINE GLUCONATE 0.12% ORAL RINSE 15 ML UDC PO SCH ×2 (09:41→17:15)
[2019-10-02] MEDS: LEVOFLOXACIN 500 MG TABLET PO SCH (09:41)
[2019-10-02] MEDS: LIDOCAINE 5% OINTMENT 35.44 GM TP SCH ×3 (09:46→17:13)
--- NOTE | 2019-10-02 12:18 | PDOC PROGRESS REPORT ---
Subjective Progress Note for:: 10/02/19 Subjective:: Patient is doing better today. Able to tolerate off BiPAP completely throughout yesterday. Still having pain in his knees but improved with resumption of his pain medications. Reason For Visit: CPID EXACERBATION ACUTE BRONCHITIS Physical Exam Vital Signs: Temp Pulse Resp BP Pulse Ox 97.6 F 115 H 16 122/82 91 L 10/02/19 08:00 10/02/19 08:51 10/02/19 08:51 10/02/19 08:00 10/02/19 08:51 Intake & Output 10/01/19 10/02/19 10/03/19 06:59 06:59 06:59 Intake Total 1335 986 Output Total 1403 Balance 1335 -417 Weight 102.7 kg 100.9 kg General appearance: PRESENT: no acute distress, cooperative Neck exam: ABSENT: JVD Respiratory exam: PRESENT: symmetrical, unlabored, wheezes - Still sounds very tight with significant wheezing. ABSENT: crackles, rhonchi, tachypnea Cardiovascular exam: PRESENT: RRR, +S1, +S2, tachycardia GI/Abdominal exam: PRESENT: soft. ABSENT: rebound, rigid, tenderness Neurological exam: PRESENT: alert, awake, oriented to person, oriented to place, oriented to time, oriented to situation Results Laboratory Results: 10/01/19 05:56 10/01/19 05:56 09/30/19 00:01 Troponin I < 0.012 NT-Pro-B Natriuret Pep 430 H Impressions: Chest X-Ray 09/30/19 00:02 IMPRESSION: No significant change. Small chronic blunting-effusion of the bilateral costophrenic angle. Small chronic left basilar opacity-effusion. Assessment and Plan - Diagnosis (1) Acute exacerbation of chronic obstructive pulmonary disease (COPD) Is this a current diagnosis for this admission?: Yes Plan: Likely triggered by fumes from disinfectant sprays at home. Still having significant wheezing and tightness throughout lung diaz though he appears comfortable today. Not yet controlled. Continue DuoNebs every 6 hours and Solu-Medrol twice daily. LABA/ICS. Levaquin for severe exacerbation. Will discontinue supplemental oxygen and have patient stay on room air today. We will also test patient with ambulation later on today. (2) Acute hypercapnic respiratory failure Is this a current diagnosis for this admission?: Yes Plan: Likely multifactorial secondary to acute bronchitis complicated by chronic COPD and excessive narcotics. Nocturnal BiPAP. (3) Chronic atrial fibrillation Is this a current diagnosis for this admission?: Yes Plan: Diltiazem and Xarelto. Bradycardia resolved. (4) Chronic pain Qualifiers: Chronic pain type: chronic pain syndrome Qualified Code(s): G89.4 - Chronic pain syndrome Is this a current diagnosis for this admission?: Yes Plan: fentanyl patch and oxycodone IR with reduced dose and frequency. Also Lyrica at 150 mg twice daily instead of 225 mg. (5) Rheumatoid arthritis Qualifiers: Rheumatoid factor presence: unspecified presence Laterality: unspecified laterality Is this a current diagnosis for this admission?: Yes Plan: Age corrected ESR is normal. No evidence of acute flare. He is on Xeljanz at home. (6) PTSD (post-traumatic stress disorder) Is this a current diagnosis for this admission?: Yes Plan: Resume paroxetine. Trazodone dose reduced nightly as needed for insomnia. (7) Chronic infection of prosthetic hip Qualifiers: Encounter type: initial encounter Qualified Code(s): T84.59XA - Infection and inflammatory reaction due to other internal joint prosthesis, initial encounter; Z96.649 - Presence of unspecified artificial hip joint Is this a current diagnosis for this admission?: Yes Plan: On amoxicillin while outpatient. Will hold amoxicillin for now since he is on Levaquin for COPD exacerbation. (8) Tobacco dependence Is this a current diagnosis for this admission?: Yes Plan: Chantix. Smoking cessation encouraged. - Time Time Spent with patient: Less than 15 minutes
[2019-10-02] MEDS ORDERED: PREGABALIN 75 MG CAPSULE PO ONE (13:00)
[2019-10-02] MEDS: RIVAROXABAN 10 MG TABLET PO SCH (17:15)
[2019-10-02] MEDS: OXYCODONE HCL IR 5 MG TABLET PO PRN (17:18)
[2019-10-03] MEDS: TRAZODONE HCL 50 MG TABLET PO PRN (00:08)
[2019-10-03] MEDS: OXYCODONE HCL IR 5 MG TABLET PO PRN ×2 (01:03→13:33)
[2019-10-03] MEDS: IPRATROPIUM/ALBUTEROL 0.5-2.5 MG/3 ML AMPUL NEB SCH ×3 (02:18→13:50)
[2019-10-03] MEDS: CALCIUM CARBONATE 600 MG/VITAMIN D3 400 UNIT TABLET PO SCH (07:46)
[2019-10-03] MEDS: OMEGA-3 ACID ETHYL ESTERS 1 GM CAPSULE PO SCH (07:46)
[2019-10-03] MEDS: DILTIAZEM HCL 240 MG CAPSULE.CR PO SCH (07:46)
[2019-10-03] MEDS: VARENICLINE TARTRATE 1 MG TABLET PO SCH (09:21)
[2019-10-03] MEDS: FLUTICASONE NASAL SPRAY 50 MCG/SPRY 120 SPRAY/16 GM NASL SCH (09:21)
[2019-10-03] MEDS: FLUTICASONE/VILANTEROL 100-25 MCG/DOSE IH SCH (09:21)
[2019-10-03] MEDS: CHLORHEXIDINE GLUCONATE 0.12% ORAL RINSE 15 ML UDC PO SCH (09:22)
[2019-10-03] MEDS: TAMSULOSIN HCL 0.4 MG CAP.SR.24H PO SCH (09:22)
[2019-10-03] MEDS: FOLIC ACID 1 MG TABLET PO SCH (09:22)
[2019-10-03] MEDS: FERROUS SULFATE 325 MG TABLET PO SCH (09:22)
[2019-10-03] MEDS: PAROXETINE HCL 20 MG TABLET PO SCH (09:22)
[2019-10-03] MEDS: PREGABALIN 75 MG CAPSULE PO SCH (09:22)
[2019-10-03] MEDS: METHYLPREDNISOLONE INJ 40 MG/1 ML SDV IV SCH (09:22)
[2019-10-03] MEDS: LEVOFLOXACIN 500 MG TABLET PO SCH (09:26)
[2019-10-03] MEDS: LIDOCAINE 5% OINTMENT 35.44 GM TP SCH ×2 (09:28→13:35)
[2019-10-03] MEDS ORDERED: NORMAL SALINE 1000 ML 1,000 ML IV ONE (11:20)
--- NOTE | 2019-10-03 11:34 | PDOC DISCHARGE SUMMARY ---
Impression - Admit/DC Date/PCP Admission Date/Primary Care Provider: 09/30/19 01:[facility] Discharge Date: 10/03/19 - Discharge Diagnosis (1) Acute exacerbation of chronic obstructive pulmonary disease (COPD) Is this a current diagnosis for this admission?: Yes (2) Acute hypercapnic respiratory failure Is this a current diagnosis for this admission?: Yes (3) Chronic atrial fibrillation Is this a current diagnosis for this admission?: Yes (4) Chronic pain Is this a current diagnosis for this admission?: Yes (5) Rheumatoid arthritis Is this a current diagnosis for this admission?: Yes (6) PTSD (post-traumatic stress disorder) Is this a current diagnosis for this admission?: Yes (7) Chronic infection of prosthetic hip Is this a current diagnosis for this admission?: Yes (8) Tobacco dependence Is this a current diagnosis for this admission?: Yes - Additional Information Resuscitation Status: Full Code Discharge Diet: As Tolerated [facility]: [facility] [[facility]] - Follow up as needed Prescriptions: Prednisone [Deltasone 20 mg Tablet] 40 mg PO DAILY 3 Days #6 tablet Home Medications: Albuterol Sulfate [Proair HFA Inhalation Aerosol 8.5 gm MDI] 2 puff IH Q6HP PRN 07/02/19 Albuterol Sulfate [Ventolin 0.083% Neb 2.5 mg/3 mL Ampul] 1 vial NEB TIDP PRN 07/02/19 Amoxicillin 1 tab PO TID 07/02/19 Chlorhexidine Gluconate [Periogard 0.12% Oral Rinse 15 ml] 15 ml PO BID 07/02/19 Mupirocin [Bactroban 2% Ointment 22 gm] 1 applic TP BID 07/02/19 [place]-3/Dha/Epa/Fish Oil [Fish Oil 1,000 mg Softgel] 2 each PO BID 07/02/19 Sildenafil Citrate 50 mg PO ASDIR PRN 07/02/19 Tiotropium [place] [Spiriva Respimat] 2 puff IH DAILY 07/02/19 Tofacitinib Citrate [Xeljanz] 5 mg PO BID 07/02/19 Diltiazem HCl [Cardizem Cd 240 mg Capsule.cr] 240 mg PO DAILY #30 capsule.cr 07/04/19 Calcium Carbonate/Vitamin D3 [Calcium 500-Vit D3 200 Tablet] 1 each PO DAILY 09/30/19 Fentanyl [Duragesic 25 mcg/hr Transdermal Patch] 1 each TD Q3D 09/30/19 Folic Acid 1 mg PO DAILY 09/30/19 Hydroquinone Microspheres [Hydroquinone] 1 applic TP DAILY 09/30/19 Lidocaine HCl [Xylocaine 5% Ointment 35.44 gm] 1 applic TP TID 09/30/19 Rivaroxaban [Xarelto] 20 mg PO DAILY 09/30/19 Tamsulosin HCl [Flomax 0.4 mg Cap.sr] 0.4 mg PO DAILY 09/30/19 Varenicline Tartrate [Chantix 1 mg Tablet] 1 mg PO BID 09/30/19 Ferrous Sulfate [Feosol 325 mg Tablet] 325 mg PO DAILY 10/01/19 Pregabalin [Lyrica] 225 mg PO Q12 10/01/19 Oxycodone HCl [Roxicodone] 10 mg PO BIDP PRN #0 10/03/19 Prednisone [Deltasone 20 mg Tablet] 40 mg PO DAILY 3 Days #6 tablet 10/03/19 History of Present Illiness History of Present Illness: KERRI STODDARD is a 54 year old male with a past medical history of atrial fibrillation on Xarelto, rheumatoid arthritis on Xeljanz, 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 He presents with worsening shortness of breath over the last 3 days associated with a intermittently productive cough. He denies travel, fever nausea vomiting or infectious contacts. In the emergency department he is found to have oxygen saturations of 100% but hypercapnia with a PCO2 of 59 and 2 fentanyl patches of 25 mcg each. Formally on 12.5 mg fentanyl patch daily June 2019. A solitary patch is removed and his respiratory rate increases he is placed on BiPAP receiving Solu-Medrol, albuterol and Atrovent. He is referred to the hospitalist for admission. He denies chest pain nausea vomiting. He is imaging reveals old right lung scarring and chronic changes. He admits to a recent increased dose of his fentanyl patch. Hospital Course Hospital Course: Acute exacerbation of chronic obstructive pulmonary disease (COPD) Is this a current diagnosis for this admission?: Yes Plan: Likely triggered by fumes from disinfectant sprays at home. Received IV steroids, frequent DuoNebs, Levaquin x4 days [for severe exacerbation but no pneumonia], LABA/ICS/LAMA. Symptoms improved significantly. Wheezing improved today. Ambulatory pulse ox did not drop below 90% on room air. Being discharged home on frequent nebs for 3-5 more days and prednisone. Acute hypercapnic respiratory failure Is this a current diagnosis for this admission?: Yes Plan: Likely multifactorial secondary to acute bronchitis complicated by chronic COPD and excessive narcotics. Nocturnal BiPAP. Chronic atrial fibrillation Is this a current diagnosis for this admission?: Yes Plan: Diltiazem and Xarelto. Received 1 L normal saline bolus today will noted tachycardia on standing. Chronic pain Qualifiers: Chronic pain type: chronic pain syndrome Qualified Code(s): G89.4 - Chronic pain syndrome Is this a current diagnosis for this admission?: Yes Plan: Resuming all his previous meds on discharge. Oxycodone as needed regimen changed to twice a day from 3 times daily. No scripts given as patient already has these medications. Rheumatoid arthritis Qualifiers: Rheumatoid factor presence: unspecified presence Laterality: unspecified laterality Is this a current diagnosis for this admission?: Yes Plan: Age corrected ESR is normal. No evidence of acute flare. He is on Xeljanz at home. Tobacco dependence Is this a current diagnosis for this admission?: Yes Plan: Chantix. Smoking cessation encouraged. Physical Exam Vital Signs: Temp Pulse Resp BP Pulse Ox 97.9 F 100 14 131/96 H 90 L 10/03/19 07:16 10/03/19 09:04 10/03/19 09:04 10/03/19 07:16 10/03/19 09:04 Intake & Output 10/02/19 10/03/19 10/04/19 06:59 06:59 06:59 Intake Total 986 1880 Output Total 1403 3300 Balance -417 -1420 Weight 100.9 kg 102.1 kg General appearance: PRESENT: no acute distress, cooperative Respiratory exam: PRESENT: symmetrical, unlabored, wheezes - Still present but improved from yesterday. ABSENT: accessory muscle use, retraction, tachypnea Musculoskeletal exam: PRESENT: ambulatory - Ambulated the hallways without difficulty or shortness of breath Neurological exam: PRESENT: alert, awake, oriented to person, oriented to place, oriented to time Results Laboratory Results: WBC 10.2 10^3/uL (4.0-10.5) 10/01/19 05:56 RBC 4.60 10^6/uL (4.35-5.55) 10/01/19 05:56 Hgb 12.1 g/dL (13.5-17.0) L 10/01/19 05:56 Hct 35.9 % (37.9-51.0) L 10/01/19 05:56 MCV 78 fl (80-97) L 10/01/19 05:56 MCH 26.4 pg (27.0-33.4) L 10/01/19 05:56 MCHC 33.8 g/dL (32.0-36.0) 10/01/19 05:56 RDW 18.3 % (11.5-14.0) H 10/01/19 05:56 Plt Count 220 10^3/uL (150-450) 10/01/19 05:56 Lymph % (Auto) 7.5 % (13-45) L 10/01/19 05:56 [place] % (Auto) 8.6 % (3-13) 10/01/19 05:56 Eos % (Auto) 0.0 % (0-6) 10/01/19 05:56 Baso % (Auto) 0.3 % (0-2) 10/01/19 05:56 Absolute Neuts (auto) 8.5 10^3/uL (1.7-8.2) H 10/01/19 05:56 Absolute Lymphs (auto) 0.8 10^3/uL (0.5-4.7) 10/01/19 05:56 Absolute Monos (auto) 0.9 10^3/uL (0.1-1.4) 10/01/19 05:56 Absolute Eos (auto) 0.0 10^3/uL (0.0-0.6) 10/01/19 05:56 Absolute Basos (auto) 0.0 10^3/uL (0.0-0.2) 10/01/19 05:56 Total Counted 100 09/30/19 06:04 Seg Neutrophils % 83.6 % (42-78) H 10/01/19 05:56 Seg Neuts % (Manual) 95 % (42-78) H 09/30/19 06:04 Lymphocytes % (Manual) 4 % (13-45) L 09/30/19 06:04 Monocytes % (Manual) 0 % (3-13) L 09/30/19 06:04 Eosinophils % (Manual) 1 % (0-6) 09/30/19 06:04 Basophils % (Manual) 0 % (0-2) 09/30/19 06:04 Abs Neuts (Manual) 6.8 10^3/uL (1.7-8.2) 09/30/19 06:04 Abs Lymphs (Manual) 0.3 10^3/uL (0.5-4.7) L 09/30/19 06:04 Abs Monocytes (Manual) 0.0 10^3/uL (0.1-1.4) L 09/30/19 06:04 Absolute Eos (Manual) 0.1 10^3/uL (0.0-0.6) 09/30/19 06:04 Abs Basophils (Manual) 0.0 10^3/uL (0.0-0.2) 09/30/19 06:04 Platelet Comment ADEQUATE 09/30/19 06:04 Hypochromasia SLIGHT 09/30/19 06:04 Poikilocytosis SLIGHT 09/30/19 06:04 Anisocytosis 2+ 09/30/19 06:04 Microcytosis SLIGHT 09/30/19 06:04 Ovalocytes SLIGHT 09/30/19 06:04 ESR 26 mm/hr (0-20) H 09/30/19 00:01 PT 19.5 SEC (11.4-15.4) H 09/30/19 00:55 INR 1.63 09/30/19 00:55 Carbonic Acid 1.77 mmol/L (1.05-1.35) H 09/30/19 00:30 HCO3/H2CO3 Ratio 16:1 09/30/19 00:30 ABG pH 7.30 (7.35-7.45) L 09/30/19 00:30 ABG pCO2 58.8 mmHg (35-45) H 09/30/19 00:30 ABG pO2 147.9 mmHg (80-100) H 09/30/19 00:30 ABG HCO3 28.5 mmol/L (20-24) H 09/30/19 00:30 ABG Total CO2 30.3 mmol/L (23-27) H 09/30/19 00:30 ABG O2 Saturation 98.6 % (94-98) H 09/30/19 00:30 ABG Base Excess 1.1 mmol/L 09/30/19 00:30 FiO2 45% 09/30/19 00:30 Sodium 136.4 mmol/L (137-145) L 10/01/19 05:56 Potassium 4.4 mmol/L (3.6-5.0) 10/01/19 05:56 Chloride 101 mmol/L (98-107) 10/01/19 05:56 Carbon Dioxide 29 mmol/L (22-30) 10/01/19 05:56 Anion Gap 6 (5-19) 10/01/19 05:56 BUN 21 mg/dL (7-20) H 10/01/19 05:56 Creatinine 0.75 mg/dL (0.52-1.25) 10/01/19 05:56 Est GFR ( Amer) > 60 (>60) 10/01/19 05:56 Est GFR (MDRD) Non-Af > 60 (>60) 10/01/19 05:56 Glucose 136 mg/dL (75-110) H 10/01/19 05:56 Calcium 9.2 mg/dL (8.4-10.2) 10/01/19 05:56 Total Bilirubin 0.4 mg/dL (0.2-1.3) 09/30/19 00:01 Direct Bilirubin 0.0 mg/dL (0.0-0.4) 09/30/19 00:01 Neonat Total Bilirubin Not Reportable 09/30/19 00:01 Neonat Direct Bilirubin Not Reportable 09/30/19 00:01 Neonat Indirect Bili Not Reportable 09/30/19 00:01 AST 44 U/L (17-59) 09/30/19 00:01 ALT 33 U/L (<50) 09/30/19 00:01 Alkaline Phosphatase 143 U/L (38-126) H 09/30/19 00:01 Troponin I < 0.012 ng/mL 09/30/19 00:01 NT-Pro-B Natriuret Pep 430 pg/mL (<125) H 09/30/19 00:01 Total Protein 7.0 g/dL (6.3-8.2) 09/30/19 00:01 Albumin 4.0 g/dL (3.5-5.0) 09/30/19 00:01 Urine Color YELLOW 09/30/19 00:55 Urine Appearance CLEAR 09/30/19 00:55 Urine pH 6.0 (5.0-9.0) 09/30/19 00:55 Ur Specific [place] 1.010 09/30/19 00:55 Urine Protein NEGATIVE mg/dL (NEGATIVE) 09/30/19 00:55 Urine Glucose (UA) NEGATIVE mg/dL (NEGATIVE) 09/30/19 00:55 Urine Ketones NEGATIVE mg/dL (NEGATIVE) 09/30/19 00:55 Urine Blood SMALL (NEGATIVE) H 09/30/19 00:55 Urine Nitrite NEGATIVE (NEGATIVE) 09/30/19 00:55 Urine Bilirubin NEGATIVE (NEGATIVE) 09/30/19 00:55 Urine Urobilinogen NEGATIVE mg/dL (<2.0) 09/30/19 00:55 Ur Leukocyte Esterase NEGATIVE (NEGATIVE) 09/30/19 00:55 Urine WBC (Auto) 1 /HPF 09/30/19 00:55 Urine RBC (Auto) 1 /HPF 09/30/19 00:55 Urine Ascorbic Acid NEGATIVE (NEGATIVE) 09/30/19 00:55 SARS-CoV-2 (PCR) NEGATIVE (NEGATIVE) 09/30/19 02:26 09/30/19 00:01 Troponin I < 0.012 NT-Pro-B Natriuret Pep 430 H Impressions: Chest X-Ray 09/30/19 00:02 IMPRESSION: No significant change. Small chronic blunting-effusion of the bilateral costophrenic angle. Small chronic left basilar opacity-effusion. Plan Time Spent: Greater than 30 Minutes Stroke Is this a Stroke Patient?: No Acute Heart Failure - Is this a Heart Failure Patient?: No
[2019-10-03 12:14] VITALS: BP 121/80
== END 2019-10-03 14:18 | disposition home or self-care (01) | DRG 190 ==
LOC: ER 23:52 → EH 09-30 01:56 → 4S 09-30 04:04
PROVIDERS: ADMIT Internal Medicine; ATTEND Internal Medicine
PROC: 5A09457 Assistance with Respiratory Ventilation, 24-96 Consecutive Hours, Continuous Positive Airway Pressure (ICD-10-PCS; principal; 2019-09-30)
DX: J43.9 Emphysema, unspecified (principal); J96.02 Acute respiratory failure with hypercapnia; T84.52XA Infection and inflammatory reaction due to internal left hip prosthesis, initial encounter; J20.9 Acute bronchitis, unspecified; M06.9 Rheumatoid arthritis, unspecified; F43.10 Post-traumatic stress disorder, unspecified; I48.0 Paroxysmal atrial fibrillation; G89.4 Chronic pain syndrome; F17.210 Nicotine dependence, cigarettes, uncomplicated; F32.9 Major depressive disorder, single episode, unspecified; Z79.899 Other long term (current) drug therapy; Z79.01 Long term (current) use of anticoagulants; Z86.711 Personal history of pulmonary embolism; Z87.820 Personal history of traumatic brain injury; Z88.6 Allergy status to analgesic agent; Z88.1 Allergy status to other antibiotic agents; Z88.8 Allergy status to other drugs, medicaments and biological substances; Z79.891 Long term (current) use of opiate analgesic; Z79.51 Long term (current) use of inhaled steroids
CPT/HCPCS: 36415; 36600; 71045; 80048; 80053; 81001; 82803; 83880; 84484; 85025; 85610; 85652; 87040; 87635; 93005; 93010; 94660; 94667; 94668; 94799; 96365; 96375; 99291; 99292; J0610; J0696; J1100; J1644; J1956; J2270; J2920; J3490; J7030; J7512; J7620

== ENCOUNTER 2020-02-04 09:03 | Emergency (ER) | payer OTHER, MEDICARE ==
--- NOTE | 2020-02-04 09:44 | RADIOLOGY REPORT (SQ) ---
EXAM DESCRIPTION: CHEST SINGLE VIEW IMAGES COMPLETED DATE/TIME: 02/04/2020 9:32 am REASON FOR STUDY: SHORT OF BREATH COMPARISON: 09/30/2019 EXAM PARAMETERS: NUMBER OF VIEWS: One view. TECHNIQUE: Single frontal radiographic view of the chest acquired. RADIATION DOSE: NA LIMITATIONS: None. FINDINGS: LUNGS AND PLEURA: Chronic blunting of the costophrenic angles. No focal consolidation. N o pneumothorax. MEDIASTINUM AND HILAR STRUCTURES: No masses. Contour normal. HEART AND VASCULAR STRUCTURES: Heart normal in size. Normal vasculature. BONES: No acute findings. HARDWARE: None in the chest. OTHER: No other significant finding. IMPRESSION: Stable radiographic appearance of the chest demonstrating chronic blunting of the costop hrenic angles. No acute findings. TECHNICAL DOCUMENTATION: JOB ID: [id number] [employer]- All Rights Reserved Reading location - IP/workstation name: [email or web address]
[2020-02-04 09:45] LABS: ABSOLUTE EOSINOPHILS # (AUTO) 0.5 10^3/uL (0.0-0.6); ABSOLUTE LYMPHOCYTES (AUTO) 2.1 10^3/uL (0.5-4.7); ABSOLUTE MONOCYTES (AUTO) 0.9 10^3/uL (0.1-1.4); ABSOLUTE NEUT (AUTO) 2.8 10^3/uL (1.7-8.2); BASOPHILS % (AUTO) 0.7 % (0-2); EOSINOPHILS % (AUTO) 7.7 % (0-6); HEMATOCRIT 36.7 % (37.9-51.0); HEMOGLOBIN 12.3 g/dL (13.5-17.0); LYMPHOCYTES % (AUTO) 33.1 % (13-45); MEAN CORPUSCULAR HEMOGLOBIN 27.8 pg (27.0-33.4); MEAN CORPUSCULAR HGB CONC 33.5 g/dL (32.0-36.0); MEAN CORPUSCULAR VOLUME 83 fl (80-97); MONOCYTES % (AUTO) 13.9 % (3-13); PLATELET COUNT 223 10^3/uL (150-450); RED BLOOD COUNT 4.42 10^6/uL (4.35-5.55); RED CELL DISTRIBUTION WIDTH 15.2 % (11.5-14.0); SEGMENTED NEUTROPHILS % (AUTO) 44.6 % (42-78); TOTAL CELLS COUNTED % (AUTO) 100 %; WHITE BLOOD COUNT 6.4 10^3/uL (4.0-10.5)
[2020-02-04 09:46] LABS: VENOUS BLOOD BASE EXCESS -0.3 mmol/L; VENOUS BLOOD PCO2 55.2 mmHg (35-63); VENOUS BLOOD PH 7.31 (7.30-7.42)
[2020-02-04 10:10] VITALS: BP 120/80
[2020-02-04 10:11] LABS: ALBUMIN 3.9 g/dL (3.5-5.0); ALKALINE PHOSPHATASE 113 U/L (38-126); ANION GAP 10 (5-19); ASPARTATE AMINO TRANSFERASE 25 U/L (17-59); BILIRUBIN,DIRECT 0.3 mg/dL (0.0-0.4); BILIRUBIN,TOTAL 1.2 mg/dL (0.2-1.3); BLOOD UREA NITROGEN 13 mg/dL (7-20); CALCIUM 9.2 mg/dL (8.4-10.2); CARBON DIOXIDE 28 mmol/L (22-30); CHLORIDE 98 mmol/L (98-107); CREATINE KINASE 147 U/L (55-170); POTASSIUM 4.5 mmol/L (3.6-5.0); TOTAL PROTEIN 6.6 g/dL (6.3-8.2)
[2020-02-04 10:22] LABS: CREATINE KINASE MB 1.72 ng/mL (<4.55); GLUCOSE 69 mg/dL (75-110); NT PRO BNP 672 pg/mL (<125)
[2020-02-04 10:23] LABS: TROPONIN I < 0.012 ng/mL
[2020-02-04] MEDS ORDERED: OXYCODONE HCL SR 10 MG TABLET PO ONE (10:23)
[2020-02-04] MEDS ORDERED: FENTANYL 25 MCG/HR PATCH.TD72 TD ONE (10:23)
[2020-02-04] MEDS: MAGNESIUM SULFATE/D5W 1 GM/100 ML RTUPB IV SCH ×2 (10:30→11:33)
[2020-02-04] MEDS ORDERED: NORMAL SALINE 1000 ML 1,000 ML IV ONE (10:36)
--- NOTE | 2020-02-04 11:43 | ER Document Report ---
Entered by BELEN DONATO SCRIBE 02/04/20 0928 Acting as scribe for:TRACE MELENDEZ MD ED Respiratory Problem - General Stated Complaint: DIFFICULTY BREATHING Time Seen by Provider: 02/04/20 09:20 Primary Care Provider: [facility] [Primary [facility]] - Follow up as needed Mode of Arrival: Medic Information source: Patient, Emergency Med Personnel Notes: This 54 year old male patient with a history of COPD and A fib on Xarelto brought in by EMS presents to the ED today with complaints of shortness of breath that started yesterday, worse this morning. Patient states that he noticed that he was using his inhaler with more frequency yesterday and that he was bringing up yellow-colored sputum when he coughed. He reports increased shortness of breath when he woke up this morning that did not improve after nebulizer treatments at home, so he called EMS. Denies fever, chest pain, nausea/vomiting/diarrhea, loss of taste/smell, or known COVID exposure. Patient also reports generalized pain, stating that he was unable to take his Oxycodone or Fentanyl patch this morning. Patient has a history of rhematoid arthritis and chronic pain. TRAVEL OUTSIDE OF THE [place] IN LAST 30 DAYS: No - Related Data Allergies/Adverse Reactions: vancomycin Allergy (Severe, Verified 07/02/19 04:45) Anaphylaxis adalimumab [From Humira] Adverse Reaction (Verified 07/02/19 04:45) etanercept [From Enbrel] Adverse Reaction (Verified 07/02/19 04:45) gabapentin Adverse Reaction (Verified 07/02/19 04:45) methotrexate Adverse Reaction (Verified 07/02/19 04:45) Past Medical History - General Information source: Patient, [facility] Records - Social History Smoking Status: Unknown if Ever Smoked Smoking Education Provided: No Family History: Reviewed & Not Pertinent, Arthritis, CAD Patient has suicidal ideation: No Patient has homicidal ideation: No - Past Medical History Cardiac Medical History: Reports: Hx Atrial Fibrillation Pulmonary Medical History: Reports: Hx Bronchitis, Hx COPD, Hx Pneumonia, Hx Respiratory Failure Renal/ Medical History: GI Medical History: Reports: Hx Ulcer Musculoskeletal Medical History: Reports Hx Arthritis - Rheumatoid arthritis Psychiatric Medical History: Reports: Hx Depression, Hx Post Traumatic Stress Disorder Past Surgical History: Reports: Hx Cardiac Catheterization, Hx Orthopedic Surg stephen - Multiple procedures on the left hip for infection and prosthetic instabilit, Other - Catheter ablation X 2 afib - Immunizations Immunizations up to date: Yes Hx Diphtheria, Pertussis, Tetanus Vaccination: Yes Hx Pneumococcal Vaccination: 11/23/09 Review of Systems - Review of Systems Constitutional: See HPI. denies: Fever EENT: See HPI. denies: Other - Loss of taste/smell Cardiovascular: See HPI. denies: Chest pain Respiratory: See HPI, Cough, Short of breath, Sputum Gastrointestinal: See HPI. denies: Diarrhea, Nausea, Vomiting Genitourinary: No symptoms reported Male Genitourinary: No symptoms reported Musculoskeletal: See HPI, Muscle pain Skin: No symptoms reported Hematologic/Lymphatic: No symptoms reported Neurological/Psychological: No symptoms reported -: Yes All other systems reviewed and negative Physical Exam - Vital signs Vitals: Temp Resp BP Pulse Ox 99.0 F 13 115/68 96 02/04/20 09:07 02/04/20 09:07 02/04/20 09:07 02/04/20 09:07 Interpretation: Normal - General General appearance: Alert In distress: None - HEENT Head: Normocephalic, Atraumatic Eyes: Normal Pupils: PERRL - Respiratory Respiratory status: No respiratory distress Chest status: Nontender Breath sounds: Wheezing - Expiratory wheezing Chest palpation: Normal - Cardiovascular Rhythm: Regular Heart sounds: Normal auscultation, S1 appreciated, S2 appreciated Murmur: No Friction rub: No Gallop: None auscultated - Abdominal Inspection: Normal Distension: No distension Bowel sounds: Normal Tenderness: Nontender - Abdomen soft Organomegaly: No organomegaly - Back Back: Normal, Nontender - Extremities General upper extremity: Normal inspection General lower extremity: Edema - Chronic nonpitting edema to bilateral lower extremities per patient Knee: No: Normal - Boggy, bilaterally - Neurological Neuro grossly intact: Yes Orientation: AAOx4 [place] Coma Scale Eye Opening: Spontaneous [place] Coma Scale Verbal: Oriented [place] Coma Scale Motor: Obeys Commands [place] Coma Scale Total: 15 - Psychological Associated symptoms: Normal affect, Normal mood - Skin Skin Temperature: Warm Skin Moisture: Dry Skin Color: Normal Course - Re-evaluation Re-evalutation: 02/04/20 11:36 Patient is pain-free at this time. Work of breathing has improved. - Vital Signs Vital signs: Temp Pulse Resp BP Pulse Ox 99 F 12 120/80 96 02/04/20 09:32 02/04/20 15:00 02/04/20 10:01 02/04/20 15:00 Vital signs stable - Laboratory Result Diagrams: 02/04/20 09:05 02/04/20 09:05 Laboratory results interpreted by me: 02/04/20 02/04/20 02/04/20 09:05 09:05 09:05 Hgb 12.3 L Hct 36.7 L RDW 15.2 H [place] % (Auto) 13.9 H Eos % (Auto) 7.7 H Sodium 135.9 L Glucose 69 L NT-Pro-B Natriuret Pep 672 H Laboratory results disclosed a BNP of 672 sodium 135.9 and a glucose of 69. Patient has also troponin x2 that were within the normal range. Patient has a history of COPD which probably explains the elevated BNP. - Diagnostic Test Radiology reviewed: Image reviewed, Reports reviewed Radiology results interpreted by me: 02/06/20 07:32 Chest X-Ray 02/04/20 09:17 IMPRESSION: Stable radiographic appearance of the chest demonstrating chronic blunting of the costophrenic angles. No acute findings. Chest x-ray does not show any acute findings no infiltrate no consolidations no evidence for an infection. - EKG Interpretation by Me Additional EKG results interpreted by me: 02/04/20 18:23 Twelve-lead EKG shows normal sinus rhythm rate of 84 first-degree AV block. Low voltage in frontal leads. Borderline T abnormalities anterior leads otherwise no acute ST-T wave changes. Discharge - Discharge Clinical Impression: COPD exacerbation, COPD exacerbation Condition: Stable Disposition: HOME, SELF-CARE Instructions: COVID-19 Guidance for Persons Under Investigation Additional Instructions: Chronic Obstructive Lung Disease You have chronic obstructive lung disease (COPD). The symptoms come from emphysema (damage to small airways, with trapping of air in large sacks in the lung) and chronic bronchitis (repeated infection and damage to larger airways). The cause is almost always cigarette smoking, although dust exposure, asthma, a nd infections contribute. You should avoid fumes, dust, and smoke (especially tobacco smoke). Your condition will flare from time to time. There is no cure, but the symptoms can be treated. Bronchodilators (asthma medicine) are often helpful. Antibiotics help when infection is present. When shortness of breath is severe, we may prescribe cortisone medication. If medicine doesn't help enough, we can arrange for you to have an oxygen tank at home. Notify your doctor at once if sputum becomes thick, foul, or bloody, if you develop a fever or chest pain, or if your shortness of breath worsens. Prescriptions: Prednisone [Deltasone 20 mg Tablet] 20 mg PO BID #12 tablet [facility]errals: [facility] [Primary Care [facility]] - Follow up as needed I personally performed the services described in the documentation, reviewed and edited the documentation which was dictated to the scribe in my presence, and it accurately records my words and actions.
[2020-02-04] MEDS ORDERED: PREDNISONE 20 MG TABLET PO ONE (15:26)
--- NOTE | 2020-02-04 16:49 | EKG REPORT ---
SEVERITY:- ABNORMAL ECG - ATRIAL FIBRILLATION LOW VOLTAGE IN FRONTAL LEADS BORDERLINE T ABNORMALITIES, ANTERIOR LEADS : Confirmed by: Kirill Kay MD 04-Feb-2020 16:48:47
== END 2020-02-04 16:00 | disposition home or self-care (01) ==
LOC: ER 09:03
DX: J44.1 Chronic obstructive pulmonary disease with (acute) exacerbation (principal); M06.9 Rheumatoid arthritis, unspecified; G89.29 Other chronic pain; R05 Cough; R60.0 Localized edema; I44.0 Atrioventricular block, first degree; I48.91 Unspecified atrial fibrillation; Z79.01 Long term (current) use of anticoagulants; Z79.899 Other long term (current) drug therapy; Z79.891 Long term (current) use of opiate analgesic; Z87.891 Personal history of nicotine dependence; Z88.1 Allergy status to other antibiotic agents; Z87.01 Personal history of pneumonia (recurrent); Z20.828 Contact with and (suspected) exposure to other viral communicable diseases
CPT/HCPCS: 93005; 99285; 96360; 96361; 36415; 87040; 82553; 82550; 83605; 85025; 87635; 80053; 84484; 82803; 83880; 71045; 93010; J3475; J7512; J3490; J7030; C9803